=== PATIENT | male | born 1955 | race Hispanic/Latino ===

== ENCOUNTER 2018-03-31 08:40 | Day surgery (SDC) | payer BC ==
--- OUTSIDE RECORDS SUMMARY | 2018-03-31 08:43 | XMS REPORT | Clinical Summary ---
:1955 Author Organization [facility] Address [address] [place] [address] Phone Care Team Providers Name Role Phone Unavailable Primary Care Provider Unavailable Allergies No Known Allergies Current Medications Prescription Sig. Disp. Refills Start Date End Date Status heparin infusion Inject 150-3,500 100 mL 0 12/11/2016 Active 25,000 units in Units/hr intravenously dextrose 5% (D5W) 250 continuous. mL (100 units/mL) meropenem (MERREM) Inject 1 g 0 12/11/2016 Active MBP 1 gm in 100 mL NS intravenously every 8 (eight) hours. micafungin (MYCAMINE) Inject 100 mg 0 12/11/2016 Active MBP 100 mg in 100 mL intravenously daily. NS Active Problems Problem Noted Date Acute renal failure, unspecified acute renal failure type (HCC) 11/30/2016 Acute renal failure (ARF) ([facility]) 11/28/2016 Abscess of abdominal cavity ([facility]) 11/28/2016 Acute pulmonary insufficiency 11/13/2016 Intra-abdominal infection 11/13/2016 Severe sepsis ([facility]) 11/12/2016 Hyperglycemia 11/10/2016 Thrombocytopenia ([facility]) 11/10/2016 Sepsis ([facility]) 11/10/2016 GI bleed 11/07/2016 Septic shock ([facility]) 11/07/2016 Multiple organ failure with liver failure ([facility]) 11/07/2016 Diverticulitis 11/07/2016 Acute kidney injury ([facility]) 11/07/2016 Acute liver failure 11/07/2016 Metabolic acidosis with respiratory alkalosis 11/07/2016 Acute respiratory failure (HCC) 11/07/2016 Hyperbilirubinemia 11/07/2016 Lactic acid acidosis 11/07/2016 Immunizations Name Dates Previously Given Next Due Influenza Three-TIV PF 5+ YR 11/30/2016 Pneumococcal Polysaccharide (Pneumovax) 11/30/2016 Family History Medical History Relation Name Comments Diabetes Mother Relation Name Status Comments Mother Social History Tobacco Use Types Packs/Day Years Used Date Never Smoker Tobacco Cessation: Counseling Given: No Sex Assigned at Date Recorded Not on file Last Filed Vital Signs Not on file Plan of Treatment Health Maintenance Due Date Last Done Comments INFLUENZA VACCINE 07/05/2018 11/30/2016 Results Not on fileafter 03/30/2017
--- OUTSIDE RECORDS SUMMARY | 2018-03-31 08:43 | XMS REPORT | Clinical Summary ---
:1955 Author Organization [facility] Address [address] [id number] Care Team Providers Name Role Phone Danny Duong MD Primary Care Provider Allergies No Known Allergies Current Medications Prescription Sig. Disp. Refills Start Date End Date Status warfarin (COUMADIN) 2 MG Take 2 mg by mouth Active tablet daily. traMADol (ULTRAM) 50 mg Take 50 mg by mouth Active tablet every 6 (six) hours as needed for moderate pain. Active Problems Not on file Family History Medical History Relation Name Comments Diabetes Mother Hypertension Mother Relation Name Status Comments Father Alive Mother Social History Tobacco Use Types Packs/Day Years Used Date Never Smoker Sex Assigned at Date Recorded Not on file Last Filed Vital Signs Not on file Plan of Treatment Health Maintenance Due Date Last Done Comments COLON CANCER SCREENING 2005 SHINGRIX VACCINE (#1) 2005 ZOSTER VACCINE 2015 INFLUENZA VACCINE 05/05/2018 Results Not on fileafter 03/30/2017
--- OUTSIDE RECORDS SUMMARY | 2018-03-31 08:46 | XMS REPORT ---
:1955 Author Organization [facility] Address [address] [place] [address] [address] [place] [address] Care Team Providers Name Role Phone JENNIFER ALLEN Unavailable Unavailable BECCA RDZ Unavailable Unavailable Problems This patient has no known problems. Allergies, Adverse Reactions, Alerts This patient has no known allergies or adverse reactions. Medications This patient has no known medications. Results Test Description Test Time Test Comments Text Results Atomic Results Result Comments POCT-GLUCOSE METER 2016-12-11 21:17:00 Test Item Value Reference Range Comments POC-GLUCOSE METER (BEAKER) (test 126 mg/dL 70-110 TESTED AT [facility] [address] [facility] mwny=8940) [facility] [address] CLOSTRIDIUM DIFFICILE TOXIN [id number] 15:46:00 Test Item Value Reference Range Comments CLOSTRIDIUM DIFFICILE TOXIN, PCR (BEAKER) (test Not Detected Not Detected twse=6498) This qualitative real-time polymerase chain reaction assay detects the tcdB gene , encoded on the C.difficile pathogenicity locus (PaLoc). The product of tcdB, toxin B, is a cytotoxin essential for causing C.difficile-associated disease ( CDAD) and is found in virtually all toxigenic C.difficile.This assay is performed for patients suspected of having either community-acquired or nosocomial CDAD. Accordingly, only symptomatic patients should be tested and formed stools will be rejected unless ileus is present (i.e., specified when ordering). Patients may be colonized with toxigenic C.difficile strains not causing active disease; therefore, clinical correlation is needed when deciding how to manage patients with a positive test result.The assay has not been validated as a test of cure as amplifiable nucleic acid may persist after effective treatment; therefore, follow-up testing of a positive result is not recommended.[id number] 07:31:00 Test Item Value Reference Range Comments PARTIAL THROMBOPLASTIN TIME (BEAKER) (test 99.8 seconds 22.5-36.0 mimd=890) BASIC METABOLIC [id number] 01:39:00 Test Item Value Reference Range Comments SODIUM (BEAKER) (test 133 meq/L 136-145 ocgc=170) POTASSIUM (BEAKER) (test 4.0 meq/L 3.5-5.1 yfaa=379) CHLORIDE (BEAKER) (test 103 meq/L 98-107 hgdi=126) CO2 (BEAKER) (test 23 meq/L 22-29 bljb=456) BLOOD UREA NITROGEN 8 mg/dL 7-21 (BEAKER) (test mipi=899) CREATININE (BEAKER) (test 0.72 mg/dL 0.57-1.25 otby=860) GLUCOSE RANDOM (BEAKER) 108 mg/dL 70-105 (test ixxt=099) CALCIUM (BEAKER) (test 8.4 mg/dL 8.4-10.2 voka=776) EGFR (BEAKER) (test mL/min/1.73 sq m INSUFFICIENT CLINICAL DATA rvyx=7268) TO CALCULATE ESTIMATED GFR. Specimen slightly [id number] 01:36:00 Test Item Value Reference Range Comments PHOSPHORUS (BEAKER) (test tvhh=963) 2.3 mg/dL 2.3-4.7 [id number] 01:36:00 Test Item Value Reference Range Comments MAGNESIUM (BEAKER) (test pqaj=474) 2.0 mg/dL 1.6-2.6 HEPATIC FUNCTION [id number] 01:36:00 Test Item Value Reference Range Comments TOTAL PROTEIN (BEAKER) (test gmjk=241) 6.7 gm/dL 6.0-8.3 ALBUMIN (BEAKER) (test jbex=4846) 2.3 g/dL 3.5-5.0 BILIRUBIN TOTAL (BEAKER) (test gykg=382) 2.4 mg/dL 0.2-1.2 BILIRUBIN DIRECT (BEAKER) (test tsdv=116) 1.8 mg/dL 0.1-0.5 ALKALINE PHOSPHATASE (BEAKER) (test sciq=213) 260 U/L 40-150 AST (SGOT) (BEAKER) (test sqqt=162) 54 U/L 5-34 ALT (SGPT) (BEAKER) (test lpmc=390) 39 U/L 6-55 Specimen slightly [id number] 01:27:00 Test Item Value Reference Range Comments PARTIAL THROMBOPLASTIN TIME (BEAKER) (test 33.1 seconds 22.5-36.0 bvib=321) PROTHROMBIN [id number] 01:26:00 Test Item Value Reference Range Comments PROTIME (BEAKER) (test xaqs=277) 14.0 seconds 11.7-14.7 INR (BEAKER) (test pcyd=867) 1.1 <=5.9 RECOMMENDED COUMADIN/WARFARIN INR THERAPY RANGESSTANDARD DOSE: 2.0 - 3.0 Includes: PROPHYLAXIS forvenous thrombosis, systemic embolization; TREATMENT for venous thrombosis and/or pulmonary embolus.HIGH RISK: Target INR is 2.5-3.5 for patients with mechanical heart valves.CBC W/PLT COUNT & AUTO [id number] 01:18:00 Test Item Value Reference Range Comments WHITE BLOOD CELL COUNT (BEAKER) (test hoim=331) 6.9 K/ L 4.0-10.0 RED BLOOD CELL COUNT (BEAKER) (test nrgj=526) 2.40 M/ L 4.20-5.80 HEMOGLOBIN (BEAKER) (test nrmk=742) 7.8 GM/DL 13.0-16.8 HEMATOCRIT (BEAKER) (test rhya=722) 22.1 % 40.0-50.0 MEAN CORPUSCULAR VOLUME (BEAKER) (test wmil=269) 92.1 fL 82.0-98.0 MEAN CORPUSCULAR HEMOGLOBIN (BEAKER) (test 32.3 pg 27.0-33.0 ozqg=835) MEAN CORPUSCULAR HEMOGLOBIN CONC (BEAKER) (test 35.1 GM/DL 32.0-36.0 avrk=672) RED CELL DISTRIBUTION WIDTH (BEAKER) (test 18.4 % 10.3-14.2 axog=285) PLATELET COUNT (BEAKER) (test tgev=226) 375 K/CU MM 150-430 MEAN PLATELET VOLUME (BEAKER) (test ppfi=795) 6.7 fL 6.5-10.5 NUCLEATED RED BLOOD CELLS (BEAKER) (test 0 /100 WBC 0-0 rnfk=825) NEUTROPHILS RELATIVE PERCENT (BEAKER) (test 69 % xmbr=317) LYMPHOCYTES RELATIVE PERCENT (BEAKER) (test 19 % mqmw=079) MONOCYTES RELATIVE PERCENT (BEAKER) (test 9 % qfre=042) EOSINOPHILS RELATIVE PERCENT (BEAKER) (test 3 % ncjl=147) BASOPHILS RELATIVE PERCENT (BEAKER) (test 1 % gdgf=516) NEUTROPHILS ABSOLUTE COUNT (BEAKER) (test 4.71 K/ L 1.80-8.00 wrja=672) LYMPHOCYTES ABSOLUTE COUNT (BEAKER) (test 1.28 K/ L 1.48-4.50 oeqd=132) MONOCYTES ABSOLUTE COUNT (BEAKER) (test 0.58 K/ L 0.00-1.30 kxjb=280) EOSINOPHILS ABSOLUTE COUNT (BEAKER) (test 0.19 K/ L 0.00-0.50 idvh=776) BASOPHILS ABSOLUTE COUNT (BEAKER) (test 0.08 K/ L 0.00-0.20 sqst=163) [id number] 23:09:00 Test Item Value Reference Range Comments PARTIAL THROMBOPLASTIN TIME (BEAKER) (test 117.8 seconds 22.5-36.0 gcai=054) POCT-GLUCOSE [id number] 22:34:00 Test Item Value Reference Range Comments POC-GLUCOSE METER (BEAKER) 113 mg/dL 70-110 TESTED AT [address] (test ahhc=1780) [place] [address] POCT-GLUCOSE [id number] 16:10:00 Test Item Value Reference Range Comments POC-GLUCOSE METER (BEAKER) 109 mg/dL 70-110 TESTED AT [address] (test pady=7485) [place] [address] GAMMA GLUTAMYL TRANSFERASE (GGT)2016-12-10 15:48:00 Test Item Value Reference Range Comments GAMMA GLUTAMYL TRANSFERASE (BEAKER) (test akbs=923) 57 U/L 9-64 Specimen slightly [id number] 15:43:00 Test Item Value Reference Range Comments PARTIAL THROMBOPLASTIN TIME (BEAKER) (test 57.1 seconds 22.5-36.0 uyqa=110) POCT-GLUCOSE [id number] 11:20:00 Test Item Value Reference Range Comments POC-GLUCOSE METER (BEAKER) 129 mg/dL 70-110 TESTED AT [address] (test zjwq=7547) [place] [id number] BASIC METABOLIC [id number] 08:58:00 Test Item Value Reference Range Comments SODIUM (BEAKER) (test 131 meq/L 136-145 xoyc=838) POTASSIUM (BEAKER) (test 4.1 meq/L 3.5-5.1 ziyw=453) CHLORIDE (BEAKER) (test 102 meq/L 98-107 mrxx=789) CO2 (BEAKER) (test 22 meq/L 22-29 admx=736) BLOOD UREA NITROGEN 7 mg/dL 7-21 (BEAKER) (test rscg=134) CREATININE (BEAKER) (test 0.70 mg/dL 0.57-1.25 pvdz=838) GLUCOSE RANDOM (BEAKER) 102 mg/dL 70-105 (test kwav=296) CALCIUM (BEAKER) (test 8.4 mg/dL 8.4-10.2 rbmv=503) EGFR (BEAKER) (test mL/min/1.73 sq m INSUFFICIENT CLINICAL DATA vuzi=5050) TO CALCULATE ESTIMATED GFR. Specimen slightly [id number] 08:52:00 Test Item Value Reference Range Comments MAGNESIUM (BEAKER) (test wjjq=220) 1.4 mg/dL 1.6-2.6 HEPATIC FUNCTION [id number] 08:52:00 Test Item Value Reference Range Comments TOTAL PROTEIN (BEAKER) (test eqti=249) 6.9 gm/dL 6.0-8.3 ALBUMIN (BEAKER) (test csae=0795) 2.4 g/dL 3.5-5.0 BILIRUBIN TOTAL (BEAKER) (test ilbf=117) 2.8 mg/dL 0.2-1.2 BILIRUBIN DIRECT (BEAKER) (test kzas=214) 1.9 mg/dL 0.1-0.5 ALKALINE PHOSPHATASE (BEAKER) (test jexu=353) 257 U/L 40-150 AST (SGOT) (BEAKER) (test wlpx=549) 49 U/L 5-34 ALT (SGPT) (BEAKER) (test jgcc=536) 42 U/L 6-55 Specimen slightly [id number] 08:51:00 Test Item Value Reference Range Comments PHOSPHORUS (BEAKER) (test ypyp=475) 2.2 mg/dL 2.3-4.7 CBC W/PLT COUNT & AUTO [id number] 08:44:00 Test Item Value Reference Range Comments WHITE BLOOD CELL COUNT (BEAKER) (test jexs=671) 9.0 K/ L 4.0-10.0 RED BLOOD CELL COUNT (BEAKER) (test etuo=927) 2.59 M/ L 4.20-5.80 HEMOGLOBIN (BEAKER) (test uqao=115) 8.2 GM/DL 13.0-16.8 HEMATOCRIT (BEAKER) (test stoh=877) 24.3 % 40.0-50.0 MEAN CORPUSCULAR VOLUME (BEAKER) (test lpxr=600) 94.1 fL 82.0-98.0 MEAN CORPUSCULAR HEMOGLOBIN (BEAKER) (test 31.8 pg 27.0-33.0 awlo=150) MEAN CORPUSCULAR HEMOGLOBIN CONC (BEAKER) (test 33.8 GM/DL 32.0-36.0 ight=041) RED CELL DISTRIBUTION WIDTH (BEAKER) (test 17.7 % 10.3-14.2 pejq=184) PLATELET COUNT (BEAKER) (test qnvk=172) 372 K/CU MM 150-430 MEAN PLATELET VOLUME (BEAKER) (test bkdg=680) 7.2 fL 6.5-10.5 NUCLEATED RED BLOOD CELLS (BEAKER) (test 0 /100 WBC 0-0 kucz=981) NEUTROPHILS RELATIVE PERCENT (BEAKER) (test 75 % szxm=254) LYMPHOCYTES RELATIVE PERCENT (BEAKER) (test 15 % kvkz=407) MONOCYTES RELATIVE PERCENT (BEAKER) (test 7 % qusg=936) EOSINOPHILS RELATIVE PERCENT (BEAKER) (test 2 % docx=368) BASOPHILS RELATIVE PERCENT (BEAKER) (test 1 % pequ=261) NEUTROPHILS ABSOLUTE COUNT (BEAKER) (test 6.78 K/ L 1.80-8.00 toht=807) LYMPHOCYTES ABSOLUTE COUNT (BEAKER) (test 1.31 K/ L 1.48-4.50 gmyl=659) MONOCYTES ABSOLUTE COUNT (BEAKER) (test 0.64 K/ L 0.00-1.30 gfsh=553) EOSINOPHILS ABSOLUTE COUNT (BEAKER) (test 0.15 K/ L 0.00-0.50 ifvi=007) BASOPHILS ABSOLUTE COUNT (BEAKER) (test 0.10 K/ L 0.00-0.20 alec=111) (MANUAL DIFFERENTIAL)2016-12-10 08:44:00 Test Item Value Reference Range Comments TOTAL COUNTED (BEAKER) (test awff=8799) [id number] 08:20:00 Test Item Value Reference Range Comments PARTIAL THROMBOPLASTIN TIME (BEAKER) (test 68.6 seconds 22.5-36.0 toxo=410) Prior to initiating heparinPROTHROMBIN TIME/[id number] 08:18:00 Test Item Value Reference Range Comments PROTIME (BEAKER) (test slqt=230) 14.8 seconds 11.7-14.7 INR (BEAKER) (test ktlz=525) 1.2 <=5.9 RECOMMENDED COUMADIN/WARFARIN INR THERAPY RANGESSTANDARD DOSE: 2.0 - 3.0 Includes: PROPHYLAXIS forvenous thrombosis, systemic embolization; TREATMENT for venous thrombosis and/or pulmonary embolus.HIGH RISK: Target INR is 2.5-3.5 for patients with mechanical heart valves.Prior to initiating heparinPOCT- GLUCOSE [id number] 07:57:00 Test Item Value Reference Range Comments POC-GLUCOSE METER (BEAKER) 110 mg/dL 70-110 TESTED AT [address] (test wjzt=3476) [place] [address] [id number] 01:00:00 Test Item Value Reference Range Comments PARTIAL THROMBOPLASTIN TIME (BEAKER) (test 80.3 seconds 22.5-36.0 nbbv=578) POCT-GLUCOSE [id number] 20:59:00 Test Item Value Reference Range Comments POC-GLUCOSE METER (BEAKER) 122 mg/dL 70-110 TESTED AT [address] (test rtpn=5765) [place] [address] [id number] 17:42:00 Test Item Value Reference Range Comments PARTIAL THROMBOPLASTIN TIME (BEAKER) (test 47.8 seconds 22.5-36.0 cszo=290) POCT-GLUCOSE [id number] 16:03:00 Test Item Value Reference Range Comments POC-GLUCOSE METER (BEAKER) 118 mg/dL 70-110 TESTED AT [address] (test awsa=3154) [place] [id number] POCT-GLUCOSE [id number] 13:06:00 Test Item Value Reference Range Comments POC-GLUCOSE METER (BEAKER) 164 mg/dL 70-110 TESTED AT [facility] [address] [facility] (test qovo=5071) [facility] [address] POCT-GLUCOSE [id number] 11:17:00 Test Item Value Reference Range Comments POC-GLUCOSE METER (BEAKER) 188 mg/dL 70-110 TESTED AT [place] [id number] [facility] (test vgdq=4032) [facility] [address] POCT-GLUCOSE [id number] 07:09:00 Test Item Value Reference Range Comments POC-GLUCOSE METER (BEAKER) 118 mg/dL 70-110 TESTED AT [address] (test qnzd=8668) [facility] [address] BASIC METABOLIC [id number] 05:29:00 Test Item Value Reference Range Comments SODIUM (BEAKER) (test 130 meq/L 136-145 sbls=743) POTASSIUM (BEAKER) (test 4.2 meq/L 3.5-5.1 Specimen slightly jmxo=539) hemolyzed CHLORIDE (BEAKER) (test 101 meq/L 98-107 dllq=903) CO2 (BEAKER) (test 20 meq/L 22-29 ctvg=088) BLOOD UREA NITROGEN 7 mg/dL 7-21 (BEAKER) (test brmc=190) CREATININE (BEAKER) (test 0.72 mg/dL 0.57-1.25 Specimen slightly dvin=653) hemolyzed GLUCOSE RANDOM (BEAKER) 101 mg/dL 70-105 (test djvs=568) CALCIUM (BEAKER) (test 8.7 mg/dL 8.4-10.2 zygw=403) EGFR (BEAKER) (test mL/min/1.73 sq m INSUFFICIENT CLINICAL DATA ccfr=8490) TO CALCULATE ESTIMATED GFR. Specimen slightly [id number] 05:28:00 Test Item Value Reference Range Comments MAGNESIUM (BEAKER) (test 1.5 mg/dL 1.6-2.6 Specimen slightly hemolyzed ffkq=174) [id number] 05:28:00 Test Item Value Reference Range Comments PHOSPHORUS (BEAKER) (test 2.5 mg/dL 2.3-4.7 Specimen slightly hemolyzed gviy=089) HEPATIC FUNCTION [id number] 05:28:00 Test Item Value Reference Range Comments TOTAL PROTEIN (BEAKER) (test 7.0 gm/dL 6.0-8.3 Specimen slightly hemolyzed pbec=741) ALBUMIN (BEAKER) (test 2.4 g/dL 3.5-5.0 Specimen slightly hemolyzed dqzk=8537) BILIRUBIN TOTAL (BEAKER) (test 3.0 mg/dL 0.2-1.2 Specimen slightly hemolyzed jbzk=651) BILIRUBIN DIRECT (BEAKER) (test 1.9 mg/dL 0.1-0.5 Specimen slightly hemolyzed jpgv=030) ALKALINE PHOSPHATASE (BEAKER) 272 U/L 40-150 (test yyko=509) AST (SGOT) (BEAKER) (test 61 U/L 5-34 Specimen slightly hemolyzed fmzn=666) ALT (SGPT) (BEAKER) (test 54 U/L 6-55 Specimen slightly hemolyzed xpcw=031) Specimen slightly ictericCBC W/PLT COUNT & AUTO [id number] 05:22 :00 Test Item Value Reference Range Comments WHITE BLOOD CELL COUNT (BEAKER) (test pdmv=758) 10.7 K/ L 4.0-10.0 RED BLOOD CELL COUNT (BEAKER) (test gerw=837) 2.71 M/ L 4.20-5.80 HEMOGLOBIN (BEAKER) (test haic=190) 8.6 GM/DL 13.0-16.8 HEMATOCRIT (BEAKER) (test msjd=188) 25.6 % 40.0-50.0 MEAN CORPUSCULAR VOLUME (BEAKER) (test dxgi=456) 94.5 fL 82.0-98.0 MEAN CORPUSCULAR HEMOGLOBIN (BEAKER) (test 31.8 pg 27.0-33.0 cykg=262) MEAN CORPUSCULAR HEMOGLOBIN CONC (BEAKER) (test 33.7 GM/DL 32.0-36.0 nwcw=748) RED CELL DISTRIBUTION WIDTH (BEAKER) (test 18.5 % 10.3-14.2 jjpf=375) PLATELET COUNT (BEAKER) (test wnnp=143) 349 K/CU MM 150-430 MEAN PLATELET VOLUME (BEAKER) (test rvmw=763) 7.4 fL 6.5-10.5 NUCLEATED RED BLOOD CELLS (BEAKER) (test 0 /100 WBC 0-0 sruk=442) NEUTROPHILS RELATIVE PERCENT (BEAKER) (test 81 % lveb=681) LYMPHOCYTES RELATIVE PERCENT (BEAKER) (test 11 % xgjk=281) MONOCYTES RELATIVE PERCENT (BEAKER) (test 5 % nqsh=011) EOSINOPHILS RELATIVE PERCENT (BEAKER) (test 1 % hfbd=782) BASOPHILS RELATIVE PERCENT (BEAKER) (test 1 % ihkc=478) NEUTROPHILS ABSOLUTE COUNT (BEAKER) (test 8.61 K/ L 1.80-8.00 sedr=764) LYMPHOCYTES ABSOLUTE COUNT (BEAKER) (test 1.21 K/ L 1.48-4.50 zqwf=403) MONOCYTES ABSOLUTE COUNT (BEAKER) (test 0.58 K/ L 0.00-1.30 qtsn=225) EOSINOPHILS ABSOLUTE COUNT (BEAKER) (test 0.15 K/ L 0.00-0.50 gwta=427) BASOPHILS ABSOLUTE COUNT (BEAKER) (test 0.10 K/ L 0.00-0.20 plbs=784) 0.00PROTHROMBIN [id number] 05:11:00 Test Item Value Reference Range Comments PROTIME (BEAKER) (test gwnm=786) 14.6 seconds 11.7-14.7 INR (BEAKER) (test bzdw=711) 1.2 <=5.9 RECOMMENDED COUMADIN/WARFARIN INR THERAPY RANGESSTANDARD DOSE: 2.0 - 3.0 Includes: PROPHYLAXIS forvenous thrombosis, systemic embolization; TREATMENT for venous thrombosis and/or pulmonary embolus.HIGH RISK: Target INR is 2.5-3.5 for patients with mechanical heart valves.POCT-GLUCOSE [id number] 21:36:00 Test Item Value Reference Range Comments POC-GLUCOSE METER (BEAKER) 105 mg/dL 70-110 TESTED AT [address] (test soat=7257) [facility] [address] POCT-GLUCOSE [id number] 18:29:00 Test Item Value Reference Range Comments POC-GLUCOSE METER (BEAKER) 116 mg/dL 70-110 TESTED AT [place] [id number] [facility] (test ospj=7721) [facility] [address] POCT-GLUCOSE [id number] 11:58:00 Test Item Value Reference Range Comments POC-GLUCOSE METER (BEAKER) 200 mg/dL 70-110 TESTED AT [facility] [address] [facility] (test ojab=3331) [facility] [address] POCT-GLUCOSE [id number] 07:28:00 Test Item Value Reference Range Comments POC-GLUCOSE METER (BEAKER) 116 mg/dL 70-110 TESTED AT [place] [id number] [facility] (test pvpz=9760) [facility] [address] CBC W/PLT COUNT & AUTO [id number] 06:28:00 Test Item Value Reference Range Comments WHITE BLOOD CELL COUNT (BEAKER) (test yezh=901) 9.5 K/ L 4.0-10.0 RED BLOOD CELL COUNT (BEAKER) (test zfkp=948) 2.63 M/ L 4.20-5.80 HEMOGLOBIN (BEAKER) (test kgoq=513) 8.3 GM/DL 13.0-16.8 HEMATOCRIT (BEAKER) (test dgzw=692) 24.9 % 40.0-50.0 MEAN CORPUSCULAR VOLUME (BEAKER) (test lqmt=887) 94.6 fL 82.0-98.0 MEAN CORPUSCULAR HEMOGLOBIN (BEAKER) (test 31.6 pg 27.0-33.0 ocqm=041) MEAN CORPUSCULAR HEMOGLOBIN CONC (BEAKER) (test 33.4 GM/DL 32.0-36.0 gmck=820) RED CELL DISTRIBUTION WIDTH (BEAKER) (test 18.6 % 10.3-14.2 njdd=885) PLATELET COUNT (BEAKER) (test jtbf=698) 266 K/CU MM 150-430 MEAN PLATELET VOLUME (BEAKER) (test nqmc=129) 7.6 fL 6.5-10.5 NUCLEATED RED BLOOD CELLS (BEAKER) (test 0 /100 WBC 0-0 llmu=373) NEUTROPHILS RELATIVE PERCENT (BEAKER) (test 82 % gurv=465) LYMPHOCYTES RELATIVE PERCENT (BEAKER) (test 10 % tcoy=175) MONOCYTES RELATIVE PERCENT (BEAKER) (test 5 % vcbc=032) EOSINOPHILS RELATIVE PERCENT (BEAKER) (test 2 % rrbj=056) BASOPHILS RELATIVE PERCENT (BEAKER) (test 1 % rrhz=453) NEUTROPHILS ABSOLUTE COUNT (BEAKER) (test 7.75 K/ L 1.80-8.00 stiz=676) LYMPHOCYTES ABSOLUTE COUNT (BEAKER) (test 0.98 K/ L 1.48-4.50 rlnw=329) MONOCYTES ABSOLUTE COUNT (BEAKER) (test 0.50 K/ L 0.00-1.30 towd=859) EOSINOPHILS ABSOLUTE COUNT (BEAKER) (test 0.16 K/ L 0.00-0.50 zlth=858) BASOPHILS ABSOLUTE COUNT (BEAKER) (test 0.06 K/ L 0.00-0.20 oomk=776) 0.00BASIC METABOLIC [id number] 06:09:00 Test Item Value Reference Range Comments SODIUM (BEAKER) (test 131 meq/L 136-145 heei=049) POTASSIUM (BEAKER) (test 4.4 meq/L 3.5-5.1 Specimen slightly knok=815) hemolyzed CHLORIDE (BEAKER) (test 102 meq/L 98-107 vmxw=580) CO2 (BEAKER) (test 22 meq/L 22-29 jmks=910) BLOOD UREA NITROGEN 5 mg/dL 7-21 (BEAKER) (test hcju=114) CREATININE (BEAKER) (test 0.62 mg/dL 0.57-1.25 Specimen slightly tvhe=517) hemolyzed GLUCOSE RANDOM (BEAKER) 95 mg/dL 70-105 (test hukb=984) CALCIUM (BEAKER) (test 8.5 mg/dL 8.4-10.2 wwdr=005) EGFR (BEAKER) (test mL/min/1.73 sq m INSUFFICIENT CLINICAL DATA mlfg=3873) TO CALCULATE ESTIMATED GFR. Specimen slightly [id number] 06:02:00 Test Item Value Reference Range Comments MAGNESIUM (BEAKER) (test 1.1 mg/dL 1.6-2.6 Specimen slightly hemolyzed zjkf=115) [id number] 06:02:00 Test Item Value Reference Range Comments PHOSPHORUS (BEAKER) (test 2.3 mg/dL 2.3-4.7 Specimen slightly hemolyzed wnmm=016) HEPATIC FUNCTION [id number] 06:02:00 Test Item Value Reference Range Comments TOTAL PROTEIN (BEAKER) (test 6.5 gm/dL 6.0-8.3 Specimen slightly hemolyzed htao=772) ALBUMIN (BEAKER) (test 2.2 g/dL 3.5-5.0 Specimen slightly hemolyzed mmrm=9815) BILIRUBIN TOTAL (BEAKER) (test 3.2 mg/dL 0.2-1.2 Specimen slightly hemolyzed vdqv=860) BILIRUBIN DIRECT (BEAKER) (test 1.9 mg/dL 0.1-0.5 Specimen slightly hemolyzed vyyd=522) ALKALINE PHOSPHATASE (BEAKER) 252 U/L 40-150 (test tbrp=678) AST (SGOT) (BEAKER) (test 64 U/L 5-34 Specimen slightly hemolyzed vnvn=349) ALT (SGPT) (BEAKER) (test 57 U/L 6-55 Specimen slightly hemolyzed mrst=143) Specimen slightly ictericPROTHROMBIN TIME/[id number] 05:30:00 Test Item Value Reference Range Comments PROTIME (BEAKER) (test iwdq=372) 14.7 seconds 11.7-14.7 INR (BEAKER) (test rsvg=388) 1.2 <=5.9 RECOMMENDED COUMADIN/WARFARIN INR THERAPY RANGESSTANDARD DOSE: 2.0 - 3.0 Includes: PROPHYLAXIS forvenous thrombosis, systemic embolization; TREATMENT for venous thrombosis and/or pulmonary embolus.HIGH RISK: Target INR is 2.5-3.5 for patients with mechanical heart valves.POCT-GLUCOSE [id number] 20:46:00 Test Item Value Reference Range Comments POC-GLUCOSE METER (BEAKER) 122 mg/dL 70-110 TESTED AT [address] (test ouex=6733) [place] [address] POCT-GLUCOSE [id number] 18:04:00 Test Item Value Reference Range Comments POC-GLUCOSE METER (BEAKER) 85 mg/dL 70-110 TESTED AT [address] (test knvj=1920) [place] [address] POCT-GLUCOSE [id number] 12:30:00 Test Item Value Reference Range Comments POC-GLUCOSE METER (BEAKER) 96 mg/dL 70-110 TESTED AT [address] (test etrx=5701) [place] [address] CBC W/PLT COUNT & AUTO [id number] 07:33:00 Test Item Value Reference Range Comments WHITE BLOOD CELL COUNT (BEAKER) (test elux=392) 11.4 K/ L 4.0-10.0 RED BLOOD CELL COUNT (BEAKER) (test outl=098) 2.77 M/ L 4.20-5.80 HEMOGLOBIN (BEAKER) (test dgck=023) 8.8 GM/DL 13.0-16.8 HEMATOCRIT (BEAKER) (test xnav=830) 25.6 % 40.0-50.0 MEAN CORPUSCULAR VOLUME (BEAKER) (test ncfl=186) 92.3 fL 82.0-98.0 MEAN CORPUSCULAR HEMOGLOBIN (BEAKER) (test 31.6 pg 27.0-33.0 ruxe=696) MEAN CORPUSCULAR HEMOGLOBIN CONC (BEAKER) (test 34.2 GM/DL 32.0-36.0 aoah=491) RED CELL DISTRIBUTION WIDTH (BEAKER) (test 18.8 % 10.3-14.2 wvuw=190) PLATELET COUNT (BEAKER) (test rgza=147) 203 K/CU MM 150-430 MEAN PLATELET VOLUME (BEAKER) (test ukys=583) 7.5 fL 6.5-10.5 NUCLEATED RED BLOOD CELLS (BEAKER) (test 0 /100 WBC 0-0 pjex=020) NEUTROPHILS RELATIVE PERCENT (BEAKER) (test 84 % rgxa=306) LYMPHOCYTES RELATIVE PERCENT (BEAKER) (test 10 % mtau=616) MONOCYTES RELATIVE PERCENT (BEAKER) (test 4 % jfuy=598) EOSINOPHILS RELATIVE PERCENT (BEAKER) (test 2 % gbxh=855) BASOPHILS RELATIVE PERCENT (BEAKER) (test 0 % nvkf=135) NEUTROPHILS ABSOLUTE COUNT (BEAKER) (test 9.55 K/ L 1.80-8.00 kpqa=296) LYMPHOCYTES ABSOLUTE COUNT (BEAKER) (test 1.10 K/ L 1.48-4.50 nocc=928) MONOCYTES ABSOLUTE COUNT (BEAKER) (test 0.50 K/ L 0.00-1.30 xlxa=216) EOSINOPHILS ABSOLUTE COUNT (BEAKER) (test 0.20 K/ L 0.00-0.50 ixei=351) BASOPHILS ABSOLUTE COUNT (BEAKER) (test 0.00 K/ L 0.00-0.20 oikh=352) 0.00BASIC METABOLIC [id number] 07:28:00 Test Item Value Reference Range Comments SODIUM (BEAKER) (test 131 meq/L 136-145 czvx=578) POTASSIUM (BEAKER) (test 4.0 meq/L 3.5-5.1 ixva=090) CHLORIDE (BEAKER) (test 103 meq/L 98-107 udte=719) CO2 (BEAKER) (test 21 meq/L 22-29 mxht=509) BLOOD UREA NITROGEN 5 mg/dL 7-21 (BEAKER) (test wowd=323) CREATININE (BEAKER) (test 0.65 mg/dL 0.57-1.25 vcbe=132) GLUCOSE RANDOM (BEAKER) 100 mg/dL 70-105 (test ddlq=981) CALCIUM (BEAKER) (test 8.4 mg/dL 8.4-10.2 hhfs=053) EGFR (BEAKER) (test mL/min/1.73 sq m INSUFFICIENT CLINICAL DATA vzwk=3850) TO CALCULATE ESTIMATED GFR. Specimen slightly [id number] 07:26:00 Test Item Value Reference Range Comments PHOSPHORUS (BEAKER) (test mutd=801) 2.3 mg/dL 2.3-4.7 [id number] 07:26:00 Test Item Value Reference Range Comments MAGNESIUM (BEAKER) (test heuf=535) 1.1 mg/dL 1.6-2.6 HEPATIC FUNCTION [id number] 07:26:00 Test Item Value Reference Range Comments TOTAL PROTEIN (BEAKER) (test pnes=877) 6.6 gm/dL 6.0-8.3 ALBUMIN (BEAKER) (test uotk=0045) 2.2 g/dL 3.5-5.0 BILIRUBIN TOTAL (BEAKER) (test zkth=675) 3.7 mg/dL 0.2-1.2 BILIRUBIN DIRECT (BEAKER) (test cpne=875) 2.5 mg/dL 0.1-0.5 ALKALINE PHOSPHATASE (BEAKER) (test wndm=677) 264 U/L 40-150 AST (SGOT) (BEAKER) (test bqto=551) 48 U/L 5-34 ALT (SGPT) (BEAKER) (test yuow=277) 65 U/L 6-55 Specimen slightly ictericPROTHROMBIN [id number] 07:00:00 Test Item Value Reference Range Comments PROTIME (BEAKER) (test mrhw=664) 15.5 seconds 11.7-14.7 INR (BEAKER) (test inru=929) 1.2 <=5.9 RECOMMENDED COUMADIN/WARFARIN INR THERAPY RANGESSTANDARD DOSE: 2.0 - 3.0 Includes: PROPHYLAXIS forvenous thrombosis, systemic embolization; TREATMENT for venous thrombosis and/or pulmonary embolus.HIGH RISK: Target INR is 2.5-3.5 for patients with mechanical heart valves.POCT-GLUCOSE [id number] 06:49:00 Test Item Value Reference Range Comments POC-GLUCOSE METER (BEAKER) 107 mg/dL 70-110 TESTED AT [address] (test tqjf=9184) [place] [address] BODY FLUID CULTURE + GRAM [id number] 00:54:00 Test Item Value Reference Range Comments CULTURE (BEAKER) (test ftah=3103) No growth GRAM STAIN RESULT (BEAKER) (test <1+ WBCs ylqv=7201) GRAM STAIN RESULT (BEAKER) (test No organisms seen egyj=11220) POCT-GLUCOSE [id number] 22:24:00 Test Item Value Reference Range Comments POC-GLUCOSE METER (BEAKER) 82 mg/dL 70-110 TESTED AT [address] (test cwdq=7277) [place] [address] POCT-GLUCOSE [id number] 18:05:00 Test Item Value Reference Range Comments POC-GLUCOSE METER (BEAKER) 256 mg/dL 70-110 TESTED AT [address] (test hwxo=3158) [place] [address] POCT-GLUCOSE [id number] 11:11:00 Test Item Value Reference Range Comments POC-GLUCOSE METER (BEAKER) 106 mg/dL 70-110 TESTED AT [address] (test noto=3964) [place] [address] POCT-GLUCOSE [id number] 08:12:00 Test Item Value Reference Range Comments POC-GLUCOSE METER (BEAKER) 108 mg/dL 70-110 TESTED AT [address] (test dlaj=8822) [place] [address] CBC W/PLT COUNT & AUTO [id number] 06:49:00 Test Item Value Reference Range Comments WHITE BLOOD CELL COUNT (BEAKER) (test vetq=595) 12.6 K/ L 4.0-10.0 RED BLOOD CELL COUNT (BEAKER) (test stpn=742) 2.57 M/ L 4.20-5.80 HEMOGLOBIN (BEAKER) (test zuxa=616) 8.4 GM/DL 13.0-16.8 HEMATOCRIT (BEAKER) (test jpco=762) 24.3 % 40.0-50.0 MEAN CORPUSCULAR VOLUME (BEAKER) (test xvjs=315) 94.5 fL 82.0-98.0 MEAN CORPUSCULAR HEMOGLOBIN (BEAKER) (test 32.5 pg 27.0-33.0 xxjy=535) MEAN CORPUSCULAR HEMOGLOBIN CONC (BEAKER) (test 34.4 GM/DL 32.0-36.0 svtg=397) RED CELL DISTRIBUTION WIDTH (BEAKER) (test 19.5 % 10.3-14.2 pudx=990) PLATELET COUNT (BEAKER) (test htnd=319) 205 K/CU MM 150-430 MEAN PLATELET VOLUME (BEAKER) (test ayuu=230) 8.9 fL 6.5-10.5 NUCLEATED RED BLOOD CELLS (BEAKER) (test 0 /100 WBC 0-0 txuf=016) NEUTROPHILS RELATIVE PERCENT (BEAKER) (test 85 % sfkq=109) LYMPHOCYTES RELATIVE PERCENT (BEAKER) (test 9 % szby=886) MONOCYTES RELATIVE PERCENT (BEAKER) (test 4 % icib=807) EOSINOPHILS RELATIVE PERCENT (BEAKER) (test 1 % reti=468) BASOPHILS RELATIVE PERCENT (BEAKER) (test 1 % aljx=041) NEUTROPHILS ABSOLUTE COUNT (BEAKER) (test 10.60 K/ L 1.80-8.00 iyew=771) LYMPHOCYTES ABSOLUTE COUNT (BEAKER) (test 1.16 K/ L 1.48-4.50 jjfr=453) MONOCYTES ABSOLUTE COUNT (BEAKER) (test 0.52 K/ L 0.00-1.30 gajp=697) EOSINOPHILS ABSOLUTE COUNT (BEAKER) (test 0.17 K/ L 0.00-0.50 jafs=642) BASOPHILS ABSOLUTE COUNT (BEAKER) (test 0.08 K/ L 0.00-0.20 plvw=581) [id number] 06:36:00 Test Item Value Reference Range Comments MAGNESIUM (BEAKER) (test 2.0 mg/dL 1.6-2.6 Specimen moderately hemolyzed hkml=767) [id number] 06:36:00 Test Item Value Reference Range Comments PHOSPHORUS (BEAKER) (test 2.6 mg/dL 2.3-4.7 Specimen moderately hemolyzed xrqa=376) HEPATIC FUNCTION [id number] 06:36:00 Test Item Value Reference Range Comments TOTAL PROTEIN (BEAKER) (test 6.4 gm/dL 6.0-8.3 Specimen moderately hemolyzed zdnf=854) ALBUMIN (BEAKER) (test 2.1 g/dL 3.5-5.0 Specimen moderately hemolyzed nlyf=9679) BILIRUBIN TOTAL (BEAKER) (test 3.5 mg/dL 0.2-1.2 Specimen moderately hemolyzed oqdj=660) BILIRUBIN DIRECT (BEAKER) 1.7 mg/dL 0.1-0.5 Specimen moderately hemolyzed (test otem=066) ALKALINE PHOSPHATASE (BEAKER) 281 U/L 40-150 (test kafz=156) AST (SGOT) (BEAKER) (test 70 U/L 5-34 Specimen moderately hemolyzed hjas=096) ALT (SGPT) (BEAKER) (test 84 U/L 6-55 Specimen moderately zuyi=538) hemolyzed Specimen slightly ictericBASIC METABOLIC [id number] 06:36:00 Test Item Value Reference Range Comments SODIUM (BEAKER) (test 133 meq/L 136-145 bkyw=774) POTASSIUM (BEAKER) (test 4.1 meq/L 3.5-5.1 Specimen moderately yceq=716) hemolyzed CHLORIDE (BEAKER) (test 103 meq/L 98-107 kdrv=222) CO2 (BEAKER) (test 22 meq/L 22-29 kwpg=030) BLOOD UREA NITROGEN 6 mg/dL 7-21 (BEAKER) (test hhja=487) CREATININE (BEAKER) (test 0.68 mg/dL 0.57-1.25 Specimen moderately ilto=425) hemolyzed GLUCOSE RANDOM (BEAKER) 96 mg/dL 70-105 (test mfjv=875) CALCIUM (BEAKER) (test 8.0 mg/dL 8.4-10.2 dzjj=070) EGFR (BEAKER) (test mL/min/1.73 sq m INSUFFICIENT CLINICAL DATA mcaa=0789) TO CALCULATE ESTIMATED GFR. Specimen slightly ictericPROTHROMBIN [id number] 05:53:00 Test Item Value Reference Range Comments PROTIME (BEAKER) (test vxzg=503) 14.8 seconds 11.7-14.7 INR (BEAKER) (test gawq=922) 1.2 <=5.9 RECOMMENDED COUMADIN/WARFARIN INR THERAPY RANGESSTANDARD DOSE: 2.0 - 3.0 Includes: PROPHYLAXIS forvenous thrombosis, systemic embolization; TREATMENT for venous thrombosis and/or pulmonary embolus.HIGH RISK: Target INR is 2.5-3.5 for patients with mechanical heart valves.POCT-GLUCOSE [id number] 21:06:00 Test Item Value Reference Range Comments POC-GLUCOSE METER (BEAKER) 128 mg/dL 70-110 TESTED AT [address] (test whio=0716) [place] [address] POCT-GLUCOSE [id number] 17:16:00 Test Item Value Reference Range Comments POC-GLUCOSE METER (BEAKER) 129 mg/dL 70-110 TESTED AT [address] (test plgl=9257) [place] [id number] POCT-GLUCOSE [id number] 11:30:00 Test Item Value Reference Range Comments POC-GLUCOSE METER (BEAKER) 172 mg/dL 70-110 TESTED AT [address] (test lkgk=5082) [place] [id number] CBC W/PLT COUNT & AUTO [id number] 09:55:00 Test Item Value Reference Range Comments WHITE BLOOD CELL COUNT (BEAKER) (test tklh=770) 11.7 K/ L 4.0-10.0 RED BLOOD CELL COUNT (BEAKER) (test qpak=710) 2.62 M/ L 4.20-5.80 HEMOGLOBIN (BEAKER) (test vzem=035) 8.2 GM/DL 13.0-16.8 HEMATOCRIT (BEAKER) (test ospc=645) 24.0 % 40.0-50.0 MEAN CORPUSCULAR VOLUME (BEAKER) (test hadm=760) 91.6 fL 82.0-98.0 MEAN CORPUSCULAR HEMOGLOBIN (BEAKER) (test 31.3 pg 27.0-33.0 bvuq=644) MEAN CORPUSCULAR HEMOGLOBIN CONC (BEAKER) (test 34.2 GM/DL 32.0-36.0 rptt=458) RED CELL DISTRIBUTION WIDTH (BEAKER) (test 19.7 % 10.3-14.2 tpna=858) PLATELET COUNT (BEAKER) (test oksw=160) 177 K/CU MM 150-430 MEAN PLATELET VOLUME (BEAKER) (test irfw=264) 8.1 fL 6.5-10.5 NUCLEATED RED BLOOD CELLS (BEAKER) (test 0 /100 WBC 0-0 xhuh=021) NEUTROPHILS RELATIVE PERCENT (BEAKER) (test 82 % nzua=883) LYMPHOCYTES RELATIVE PERCENT (BEAKER) (test 10 % bsun=432) MONOCYTES RELATIVE PERCENT (BEAKER) (test 5 % qyqr=669) EOSINOPHILS RELATIVE PERCENT (BEAKER) (test 2 % tgew=251) BASOPHILS RELATIVE PERCENT (BEAKER) (test 1 % rpky=173) NEUTROPHILS ABSOLUTE COUNT (BEAKER) (test 9.60 K/ L 1.80-8.00 kevo=216) LYMPHOCYTES ABSOLUTE COUNT (BEAKER) (test 1.22 K/ L 1.48-4.50 izan=034) MONOCYTES ABSOLUTE COUNT (BEAKER) (test 0.60 K/ L 0.00-1.30 fdaj=004) EOSINOPHILS ABSOLUTE COUNT (BEAKER) (test 0.26 K/ L 0.00-0.50 ebfp=056) BASOPHILS ABSOLUTE COUNT (BEAKER) (test 0.06 K/ L 0.00-0.20 whiv=817) 0.000.770.000.000.000.00(MANUAL DIFFERENTIAL)2016-12-05 09:55:00 Test Item Value Reference Range Comments TOTAL COUNTED (BEAKER) (test gyjf=4159) WBC MORPHOLOGY (BEAKER) (test afsm=437) Normal PLT MORPHOLOGY (BEAKER) (test sici=469) Normal RBC MORPHOLOGY (BEAKER) (test axcx=094) Normal POCT-GLUCOSE [id number] 08:49:00 Test Item Value Reference Range Comments POC-GLUCOSE METER (BEAKER) 101 mg/dL 70-110 TESTED AT [facility] [address] [facility] (test hbfu=7097) [facility] [address] BASIC METABOLIC [id number] 06:12:00 Test Item Value Reference Range Comments SODIUM (BEAKER) (test 135 meq/L 136-145 xghb=229) POTASSIUM (BEAKER) (test 3.2 meq/L 3.5-5.1 qocu=586) CHLORIDE (BEAKER) (test 103 meq/L 98-107 ppur=277) CO2 (BEAKER) (test 25 meq/L 22-29 jnnt=922) BLOOD UREA NITROGEN 8 mg/dL 7-21 (BEAKER) (test nwuz=016) CREATININE (BEAKER) (test 0.67 mg/dL 0.57-1.25 zruq=236) GLUCOSE RANDOM (BEAKER) 96 mg/dL 70-105 (test jsqc=612) CALCIUM (BEAKER) (test 7.6 mg/dL 8.4-10.2 wgns=901) EGFR (BEAKER) (test mL/min/1.73 sq m INSUFFICIENT CLINICAL DATA nqur=2229) TO CALCULATE ESTIMATED GFR. Specimen slightly [id number] 06:11:00 Test Item Value Reference Range Comments PHOSPHORUS (BEAKER) (test wnzq=099) 2.7 mg/dL 2.3-4.7 [id number] 06:11:00 Test Item Value Reference Range Comments MAGNESIUM (BEAKER) (test nqob=508) 1.4 mg/dL 1.6-2.6 HEPATIC FUNCTION [id number] 06:11:00 Test Item Value Reference Range Comments TOTAL PROTEIN (BEAKER) (test xslm=866) 5.7 gm/dL 6.0-8.3 ALBUMIN (BEAKER) (test ezuk=9104) 2.0 g/dL 3.5-5.0 BILIRUBIN TOTAL (BEAKER) (test cssv=324) 4.0 mg/dL 0.2-1.2 BILIRUBIN DIRECT (BEAKER) (test thzk=340) 2.7 mg/dL 0.1-0.5 ALKALINE PHOSPHATASE (BEAKER) (test yyyc=118) 293 U/L 40-150 AST (SGOT) (BEAKER) (test sbbi=316) 52 U/L 5-34 ALT (SGPT) (BEAKER) (test vysg=841) 93 U/L 6-55 Specimen slightly [id number] 05:57:00 Test Item Value Reference Range Comments PARTIAL THROMBOPLASTIN TIME (BEAKER) (test 31.8 seconds 22.5-36.0 qwjk=741) PROTHROMBIN [id number] 05:56:00 Test Item Value Reference Range Comments PROTIME (BEAKER) (test vsrq=791) 14.5 seconds 11.7-14.7 INR (BEAKER) (test nggq=510) 1.1 <=5.9 RECOMMENDED COUMADIN/WARFARIN INR THERAPY RANGESSTANDARD DOSE: 2.0 - 3.0 Includes: PROPHYLAXIS forvenous thrombosis, systemic embolization; TREATMENT for venous thrombosis and/or pulmonary embolus.HIGH RISK: Target INR is 2.5-3.5 for patients with mechanical heart valves.POCT-GLUCOSE [id number] 21:13:00 Test Item Value Reference Range Comments POC-GLUCOSE METER (BEAKER) 119 mg/dL 70-110 TESTED AT [address] (test pgba=8902) [place] [address] [id number] 18:45:00 Test Item Value Reference Range Comments PARTIAL THROMBOPLASTIN TIME (BEAKER) (test 33.4 seconds 22.5-36.0 usgv=604) Prior to initiating heparinPOCT-GLUCOSE [id number] 18:02:00 Test Item Value Reference Range Comments POC-GLUCOSE METER (BEAKER) 162 mg/dL 70-110 TESTED AT [address] (test qcfl=2790) [place] [address] HERPES VIRUS ANTIBODY, [id number] 17:40:00 Test Item Value Reference Range Comments HERPES VIRUS IGM (BEAKER) Negative HSV IgM TYPE 1=NEGATIVEHSV IgM (test ynfw=7570) TYPE 2=NEGATIVESEE ATTACHMENT POCT-GLUCOSE [id number] 11:31:00 Test Item Value Reference Range Comments POC-GLUCOSE METER (BEAKER) 174 mg/dL 70-110 TESTED AT [address] (test dqxk=8264) [place] [address] CBC W/PLT COUNT & AUTO [id number] 10:01:00 Test Item Value Reference Range Comments WHITE BLOOD CELL COUNT (BEAKER) (test jlnd=184) 12.3 K/ L 4.0-10.0 RED BLOOD CELL COUNT (BEAKER) (test xmec=564) 3.09 M/ L 4.20-5.80 HEMOGLOBIN (BEAKER) (test gfhy=659) 9.6 GM/DL 13.0-16.8 HEMATOCRIT (BEAKER) (test nkgt=404) 28.6 % 40.0-50.0 MEAN CORPUSCULAR VOLUME (BEAKER) (test jpal=152) 92.6 fL 82.0-98.0 MEAN CORPUSCULAR HEMOGLOBIN (BEAKER) (test 31.0 pg 27.0-33.0 owws=062) MEAN CORPUSCULAR HEMOGLOBIN CONC (BEAKER) (test 33.5 GM/DL 32.0-36.0 ydaa=438) RED CELL DISTRIBUTION WIDTH (BEAKER) (test 19.9 % 10.3-14.2 juzt=897) PLATELET COUNT (BEAKER) (test xxlh=119) 163 K/CU MM 150-430 MEAN PLATELET VOLUME (BEAKER) (test pmnu=149) 8.1 fL 6.5-10.5 NUCLEATED RED BLOOD CELLS (BEAKER) (test 0 /100 WBC 0-0 hleo=823) NEUTROPHILS RELATIVE PERCENT (BEAKER) (test 86 % gplj=477) LYMPHOCYTES RELATIVE PERCENT (BEAKER) (test 10 % vdda=620) MONOCYTES RELATIVE PERCENT (BEAKER) (test 3 % stym=364) EOSINOPHILS RELATIVE PERCENT (BEAKER) (test 1 % otts=539) BASOPHILS RELATIVE PERCENT (BEAKER) (test 0 % vlqv=729) NEUTROPHILS ABSOLUTE COUNT (BEAKER) (test 10.60 K/ L 1.80-8.00 gfbr=587) LYMPHOCYTES ABSOLUTE COUNT (BEAKER) (test 1.23 K/ L 1.48-4.50 kuyy=020) MONOCYTES ABSOLUTE COUNT (BEAKER) (test 0.32 K/ L 0.00-1.30 irpd=604) EOSINOPHILS ABSOLUTE COUNT (BEAKER) (test 0.17 K/ L 0.00-0.50 nfzb=106) BASOPHILS ABSOLUTE COUNT (BEAKER) (test 0.06 K/ L 0.00-0.20 zqcj=480) 0.000.520.590.000.810.000.000.000.00(MANUAL DIFFERENTIAL)2016-12-04 10:01:00 Test Item Value Reference Range Comments TOTAL COUNTED (BEAKER) (test tixg=5513) WBC MORPHOLOGY (BEAKER) (test txhk=365) Normal PLT MORPHOLOGY (BEAKER) (test xomh=495) Normal RBC MORPHOLOGY (BEAKER) (test zrct=575) Normal POCT-GLUCOSE [id number] 07:47:00 Test Item Value Reference Range Comments POC-GLUCOSE METER (BEAKER) 112 mg/dL 70-110 TESTED AT [facility] [address] [facility] (test mcen=7008) [facility] [address] BASIC METABOLIC [id number] 05:07:00 Test Item Value Reference Range Comments SODIUM (BEAKER) (test 135 meq/L 136-145 sqst=889) POTASSIUM (BEAKER) (test 4.4 meq/L 3.5-5.1 sohu=737) CHLORIDE (BEAKER) (test 102 meq/L 98-107 mjms=535) CO2 (BEAKER) (test 25 meq/L 22-29 lcvm=657) BLOOD UREA NITROGEN 10 mg/dL 7-21 (BEAKER) (test qvxu=836) CREATININE (BEAKER) (test 0.69 mg/dL 0.57-1.25 hflc=186) GLUCOSE RANDOM (BEAKER) 103 mg/dL 70-105 (test tutb=367) CALCIUM (BEAKER) (test 8.3 mg/dL 8.4-10.2 xshd=659) EGFR (BEAKER) (test mL/min/1.73 sq m INSUFFICIENT CLINICAL DATA efae=4404) TO CALCULATE ESTIMATED GFR. Specimen slightly [id number] 05:04:00 Test Item Value Reference Range Comments PHOSPHORUS (BEAKER) (test vtdj=107) 2.8 mg/dL 2.3-4.7 [id number] 05:04:00 Test Item Value Reference Range Comments MAGNESIUM (BEAKER) (test hcsq=736) 1.5 mg/dL 1.6-2.6 HEPATIC FUNCTION [id number] 05:04:00 Test Item Value Reference Range Comments TOTAL PROTEIN (BEAKER) (test xcca=632) 6.3 gm/dL 6.0-8.3 ALBUMIN (BEAKER) (test fzqk=9805) 2.3 g/dL 3.5-5.0 BILIRUBIN TOTAL (BEAKER) (test rfmi=714) 4.8 mg/dL 0.2-1.2 BILIRUBIN DIRECT (BEAKER) (test ubfy=752) 3.3 mg/dL 0.1-0.5 ALKALINE PHOSPHATASE (BEAKER) (test xfwn=132) 388 U/L 40-150 AST (SGOT) (BEAKER) (test suhn=072) 64 U/L 5-34 ALT (SGPT) (BEAKER) (test pmdk=376) 147 U/L 6-55 Specimen slightly ictericPROTHROMBIN [id number] 04:50:00 Test Item Value Reference Range Comments PROTIME (BEAKER) (test ervr=508) 14.4 seconds 11.7-14.7 INR (BEAKER) (test elhh=122) 1.1 <=5.9 RECOMMENDED COUMADIN/WARFARIN INR THERAPY RANGESSTANDARD DOSE: 2.0 - 3.0 Includes: PROPHYLAXIS forvenous thrombosis, systemic embolization; TREATMENT for venous thrombosis and/or pulmonary embolus.HIGH RISK: Target INR is 2.5-3.5 for patients with mechanical heart valves.BLOOD [id number] 23:00:00 Test Item Value Reference Range Comments CULTURE (BEAKER) (test zskz=0839) No growth in 5 days BLOOD [id number] 23:00:00 Test Item Value Reference Range Comments CULTURE (BEAKER) (test belb=4731) No growth in 5 days POCT-GLUCOSE [id number] 21:40:00 Test Item Value Reference Range Comments POC-GLUCOSE METER (BEAKER) 124 mg/dL 70-110 TESTED AT [address] (test tjfx=1198) [place] [address] POCT-GLUCOSE [id number] 17:32:00 Test Item Value Reference Range Comments POC-GLUCOSE METER (BEAKER) 116 mg/dL 70-110 TESTED AT [address] (test nfxs=3725) [place] [id number] POCT-GLUCOSE [id number] 11:47:00 Test Item Value Reference Range Comments POC-GLUCOSE METER (BEAKER) 183 mg/dL 70-110 TESTED AT [address] (test idoy=5073) [place] [id number] POCT-GLUCOSE [id number] 07:31:00 Test Item Value Reference Range Comments POC-GLUCOSE METER (BEAKER) 119 mg/dL 70-110 TESTED AT [address] (test kyen=9921) [place] [id number] CBC W/PLT COUNT & AUTO [id number] 04:31:00 Test Item Value Reference Range Comments WHITE BLOOD CELL COUNT (BEAKER) (test jdob=554) 14.5 K/ L 4.0-10.0 RED BLOOD CELL COUNT (BEAKER) (test vkzb=322) 2.91 M/ L 4.20-5.80 HEMOGLOBIN (BEAKER) (test qsot=463) 8.7 GM/DL 13.0-16.8 HEMATOCRIT (BEAKER) (test hscj=114) 26.9 % 40.0-50.0 MEAN CORPUSCULAR VOLUME (BEAKER) (test pgka=959) 92.3 fL 82.0-98.0 MEAN CORPUSCULAR HEMOGLOBIN (BEAKER) (test 29.9 pg 27.0-33.0 rzru=340) MEAN CORPUSCULAR HEMOGLOBIN CONC (BEAKER) (test 32.4 GM/DL 32.0-36.0 sclz=894) RED CELL DISTRIBUTION WIDTH (BEAKER) (test 19.0 % 10.3-14.2 zxgp=930) PLATELET COUNT (BEAKER) (test wbls=347) 130 K/CU MM 150-430 MEAN PLATELET VOLUME (BEAKER) (test cszl=666) 8.6 fL 6.5-10.5 NUCLEATED RED BLOOD CELLS (BEAKER) (test 0 /100 WBC 0-0 znaq=521) NEUTROPHILS RELATIVE PERCENT (BEAKER) (test 85 % umsl=166) LYMPHOCYTES RELATIVE PERCENT (BEAKER) (test 9 % gfgv=730) MONOCYTES RELATIVE PERCENT (BEAKER) (test 4 % smwm=721) EOSINOPHILS RELATIVE PERCENT (BEAKER) (test 2 % gxmc=327) BASOPHILS RELATIVE PERCENT (BEAKER) (test 1 % eiaf=865) NEUTROPHILS ABSOLUTE COUNT (BEAKER) (test 12.30 K/ L 1.80-8.00 uysi=590) LYMPHOCYTES ABSOLUTE COUNT (BEAKER) (test 1.33 K/ L 1.48-4.50 weea=907) MONOCYTES ABSOLUTE COUNT (BEAKER) (test 0.51 K/ L 0.00-1.30 glsu=394) EOSINOPHILS ABSOLUTE COUNT (BEAKER) (test 0.27 K/ L 0.00-0.50 vyvn=536) BASOPHILS ABSOLUTE COUNT (BEAKER) (test 0.09 K/ L 0.00-0.20 zwnm=430) 0.000.590.730.000.880.000.000.000.00BASIC METABOLIC [id number] 04:28:00 Test Item Value Reference Range Comments SODIUM (BEAKER) (test 135 meq/L 136-145 cuif=082) POTASSIUM (BEAKER) (test 3.1 meq/L 3.5-5.1 hjxl=347) CHLORIDE (BEAKER) (test 102 meq/L 98-107 deji=896) CO2 (BEAKER) (test 25 meq/L 22-29 iicz=975) BLOOD UREA NITROGEN 11 mg/dL 7-21 (BEAKER) (test wdju=391) CREATININE (BEAKER) (test 0.68 mg/dL 0.57-1.25 bdge=919) GLUCOSE RANDOM (BEAKER) 114 mg/dL 70-105 (test hgns=340) CALCIUM (BEAKER) (test 7.7 mg/dL 8.4-10.2 qoqp=928) EGFR (BEAKER) (test mL/min/1.73 sq m INSUFFICIENT CLINICAL DATA kzns=3310) TO CALCULATE ESTIMATED GFR. Specimen moderately [id number] 04:27:00 Test Item Value Reference Range Comments PHOSPHORUS (BEAKER) (test bwmb=313) 2.9 mg/dL 2.3-4.7 [id number] 04:27:00 Test Item Value Reference Range Comments MAGNESIUM (BEAKER) (test qtxi=811) 1.2 mg/dL 1.6-2.6 HEPATIC FUNCTION [id number] 04:27:00 Test Item Value Reference Range Comments TOTAL PROTEIN (BEAKER) (test rxge=878) 5.3 gm/dL 6.0-8.3 ALBUMIN (BEAKER) (test yqss=9202) 2.1 g/dL 3.5-5.0 BILIRUBIN TOTAL (BEAKER) (test qwrt=948) 5.1 mg/dL 0.2-1.2 BILIRUBIN DIRECT (BEAKER) (test jgze=907) 3.6 mg/dL 0.1-0.5 ALKALINE PHOSPHATASE (BEAKER) (test qmex=960) 357 U/L 40-150 AST (SGOT) (BEAKER) (test lhyj=875) 71 U/L 5-34 ALT (SGPT) (BEAKER) (test sjfa=967) 182 U/L 6-55 Specimen moderately ictericPROTHROMBIN [id number] 04:25:00 Test Item Value Reference Range Comments PROTIME (BEAKER) (test csdp=880) 15.4 seconds 11.7-14.7 INR (BEAKER) (test stks=200) 1.2 <=5.9 RECOMMENDED COUMADIN/WARFARIN INR THERAPY RANGESSTANDARD DOSE: 2.0 - 3.0 Includes: PROPHYLAXIS forvenous thrombosis, systemic embolization; TREATMENT for venous thrombosis and/or pulmonary embolus.HIGH RISK: Target INR is 2.5-3.5 for patients with mechanical heart valves.POCT-GLUCOSE [id number] 21:25:00 Test Item Value Reference Range Comments POC-GLUCOSE METER (BEAKER) 120 mg/dL 70-110 TESTED AT [address] (test njnx=4843) [place] [address] POCT-GLUCOSE [id number] 17:41:00 Test Item Value Reference Range Comments POC-GLUCOSE METER (BEAKER) 99 mg/dL 70-110 TESTED AT [address] (test vfjb=7326) [place] [id number] POCT-GLUCOSE [id number] 11:57:00 Test Item Value Reference Range Comments POC-GLUCOSE METER (BEAKER) 186 mg/dL 70-110 TESTED AT [address] (test pngh=6375) [place] [id number] CBC W/PLT COUNT & AUTO [id number] 10:46:00 Test Item Value Reference Range Comments WHITE BLOOD CELL COUNT (BEAKER) (test rjjt=234) 17.4 K/ L 4.0-10.0 RED BLOOD CELL COUNT (BEAKER) (test pfpb=469) 2.98 M/ L 4.20-5.80 HEMOGLOBIN (BEAKER) (test hrte=517) 9.0 GM/DL 13.0-16.8 HEMATOCRIT (BEAKER) (test nrgy=911) 27.5 % 40.0-50.0 MEAN CORPUSCULAR VOLUME (BEAKER) (test qmmq=994) 92.3 fL 82.0-98.0 MEAN CORPUSCULAR HEMOGLOBIN (BEAKER) (test 30.3 pg 27.0-33.0 rnfu=227) MEAN CORPUSCULAR HEMOGLOBIN CONC (BEAKER) (test 32.8 GM/DL 32.0-36.0 jmub=686) RED CELL DISTRIBUTION WIDTH (BEAKER) (test 19.2 % 10.3-14.2 qwgu=559) PLATELET COUNT (BEAKER) (test rixm=709) 123 K/CU MM 150-430 MEAN PLATELET VOLUME (BEAKER) (test uain=026) 9.2 fL 6.5-10.5 NUCLEATED RED BLOOD CELLS (BEAKER) (test 0 /100 WBC 0-0 itdz=272) NEUTROPHILS RELATIVE PERCENT (BEAKER) (test 87 % qxbf=183) LYMPHOCYTES RELATIVE PERCENT (BEAKER) (test 7 % qhno=684) MONOCYTES RELATIVE PERCENT (BEAKER) (test 4 % ytjx=554) EOSINOPHILS RELATIVE PERCENT (BEAKER) (test 2 % nxfx=518) BASOPHILS RELATIVE PERCENT (BEAKER) (test 0 % lypr=340) NEUTROPHILS ABSOLUTE COUNT (BEAKER) (test 15.10 K/ L 1.80-8.00 cbux=596) LYMPHOCYTES ABSOLUTE COUNT (BEAKER) (test 1.22 K/ L 1.48-4.50 tofy=635) MONOCYTES ABSOLUTE COUNT (BEAKER) (test 0.67 K/ L 0.00-1.30 qwpx=429) EOSINOPHILS ABSOLUTE COUNT (BEAKER) (test 0.28 K/ L 0.00-0.50 xrtb=585) BASOPHILS ABSOLUTE COUNT (BEAKER) (test 0.06 K/ L 0.00-0.20 giss=874) 0.000.680.000.000.900.000.000.000.00(MANUAL DIFFERENTIAL)2016-12-02 10:46:00 Test Item Value Reference Range Comments TOTAL COUNTED (BEAKER) (test wqom=6613) POCT-GLUCOSE [id number] 07:35:00 Test Item Value Reference Range Comments POC-GLUCOSE METER (BEAKER) 121 mg/dL 70-110 TESTED AT [facility] [address] [facility] (test pbcb=8689) [facility] [address] BASIC METABOLIC [id number] 06:26:00 Test Item Value Reference Range Comments SODIUM (BEAKER) (test 134 meq/L 136-145 lhxa=217) POTASSIUM (BEAKER) (test 3.3 meq/L 3.5-5.1 ggxe=491) CHLORIDE (BEAKER) (test 104 meq/L 98-107 jhaz=086) CO2 (BEAKER) (test 23 meq/L 22-29 woaq=847) BLOOD UREA NITROGEN 15 mg/dL 7-21 (BEAKER) (test ybmq=347) CREATININE (BEAKER) (test 0.75 mg/dL 0.57-1.25 imfp=015) GLUCOSE RANDOM (BEAKER) 119 mg/dL 70-105 (test ropz=886) CALCIUM (BEAKER) (test 7.7 mg/dL 8.4-10.2 dblq=656) EGFR (BEAKER) (test mL/min/1.73 sq m INSUFFICIENT CLINICAL DATA mrtt=4766) TO CALCULATE ESTIMATED GFR. Specimen moderately [id number] 06:24:00 Test Item Value Reference Range Comments PHOSPHORUS (BEAKER) (test rrup=298) 2.8 mg/dL 2.3-4.7 [id number] 06:24:00 Test Item Value Reference Range Comments MAGNESIUM (BEAKER) (test qowq=445) 1.3 mg/dL 1.6-2.6 HEPATIC FUNCTION [id number] 06:24:00 Test Item Value Reference Range Comments TOTAL PROTEIN (BEAKER) (test qcio=120) 5.1 gm/dL 6.0-8.3 ALBUMIN (BEAKER) (test morw=8041) 2.0 g/dL 3.5-5.0 BILIRUBIN TOTAL (BEAKER) (test hhnr=847) 5.6 mg/dL 0.2-1.2 BILIRUBIN DIRECT (BEAKER) (test naoo=921) 4.2 mg/dL 0.1-0.5 ALKALINE PHOSPHATASE (BEAKER) (test iqcy=952) 334 U/L 40-150 AST (SGOT) (BEAKER) (test myur=677) 102 U/L 5-34 ALT (SGPT) (BEAKER) (test yzdt=810) 261 U/L 6-55 Specimen moderately ictericPROTHROMBIN [id number] 06:11:00 Test Item Value Reference Range Comments PROTIME (BEAKER) (test cfvb=845) 16.4 seconds 11.7-14.7 INR (BEAKER) (test yxbz=538) 1.3 <=5.9 RECOMMENDED COUMADIN/WARFARIN INR THERAPY RANGESSTANDARD DOSE: 2.0 - 3.0 Includes: PROPHYLAXIS forvenous thrombosis, systemic embolization; TREATMENT for venous thrombosis and/or pulmonary embolus.HIGH RISK: Target INR is 2.5-3.5 for patients with mechanical heart valves.POCT-GLUCOSE [id number] 21:43:00 Test Item Value Reference Range Comments POC-GLUCOSE METER (BEAKER) 118 mg/dL 70-110 TESTED AT [address] (test tqia=4681) [place] [address] POCT-GLUCOSE [id number] 18:18:00 Test Item Value Reference Range Comments POC-GLUCOSE METER (BEAKER) 154 mg/dL 70-110 TESTED AT [address] (test kchp=3080) [place] [address] POCT-GLUCOSE [id number] 11:55:00 Test Item Value Reference Range Comments POC-GLUCOSE METER (BEAKER) 109 mg/dL 70-110 TESTED AT [address] (test jomf=2063) [place] [address] CLOSTRIDIUM DIFFICILE TOXIN [id number] 11:17:00 Test Item Value Reference Range Comments CLOSTRIDIUM DIFFICILE TOXIN, PCR (LieferheldAKER) (test Not Detected Not Detected zmbr=6258) This qualitative real-time polymerase chain reaction assay detects the tcdB gene , encoded on the C.difficile pathogenicity locus (PaLoc). The product of tcdB, toxin B, is a cytotoxin essential for causing C.difficile-associated disease ( CDAD) and is found in virtually all toxigenic C.difficile.This assay is performed for patients suspected of having either community-acquired or nosocomial CDAD. Accordingly, only symptomatic patients should be tested and formed stools will be rejected unless ileus is present (i.e., specified when ordering). Patients may be colonized with toxigenic C.difficile strains not causing active disease; therefore, clinical correlation is needed when deciding how to manage patients with a positive test result.The assay has not been validated as a test of cure as amplifiable nucleic acid may persist after effective treatment; therefore, follow-up testing of a positive result is not recommended.CBC W/PLT COUNT & AUTO [id number] 11:15:00 Test Item Value Reference Range Comments WHITE BLOOD CELL COUNT (BEAKER) (test mrcq=992) 17.2 K/ L 4.0-10.0 RED BLOOD CELL COUNT (BEAKER) (test ittq=755) 2.70 M/ L 4.20-5.80 HEMOGLOBIN (BEAKER) (test ltaq=427) 8.3 GM/DL 13.0-16.8 HEMATOCRIT (BEAKER) (test rhiq=384) 24.5 % 40.0-50.0 MEAN CORPUSCULAR VOLUME (BEAKER) (test hqmz=448) 90.7 fL 82.0-98.0 MEAN CORPUSCULAR HEMOGLOBIN (BEAKER) (test 30.7 pg 27.0-33.0 fkaz=328) MEAN CORPUSCULAR HEMOGLOBIN CONC (BEAKER) (test 33.9 GM/DL 32.0-36.0 hvxx=340) RED CELL DISTRIBUTION WIDTH (BEAKER) (test 19.3 % 10.3-14.2 fkxs=880) PLATELET COUNT (BEAKER) (test czxz=508) 137 K/CU MM 150-430 MEAN PLATELET VOLUME (BEAKER) (test cejn=271) 8.7 fL 6.5-10.5 NUCLEATED RED BLOOD CELLS (BEAKER) (test 0 /100 WBC 0-0 wnbl=160) NEUTROPHILS RELATIVE PERCENT (BEAKER) (test 90 % bizc=730) LYMPHOCYTES RELATIVE PERCENT (BEAKER) (test 6 % lmmb=428) MONOCYTES RELATIVE PERCENT (BEAKER) (test 2 % hbsi=228) EOSINOPHILS RELATIVE PERCENT (BEAKER) (test 1 % ayze=347) BASOPHILS RELATIVE PERCENT (BEAKER) (test 0 % ybdq=643) NEUTROPHILS ABSOLUTE COUNT (BEAKER) (test 15.60 K/ L 1.80-8.00 msvs=157) LYMPHOCYTES ABSOLUTE COUNT (BEAKER) (test 0.96 K/ L 1.48-4.50 ofww=250) MONOCYTES ABSOLUTE COUNT (BEAKER) (test 0.43 K/ L 0.00-1.30 nywv=165) EOSINOPHILS ABSOLUTE COUNT (BEAKER) (test 0.24 K/ L 0.00-0.50 iazh=523) BASOPHILS ABSOLUTE COUNT (BEAKER) (test 0.06 K/ L 0.00-0.20 vmsj=295) 0.000.730.000.000.900.000.000.000.00(MANUAL DIFFERENTIAL)2016-12-01 11:15:00 Test Item Value Reference Range Comments TOTAL COUNTED (BEAKER) (test njve=0426) WBC MORPHOLOGY (BEAKER) (test shal=896) Normal PLT MORPHOLOGY (BEAKER) (test mlby=096) Normal ANISOCYTOSIS (BEAKER) (test azoa=375) 1+ few BASIC METABOLIC [id number] 06:36:00 Test Item Value Reference Range Comments SODIUM (BEAKER) (test 135 meq/L 136-145 dwyi=239) POTASSIUM (BEAKER) (test 3.5 meq/L 3.5-5.1 nrmt=041) CHLORIDE (BEAKER) (test 107 meq/L 98-107 jcgn=612) CO2 (BEAKER) (test 20 meq/L 22-29 lvzb=834) BLOOD UREA NITROGEN 23 mg/dL 7-21 (BEAKER) (test bpnw=276) CREATININE (BEAKER) (test 0.82 mg/dL 0.57-1.25 ngwp=389) GLUCOSE RANDOM (BEAKER) 108 mg/dL 70-105 (test kcey=422) CALCIUM (BEAKER) (test 7.9 mg/dL 8.4-10.2 wlcj=132) EGFR (BEAKER) (test mL/min/1.73 sq m INSUFFICIENT CLINICAL DATA abml=0339) TO CALCULATE ESTIMATED GFR. Specimen moderately [id number] 06:32:00 Test Item Value Reference Range Comments PHOSPHORUS (BEAKER) (test mwua=967) 2.8 mg/dL 2.3-4.7 [id number] 06:32:00 Test Item Value Reference Range Comments MAGNESIUM (BEAKER) (test jxwv=617) 1.4 mg/dL 1.6-2.6 HEPATIC FUNCTION [id number] 06:32:00 Test Item Value Reference Range Comments TOTAL PROTEIN (BEAKER) (test jqin=794) 5.1 gm/dL 6.0-8.3 ALBUMIN (BEAKER) (test fsad=9847) 2.0 g/dL 3.5-5.0 BILIRUBIN TOTAL (BEAKER) (test cjel=346) 5.8 mg/dL 0.2-1.2 BILIRUBIN DIRECT (BEAKER) (test avio=594) 4.3 mg/dL 0.1-0.5 ALKALINE PHOSPHATASE (BEAKER) (test fdhm=050) 266 U/L 40-150 AST (SGOT) (BEAKER) (test xdxs=858) 284 U/L 5-34 ALT (SGPT) (BEAKER) (test zazj=510) 433 U/L 6-55 Specimen moderately ictericPROTHROMBIN [id number] 06:18:00 Test Item Value Reference Range Comments PROTIME (BEAKER) (test aisl=942) 15.7 seconds 11.7-14.7 INR (BEAKER) (test cgav=031) 1.3 <=5.9 RECOMMENDED COUMADIN/WARFARIN INR THERAPY RANGESSTANDARD DOSE: 2.0 - 3.0 Includes: PROPHYLAXIS forvenous thrombosis, systemic embolization; TREATMENT for venous thrombosis and/or pulmonary embolus.HIGH RISK: Target INR is 2.5-3.5 for patients with mechanical heart valves.POCT-GLUCOSE [id number] 06:12:00 Test Item Value Reference Range Comments POC-GLUCOSE METER (BEAKER) 112 mg/dL 70-110 TESTED AT [address] (test ldsi=6396) [place] [address] POCT-GLUCOSE [id number] 23:29:00 Test Item Value Reference Range Comments POC-GLUCOSE METER (BEAKER) 109 mg/dL 70-110 TESTED AT [address] (test thot=0661) [place] [address] POCT-GLUCOSE [id number] 18:53:00 Test Item Value Reference Range Comments POC-GLUCOSE METER (BEAKER) 137 mg/dL 70-110 TESTED AT [address] (test gtnk=7041) [place] [address] URINE [id number] 12:59:00 Test Item Value Reference Range Comments CULTURE (BEAKER) (test btmb=8177) No growth POCT-GLUCOSE [id number] 12:16:00 Test Item Value Reference Range Comments POC-GLUCOSE METER (BEAKER) 143 mg/dL 70-110 TESTED AT [address] (test hfpq=9605) [place] [address] [id number] 11:08:00 Test Item Value Reference Range Comments POTASSIUM (BEAKER) (test adri=650) 3.3 meq/L 3.5-5.1 CBC W/PLT COUNT & AUTO [id number] 08:20:00 Test Item Value Reference Range Comments WHITE BLOOD CELL COUNT (BEAKER) (test vbmv=696) 23.8 K/ L 4.0-10.0 RED BLOOD CELL COUNT (BEAKER) (test cgjc=453) 2.42 M/ L 4.20-5.80 HEMOGLOBIN (BEAKER) (test yzlw=191) 7.6 GM/DL 13.0-16.8 HEMATOCRIT (BEAKER) (test gomd=101) 22.0 % 40.0-50.0 MEAN CORPUSCULAR VOLUME (BEAKER) (test ujdk=468) 90.8 fL 82.0-98.0 MEAN CORPUSCULAR HEMOGLOBIN (BEAKER) (test 31.3 pg 27.0-33.0 tgnf=023) MEAN CORPUSCULAR HEMOGLOBIN CONC (BEAKER) (test 34.5 GM/DL 32.0-36.0 kusy=729) RED CELL DISTRIBUTION WIDTH (BEAKER) (test 19.4 % 10.3-14.2 nbml=900) PLATELET COUNT (BEAKER) (test lxht=068) 146 K/CU MM 150-430 MEAN PLATELET VOLUME (BEAKER) (test tucc=066) 8.6 fL 6.5-10.5 NUCLEATED RED BLOOD CELLS (BEAKER) (test 0 /100 WBC 0-0 kjxm=678) 0.000.890.000.000.900.000.000.000.00(MANUAL DIFFERENTIAL)2016-11-30 08:20:00 Test Item Value Reference Range Comments NEUTROPHILS - REL (DIFF) (BEAKER) (test 73 % ysai=5824) MONOCYTES - REL (DIFF) (BEAKER) (test iwuz=2045) 2 % EOSINOPHILS - REL (DIFF) (BEAKER) (test 1 % mkfb=2741) BANDS - REL (DIFF) (BEAKER) (test dezy=0183) 24 % 0-10 NEUTROPHILS - ABS (DIFF) (BEAKER) (test 17.37 K/ L 1.80-8.00 sdhm=3780) MONOCYTES - ABS (DIFF) (BEAKER) (test msqm=8432) 0.48 K/ L 0.00-1.30 EOSINOPHILS - ABS (DIFF) (BEAKER) (test 0.24 K/ L 0.00-0.50 blok=2517) BANDS-ABS (DIFF) (BEAKER) (test zxnt=0554) 5.7 K/ L 0.0-0.8 TOTAL COUNTED (BEAKER) (test ocyg=2713) 100 BANDS + SEGMENTED NEUTROPHILS (BEAKER) (test 23.09 uwpn=7804) WBC MORPHOLOGY (BEAKER) (test tkbk=883) Normal PLT MORPHOLOGY (BEAKER) (test bxhw=453) Normal ANISOCYTOSIS (BEAKER) (test kpjs=006) 1+ few OVALOCYTES (BEAKER) (test sqvr=048) 1+ few POCT-GLUCOSE [id number] 06:26:00 Test Item Value Reference Range Comments POC-GLUCOSE METER (BEAKER) 108 mg/dL 70-110 TESTED AT [facility] [address] [facility] (test iqis=4249) [facility] [address] BASIC METABOLIC [id number] 04:54:00 Test Item Value Reference Range Comments SODIUM (BEAKER) (test 138 meq/L 136-145 ufkw=389) POTASSIUM (BEAKER) (test 2.9 meq/L 3.5-5.1 iibp=829) CHLORIDE (BEAKER) (test 109 meq/L 98-107 hcux=702) CO2 (BEAKER) (test 19 meq/L 22-29 zbtj=688) BLOOD UREA NITROGEN 35 mg/dL 7-21 (BEAKER) (test trby=645) CREATININE (BEAKER) (test 1.40 mg/dL 0.57-1.25 uenn=130) GLUCOSE RANDOM (BEAKER) 104 mg/dL 70-105 (test hjzy=876) CALCIUM (BEAKER) (test 7.9 mg/dL 8.4-10.2 kklf=534) EGFR (BEAKER) (test mL/min/1.73 sq m INSUFFICIENT CLINICAL DATA xpev=0484) TO CALCULATE ESTIMATED GFR. Specimen moderately [id number] 04:52:00 Test Item Value Reference Range Comments PHOSPHORUS (BEAKER) (test zpuh=399) 4.0 mg/dL 2.3-4.7 [id number] 04:52:00 Test Item Value Reference Range Comments MAGNESIUM (BEAKER) (test hkkb=431) 1.9 mg/dL 1.6-2.6 HEPATIC FUNCTION [id number] 04:52:00 Test Item Value Reference Range Comments TOTAL PROTEIN (BEAKER) (test sulk=268) 5.1 gm/dL 6.0-8.3 ALBUMIN (BEAKER) (test mkap=7030) 2.2 g/dL 3.5-5.0 BILIRUBIN TOTAL (BEAKER) (test nfms=821) 5.6 mg/dL 0.2-1.2 BILIRUBIN DIRECT (BEAKER) (test htwr=327) 4.4 mg/dL 0.1-0.5 ALKALINE PHOSPHATASE (BEAKER) (test rubz=749) 218 U/L 40-150 AST (SGOT) (BEAKER) (test dqqy=484) 1321 U/L 5-34 ALT (SGPT) (BEAKER) (test hrmy=411) 787 U/L 6-55 Specimen moderately ictericPROTHROMBIN [id number] 04:29:00 Test Item Value Reference Range Comments PROTIME (BEAKER) (test hkza=765) 17.0 seconds 11.7-14.7 INR (BEAKER) (test gtta=468) 1.4 <=5.9 RECOMMENDED COUMADIN/WARFARIN INR THERAPY RANGESSTANDARD DOSE: 2.0 - 3.0 Includes: PROPHYLAXIS forvenous thrombosis, systemic embolization; TREATMENT for venous thrombosis and/or pulmonary embolus.HIGH RISK: Target INR is 2.5-3.5 for patients with mechanical heart valves.POCT-GLUCOSE [id number] 00:15:00 Test Item Value Reference Range Comments POC-GLUCOSE METER (BEAKER) 118 mg/dL 70-110 TESTED AT [address] (test zsub=2483) [place] [address] POCT-GLUCOSE [id number] 17:15:00 Test Item Value Reference Range Comments POC-GLUCOSE METER (BEAKER) 117 mg/dL 70-110 TESTED AT [address] (test fhfl=9983) [place] [address] POCT-GLUCOSE [id number] 11:22:00 Test Item Value Reference Range Comments POC-GLUCOSE METER (BEAKER) 83 mg/dL 70-110 TESTED AT [address] (test vtjm=0426) [place] [address] LACTIC ACID, ARTERIAL, WHOLE [id number] 09:58:00 Test Item Value Reference Range Comments LACTATE BLOOD ARTERIAL (2) (BEAKER) (test 3.1 mmol/L 0.5-2.2 npmq=0370) Effective 02/06/2016: Units/Reference Range ChangeNew: 0.5-2.2 mmol/L Previous: 5 -20 mg/dLSpecimen moderately ictericBLOOD GAS, [id number] 09:33:00 Test Item Value Reference Range Comments PH ARTERIAL (BEAKER) (test hmrr=446) 7.44 7.35-7.45 PCO2 ARTERIAL (BEAKER) (test hbbs=513) 27 mmHg 35-45 PO2 ARTERIAL (BEAKER) (test tpxk=960) 116 mmHg 80-90 O2 SATURATION ARTERIAL (BEAKER) (test taco=373) 98.5 % 96.0-97.0 HCO3 ARTERIAL (BEAKER) (test arte=453) 18 mmol/L 21-29 BASE EXCESS ARTERIAL (BEAKER) (test ctbu=803) -5.9 mmol/L -2.0-3.0 PATIENT TEMPERATURE (BEAKER) (test dqro=0038) 36.5 C FIO2 (BEAKER) (test xsxe=4135) 21.0 % CBC W/PLT COUNT & AUTO [id number] 08:54:00 Test Item Value Reference Range Comments WHITE BLOOD CELL COUNT (BEAKER) (test dcch=431) 41.4 K/ L 4.0-10.0 RED BLOOD CELL COUNT (BEAKER) (test pich=196) 2.43 M/ L 4.20-5.80 HEMOGLOBIN (BEAKER) (test rncl=303) 7.5 GM/DL 13.0-16.8 HEMATOCRIT (BEAKER) (test fpix=799) 22.3 % 40.0-50.0 MEAN CORPUSCULAR VOLUME (BEAKER) (test xkvr=002) 91.7 fL 82.0-98.0 MEAN CORPUSCULAR HEMOGLOBIN (BEAKER) (test 30.9 pg 27.0-33.0 vthb=231) MEAN CORPUSCULAR HEMOGLOBIN CONC (BEAKER) (test 33.7 GM/DL 32.0-36.0 dzmw=792) RED CELL DISTRIBUTION WIDTH (BEAKER) (test 19.4 % 10.3-14.2 vdui=357) PLATELET COUNT (BEAKER) (test hcxn=023) 146 K/CU MM 150-430 MEAN PLATELET VOLUME (BEAKER) (test vtrf=701) 8.0 fL 6.5-10.5 NUCLEATED RED BLOOD CELLS (BEAKER) (test 0 /100 WBC 0-0 zajd=962) NEUTROPHILS RELATIVE PERCENT (BEAKER) (test 95 % rdco=856) LYMPHOCYTES RELATIVE PERCENT (BEAKER) (test 2 % ledq=751) MONOCYTES RELATIVE PERCENT (BEAKER) (test 3 % gwvw=629) EOSINOPHILS RELATIVE PERCENT (BEAKER) (test 0 % xhbg=546) BASOPHILS RELATIVE PERCENT (BEAKER) (test 0 % ymyn=106) NEUTROPHILS ABSOLUTE COUNT (BEAKER) (test 39.20 K/ L 1.80-8.00 owcm=405) LYMPHOCYTES ABSOLUTE COUNT (BEAKER) (test 0.93 K/ L 1.48-4.50 yzlp=624) MONOCYTES ABSOLUTE COUNT (BEAKER) (test 1.11 K/ L 0.00-1.30 apbb=344) EOSINOPHILS ABSOLUTE COUNT (BEAKER) (test 0.06 K/ L 0.00-0.50 benl=951) BASOPHILS ABSOLUTE COUNT (BEAKER) (test 0.07 K/ L 0.00-0.20 qmdz=385) 0.000.900.000.000.900.000.000.000.00(MANUAL DIFFERENTIAL)2016-11-29 08:54:00 Test Item Value Reference Range Comments NEUTROPHILS - REL (DIFF) (BEAKER) (test 45 % pvum=5537) MONOCYTES - REL (DIFF) (BEAKER) (test wdxj=0234) 1 % METAMYELOCYTES-REL (DIFF) (BEAKER) (test 1 % 0-0 lvjq=162) BANDS - REL (DIFF) (BEAKER) (test pduk=7337) 53 % 0-10 NEUTROPHILS - ABS (DIFF) (BEAKER) (test 18.63 K/ L 1.80-8.00 argc=1100) MONOCYTES - ABS (DIFF) (BEAKER) (test iuya=6805) 0.41 K/ L 0.00-1.30 METAMYELOCTYES - ABS (DIFF) (BEAKER) (test 0.41 K/ L 0.00-0.00 icvb=649) BANDS-ABS (DIFF) (BEAKER) (test nhol=1705) 21.9 K/ L 0.0-0.8 TOTAL COUNTED (BEAKER) (test zrmz=2862) 100 BANDS + SEGMENTED NEUTROPHILS (BEAKER) (test 40.57 xkpp=0283) WBC MORPHOLOGY (BEAKER) (test rpga=911) Normal PLT MORPHOLOGY (BEAKER) (test hizu=378) Normal SCHISTOCYTES (BEAKER) (test rgyc=891) 1+ few ACANTHOCYTES (BEAKER) (test illm=131) 1+ few ANISOCYTOSIS (BEAKER) (test ipbd=127) 2+ moderate SHEREE CELLS (BEAKER) (test qqqo=108) 1+ few HYPOCHROMIA (BEAKER) (test memn=463) 2+ moderate MACROCYTES (BEAKER) (test qxxb=704) 2+ moderate MICROCYTES (BEAKER) (test fnyy=385) 1+ few OVALOCYTES (BEAKER) (test ktdw=713) 1+ few POIKILOCYTES (BEAKER) (test hyqk=971) 1+ few BASIC METABOLIC [id number] 03:04:00 Test Item Value Reference Range Comments SODIUM (BEAKER) (test 137 meq/L 136-145 xwuq=541) POTASSIUM (BEAKER) (test 4.2 meq/L 3.5-5.1 eeep=802) CHLORIDE (BEAKER) (test 108 meq/L 98-107 nkwn=643) CO2 (BEAKER) (test 14 meq/L 22-29 afmc=450) BLOOD UREA NITROGEN 29 mg/dL 7-21 (BEAKER) (test bkyx=570) CREATININE (BEAKER) (test 1.86 mg/dL 0.57-1.25 uhig=827) GLUCOSE RANDOM (BEAKER) 72 mg/dL 70-105 (test btyy=491) CALCIUM (BEAKER) (test 8.0 mg/dL 8.4-10.2 peku=258) EGFR (BEAKER) (test mL/min/1.73 sq m INSUFFICIENT CLINICAL DATA citi=2811) TO CALCULATE ESTIMATED GFR. Specimen moderately [id number] 02:59:00 Test Item Value Reference Range Comments PHOSPHORUS (BEAKER) (test itzt=097) 6.2 mg/dL 2.3-4.7 [id number] 02:59:00 Test Item Value Reference Range Comments MAGNESIUM (BEAKER) (test nlno=160) 2.1 mg/dL 1.6-2.6 HEPATIC FUNCTION [id number] 02:59:00 Test Item Value Reference Range Comments TOTAL PROTEIN (BEAKER) (test lwbr=693) 5.4 gm/dL 6.0-8.3 ALBUMIN (BEAKER) (test twhj=7490) 2.5 g/dL 3.5-5.0 BILIRUBIN TOTAL (BEAKER) (test gsgz=614) 6.3 mg/dL 0.2-1.2 BILIRUBIN DIRECT (BEAKER) (test jdhm=262) 4.8 mg/dL 0.1-0.5 ALKALINE PHOSPHATASE (BEAKER) (test ajgy=572) 201 U/L 40-150 AST (SGOT) (BEAKER) (test iovu=246) 2259 U/L 5-34 ALT (SGPT) (BEAKER) (test wxrj=723) 702 U/L 6-55 Specimen moderately ictericPROTHROMBIN [id number] 02:48:00 Test Item Value Reference Range Comments PROTIME (BEAKER) (test ekhf=014) 19.4 seconds 11.7-14.7 INR (BEAKER) (test gpmv=905) 1.6 <=5.9 RECOMMENDED COUMADIN/WARFARIN INR THERAPY RANGESSTANDARD DOSE: 2.0 - 3.0 Includes: PROPHYLAXIS forvenous thrombosis, systemic embolization; TREATMENT for venous thrombosis and/or pulmonary embolus.HIGH RISK: Target INR is 2.5-3.5 for patients with mechanical heart valves.CBC W/PLT COUNT & AUTO [id number] 19:00:00 Test Item Value Reference Range Comments WHITE BLOOD CELL COUNT (BEAKER) (test mlmh=975) 38.5 K/ L 4.0-10.0 RED BLOOD CELL COUNT (BEAKER) (test gxwy=196) 2.54 M/ L 4.20-5.80 HEMOGLOBIN (BEAKER) (test lpai=105) 7.8 GM/DL 13.0-16.8 HEMATOCRIT (BEAKER) (test vnnj=638) 23.7 % 40.0-50.0 MEAN CORPUSCULAR VOLUME (BEAKER) (test jtcv=190) 93.2 fL 82.0-98.0 MEAN CORPUSCULAR HEMOGLOBIN (BEAKER) (test 30.6 pg 27.0-33.0 hwfx=306) MEAN CORPUSCULAR HEMOGLOBIN CONC (BEAKER) (test 32.9 GM/DL 32.0-36.0 dxuf=221) RED CELL DISTRIBUTION WIDTH (BEAKER) (test 19.3 % 10.3-14.2 kwly=695) PLATELET COUNT (BEAKER) (test mgfm=262) 146 K/CU MM 150-430 MEAN PLATELET VOLUME (BEAKER) (test jiwk=013) 8.3 fL 6.5-10.5 NUCLEATED RED BLOOD CELLS (BEAKER) (test 0 /100 WBC 0-0 cgsi=941) (MANUAL DIFFERENTIAL)2016-11-28 19:00:00 Test Item Value Reference Range Comments NEUTROPHILS - REL (DIFF) (BEAKER) (test 59 % gokg=3483) LYMPHOCYTES - REL (DIFF) (BEAKER) (test 1 % iosf=4815) MONOCYTES - REL (DIFF) (BEAKER) (test cbwo=6302) 1 % EOSINOPHILS - REL (DIFF) (BEAKER) (test 1 % pzwp=2208) METAMYELOCYTES-REL (DIFF) (BEAKER) (test 2 % 0-0 mxcm=547) PROMYELOCYTES-REL (DIFF) (BEAKER) (test dgcl=108) 1 % 0-0 BANDS - REL (DIFF) (BEAKER) (test yrjw=4462) 35 % 0-10 NEUTROPHILS - ABS (DIFF) (BEAKER) (test 22.72 K/ L 1.80-8.00 stui=6309) LYMPHOCYTES - ABS (DIFF) (BEAKER) (test 0.39 K/ L 1.48-4.50 kmmw=3822) MONOCYTES - ABS (DIFF) (BEAKER) (test atzd=7755) 0.39 K/ L 0.00-1.30 EOSINOPHILS - ABS (DIFF) (BEAKER) (test 0.39 K/ L 0.00-0.50 hgcx=5139) METAMYELOCTYES - ABS (DIFF) (BEAKER) (test 0.77 K/ L 0.00-0.00 qdmb=671) PROMYELOCYTES - ABS (DIFF) (BEAKER) (test 0.39 K/ L 0.00-0.00 wnac=673) BANDS-ABS (DIFF) (BEAKER) (test kxkf=3350) 13.5 K/ L 0.0-0.8 TOTAL COUNTED (BEAKER) (test azhr=6489) 100 BANDS + SEGMENTED NEUTROPHILS (BEAKER) (test 36.19 xxfp=4911) WBC MORPHOLOGY (BEAKER) (test pjzu=905) Normal PLT MORPHOLOGY (BEAKER) (test acdb=996) Normal SPHEROCYTES (BEAKER) (test cpbg=279) 1+ few URINALYSIS W/ [id number] 15:31:00 Test Item Value Reference Range Comments COLOR (BEAKER) (test emep=381) Dark Yellow CLARITY (BEAKER) (test vrab=958) Hazy SPECIFIC GRAVITY UA (BEAKER) (test zawu=758) 1.007 1.001-1.035 PH UA (BEAKER) (test znpv=223) 5.5 5.0-8.0 PROTEIN UA (BEAKER) (test dfrg=451) 50 mg/dL Negative GLUCOSE UA (BEAKER) (test ucep=257) Negative Negative KETONES UA (BEAKER) (test gbxw=458) Negative Negative BILIRUBIN UA (BEAKER) (test adpn=713) Positive Negative BLOOD UA (BEAKER) (test xoxq=596) Small Negative NITRITE UA (BEAKER) (test ziba=089) Negative Negative LEUKOCYTE ESTERASE UA (BEAKER) (test dmqg=459) Negative Negative UROBILINOGEN UA (BEAKER) (test hfme=824) 2.0 mg/dL 0.2-1.0 RBC UA (BEAKER) (test gxue=674) 3 /HPF WBC UA (BEAKER) (test yrru=374) 6 /HPF BACTERIA (BEAKER) (test razg=981) Occasional SOURCE(BEAKER) (test htqn=1868) Urine, Lott [id number] 13:35:00 Test Item Value Reference Range Comments PHOSPHORUS (BEAKER) (test deev=998) 3.4 mg/dL 2.3-4.7 [id number] 13:35:00 Test Item Value Reference Range Comments MAGNESIUM (BEAKER) (test ugzy=796) 1.1 mg/dL 1.6-2.6 HEPATIC FUNCTION [id number] 13:35:00 Test Item Value Reference Range Comments TOTAL PROTEIN (BEAKER) (test dksh=275) 4.9 gm/dL 6.0-8.3 ALBUMIN (BEAKER) (test ekcl=7929) 2.0 g/dL 3.5-5.0 BILIRUBIN TOTAL (BEAKER) (test deyj=129) 4.8 mg/dL 0.2-1.2 BILIRUBIN DIRECT (BEAKER) (test opae=721) 3.7 mg/dL 0.1-0.5 ALKALINE PHOSPHATASE (BEAKER) (test bsze=564) 200 U/L 40-150 AST (SGOT) (BEAKER) (test suaj=528) 336 U/L 5-34 ALT (SGPT) (BEAKER) (test dfjv=497) 133 U/L 6-55 Specimen slightly ictericCBC W/PLT COUNT & AUTO [id number] 13:32 :00 Test Item Value Reference Range Comments WHITE BLOOD CELL COUNT (BEAKER) (test svno=628) 21.6 K/ L 4.0-10.0 RED BLOOD CELL COUNT (BEAKER) (test tare=262) 2.21 M/ L 4.20-5.80 HEMOGLOBIN (BEAKER) (test lqbg=804) 6.9 GM/DL 13.0-16.8 HEMATOCRIT (BEAKER) (test jgno=096) 20.3 % 40.0-50.0 MEAN CORPUSCULAR VOLUME (BEAKER) (test wmqr=171) 91.8 fL 82.0-98.0 MEAN CORPUSCULAR HEMOGLOBIN (BEAKER) (test 31.2 pg 27.0-33.0 urmy=920) MEAN CORPUSCULAR HEMOGLOBIN CONC (BEAKER) (test 33.9 GM/DL 32.0-36.0 dwgh=863) RED CELL DISTRIBUTION WIDTH (BEAKER) (test 20.2 % 10.3-14.2 tdlf=560) PLATELET COUNT (BEAKER) (test wwhq=531) 123 K/CU MM 150-430 MEAN PLATELET VOLUME (BEAKER) (test ycnv=491) 7.6 fL 6.5-10.5 NUCLEATED RED BLOOD CELLS (BEAKER) (test 0 /100 WBC 0-0 bxsy=876) 0.000.900.000.000.900.000.000.000.00(MANUAL DIFFERENTIAL)2016-11-28 13:32:00 Test Item Value Reference Range Comments NEUTROPHILS - REL (DIFF) (BEAKER) (test xmul=3024) 41 % LYMPHOCYTES - REL (DIFF) (BEAKER) (test brro=5165) 2 % MONOCYTES - REL (DIFF) (BEAKER) (test vfub=8323) 2 % BANDS - REL (DIFF) (BEAKER) (test wiat=8097) 55 % 0-10 NEUTROPHILS - ABS (DIFF) (BEAKER) (test dmbq=4204) 8.86 K/ L 1.80-8.00 LYMPHOCYTES - ABS (DIFF) (BEAKER) (test gawq=9925) 0.43 K/ L 1.48-4.50 MONOCYTES - ABS (DIFF) (BEAKER) (test ulbh=5889) 0.43 K/ L 0.00-1.30 BANDS-ABS (DIFF) (BEAKER) (test oszh=7724) 11.9 K/ L 0.0-0.8 TOTAL COUNTED (BEAKER) (test rcuo=2790) 100 BANDS + SEGMENTED NEUTROPHILS (BEAKER) (test 20.74 dwzq=5949) PLT MORPHOLOGY (BEAKER) (test vbqg=265) Normal RBC MORPHOLOGY (BEAKER) (test tgeo=596) Normal VACUOLATED NEUTROPHILS (BEAKER) (test bmga=764) Present LACTIC ACID, VENOUS, WHOLE [id number] 13:22:00 Test Item Value Reference Range Comments LACTATE BLOOD VENOUS (2) (BEAKER) (test 11.5 mmol/L 0.5-2.2 pbiy=2325) Effective 02/06/2016: Units/Reference Range ChangeNew: 0.5-2.2 mmol/L Previous: 5 -20 mg/dLSpecimen slightly ictericCOMPREHENSIVE METABOLIC [id number] 13:15: 00 Test Item Value Reference Range Comments TOTAL PROTEIN (BEAKER) 4.8 gm/dL 6.0-8.3 (test hmpw=391) ALBUMIN (BEAKER) (test 1.9 g/dL 3.5-5.0 atfi=1169) ALKALINE PHOSPHATASE 198 U/L 40-150 (BEAKER) (test bmwj=815) BILIRUBIN TOTAL (BEAKER) 4.7 mg/dL 0.2-1.2 (test twam=043) SODIUM (BEAKER) (test 137 meq/L 136-145 nwio=440) POTASSIUM (BEAKER) (test 3.8 meq/L 3.5-5.1 nwpd=510) CHLORIDE (BEAKER) (test 109 meq/L 98-107 hkfk=132) CO2 (BEAKER) (test 9 meq/L 22-29 gteg=159) BLOOD UREA NITROGEN 24 mg/dL 7-21 (BEAKER) (test onrj=333) CREATININE (BEAKER) (test 1.72 mg/dL 0.57-1.25 aexy=963) GLUCOSE RANDOM (BEAKER) 75 mg/dL 70-105 (test fxcc=850) CALCIUM (BEAKER) (test 7.5 mg/dL 8.4-10.2 hyzh=741) AST (SGOT) (BEAKER) (test 288 U/L 5-34 vwvd=332) ALT (SGPT) (BEAKER) (test 113 U/L 6-55 zbem=162) EGFR (BEAKER) (test mL/min/1.73 sq m INSUFFICIENT CLINICAL DATA qldu=4510) TO CALCULATE ESTIMATED GFR. Specimen slightly ictericBLOOD GAS, [id number] 13:12:00 Test Item Value Reference Range Comments PH ARTERIAL (BEAKER) (test essb=753) 7.40 7.35-7.45 PCO2 ARTERIAL (BEAKER) (test xmvi=570) 17 mmHg 35-45 PO2 ARTERIAL (BEAKER) (test dnnl=220) 214 mmHg 80-90 O2 SATURATION ARTERIAL (BEAKER) (test exwd=957) 99.5 % 96.0-97.0 HCO3 ARTERIAL (BEAKER) (test vkmb=611) 10 mmol/L 21-29 BASE EXCESS ARTERIAL (BEAKER) (test mxzx=911) -12.9 mmol/L -2.0-3.0 PATIENT TEMPERATURE (BEAKER) (test cdov=5043) 37.0 C FIO2 (BEAKER) (test xtwb=3156) 21.0 % [id number] 13:00:00 Test Item Value Reference Range Comments PARTIAL THROMBOPLASTIN TIME (BEAKER) (test 46.2 seconds 22.5-36.0 tnfh=022) PROTHROMBIN [id number] 12:58:00 Test Item Value Reference Range Comments PROTIME (BEAKER) (test txtz=707) 19.3 seconds 11.7-14.7 INR (BEAKER) (test qsxa=458) 1.6 <=5.9 RECOMMENDED COUMADIN/WARFARIN INR THERAPY RANGESSTANDARD DOSE: 2.0 - 3.0 Includes: PROPHYLAXIS forvenous thrombosis, systemic embolization; TREATMENT for venous thrombosis and/or pulmonary embolus.HIGH RISK: Target INR is 2.5-3.5 for patients with mechanical heart valves.BLOOD [id number] 11:00:00 Test Item Value Reference Range Comments CULTURE (BEAKER) (test ycuk=9802) No growth in 5 days BLOOD [id number] 11:00:00 Test Item Value Reference Range Comments CULTURE (BEAKER) (test satp=7797) No growth in 5 days POCT-GLUCOSE [id number] 07:43:00 Test Item Value Reference Range Comments POC-GLUCOSE METER (BEAKER) 111 mg/dL 70-110 TESTED AT [address] (test itnb=8371) [facility] [address] CBC W/PLT COUNT & AUTO [id number] 05:48:00 Test Item Value Reference Range Comments WHITE BLOOD CELL COUNT (BEAKER) (test tltx=709) 11.8 K/ L 4.0-10.0 RED BLOOD CELL COUNT (BEAKER) (test brxb=342) 2.37 M/ L 4.20-5.80 HEMOGLOBIN (BEAKER) (test rqdi=477) 7.4 GM/DL 13.0-16.8 HEMATOCRIT (BEAKER) (test oixh=095) 21.4 % 40.0-50.0 MEAN CORPUSCULAR VOLUME (BEAKER) (test zapt=051) 90.1 fL 82.0-98.0 MEAN CORPUSCULAR HEMOGLOBIN (BEAKER) (test 31.0 pg 27.0-33.0 fokw=900) MEAN CORPUSCULAR HEMOGLOBIN CONC (BEAKER) (test 34.4 GM/DL 32.0-36.0 wmlb=382) RED CELL DISTRIBUTION WIDTH (BEAKER) (test 20.6 % 10.3-14.2 kzfq=155) PLATELET COUNT (BEAKER) (test fihp=696) 373 K/CU MM 150-430 MEAN PLATELET VOLUME (BEAKER) (test gpeh=496) 7.5 fL 6.5-10.5 NUCLEATED RED BLOOD CELLS (BEAKER) (test 0 /100 WBC 0-0 hblx=004) NEUTROPHILS RELATIVE PERCENT (BEAKER) (test 81 % wliz=524) LYMPHOCYTES RELATIVE PERCENT (BEAKER) (test 10 % opgh=398) MONOCYTES RELATIVE PERCENT (BEAKER) (test 6 % miev=658) EOSINOPHILS RELATIVE PERCENT (BEAKER) (test 3 % cani=017) BASOPHILS RELATIVE PERCENT (BEAKER) (test 1 % zigz=841) NEUTROPHILS ABSOLUTE COUNT (BEAKER) (test 9.50 K/ L 1.80-8.00 vujt=340) LYMPHOCYTES ABSOLUTE COUNT (BEAKER) (test 1.14 K/ L 1.48-4.50 mfob=607) MONOCYTES ABSOLUTE COUNT (BEAKER) (test 0.75 K/ L 0.00-1.30 vifo=356) EOSINOPHILS ABSOLUTE COUNT (BEAKER) (test 0.34 K/ L 0.00-0.50 cqka=347) BASOPHILS ABSOLUTE COUNT (BEAKER) (test 0.07 K/ L 0.00-0.20 vocv=698) 0.00CALCIUM, [id number] 05:43:00 Test Item Value Reference Range Comments CALCIUM IONIZED (BEAKER) (test gkqo=521) 1.03 mmol/L 1.12-1.27 PH, BLOOD (BEAKER) (test xsle=4062) 7.50 BASIC METABOLIC [id number] 05:38:00 Test Item Value Reference Range Comments SODIUM (BEAKER) (test 135 meq/L 136-145 icav=099) POTASSIUM (BEAKER) (test 3.7 meq/L 3.5-5.1 jcnh=936) CHLORIDE (BEAKER) (test 106 meq/L 98-107 larz=587) CO2 (BEAKER) (test 20 meq/L 22-29 vivv=041) BLOOD UREA NITROGEN 20 mg/dL 7-21 (BEAKER) (test qyhe=734) CREATININE (BEAKER) (test 1.11 mg/dL 0.57-1.25 wuso=968) GLUCOSE RANDOM (BEAKER) 115 mg/dL 70-105 (test eaon=857) CALCIUM (BEAKER) (test 7.9 mg/dL 8.4-10.2 sqzr=468) EGFR (BEAKER) (test mL/min/1.73 sq m INSUFFICIENT CLINICAL DATA fepd=6991) TO CALCULATE ESTIMATED GFR. Specimen moderately [id number] 05:35:00 Test Item Value Reference Range Comments PHOSPHORUS (BEAKER) (test lozq=393) 3.2 mg/dL 2.3-4.7 [id number] 05:35:00 Test Item Value Reference Range Comments MAGNESIUM (BEAKER) (test lbdi=559) 1.6 mg/dL 1.6-2.6 HEPATIC FUNCTION [id number] 05:35:00 Test Item Value Reference Range Comments TOTAL PROTEIN (BEAKER) (test cnpi=531) 5.7 gm/dL 6.0-8.3 ALBUMIN (BEAKER) (test kpuv=0699) 2.3 g/dL 3.5-5.0 BILIRUBIN TOTAL (BEAKER) (test zgra=192) 4.5 mg/dL 0.2-1.2 BILIRUBIN DIRECT (BEAKER) (test cjfg=321) 3.4 mg/dL 0.1-0.5 ALKALINE PHOSPHATASE (BEAKER) (test yzrt=144) 201 U/L 40-150 AST (SGOT) (BEAKER) (test ttcd=597) 78 U/L 5-34 ALT (SGPT) (BEAKER) (test chfr=065) 54 U/L 6-55 Specimen moderately ictericPT/[id number] 05:30:00 Test Item Value Reference Range Comments PROTIME (BEAKER) (test ajmn=417) 14.4 seconds 11.7-14.7 INR (BEAKER) (test igkd=231) 1.1 <=5.9 PARTIAL THROMBOPLASTIN TIME (BEAKER) (test 32.7 seconds 22.5-36.0 kjdg=870) RECOMMENDED COUMADIN/WARFARIN INR THERAPY RANGESSTANDARD DOSE: 2.0 - 3.0 Includes: PROPHYLAXIS forvenous thrombosis, systemic embolization; TREATMENT for venous thrombosis and/or pulmonary embolus.HIGH RISK: Target INR is 2.5-3.5 for patients with mechanical heart valves.POCT-GLUCOSE [id number] 21:55:00 Test Item Value Reference Range Comments POC-GLUCOSE METER (BEAKER) 149 mg/dL 70-110 TESTED AT [address] (test icst=5897) [facility] [address] POCT-GLUCOSE [id number] 16:53:00 Test Item Value Reference Range Comments POC-GLUCOSE METER (BEAKER) 188 mg/dL 70-110 TESTED AT [address] (test hxsb=5491) [place] [id number] POCT-GLUCOSE [id number] 13:03:00 Test Item Value Reference Range Comments POC-GLUCOSE METER (BEAKER) 288 mg/dL 70-110 TESTED AT [address] (test ltxu=9268) [place] [id number] CBC W/PLT COUNT & AUTO [id number] 12:17:00 Test Item Value Reference Range Comments WHITE BLOOD CELL COUNT (BEAKER) (test qpzv=130) 11.2 K/ L 4.0-10.0 RED BLOOD CELL COUNT (BEAKER) (test kpes=597) 2.38 M/ L 4.20-5.80 HEMOGLOBIN (BEAKER) (test lptm=187) 7.6 GM/DL 13.0-16.8 HEMATOCRIT (BEAKER) (test ekwg=390) 21.9 % 40.0-50.0 MEAN CORPUSCULAR VOLUME (BEAKER) (test qzay=357) 91.8 fL 82.0-98.0 MEAN CORPUSCULAR HEMOGLOBIN (BEAKER) (test 31.8 pg 27.0-33.0 qqum=668) MEAN CORPUSCULAR HEMOGLOBIN CONC (BEAKER) (test 34.7 GM/DL 32.0-36.0 djis=144) RED CELL DISTRIBUTION WIDTH (BEAKER) (test 20.2 % 10.3-14.2 hyxv=545) PLATELET COUNT (BEAKER) (test rnig=249) 443 K/CU MM 150-430 MEAN PLATELET VOLUME (BEAKER) (test ukrz=540) 8.0 fL 6.5-10.5 NUCLEATED RED BLOOD CELLS (BEAKER) (test 0 /100 WBC 0-0 fmgp=910) NEUTROPHILS RELATIVE PERCENT (BEAKER) (test 82 % ofta=049) LYMPHOCYTES RELATIVE PERCENT (BEAKER) (test 10 % bnbc=546) MONOCYTES RELATIVE PERCENT (BEAKER) (test 5 % moki=321) EOSINOPHILS RELATIVE PERCENT (BEAKER) (test 3 % qkzm=395) BASOPHILS RELATIVE PERCENT (BEAKER) (test 1 % hibr=018) NEUTROPHILS ABSOLUTE COUNT (BEAKER) (test 9.17 K/ L 1.80-8.00 ohkx=444) LYMPHOCYTES ABSOLUTE COUNT (BEAKER) (test 1.09 K/ L 1.48-4.50 vlmv=085) MONOCYTES ABSOLUTE COUNT (BEAKER) (test 0.52 K/ L 0.00-1.30 kcux=894) EOSINOPHILS ABSOLUTE COUNT (BEAKER) (test 0.35 K/ L 0.00-0.50 diqc=280) BASOPHILS ABSOLUTE COUNT (BEAKER) (test 0.07 K/ L 0.00-0.20 svjj=996) 0.000.810.000.000.000.00(MANUAL DIFFERENTIAL)2016-11-24 12:17:00 Test Item Value Reference Range Comments TOTAL COUNTED (BEAKER) (test jffg=3090) WBC MORPHOLOGY (BEAKER) (test dbgc=454) Normal PLT MORPHOLOGY (BEAKER) (test qrdn=534) Normal RBC MORPHOLOGY (BEAKER) (test vcuu=689) Normal TOXIC GRANULATION (BEAKER) (test cljb=526) Slight POCT-GLUCOSE [id number] 08:40:00 Test Item Value Reference Range Comments POC-GLUCOSE METER (BEAKER) 176 mg/dL 70-110 TESTED AT [address] (test nxqr=9401) [facility] [address] RETICULOCYTE [id number] 07:00:00 Test Item Value Reference Range Comments RETICULOCYTE COUNT PCT (BEAKER) (test ltpt=812) 5.1 % 0.4-2.9 [id number] 06:39:00 Test Item Value Reference Range Comments FERRITIN (BEAKER) (test cbvt=700) 258 ng/mL 5-275 Effective 08/22/2014: Reference Range ChangeNew: Male 5-275 Previous: Male 22-322 Female 5-275 Female 10-291IRON, TIBC, % SAT. ( WITHOUT FERRITIN)2016-11-24 06:18:00 Test Item Value Reference Range Comments IRON (BEAKER) (test swne=987) 64 ug/dL 40-160 TOTAL IRON BINDING CAPACITY (BEAKER) (test 198 ug/dL 250-450 grlu=964) IRON % SATURATION (2) (BEAKER) (test rrym=7220) 32 % 20-55 BASIC METABOLIC [id number] 06:11:00 Test Item Value Reference Range Comments SODIUM (BEAKER) (test 137 meq/L 136-145 vvrr=465) POTASSIUM (BEAKER) (test 3.8 meq/L 3.5-5.1 oior=140) CHLORIDE (BEAKER) (test 107 meq/L 98-107 dmnb=202) CO2 (BEAKER) (test 23 meq/L 22-29 kvgy=748) BLOOD UREA NITROGEN 25 mg/dL 7-21 (BEAKER) (test mchr=251) CREATININE (BEAKER) (test 1.09 mg/dL 0.57-1.25 rxzv=255) GLUCOSE RANDOM (BEAKER) 102 mg/dL 70-105 (test ylcz=904) CALCIUM (BEAKER) (test 8.2 mg/dL 8.4-10.2 nsce=929) EGFR (BEAKER) (test mL/min/1.73 sq m INSUFFICIENT CLINICAL DATA wqmt=4625) TO CALCULATE ESTIMATED GFR. Specimen slightly [id number] 06:02:00 Test Item Value Reference Range Comments PHOSPHORUS (BEAKER) (test hees=995) 3.4 mg/dL 2.3-4.7 [id number] 06:02:00 Test Item Value Reference Range Comments MAGNESIUM (BEAKER) (test vtwq=963) 1.5 mg/dL 1.6-2.6 HEPATIC FUNCTION [id number] 06:02:00 Test Item Value Reference Range Comments TOTAL PROTEIN (BEAKER) (test ohea=545) 5.6 gm/dL 6.0-8.3 ALBUMIN (BEAKER) (test swqq=0140) 2.3 g/dL 3.5-5.0 BILIRUBIN TOTAL (BEAKER) (test tukk=314) 5.0 mg/dL 0.2-1.2 BILIRUBIN DIRECT (BEAKER) (test ijii=831) 3.7 mg/dL 0.1-0.5 ALKALINE PHOSPHATASE (BEAKER) (test jrvl=685) 184 U/L 40-150 AST (SGOT) (BEAKER) (test brez=655) 89 U/L 5-34 ALT (SGPT) (BEAKER) (test vypw=806) 52 U/L 6-55 Specimen slightly ictericPT/[id number] 05:51:00 Test Item Value Reference Range Comments PROTIME (BEAKER) (test dfcf=865) 14.2 seconds 11.7-14.7 INR (BEAKER) (test aenc=162) 1.1 <=5.9 PARTIAL THROMBOPLASTIN TIME (BEAKER) (test 33.4 seconds 22.5-36.0 invl=574) RECOMMENDED COUMADIN/WARFARIN INR THERAPY RANGESSTANDARD DOSE: 2.0 - 3.0 Includes: PROPHYLAXIS forvenous thrombosis, systemic embolization; TREATMENT for venous thrombosis and/or pulmonary embolus.HIGH RISK: Target INR is 2.5-3.5 for patients with mechanical heart valves.CALCIUM, [id number] 05:45:00 Test Item Value Reference Range Comments CALCIUM IONIZED (BEAKER) (test ibhp=299) 1.09 mmol/L 1.12-1.27 PH, BLOOD (BEAKER) (test ndfj=5055) 7.45 BASIC METABOLIC [id number] 00:45:00 Test Item Value Reference Range Comments SODIUM (BEAKER) (test 132 meq/L 136-145 jein=493) POTASSIUM (BEAKER) (test 4.3 meq/L 3.5-5.1 Specimen moderately dkmc=777) hemolyzed CHLORIDE (BEAKER) (test 105 meq/L 98-107 ahfk=837) CO2 (BEAKER) (test 19 meq/L 22-29 wetd=642) BLOOD UREA NITROGEN 26 mg/dL 7-21 (BEAKER) (test nrgv=092) CREATININE (BEAKER) (test 1.10 mg/dL 0.57-1.25 Specimen moderately byzh=686) hemolyzed GLUCOSE RANDOM (BEAKER) 96 mg/dL 70-105 (test qrfl=070) CALCIUM (BEAKER) (test 7.9 mg/dL 8.4-10.2 jmke=751) EGFR (BEAKER) (test mL/min/1.73 sq m INSUFFICIENT CLINICAL DATA rdsd=4777) TO CALCULATE ESTIMATED GFR. Specimen slightly ictericPOCT-GLUCOSE [id number] 20:43:00 Test Item Value Reference Range Comments POC-GLUCOSE METER (BEAKER) 151 mg/dL 70-110 TESTED AT [facility] [address] [place] [address] (test fcvl=8332) [place] [id number] POCT-GLUCOSE [id number] 17:10:00 Test Item Value Reference Range Comments POC-GLUCOSE METER (BEAKER) 123 mg/dL 70-110 TESTED AT [address] (test rzpp=9832) [facility] [address] BASIC METABOLIC [id number] 12:10:00 Test Item Value Reference Range Comments SODIUM (BEAKER) (test 134 meq/L 136-145 ovcz=902) POTASSIUM (BEAKER) (test 3.3 meq/L 3.5-5.1 qttd=011) CHLORIDE (BEAKER) (test 105 meq/L 98-107 ntxm=600) CO2 (BEAKER) (test 20 meq/L 22-29 fuyo=663) BLOOD UREA NITROGEN 32 mg/dL 7-21 (BEAKER) (test okqq=570) CREATININE (BEAKER) (test 1.32 mg/dL 0.57-1.25 oopj=388) GLUCOSE RANDOM (BEAKER) 149 mg/dL 70-105 (test ovck=065) CALCIUM (BEAKER) (test 8.0 mg/dL 8.4-10.2 hmpw=009) EGFR (BEAKER) (test mL/min/1.73 sq m INSUFFICIENT CLINICAL DATA qzhj=7225) TO CALCULATE ESTIMATED GFR. Specimen moderately ictericPOCT-GLUCOSE [id number] 12:07:00 Test Item Value Reference Range Comments POC-GLUCOSE METER (BEAKER) 182 mg/dL 70-110 TESTED AT [address] (test savn=5165) [place] [id number] PROTHROMBIN [id number] 11:39:00 Test Item Value Reference Range Comments PROTIME (BEAKER) (test ybfu=905) 14.1 seconds 11.7-14.7 INR (BEAKER) (test uaac=895) 1.1 <=5.9 RECOMMENDED COUMADIN/WARFARIN INR THERAPY RANGESSTANDARD DOSE: 2.0 - 3.0 Includes: PROPHYLAXIS forvenous thrombosis, systemic embolization; TREATMENT for venous thrombosis and/or pulmonary embolus.HIGH RISK: Target INR is 2.5-3.5 for patients with mechanical heart valves.POCT-GLUCOSE [id number] 07:45:00 Test Item Value Reference Range Comments POC-GLUCOSE METER (BEAKER) 110 mg/dL 70-110 TESTED AT [place] [address] [address] (test beok=9145) [place] [address] CBC W/PLT COUNT & AUTO [id number] 07:08:00 Test Item Value Reference Range Comments WHITE BLOOD CELL COUNT (BEAKER) (test uclr=831) 12.9 K/ L 4.0-10.0 RED BLOOD CELL COUNT (BEAKER) (test llcm=892) 2.39 M/ L 4.20-5.80 HEMOGLOBIN (BEAKER) (test msen=216) 7.6 GM/DL 13.0-16.8 HEMATOCRIT (BEAKER) (test mjus=380) 21.4 % 40.0-50.0 MEAN CORPUSCULAR VOLUME (BEAKER) (test zxle=057) 89.6 fL 82.0-98.0 MEAN CORPUSCULAR HEMOGLOBIN (BEAKER) (test 31.7 pg 27.0-33.0 fqeb=341) MEAN CORPUSCULAR HEMOGLOBIN CONC (BEAKER) (test 35.4 GM/DL 32.0-36.0 nzbx=824) RED CELL DISTRIBUTION WIDTH (BEAKER) (test 21.3 % 10.3-14.2 ivhv=735) PLATELET COUNT (BEAKER) (test jxlv=292) 428 K/CU MM 150-430 MEAN PLATELET VOLUME (BEAKER) (test pwmm=426) 7.9 fL 6.5-10.5 NUCLEATED RED BLOOD CELLS (BEAKER) (test 0 /100 WBC 0-0 kxrq=972) NEUTROPHILS RELATIVE PERCENT (BEAKER) (test 82 % mydq=947) LYMPHOCYTES RELATIVE PERCENT (BEAKER) (test 9 % pmwz=747) MONOCYTES RELATIVE PERCENT (BEAKER) (test 5 % pxmj=303) EOSINOPHILS RELATIVE PERCENT (BEAKER) (test 3 % wfdq=386) BASOPHILS RELATIVE PERCENT (BEAKER) (test 1 % tbuj=206) NEUTROPHILS ABSOLUTE COUNT (BEAKER) (test 10.50 K/ L 1.80-8.00 yntn=462) LYMPHOCYTES ABSOLUTE COUNT (BEAKER) (test 1.19 K/ L 1.48-4.50 rkha=535) MONOCYTES ABSOLUTE COUNT (BEAKER) (test 0.66 K/ L 0.00-1.30 mzdg=092) EOSINOPHILS ABSOLUTE COUNT (BEAKER) (test 0.38 K/ L 0.00-0.50 smvr=935) BASOPHILS ABSOLUTE COUNT (BEAKER) (test 0.12 K/ L 0.00-0.20 clkr=474) 0.00BASIC METABOLIC [id number] 06:34:00 Test Item Value Reference Range Comments SODIUM (BEAKER) (test 134 meq/L 136-145 lrtu=846) POTASSIUM (BEAKER) (test 3.3 meq/L 3.5-5.1 fsfh=072) CHLORIDE (BEAKER) (test 105 meq/L 98-107 nufa=204) CO2 (BEAKER) (test 19 meq/L 22-29 ebwm=993) BLOOD UREA NITROGEN 35 mg/dL 7-21 (BEAKER) (test umfs=244) CREATININE (BEAKER) (test 1.38 mg/dL 0.57-1.25 egcc=029) GLUCOSE RANDOM (BEAKER) 112 mg/dL 70-105 (test qwsg=126) CALCIUM (BEAKER) (test 7.9 mg/dL 8.4-10.2 vlwd=757) EGFR (BEAKER) (test mL/min/1.73 sq m INSUFFICIENT CLINICAL DATA yozp=9815) TO CALCULATE ESTIMATED GFR. Specimen moderately [id number] 06:27:00 Test Item Value Reference Range Comments PHOSPHORUS (BEAKER) (test lmzk=723) 3.7 mg/dL 2.3-4.7 [id number] 06:27:00 Test Item Value Reference Range Comments MAGNESIUM (BEAKER) (test gjxv=674) 1.6 mg/dL 1.6-2.6 HEPATIC FUNCTION [id number] 06:27:00 Test Item Value Reference Range Comments TOTAL PROTEIN (BEAKER) (test tmiy=686) 5.4 gm/dL 6.0-8.3 ALBUMIN (BEAKER) (test svmz=4911) 2.2 g/dL 3.5-5.0 BILIRUBIN TOTAL (BEAKER) (test ulbl=416) 5.4 mg/dL 0.2-1.2 BILIRUBIN DIRECT (BEAKER) (test kuxk=051) 4.2 mg/dL 0.1-0.5 ALKALINE PHOSPHATASE (BEAKER) (test zioy=808) 172 U/L 40-150 AST (SGOT) (BEAKER) (test emqo=503) 76 U/L 5-34 ALT (SGPT) (BEAKER) (test jftr=749) 47 U/L 6-55 Specimen moderately ictericBASIC METABOLIC [id number] 06:23:00 Test Item Value Reference Range Comments SODIUM (BEAKER) (test 135 meq/L 136-145 bgzw=488) POTASSIUM (BEAKER) (test 3.2 meq/L 3.5-5.1 jgys=688) CHLORIDE (BEAKER) (test 105 meq/L 98-107 niao=254) CO2 (BEAKER) (test 19 meq/L 22-29 csml=485) BLOOD UREA NITROGEN 35 mg/dL 7-21 (BEAKER) (test fwni=169) CREATININE (BEAKER) (test 1.38 mg/dL 0.57-1.25 xrtf=951) GLUCOSE RANDOM (BEAKER) 110 mg/dL 70-105 (test mavm=667) CALCIUM (BEAKER) (test 8.0 mg/dL 8.4-10.2 bscc=371) EGFR (BEAKER) (test mL/min/1.73 sq m INSUFFICIENT CLINICAL DATA xryg=6289) TO CALCULATE ESTIMATED GFR. Specimen moderately ictericCALCIUM, [id number] 05:52:00 Test Item Value Reference Range Comments CALCIUM IONIZED (BEAKER) (test irpu=065) 1.04 mmol/L 1.12-1.27 PH, BLOOD (BEAKER) (test whin=3556) 7.50 POCT-GLUCOSE [id number] 21:30:00 Test Item Value Reference Range Comments POC-GLUCOSE METER (BEAKER) 133 mg/dL 70-110 TESTED AT [address] (test xygr=3934) [place] [id number] POCT-GLUCOSE [id number] 17:21:00 Test Item Value Reference Range Comments POC-GLUCOSE METER (BEAKER) 117 mg/dL 70-110 TESTED AT [address] (test vnet=8312) [place] [id number] BASIC METABOLIC [id number] 16:21:00 Test Item Value Reference Range Comments SODIUM (BEAKER) (test 133 meq/L 136-145 kxaj=299) POTASSIUM (BEAKER) (test 3.2 meq/L 3.5-5.1 bkvs=825) CHLORIDE (BEAKER) (test 102 meq/L 98-107 szfd=475) CO2 (BEAKER) (test 20 meq/L 22-29 fesm=999) BLOOD UREA NITROGEN 40 mg/dL 7-21 (BEAKER) (test wcny=247) CREATININE (BEAKER) (test 1.82 mg/dL 0.57-1.25 mbsa=351) GLUCOSE RANDOM (BEAKER) 129 mg/dL 70-105 (test wwbz=012) CALCIUM (BEAKER) (test 7.8 mg/dL 8.4-10.2 djuw=454) EGFR (BEAKER) (test mL/min/1.73 sq m INSUFFICIENT CLINICAL DATA kedd=6589) TO CALCULATE ESTIMATED GFR. Specimen moderately ictericCBC W/PLT COUNT & AUTO [id number] 15: 58:00 Test Item Value Reference Range Comments WHITE BLOOD CELL COUNT (BEAKER) (test wcnj=635) 14.2 K/ L 4.0-10.0 RED BLOOD CELL COUNT (BEAKER) (test tohu=473) 2.41 M/ L 4.20-5.80 HEMOGLOBIN (BEAKER) (test tjrq=152) 7.5 GM/DL 13.0-16.8 HEMATOCRIT (BEAKER) (test lvdc=683) 21.8 % 40.0-50.0 MEAN CORPUSCULAR VOLUME (BEAKER) (test ogku=684) 90.5 fL 82.0-98.0 MEAN CORPUSCULAR HEMOGLOBIN (BEAKER) (test 31.0 pg 27.0-33.0 yuhu=919) MEAN CORPUSCULAR HEMOGLOBIN CONC (BEAKER) (test 34.3 GM/DL 32.0-36.0 vtal=838) RED CELL DISTRIBUTION WIDTH (BEAKER) (test 21.4 % 10.3-14.2 plye=514) PLATELET COUNT (BEAKER) (test uuhm=531) 424 K/CU MM 150-430 MEAN PLATELET VOLUME (BEAKER) (test ykwt=539) 7.2 fL 6.5-10.5 NUCLEATED RED BLOOD CELLS (BEAKER) (test 0 /100 WBC 0-0 uxuy=495) NEUTROPHILS RELATIVE PERCENT (BEAKER) (test 86 % prso=360) LYMPHOCYTES RELATIVE PERCENT (BEAKER) (test 7 % jjjk=476) MONOCYTES RELATIVE PERCENT (BEAKER) (test 4 % rbch=468) EOSINOPHILS RELATIVE PERCENT (BEAKER) (test 3 % kica=366) BASOPHILS RELATIVE PERCENT (BEAKER) (test 0 % cdqe=395) NEUTROPHILS ABSOLUTE COUNT (BEAKER) (test 12.20 K/ L 1.80-8.00 byvy=427) LYMPHOCYTES ABSOLUTE COUNT (BEAKER) (test 0.96 K/ L 1.48-4.50 dgqj=104) MONOCYTES ABSOLUTE COUNT (BEAKER) (test 0.60 K/ L 0.00-1.30 hmdt=472) EOSINOPHILS ABSOLUTE COUNT (BEAKER) (test 0.35 K/ L 0.00-0.50 indf=219) BASOPHILS ABSOLUTE COUNT (BEAKER) (test 0.04 K/ L 0.00-0.20 mfbc=750) 0.00CBC W/PLT COUNT & AUTO [id number] 14:42:00 Test Item Value Reference Range Comments WHITE BLOOD CELL COUNT (BEAKER) (test oydg=387) 17.8 K/ L 4.0-10.0 RED BLOOD CELL COUNT (BEAKER) (test vorn=354) 2.32 M/ L 4.20-5.80 HEMOGLOBIN (BEAKER) (test jqoy=574) 7.2 GM/DL 13.0-16.8 HEMATOCRIT (BEAKER) (test wsih=266) 20.8 % 40.0-50.0 MEAN CORPUSCULAR VOLUME (BEAKER) (test zbij=009) 89.7 fL 82.0-98.0 MEAN CORPUSCULAR HEMOGLOBIN (BEAKER) (test 31.2 pg 27.0-33.0 sdgr=809) MEAN CORPUSCULAR HEMOGLOBIN CONC (BEAKER) (test 34.8 GM/DL 32.0-36.0 hobt=197) RED CELL DISTRIBUTION WIDTH (BEAKER) (test 21.4 % 10.3-14.2 nbtr=858) PLATELET COUNT (BEAKER) (test tlda=970) 442 K/CU MM 150-430 MEAN PLATELET VOLUME (BEAKER) (test oozb=431) 7.7 fL 6.5-10.5 NUCLEATED RED BLOOD CELLS (BEAKER) (test 0 /100 WBC 0-0 qfuc=905) NEUTROPHILS RELATIVE PERCENT (BEAKER) (test 90 % zuxg=093) LYMPHOCYTES RELATIVE PERCENT (BEAKER) (test 4 % kvcb=828) MONOCYTES RELATIVE PERCENT (BEAKER) (test 3 % lvym=533) EOSINOPHILS RELATIVE PERCENT (BEAKER) (test 2 % cbsd=452) BASOPHILS RELATIVE PERCENT (BEAKER) (test 1 % isiq=939) NEUTROPHILS ABSOLUTE COUNT (BEAKER) (test 16.10 K/ L 1.80-8.00 mxgg=764) LYMPHOCYTES ABSOLUTE COUNT (BEAKER) (test 0.75 K/ L 1.48-4.50 nndg=013) MONOCYTES ABSOLUTE COUNT (BEAKER) (test 0.57 K/ L 0.00-1.30 xmjd=896) EOSINOPHILS ABSOLUTE COUNT (BEAKER) (test 0.32 K/ L 0.00-0.50 qhym=262) BASOPHILS ABSOLUTE COUNT (BEAKER) (test 0.10 K/ L 0.00-0.20 acvr=886) 0.000.530.000.000.000.000.000.000.00(MANUAL DIFFERENTIAL)2016-11-22 14:42:00 Test Item Value Reference Range Comments TOTAL COUNTED (BEAKER) (test shir=5166) WBC MORPHOLOGY (BEAKER) (test vyyu=274) Normal PLT MORPHOLOGY (BEAKER) (test szmc=479) Normal RBC MORPHOLOGY (BEAKER) (test wrzy=810) Normal URINE [id number] 13:50:00 Test Item Value Reference Range Comments CULTURE (BEAKER) (test ugkf=0334) No growth POCT-GLUCOSE [id number] 11:38:00 Test Item Value Reference Range Comments POC-GLUCOSE METER (BEAKER) 144 mg/dL 70-110 TESTED AT [address] (test tlgl=6990) [place] [id number] POCT-GLUCOSE [id number] 07:39:00 Test Item Value Reference Range Comments POC-GLUCOSE METER (BEAKER) 127 mg/dL 70-110 TESTED AT [address] (test itoo=2644) [place] [id number] BASIC METABOLIC [id number] 05:51:00 Test Item Value Reference Range Comments SODIUM (BEAKER) (test 132 meq/L 136-145 lzoz=143) POTASSIUM (BEAKER) (test 3.5 meq/L 3.5-5.1 inkx=055) CHLORIDE (BEAKER) (test 103 meq/L 98-107 qzoj=642) CO2 (BEAKER) (test 18 meq/L 22-29 djdb=086) BLOOD UREA NITROGEN 47 mg/dL 7-21 (BEAKER) (test judn=477) CREATININE (BEAKER) (test 1.82 mg/dL 0.57-1.25 xsyc=200) GLUCOSE RANDOM (BEAKER) 116 mg/dL 70-105 (test wcim=547) CALCIUM (BEAKER) (test 7.8 mg/dL 8.4-10.2 suss=910) EGFR (BEAKER) (test mL/min/1.73 sq m INSUFFICIENT CLINICAL DATA vsob=6675) TO CALCULATE ESTIMATED GFR. Specimen moderately [id number] 05:46:00 Test Item Value Reference Range Comments PHOSPHORUS (BEAKER) (test vdxr=808) 4.2 mg/dL 2.3-4.7 [id number] 05:46:00 Test Item Value Reference Range Comments MAGNESIUM (BEAKER) (test bmvz=400) 2.1 mg/dL 1.6-2.6 HEPATIC FUNCTION [id number] 05:46:00 Test Item Value Reference Range Comments TOTAL PROTEIN (BEAKER) (test xwgx=343) 5.2 gm/dL 6.0-8.3 ALBUMIN (BEAKER) (test mmyd=9769) 2.1 g/dL 3.5-5.0 BILIRUBIN TOTAL (BEAKER) (test jcsi=054) 6.3 mg/dL 0.2-1.2 BILIRUBIN DIRECT (BEAKER) (test losa=084) 5.0 mg/dL 0.1-0.5 ALKALINE PHOSPHATASE (BEAKER) (test vbqm=622) 165 U/L 40-150 AST (SGOT) (BEAKER) (test riiv=646) 84 U/L 5-34 ALT (SGPT) (BEAKER) (test ejxf=343) 44 U/L 6-55 Specimen moderately ictericCALCIUM, [id number] 05:37:00 Test Item Value Reference Range Comments CALCIUM IONIZED (BEAKER) (test hley=402) 1.02 mmol/L 1.12-1.27 PH, BLOOD (BEAKER) (test bfsc=8991) 7.52 BASIC METABOLIC [id number] 21:34:00 Test Item Value Reference Range Comments SODIUM (BEAKER) (test 131 meq/L 136-145 dtrx=228) POTASSIUM (BEAKER) (test 3.4 meq/L 3.5-5.1 zoll=665) CHLORIDE (BEAKER) (test 101 meq/L 98-107 jnjf=193) CO2 (BEAKER) (test 19 meq/L 22-29 bcdr=340) BLOOD UREA NITROGEN 51 mg/dL 7-21 (BEAKER) (test akic=033) CREATININE (BEAKER) (test 1.98 mg/dL 0.57-1.25 hfds=123) GLUCOSE RANDOM (BEAKER) 123 mg/dL 70-105 (test wtjg=538) CALCIUM (BEAKER) (test 7.8 mg/dL 8.4-10.2 iros=974) EGFR (BEAKER) (test mL/min/1.73 sq m INSUFFICIENT CLINICAL DATA tgqx=0542) TO CALCULATE ESTIMATED GFR. Specimen moderately ictericPOCT-GLUCOSE [id number] 17:50:00 Test Item Value Reference Range Comments POC-GLUCOSE METER (BEAKER) 165 mg/dL 70-110 TESTED AT [address] (test uljg=1788) [place] [id number] POCT-GLUCOSE [id number] 12:07:00 Test Item Value Reference Range Comments POC-GLUCOSE METER (BEAKER) 134 mg/dL 70-110 TESTED AT [address] (test iivr=8205) [place] [id number] POCT-GLUCOSE [id number] 12:07:00 Test Item Value Reference Range Comments POC-GLUCOSE METER (BEAKER) 128 mg/dL 70-110 TESTED AT [address] (test kodj=1669) [place] [id number] POCT-GLUCOSE [id number] 07:47:00 Test Item Value Reference Range Comments POC-GLUCOSE METER (BEAKER) 120 mg/dL 70-110 TESTED AT [address] (test hvxz=4948) [place] [id number] URINALYSIS W/ [id number] 02:39:00 Test Item Value Reference Range Comments COLOR (BEAKER) (test xbae=918) Dark Yellow CLARITY (BEAKER) (test vdyc=012) Clear SPECIFIC GRAVITY UA (BEAKER) (test mtre=241) 1.007 1.001-1.035 PH UA (BEAKER) (test itfg=761) 6.0 5.0-8.0 PROTEIN UA (BEAKER) (test pzji=332) 200 mg/dL Negative GLUCOSE UA (BEAKER) (test mcpw=118) Negative Negative KETONES UA (BEAKER) (test txel=902) Negative Negative BILIRUBIN UA (BEAKER) (test afni=504) Positive Negative BLOOD UA (BEAKER) (test zsqw=114) Moderate Negative NITRITE UA (BEAKER) (test iqew=482) Negative Negative LEUKOCYTE ESTERASE UA (BEAKER) (test wclw=435) Negative Negative UROBILINOGEN UA (BEAKER) (test nuvy=273) 0.2 mg/dL 0.2-1.0 RBC UA (BEAKER) (test gszh=378) 53 /HPF WBC UA (BEAKER) (test gwbz=115) 10 /HPF MUCUS (BEAKER) (test hywg=8328) Rare SQUAMOUS EPITHELIAL (BEAKER) (test khhm=815) < /HPF AMORPHOUS CRYSTALS (BEAKER) (test bqry=2557) Rare SOURCE(BEAKER) (test xumj=3553) Urine, Voided BASIC METABOLIC [id number] 02:28:00 Test Item Value Reference Range Comments SODIUM (BEAKER) (test 135 meq/L 136-145 zbqj=477) POTASSIUM (BEAKER) (test 3.4 meq/L 3.5-5.1 qixu=347) CHLORIDE (BEAKER) (test 103 meq/L 98-107 kiak=543) CO2 (BEAKER) (test 20 meq/L 22-29 fgln=979) BLOOD UREA NITROGEN 57 mg/dL 7-21 (BEAKER) (test xwmc=847) CREATININE (BEAKER) (test 2.08 mg/dL 0.57-1.25 tlhg=393) GLUCOSE RANDOM (BEAKER) 111 mg/dL 70-105 (test pwxs=255) CALCIUM (BEAKER) (test 8.4 mg/dL 8.4-10.2 dkfl=062) EGFR (BEAKER) (test mL/min/1.73 sq m INSUFFICIENT CLINICAL DATA spen=9037) TO CALCULATE ESTIMATED GFR. Specimen moderately ictericCBC W/PLT COUNT & AUTO [id number] 02: 01:00 Test Item Value Reference Range Comments WHITE BLOOD CELL COUNT (BEAKER) (test ipsl=069) 18.2 K/ L 4.0-10.0 RED BLOOD CELL COUNT (BEAKER) (test jkls=104) 3.07 M/ L 4.20-5.80 HEMOGLOBIN (BEAKER) (test pijb=244) 9.6 GM/DL 13.0-16.8 HEMATOCRIT (BEAKER) (test bkut=659) 27.5 % 40.0-50.0 MEAN CORPUSCULAR VOLUME (BEAKER) (test ujec=784) 89.4 fL 82.0-98.0 MEAN CORPUSCULAR HEMOGLOBIN (BEAKER) (test 31.3 pg 27.0-33.0 mqwk=231) MEAN CORPUSCULAR HEMOGLOBIN CONC (BEAKER) (test 34.9 GM/DL 32.0-36.0 pimy=659) RED CELL DISTRIBUTION WIDTH (BEAKER) (test 20.2 % 10.3-14.2 pvqa=097) PLATELET COUNT (BEAKER) (test gtfw=933) 639 K/CU MM 150-430 MEAN PLATELET VOLUME (BEAKER) (test jopb=518) 7.3 fL 6.5-10.5 NUCLEATED RED BLOOD CELLS (BEAKER) (test 0 /100 WBC 0-0 pnbo=418) NEUTROPHILS RELATIVE PERCENT (BEAKER) (test 94 % plbw=216) LYMPHOCYTES RELATIVE PERCENT (BEAKER) (test 4 % noww=249) MONOCYTES RELATIVE PERCENT (BEAKER) (test 1 % pkfv=139) EOSINOPHILS RELATIVE PERCENT (BEAKER) (test 1 % diyy=687) BASOPHILS RELATIVE PERCENT (BEAKER) (test 0 % wufs=218) NEUTROPHILS ABSOLUTE COUNT (BEAKER) (test 17.20 K/ L 1.80-8.00 umqj=851) LYMPHOCYTES ABSOLUTE COUNT (BEAKER) (test 0.62 K/ L 1.48-4.50 aelp=703) MONOCYTES ABSOLUTE COUNT (BEAKER) (test 0.12 K/ L 0.00-1.30 mgdq=748) EOSINOPHILS ABSOLUTE COUNT (BEAKER) (test 0.23 K/ L 0.00-0.50 azjp=730) BASOPHILS ABSOLUTE COUNT (BEAKER) (test 0.05 K/ L 0.00-0.20 ovrv=363) [id number] [id number] -02-17 01:57:00 Test Item Value Reference Range Comments PHOSPHORUS (BEAKER) (test lewu=764) 4.2 mg/dL 2.3-4.7 [id number] 01:57:00 Test Item Value Reference Range Comments MAGNESIUM (BEAKER) (test wmqu=924) 1.5 mg/dL 1.6-2.6 HEPATIC FUNCTION [id number] 01:57:00 Test Item Value Reference Range Comments TOTAL PROTEIN (BEAKER) (test blnk=040) 6.2 gm/dL 6.0-8.3 ALBUMIN (BEAKER) (test zxhb=5197) 2.7 g/dL 3.5-5.0 BILIRUBIN TOTAL (BEAKER) (test pflz=743) 8.2 mg/dL 0.2-1.2 BILIRUBIN DIRECT (BEAKER) (test layf=171) 6.2 mg/dL 0.1-0.5 ALKALINE PHOSPHATASE (BEAKER) (test mfzw=563) 218 U/L 40-150 AST (SGOT) (BEAKER) (test wmcg=034) 97 U/L 5-34 ALT (SGPT) (BEAKER) (test mvmu=616) 47 U/L 6-55 Specimen moderately ictericCALCIUM, [id number] 01:43:00 Test Item Value Reference Range Comments CALCIUM IONIZED (BEAKER) (test yeek=345) 1.01 mmol/L 1.12-1.27 PH, BLOOD (BEAKER) (test xsih=5775) 7.43 POCT-GLUCOSE [id number] 21:25:00 Test Item Value Reference Range Comments POC-GLUCOSE METER (BEAKER) 123 mg/dL 70-110 TESTED AT [address] (test xplj=1318) [facility] [address] POCT-GLUCOSE [id number] 17:00:00 Test Item Value Reference Range Comments POC-GLUCOSE METER (BEAKER) 139 mg/dL 70-110 TESTED AT [address] (test ceby=3157) [facility] [address] ANTI-NUCLEAR ANTIBODY (WILLY)2016-11-20 14:38:00 Test Item Value Reference Range Comments ANTI-NUCLEAR ANTIBODY (WILLY) (BEAKER) (test Negative Negative ixso=204) POCT-GLUCOSE [id number] 12:57:00 Test Item Value Reference Range Comments POC-GLUCOSE METER (BEAKER) 104 mg/dL 70-110 TESTED AT [address] (test zvmk=4522) [facility] [address] POCT-GLUCOSE [id number] 07:57:00 Test Item Value Reference Range Comments POC-GLUCOSE METER (BEAKER) 116 mg/dL 70-110 TESTED AT [address] (test ybwr=6665) [facility] [address] CBC W/PLT COUNT & AUTO [id number] 07:17:00 Test Item Value Reference Range Comments WHITE BLOOD CELL COUNT (BEAKER) (test kqej=600) 16.5 K/ L 4.0-10.0 RED BLOOD CELL COUNT (BEAKER) (test dbvx=365) 2.56 M/ L 4.20-5.80 HEMOGLOBIN (BEAKER) (test lrrd=026) 8.0 GM/DL 13.0-16.8 HEMATOCRIT (BEAKER) (test kfex=373) 22.4 % 40.0-50.0 MEAN CORPUSCULAR VOLUME (BEAKER) (test hcvs=415) 87.3 fL 82.0-98.0 MEAN CORPUSCULAR HEMOGLOBIN (BEAKER) (test 31.2 pg 27.0-33.0 mkbj=997) MEAN CORPUSCULAR HEMOGLOBIN CONC (BEAKER) (test 35.7 GM/DL 32.0-36.0 vzdb=286) RED CELL DISTRIBUTION WIDTH (BEAKER) (test 15.6 % 10.3-14.2 wdju=464) PLATELET COUNT (BEAKER) (test kkkp=634) 588 K/CU MM 150-430 MEAN PLATELET VOLUME (BEAKER) (test xtif=067) 7.9 fL 6.5-10.5 NUCLEATED RED BLOOD CELLS (BEAKER) (test 0 /100 WBC 0-0 bzdp=730) NEUTROPHILS RELATIVE PERCENT (BEAKER) (test 85 % ttsg=008) LYMPHOCYTES RELATIVE PERCENT (BEAKER) (test 7 % yyao=331) MONOCYTES RELATIVE PERCENT (BEAKER) (test 5 % zxfm=157) EOSINOPHILS RELATIVE PERCENT (BEAKER) (test 2 % spql=396) BASOPHILS RELATIVE PERCENT (BEAKER) (test 0 % wrhn=927) NEUTROPHILS ABSOLUTE COUNT (BEAKER) (test 14.10 K/ L 1.80-8.00 zvgh=195) LYMPHOCYTES ABSOLUTE COUNT (BEAKER) (test 1.20 K/ L 1.48-4.50 kuup=784) MONOCYTES ABSOLUTE COUNT (BEAKER) (test 0.80 K/ L 0.00-1.30 cyhq=503) EOSINOPHILS ABSOLUTE COUNT (BEAKER) (test 0.35 K/ L 0.00-0.50 dwcl=073) BASOPHILS ABSOLUTE COUNT (BEAKER) (test 0.06 K/ L 0.00-0.20 lijk=635) 0.00BASIC METABOLIC [id number] 05:57:00 Test Item Value Reference Range Comments SODIUM (BEAKER) (test 136 meq/L 136-145 kagv=961) POTASSIUM (BEAKER) (test 3.5 meq/L 3.5-5.1 ggnh=002) CHLORIDE (BEAKER) (test 105 meq/L 98-107 agjm=744) CO2 (BEAKER) (test 22 meq/L 22-29 vdkf=057) BLOOD UREA NITROGEN 71 mg/dL 7-21 (BEAKER) (test itsn=035) CREATININE (BEAKER) (test 2.53 mg/dL 0.57-1.25 wzrf=616) GLUCOSE RANDOM (BEAKER) 115 mg/dL 70-105 (test iaye=615) CALCIUM (BEAKER) (test 8.0 mg/dL 8.4-10.2 jkbc=867) EGFR (BEAKER) (test mL/min/1.73 sq m INSUFFICIENT CLINICAL DATA kncd=0789) TO CALCULATE ESTIMATED GFR. Specimen moderately [id number] 05:56:00 Test Item Value Reference Range Comments PHOSPHORUS (BEAKER) (test dfhe=755) 4.8 mg/dL 2.3-4.7 [id number] 05:56:00 Test Item Value Reference Range Comments MAGNESIUM (BEAKER) (test cfjo=178) 1.7 mg/dL 1.6-2.6 HEPATIC FUNCTION [id number] 05:56:00 Test Item Value Reference Range Comments TOTAL PROTEIN (BEAKER) (test lniy=246) 5.4 gm/dL 6.0-8.3 ALBUMIN (BEAKER) (test rrvx=0288) 2.3 g/dL 3.5-5.0 BILIRUBIN TOTAL (BEAKER) (test fvsw=293) 6.7 mg/dL 0.2-1.2 BILIRUBIN DIRECT (BEAKER) (test jlvn=962) 5.3 mg/dL 0.1-0.5 ALKALINE PHOSPHATASE (BEAKER) (test iuwg=027) 176 U/L 40-150 AST (SGOT) (BEAKER) (test qfkm=454) 65 U/L 5-34 ALT (SGPT) (BEAKER) (test ahti=510) 35 U/L 6-55 Specimen moderately ictericCALCIUM, [id number] 05:48:00 Test Item Value Reference Range Comments CALCIUM IONIZED (BEAKER) (test cvie=693) 1.08 mmol/L 1.12-1.27 PH, BLOOD (BEAKER) (test abzw=1745) 7.41 POCT-GLUCOSE [id number] 21:49:00 Test Item Value Reference Range Comments POC-GLUCOSE METER (BEAKER) 107 mg/dL 70-110 TESTED AT [address] (test wopt=3254) [facility] [address] POCT-GLUCOSE [id number] 17:44:00 Test Item Value Reference Range Comments POC-GLUCOSE METER (BEAKER) 156 mg/dL 70-110 TESTED AT [address] (test xflo=4509) [facility] [address] CBC W/PLT COUNT & AUTO [id number] 14:35:00 Test Item Value Reference Range Comments WHITE BLOOD CELL COUNT (BEAKER) (test ulsa=749) 18.1 K/ L 4.0-10.0 RED BLOOD CELL COUNT (BEAKER) (test nzjr=517) 2.87 M/ L 4.20-5.80 HEMOGLOBIN (BEAKER) (test nqfb=120) 8.5 GM/DL 13.0-16.8 HEMATOCRIT (BEAKER) (test hlrc=239) 25.1 % 40.0-50.0 MEAN CORPUSCULAR VOLUME (BEAKER) (test xgjh=144) 87.4 fL 82.0-98.0 MEAN CORPUSCULAR HEMOGLOBIN (BEAKER) (test 29.6 pg 27.0-33.0 uutx=909) MEAN CORPUSCULAR HEMOGLOBIN CONC (BEAKER) (test 33.8 GM/DL 32.0-36.0 vvgb=594) RED CELL DISTRIBUTION WIDTH (BEAKER) (test 15.5 % 10.3-14.2 yiui=148) PLATELET COUNT (BEAKER) (test akzw=634) 590 K/CU MM 150-430 MEAN PLATELET VOLUME (BEAKER) (test fofe=062) 7.9 fL 6.5-10.5 NUCLEATED RED BLOOD CELLS (BEAKER) (test 0 /100 WBC 0-0 iolu=584) NEUTROPHILS RELATIVE PERCENT (BEAKER) (test 87 % zszt=879) LYMPHOCYTES RELATIVE PERCENT (BEAKER) (test 6 % qfcc=970) MONOCYTES RELATIVE PERCENT (BEAKER) (test 5 % tilq=987) EOSINOPHILS RELATIVE PERCENT (BEAKER) (test 2 % qndf=690) BASOPHILS RELATIVE PERCENT (BEAKER) (test 0 % rydm=560) NEUTROPHILS ABSOLUTE COUNT (BEAKER) (test 15.80 K/ L 1.80-8.00 cnxp=844) LYMPHOCYTES ABSOLUTE COUNT (BEAKER) (test 1.15 K/ L 1.48-4.50 vmhd=096) MONOCYTES ABSOLUTE COUNT (BEAKER) (test 0.81 K/ L 0.00-1.30 cpng=172) EOSINOPHILS ABSOLUTE COUNT (BEAKER) (test 0.28 K/ L 0.00-0.50 hzrk=215) BASOPHILS ABSOLUTE COUNT (BEAKER) (test 0.04 K/ L 0.00-0.20 jjph=132) 0.000.530.000.000.000.000.000.000.00(MANUAL DIFFERENTIAL)2016-11-19 14:35:00 Test Item Value Reference Range Comments TOTAL COUNTED (BEAKER) (test ugvs=9497) WBC MORPHOLOGY (BEAKER) (test dboq=589) Normal PLT MORPHOLOGY (BEAKER) (test uide=662) Normal RBC MORPHOLOGY (BEAKER) (test dgcl=210) Normal BASIC METABOLIC [id number] 12:44:00 Test Item Value Reference Range Comments SODIUM (BEAKER) (test 137 meq/L 136-145 mvlb=449) POTASSIUM (BEAKER) (test 3.5 meq/L 3.5-5.1 aowd=517) CHLORIDE (BEAKER) (test 105 meq/L 98-107 asnh=826) CO2 (BEAKER) (test 21 meq/L 22-29 qafk=539) BLOOD UREA NITROGEN 79 mg/dL 7-21 (BEAKER) (test cobu=420) CREATININE (BEAKER) (test 3.02 mg/dL 0.57-1.25 vcoc=766) GLUCOSE RANDOM (BEAKER) 167 mg/dL 70-105 (test fahw=672) CALCIUM (BEAKER) (test 8.0 mg/dL 8.4-10.2 qrql=886) EGFR (BEAKER) (test mL/min/1.73 sq m INSUFFICIENT CLINICAL DATA lblj=3708) TO CALCULATE ESTIMATED GFR. Specimen moderately ictericCALCIUM, [id number] 12:25:00 Test Item Value Reference Range Comments CALCIUM IONIZED (BEAKER) (test fazt=602) 1.06 mmol/L 1.12-1.27 PH, BLOOD (BEAKER) (test abek=2666) 7.39 HEPATITIS A ANTIBODY, [id number] 09:08:00 Test Item Value Reference Range Comments HEPATITIS A IGG ANTIBODY (BEAKER) (test ylpv=5792) Reactive Nonreactive POCT-GLUCOSE [id number] 08:30:00 Test Item Value Reference Range Comments POC-GLUCOSE METER (BEAKER) 117 mg/dL 70-110 TESTED AT [address] (test whbq=0398) [facility] [address] HEPATITIS B SURFACE [id number] 08:28:00 Test Item Value Reference Range Comments HEPATITIS B SURFACE ANTIBODY (BEAKER) (test < mIU/mL <8.0 xshz=990) HEPATITIS B CORE ANTIBODY, [id number] 08:22:00 Test Item Value Reference Range Comments HEPATITIS B CORE TOTAL ANTIBODY (BEAKER) (test Nonreactive Nonreactive bdsx=542) BASIC METABOLIC [id number] 08:13:00 Test Item Value Reference Range Comments SODIUM (BEAKER) (test 138 meq/L 136-145 mqzw=806) POTASSIUM (BEAKER) (test 3.6 meq/L 3.5-5.1 hnnd=048) CHLORIDE (BEAKER) (test 106 meq/L 98-107 ixwo=304) CO2 (BEAKER) (test 20 meq/L 22-29 ogrm=497) BLOOD UREA NITROGEN 83 mg/dL 7-21 (BEAKER) (test hplq=873) CREATININE (BEAKER) (test 3.19 mg/dL 0.57-1.25 rrbg=090) GLUCOSE RANDOM (BEAKER) 111 mg/dL 70-105 (test ifyy=714) CALCIUM (BEAKER) (test 8.0 mg/dL 8.4-10.2 pxdn=504) EGFR (BEAKER) (test mL/min/1.73 sq m INSUFFICIENT CLINICAL DATA yjpn=7133) TO CALCULATE ESTIMATED GFR. Specimen moderately ictericBASIC METABOLIC [id number] 08:13:00 Test Item Value Reference Range Comments SODIUM (BEAKER) (test 138 meq/L 136-145 zkhe=737) POTASSIUM (BEAKER) (test 3.7 meq/L 3.5-5.1 otgx=310) CHLORIDE (BEAKER) (test 106 meq/L 98-107 onmn=857) CO2 (BEAKER) (test 20 meq/L 22-29 ywph=823) BLOOD UREA NITROGEN 83 mg/dL 7-21 (BEAKER) (test cszi=954) CREATININE (BEAKER) (test 3.18 mg/dL 0.57-1.25 aune=051) GLUCOSE RANDOM (BEAKER) 110 mg/dL 70-105 (test kyut=937) CALCIUM (BEAKER) (test 8.1 mg/dL 8.4-10.2 abgm=214) EGFR (BEAKER) (test mL/min/1.73 sq m INSUFFICIENT CLINICAL DATA yefd=1782) TO CALCULATE ESTIMATED GFR. Specimen moderately [id number] 08:08:00 Test Item Value Reference Range Comments PHOSPHORUS (BEAKER) (test osib=909) 5.3 mg/dL 2.3-4.7 [id number] 08:08:00 Test Item Value Reference Range Comments MAGNESIUM (BEAKER) (test rfzr=713) 1.9 mg/dL 1.6-2.6 HEPATIC FUNCTION [id number] 08:05:00 Test Item Value Reference Range Comments TOTAL PROTEIN (BEAKER) (test anpa=924) 5.3 gm/dL 6.0-8.3 ALBUMIN (BEAKER) (test owdm=7905) 2.4 g/dL 3.5-5.0 BILIRUBIN TOTAL (BEAKER) (test lrfi=017) 7.3 mg/dL 0.2-1.2 BILIRUBIN DIRECT (BEAKER) (test spld=597) 5.8 mg/dL 0.1-0.5 ALKALINE PHOSPHATASE (BEAKER) (test mvkk=703) 178 U/L 40-150 AST (SGOT) (BEAKER) (test kyud=400) 60 U/L 5-34 ALT (SGPT) (BEAKER) (test ahdu=368) 30 U/L 6-55 Specimen moderately ictericCALCIUM, [id number] 07:33:00 Test Item Value Reference Range Comments CALCIUM IONIZED (BEAKER) (test esic=418) 1.04 mmol/L 1.12-1.27 PH, BLOOD (BEAKER) (test tivu=2945) 7.42 POCT-GLUCOSE [id number] 02:15:00 Test Item Value Reference Range Comments POC-GLUCOSE METER (BEAKER) 103 mg/dL 70-110 TESTED AT [address] (test ysnp=3196) [facility] [address] BASIC METABOLIC [id number] 00:43:00 Test Item Value Reference Range Comments SODIUM (BEAKER) (test 137 meq/L 136-145 krts=724) POTASSIUM (BEAKER) (test 3.4 meq/L 3.5-5.1 gaco=271) CHLORIDE (BEAKER) (test 104 meq/L 98-107 nusf=742) CO2 (BEAKER) (test 20 meq/L 22-29 plie=030) BLOOD UREA NITROGEN 82 mg/dL 7-21 (BEAKER) (test xffd=251) CREATININE (BEAKER) (test 3.45 mg/dL 0.57-1.25 hwno=879) GLUCOSE RANDOM (BEAKER) 104 mg/dL 70-105 (test cicg=367) CALCIUM (BEAKER) (test 7.9 mg/dL 8.4-10.2 viwn=648) EGFR (BEAKER) (test mL/min/1.73 sq m INSUFFICIENT CLINICAL DATA xyee=9540) TO CALCULATE ESTIMATED GFR. Specimen moderately ictericCALCIUM, [id number] 00:34:00 Test Item Value Reference Range Comments CALCIUM IONIZED (BEAKER) (test zxdt=373) 0.99 mmol/L 1.12-1.27 PH, BLOOD (BEAKER) (test thjy=7295) 7.45 POCT-GLUCOSE [id number] 17:32:00 Test Item Value Reference Range Comments POC-GLUCOSE METER (BEAKER) 185 mg/dL 70-110 TESTED AT [facility] [address] [facility] (test tugi=6659) [facility] [address]
[2018-03-31] MEDS ORDERED: Ringers Lactate 1,000 ML IV ONE (08:56)
[2018-03-31] MEDS ORDERED: LIDOCAINE 1% MPF 2 ML AMPULE ONE (10:29)
[2018-03-31] MEDS ORDERED: PROPOFOL 200 MG/20 ML VIAL IV ONE ×2 (10:29)
[2018-03-31] MEDS ORDERED: TISSEEL VH 2 MG KIT TOP SCH (10:30)
--- NOTE | 2018-03-31 11:25 | ENDO RPT ---
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 ESTIMATED BLOOD LOSS: None CONSENT: The patient understands the risks and benefits of the procedure and understands that these risks include, but are not limited to: sedation, allergic reaction, infection, perforation and/or bleeding. Alternative means of evaluation and treatment include, among others: physical exam, x-rays, and/or surgical intervention. The patient elects to proceed with this endoscopic procedure. DESCRIPTION OF PROCEDURE: During intra-op preparation period all mechanical medical equipment was checked for proper function. Hand hygiene and appropriate measures for infection prevention was taken. Procedure, possible complications, alternatives including, but not limited to possibility of bleeding, perforation, tear, infection, sepsis, need for surgery, need for blood transfusion, were explained to the patient. After the risks, benefits and alternatives of the procedure were thoroughly explained, Informed consent was verified, confirmed and timeout was successfully executed by the treatment team. The patient was placed in the left lateral position. A digital rectal exam was performed and revealed no abnormalities of the rectum. After appropriate level of anesthesia, the scope was passed. The [id number] ([id number]) and [id number] ([id number]) endoscope was introduced through the anus and advanced to the rectum. The quality of the prep was fair. The instrument was then slowly withdrawn as the colon was fully examined. Scope withdrawal time was 2 minutes. 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 The stenosis was significant and the pediatric scope could not easily be passed through, but a guidewire could be passed quite easily, the lumen beyond the stricuture was visualized easily. The tissue at the anatamosis was friable. Retroflexion was not performed. The scope was then completely withdrawn from the patient and the procedure terminated. ADVERSE EVENTS: There were no complications. 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
[2018-03-31 11:52] VITALS: BP 129/71; TEMP 96.6; O2SAT 99
== END 2018-03-31 12:40 | disposition home or self-care (01) ==
LOC: ENDO 08:40
PROVIDERS: ATTEND Surgery
PROC: 0DJD8ZZ Inspection of Lower Intestinal Tract, Via Natural or Artificial Opening Endoscopic (ICD-10-PCS; principal; 2018-03-31 10:30)
DX: K63.2 Fistula of intestine (principal); K91.89 Other postprocedural complications and disorders of digestive system; K74.60 Unspecified cirrhosis of liver; I83.90 Asymptomatic varicose veins of unspecified lower extremity
CPT/HCPCS: 88305; 88312; J2001

== ENCOUNTER 2018-04-13 15:41 | Emergency (ER) | payer BC ==
--- OUTSIDE RECORDS SUMMARY | 2018-04-13 16:06 | XMS REPORT | Clinical Summary ---
:1955 Author Organization [facility] Address [address] [place] [address] Phone Care Team Providers Name Role Phone [...] type (HCC) 11/30/2016 Acute renal failure (ARF) ([facility]) 11/28/2016 Abscess of abdominal cavity ([facility]) 11/28/2016 Acute pulmonary insufficiency 11/13/2016 Intra-abdominal infection 11/13/2016 Severe sepsis ([facility]) 11/12/2016 Hyperglycemia 11/10/2016 Thrombocytopenia ([facility]) 11/10/2016 Sepsis ([facility]) 11/10/2016 GI bleed 11/07/2016 Septic shock ([facility]) 11/07/2016 Multiple organ failure with liver failure ([facility]) 11/07/2016 Diverticulitis 11/07/2016 Acute kidney injury ([facility]) 11/07/2016 Acute liver failure 11/07/2016 Metabolic acidosis [...] VACCINE 07/05/2018 11/30/2016 Results Not on fileafter 04/12/2017
--- OUTSIDE RECORDS SUMMARY | 2018-04-13 16:06 | XMS REPORT | Clinical Summary ---
:1955 Author Organization [facility] Address [address] [place] [address] Care Team Providers Name Role Phone Gavino Thomas MD Primary Care Provider Allergies No Known Allergies Current Medications Prescription Sig. Disp. Refills Start Date End Date Status warfarin (COUMADIN) 2 MG Take 2 mg by mouth Active tablet daily. traMADol (ULTRAM) 50 mg Take 50 mg by mouth Active tablet every 6 (six) hours as needed for moderate pain. propranolol (INDERAL) 20 DAILY 08/14/2017 Active MG tablet pantoprazole (PROTONIX) Take 40 mg by mouth. 01/02/2017 Active 40 MG EC tablet Active Problems Problem Noted Date Diverticulitis of large intestine with perforation and abscess without 2017 bleeding Encounters Date Type Specialty Care Team Description 04/13/2018 Telephone Gastroenterology Traci Barnett MA 04/12/2018 Hospital Encounter GastroenterGavino Cohen DiverticJose M MD large intestine with perforation, unspecified bleeding status 04/12/2018 Anesthesia Event Gastroenterology Deirdre Hodges 04/12/2018 Procedure Pass Gastroenterology 04/12/2018 Surgery Gastroenterology Gavino Thomas COLONOSCOPY W/ COLONIC MD Maria Del Rosario STENT 04/08/2018 Office Visit Gastroenterology Gavino Thomas Diverticulitis rao Mix MD large intestine with perforation and abscess without bleeding (Primary Dx) after 04/12/2017 Family History Medical History Relation Name Comments Diabetes Mother Hypertension Mother Relation Name Status Comments Father Alive Mother Social History Tobacco Use Types Packs/Day Years Used Date Never Smoker Smokeless Tobacco: Never Used Sex Assigned at Date Recorded Not on file Last Filed Vital Signs Vital Sign Reading Time Taken Blood Pressure 119/64 04/12/2018 1:35 PM CDT Pulse 59 04/12/2018 1:35 PM CDT Temperature 36.4 C (97.5 F) 04/12/2018 1:17 PM CDT Respiratory Rate 18 04/12/2018 1:35 PM CDT Oxygen Saturation 98% 04/12/2018 1:35 PM CDT Inhaled Oxygen Concentration - - Weight 92.5 kg (204 lb) 04/08/2018 11:07 AM CDT Height 170.2 cm (5' 7") 04/08/2018 11:07 AM CDT Body Mass Index 31.95 04/08/2018 11:07 AM CDT Plan of Treatment Health Maintenance Due Date Last Done Comments COLON CANCER SCREENING 2005 SHINGRIX VACCINE (#1) 2005 ZOSTER VACCINE 2015 INFLUENZA VACCINE 05/05/2018 Implants Implanted Type Area Avionics Safety Inspector Device Expiration Model / Identifier Date Serial / Lot Stent Espgl Wallflex 10cm 23mm Flcvrd - [id number] Surgical N/A: N/A [employer] ENDOSCOPY 07/16/2019 [id number] / Implanted: 04/12/2018 (Quantity not on file) Stents / [id number] Procedures Procedure Name Priority Date/Time Associated Diagnosis Comments COLONOSCOPY 04/12/2018 12:00 PM CDT Diverticulitis of large intestine with perforation, unspecified bleeding status after 04/12/2017 Results Not on fileafter 04/12/2017 Insurance Payer Benefit Plan / Group Subscriber ID Type Phone Address BCBS BCBS CHOICE PPO/F[employer]ER[employer] EMPL PPO xxxxxxxxxxxx PPO Home: Enedina BURT [phone] [place] [phone]
--- OUTSIDE RECORDS SUMMARY | 2018-04-13 16:09 | XMS REPORT ---
:1955 Author Organization [facility] Address [address] [place] [address] [address] [place] [address] Care Team Providers Name Role Phone JENNIFER [...] (BEAKER) (test 126 mg/dL 70-110 TESTED AT [facility] [address] [facility] upvr=3521) [facility] [address] CLOSTRIDIUM DIFFICILE TOXIN [id number] 15:46:00 Test Item Value Reference Range Comments CLOSTRIDIUM DIFFICILE TOXIN, PCR (BEAKER) (test Not Detected Not Detected mzkb=2712) This qualitative real-time polymerase chain reaction assay [...] testing of a positive result is not recommended.[id number] 07:31:00 Test Item Value Reference Range Comments PARTIAL THROMBOPLASTIN TIME (BEAKER) (test 99.8 seconds 22.5-36.0 nduk=667) BASIC METABOLIC [id number] 01:39:00 Test Item Value Reference Range Comments SODIUM (BEAKER) (test 133 meq/L 136-145 dwsq=260) POTASSIUM (BEAKER) (test 4.0 meq/L 3.5-5.1 qcok=891) CHLORIDE (BEAKER) (test 103 meq/L 98-107 uwzy=316) CO2 (BEAKER) (test 23 meq/L 22-29 fgfq=213) BLOOD UREA NITROGEN 8 mg/dL 7-21 (BEAKER) (test ylol=885) CREATININE (BEAKER) (test 0.72 mg/dL 0.57-1.25 gbif=328) GLUCOSE RANDOM (BEAKER) 108 mg/dL 70-105 (test voys=108) CALCIUM (BEAKER) (test 8.4 mg/dL 8.4-10.2 tfsv=526) EGFR (BEAKER) (test mL/min/1.73 sq m INSUFFICIENT CLINICAL DATA mzyl=5589) TO CALCULATE ESTIMATED GFR. Specimen slightly [id number] 01:36:00 Test Item Value Reference Range Comments PHOSPHORUS (BEAKER) (test ulbc=057) 2.3 mg/dL 2.3-4.7 [id number] 01:36:00 Test Item Value Reference Range Comments MAGNESIUM (BEAKER) (test ztbt=255) 2.0 mg/dL 1.6-2.6 HEPATIC FUNCTION [id number] 01:36:00 Test Item Value Reference Range Comments TOTAL PROTEIN (BEAKER) (test tzpt=788) 6.7 gm/dL 6.0-8.3 ALBUMIN (BEAKER) (test torn=4543) 2.3 g/dL 3.5-5.0 BILIRUBIN TOTAL (BEAKER) (test czzy=895) 2.4 mg/dL 0.2-1.2 BILIRUBIN DIRECT (BEAKER) (test cwtq=640) 1.8 mg/dL 0.1-0.5 ALKALINE PHOSPHATASE (BEAKER) (test ysxr=471) 260 U/L 40-150 AST (SGOT) (BEAKER) (test gqng=128) 54 U/L 5-34 ALT (SGPT) (BEAKER) (test inql=606) 39 U/L 6-55 Specimen slightly [id number] 01:27:00 Test Item Value Reference Range Comments PARTIAL THROMBOPLASTIN TIME (BEAKER) (test 33.1 seconds 22.5-36.0 pzia=666) PROTHROMBIN [id number] 01:26:00 Test Item Value Reference Range Comments PROTIME (BEAKER) (test vrgx=922) 14.0 seconds 11.7-14.7 INR (BEAKER) (test jtjj=343) 1.1 <=5.9 RECOMMENDED COUMADIN/WARFARIN INR THERAPY RANGESSTANDARD DOSE: 2.0 - 3.0 Includes: PROPHYLAXIS forvenous thrombosis, systemic embolization; TREATMENT for venous thrombosis and/or pulmonary embolus.HIGH RISK: Target INR is 2.5-3.5 for patients with mechanical heart valves.CBC W/PLT COUNT & AUTO [id number] 01:18:00 Test Item Value Reference Range Comments WHITE BLOOD CELL COUNT (BEAKER) (test fayv=171) 6.9 K/ L 4.0-10.0 RED BLOOD CELL COUNT (BEAKER) (test pspj=511) 2.40 M/ L 4.20-5.80 HEMOGLOBIN (BEAKER) (test pzvt=365) 7.8 GM/DL 13.0-16.8 HEMATOCRIT (BEAKER) (test kfsj=492) 22.1 % 40.0-50.0 MEAN CORPUSCULAR VOLUME (BEAKER) (test elun=523) 92.1 fL 82.0-98.0 MEAN CORPUSCULAR HEMOGLOBIN (BEAKER) (test 32.3 pg 27.0-33.0 pypk=522) MEAN CORPUSCULAR HEMOGLOBIN CONC (BEAKER) (test 35.1 GM/DL 32.0-36.0 rsaf=966) RED CELL DISTRIBUTION WIDTH (BEAKER) (test 18.4 % 10.3-14.2 slui=455) PLATELET COUNT (BEAKER) (test uofc=079) 375 K/CU MM 150-430 MEAN PLATELET VOLUME (BEAKER) (test tdgd=820) 6.7 fL 6.5-10.5 NUCLEATED RED BLOOD CELLS (BEAKER) (test 0 /100 WBC 0-0 zqkd=844) NEUTROPHILS RELATIVE PERCENT (BEAKER) (test 69 % btcd=907) LYMPHOCYTES RELATIVE PERCENT (BEAKER) (test 19 % kxqf=351) MONOCYTES RELATIVE PERCENT (BEAKER) (test 9 % tkyz=931) EOSINOPHILS RELATIVE PERCENT (BEAKER) (test 3 % vqqs=538) BASOPHILS RELATIVE PERCENT (BEAKER) (test 1 % gxhj=909) NEUTROPHILS ABSOLUTE COUNT (BEAKER) (test 4.71 K/ L 1.80-8.00 ohwa=909) LYMPHOCYTES ABSOLUTE COUNT (BEAKER) (test 1.28 K/ L 1.48-4.50 rfgt=215) MONOCYTES ABSOLUTE COUNT (BEAKER) (test 0.58 K/ L 0.00-1.30 aiiu=121) EOSINOPHILS ABSOLUTE COUNT (BEAKER) (test 0.19 K/ L 0.00-0.50 niix=080) BASOPHILS ABSOLUTE COUNT (BEAKER) (test 0.08 K/ L 0.00-0.20 aodk=261) [id number] 23:09:00 Test Item Value Reference Range Comments PARTIAL THROMBOPLASTIN TIME (BEAKER) (test 117.8 seconds 22.5-36.0 nipy=397) POCT-GLUCOSE [id number] 22:34:00 Test Item Value Reference Range Comments POC-GLUCOSE METER (BEAKER) 113 mg/dL 70-110 TESTED AT [address] (test anch=5739) [place] [address] POCT-GLUCOSE [id number] 16:10:00 Test Item Value Reference Range Comments POC-GLUCOSE METER (BEAKER) 109 mg/dL 70-110 TESTED AT [address] (test zbha=2856) [place] [address] GAMMA GLUTAMYL TRANSFERASE (GGT)2016-12-10 15:48:00 Test Item Value Reference Range Comments GAMMA GLUTAMYL TRANSFERASE (BEAKER) (test lgnz=404) 57 U/L 9-64 Specimen slightly [id number] 15:43:00 Test Item Value Reference Range Comments PARTIAL THROMBOPLASTIN TIME (BEAKER) (test 57.1 seconds 22.5-36.0 qfdr=462) POCT-GLUCOSE [id number] 11:20:00 Test Item Value Reference Range Comments POC-GLUCOSE METER (BEAKER) 129 mg/dL 70-110 TESTED AT [address] (test pfsz=2942) [place] [id number] BASIC METABOLIC [id number] 08:58:00 Test Item Value Reference Range Comments SODIUM (BEAKER) (test 131 meq/L 136-145 npza=714) POTASSIUM (BEAKER) (test 4.1 meq/L 3.5-5.1 kkjz=079) CHLORIDE (BEAKER) (test 102 meq/L 98-107 xysb=048) CO2 (BEAKER) (test 22 meq/L 22-29 vous=735) BLOOD UREA NITROGEN 7 mg/dL 7-21 (BEAKER) (test fwve=196) CREATININE (BEAKER) (test 0.70 mg/dL 0.57-1.25 nttg=625) GLUCOSE RANDOM (BEAKER) 102 mg/dL 70-105 (test lrda=099) CALCIUM (BEAKER) (test 8.4 mg/dL 8.4-10.2 sgtm=719) EGFR (BEAKER) (test mL/min/1.73 sq m INSUFFICIENT CLINICAL DATA aafv=0480) TO CALCULATE ESTIMATED GFR. Specimen slightly [id number] 08:52:00 Test Item Value Reference Range Comments MAGNESIUM (BEAKER) (test zipc=551) 1.4 mg/dL 1.6-2.6 HEPATIC FUNCTION [id number] 08:52:00 Test Item Value Reference Range Comments TOTAL PROTEIN (BEAKER) (test gczy=219) 6.9 gm/dL 6.0-8.3 ALBUMIN (BEAKER) (test zzxs=7145) 2.4 g/dL 3.5-5.0 BILIRUBIN TOTAL (BEAKER) (test gpvi=711) 2.8 mg/dL 0.2-1.2 BILIRUBIN DIRECT (BEAKER) (test ncyb=722) 1.9 mg/dL 0.1-0.5 ALKALINE PHOSPHATASE (BEAKER) (test tbzn=199) 257 U/L 40-150 AST (SGOT) (BEAKER) (test awsn=094) 49 U/L 5-34 ALT (SGPT) (BEAKER) (test ktaa=406) 42 U/L 6-55 Specimen slightly [id number] 08:51:00 Test Item Value Reference Range Comments PHOSPHORUS (BEAKER) (test zbzr=341) 2.2 mg/dL 2.3-4.7 CBC W/PLT COUNT & AUTO [id number] 08:44:00 Test Item Value Reference Range Comments WHITE BLOOD CELL COUNT (BEAKER) (test mtzi=746) 9.0 K/ L 4.0-10.0 RED BLOOD CELL COUNT (BEAKER) (test vggi=326) 2.59 M/ L 4.20-5.80 HEMOGLOBIN (BEAKER) (test tngp=273) 8.2 GM/DL 13.0-16.8 HEMATOCRIT (BEAKER) (test stos=346) 24.3 % 40.0-50.0 MEAN CORPUSCULAR VOLUME (BEAKER) (test uyeb=595) 94.1 fL 82.0-98.0 MEAN CORPUSCULAR HEMOGLOBIN (BEAKER) (test 31.8 pg 27.0-33.0 oyhx=606) MEAN CORPUSCULAR HEMOGLOBIN CONC (BEAKER) (test 33.8 GM/DL 32.0-36.0 clbe=802) RED CELL DISTRIBUTION WIDTH (BEAKER) (test 17.7 % 10.3-14.2 mmem=690) PLATELET COUNT (BEAKER) (test xtne=514) 372 K/CU MM 150-430 MEAN PLATELET VOLUME (BEAKER) (test oevx=798) 7.2 fL 6.5-10.5 NUCLEATED RED BLOOD CELLS (BEAKER) (test 0 /100 WBC 0-0 fanv=719) NEUTROPHILS RELATIVE PERCENT (BEAKER) (test 75 % gbjo=387) LYMPHOCYTES RELATIVE PERCENT (BEAKER) (test 15 % iefd=384) MONOCYTES RELATIVE PERCENT (BEAKER) (test 7 % ghra=888) EOSINOPHILS RELATIVE PERCENT (BEAKER) (test 2 % xfto=784) BASOPHILS RELATIVE PERCENT (BEAKER) (test 1 % eytp=921) NEUTROPHILS ABSOLUTE COUNT (BEAKER) (test 6.78 K/ L 1.80-8.00 gpvp=109) LYMPHOCYTES ABSOLUTE COUNT (BEAKER) (test 1.31 K/ L 1.48-4.50 xjtc=301) MONOCYTES ABSOLUTE COUNT (BEAKER) (test 0.64 K/ L 0.00-1.30 oxmr=874) EOSINOPHILS ABSOLUTE COUNT (BEAKER) (test 0.15 K/ L 0.00-0.50 pwjy=111) BASOPHILS ABSOLUTE COUNT (BEAKER) (test 0.10 K/ L 0.00-0.20 boqc=153) (MANUAL DIFFERENTIAL)2016-12-10 08:44:00 Test Item Value Reference Range Comments TOTAL COUNTED (BEAKER) (test xycd=5934) [id number] 08:20:00 Test Item Value Reference Range Comments PARTIAL THROMBOPLASTIN TIME (BEAKER) (test 68.6 seconds 22.5-36.0 rjba=791) Prior to initiating heparinPROTHROMBIN TIME/[id number] 08:18:00 Test Item Value Reference Range Comments PROTIME (BEAKER) (test ydsp=405) 14.8 seconds 11.7-14.7 INR (BEAKER) (test giku=239) 1.2 <=5.9 RECOMMENDED COUMADIN/WARFARIN INR THERAPY RANGESSTANDARD DOSE: 2.0 - 3.0 Includes: PROPHYLAXIS forvenous thrombosis, systemic embolization; TREATMENT for venous thrombosis and/or pulmonary embolus.HIGH RISK: Target INR is 2.5-3.5 for patients with mechanical heart valves.Prior to initiating heparinPOCT- GLUCOSE [id number] 07:57:00 Test Item Value Reference Range Comments POC-GLUCOSE METER (BEAKER) 110 mg/dL 70-110 TESTED AT [address] (test tzsq=2027) [place] [address] [id number] 01:00:00 Test Item Value Reference Range Comments PARTIAL THROMBOPLASTIN TIME (BEAKER) (test 80.3 seconds 22.5-36.0 dfwl=034) POCT-GLUCOSE [id number] 20:59:00 Test Item Value Reference Range Comments POC-GLUCOSE METER (BEAKER) 122 mg/dL 70-110 TESTED AT [address] (test tmyw=2685) [place] [address] [id number] 17:42:00 Test Item Value Reference Range Comments PARTIAL THROMBOPLASTIN TIME (BEAKER) (test 47.8 seconds 22.5-36.0 jffg=428) POCT-GLUCOSE [id number] 16:03:00 Test Item Value Reference Range Comments POC-GLUCOSE METER (BEAKER) 118 mg/dL 70-110 TESTED AT [address] (test kxpc=5687) [place] [id number] POCT-GLUCOSE [id number] 13:06:00 Test Item Value Reference Range Comments POC-GLUCOSE METER (BEAKER) 164 mg/dL 70-110 TESTED AT [facility] [address] [facility] (test kmpl=9660) [facility] [address] POCT-GLUCOSE [id number] 11:17:00 Test Item Value Reference Range Comments POC-GLUCOSE METER (BEAKER) 188 mg/dL 70-110 TESTED AT [place] [id number] [facility] (test uttg=0314) [facility] [address] POCT-GLUCOSE [id number] 07:09:00 Test Item Value Reference Range Comments POC-GLUCOSE METER (BEAKER) 118 mg/dL 70-110 TESTED AT [address] (test hgdw=8919) [facility] [address] BASIC METABOLIC [id number] 05:29:00 Test Item Value Reference Range Comments SODIUM (BEAKER) (test 130 meq/L 136-145 ktti=593) POTASSIUM (BEAKER) (test 4.2 meq/L 3.5-5.1 Specimen slightly dnxe=529) hemolyzed CHLORIDE (BEAKER) (test 101 meq/L 98-107 krbi=727) CO2 (BEAKER) (test 20 meq/L 22-29 pyqc=263) BLOOD UREA NITROGEN 7 mg/dL 7-21 (BEAKER) (test avfl=717) CREATININE (BEAKER) (test 0.72 mg/dL 0.57-1.25 Specimen slightly spdj=785) hemolyzed GLUCOSE RANDOM (BEAKER) 101 mg/dL 70-105 (test ixtz=043) CALCIUM (BEAKER) (test 8.7 mg/dL 8.4-10.2 pdkg=561) EGFR (BEAKER) (test mL/min/1.73 sq m INSUFFICIENT CLINICAL DATA npng=7600) TO CALCULATE ESTIMATED GFR. Specimen slightly [id number] 05:28:00 Test Item Value Reference Range Comments MAGNESIUM (BEAKER) (test 1.5 mg/dL 1.6-2.6 Specimen slightly hemolyzed kxsf=366) [id number] 05:28:00 Test Item Value Reference Range Comments PHOSPHORUS (BEAKER) (test 2.5 mg/dL 2.3-4.7 Specimen slightly hemolyzed pbtn=811) HEPATIC FUNCTION [id number] 05:28:00 Test Item Value Reference Range Comments TOTAL PROTEIN (BEAKER) (test 7.0 gm/dL 6.0-8.3 Specimen slightly hemolyzed hkbv=078) ALBUMIN (BEAKER) (test 2.4 g/dL 3.5-5.0 Specimen slightly hemolyzed dzks=0567) BILIRUBIN TOTAL (BEAKER) (test 3.0 mg/dL 0.2-1.2 Specimen slightly hemolyzed orcd=207) BILIRUBIN DIRECT (BEAKER) (test 1.9 mg/dL 0.1-0.5 Specimen slightly hemolyzed iugc=910) ALKALINE PHOSPHATASE (BEAKER) 272 U/L 40-150 (test dnoh=490) AST (SGOT) (BEAKER) (test 61 U/L 5-34 Specimen slightly hemolyzed quga=371) ALT (SGPT) (BEAKER) (test 54 U/L 6-55 Specimen slightly hemolyzed dugb=191) Specimen slightly ictericCBC W/PLT COUNT & AUTO [id number] 05:22 :00 Test Item Value Reference Range Comments WHITE BLOOD CELL COUNT (BEAKER) (test cqzy=581) 10.7 K/ L 4.0-10.0 RED BLOOD CELL COUNT (BEAKER) (test xkao=861) 2.71 M/ L 4.20-5.80 HEMOGLOBIN (BEAKER) (test vvjm=039) 8.6 GM/DL 13.0-16.8 HEMATOCRIT (BEAKER) (test jmou=907) 25.6 % 40.0-50.0 MEAN CORPUSCULAR VOLUME (BEAKER) (test nfdr=329) 94.5 fL 82.0-98.0 MEAN CORPUSCULAR HEMOGLOBIN (BEAKER) (test 31.8 pg 27.0-33.0 qffa=067) MEAN CORPUSCULAR HEMOGLOBIN CONC (BEAKER) (test 33.7 GM/DL 32.0-36.0 yfkg=393) RED CELL DISTRIBUTION WIDTH (BEAKER) (test 18.5 % 10.3-14.2 cult=160) PLATELET COUNT (BEAKER) (test elii=262) 349 K/CU MM 150-430 MEAN PLATELET VOLUME (BEAKER) (test rsyg=132) 7.4 fL 6.5-10.5 NUCLEATED RED BLOOD CELLS (BEAKER) (test 0 /100 WBC 0-0 iepy=614) NEUTROPHILS RELATIVE PERCENT (BEAKER) (test 81 % xzbw=744) LYMPHOCYTES RELATIVE PERCENT (BEAKER) (test 11 % kahz=743) MONOCYTES RELATIVE PERCENT (BEAKER) (test 5 % kmpg=634) EOSINOPHILS RELATIVE PERCENT (BEAKER) (test 1 % grmi=153) BASOPHILS RELATIVE PERCENT (BEAKER) (test 1 % lmig=332) NEUTROPHILS ABSOLUTE COUNT (BEAKER) (test 8.61 K/ L 1.80-8.00 wywc=244) LYMPHOCYTES ABSOLUTE COUNT (BEAKER) (test 1.21 K/ L 1.48-4.50 dcej=139) MONOCYTES ABSOLUTE COUNT (BEAKER) (test 0.58 K/ L 0.00-1.30 zqdu=447) EOSINOPHILS ABSOLUTE COUNT (BEAKER) (test 0.15 K/ L 0.00-0.50 qovj=123) BASOPHILS ABSOLUTE COUNT (BEAKER) (test 0.10 K/ L 0.00-0.20 sojm=353) 0.00PROTHROMBIN [id number] 05:11:00 Test Item Value Reference Range Comments PROTIME (BEAKER) (test sqnk=897) 14.6 seconds 11.7-14.7 INR (BEAKER) (test vwjk=599) 1.2 <=5.9 RECOMMENDED COUMADIN/WARFARIN INR THERAPY RANGESSTANDARD DOSE: 2.0 - 3.0 Includes: PROPHYLAXIS forvenous thrombosis, systemic embolization; TREATMENT for venous thrombosis and/or pulmonary embolus.HIGH RISK: Target INR is 2.5-3.5 for patients with mechanical heart valves.POCT-GLUCOSE [id number] 21:36:00 Test Item Value Reference Range Comments POC-GLUCOSE METER (BEAKER) 105 mg/dL 70-110 TESTED AT [address] (test hqcs=0618) [facility] [address] POCT-GLUCOSE [id number] 18:29:00 Test Item Value Reference Range Comments POC-GLUCOSE METER (BEAKER) 116 mg/dL 70-110 TESTED AT [place] [id number] [facility] (test xlrl=9757) [facility] [address] POCT-GLUCOSE [id number] 11:58:00 Test Item Value Reference Range Comments POC-GLUCOSE METER (BEAKER) 200 mg/dL 70-110 TESTED AT [facility] [address] [facility] (test hsnp=6450) [facility] [address] POCT-GLUCOSE [id number] 07:28:00 Test Item Value Reference Range Comments POC-GLUCOSE METER (BEAKER) 116 mg/dL 70-110 TESTED AT [place] [id number] [facility] (test ozne=2223) [facility] [address] CBC W/PLT COUNT & AUTO [id number] 06:28:00 Test Item Value Reference Range Comments WHITE BLOOD CELL COUNT (BEAKER) (test esgj=094) 9.5 K/ L 4.0-10.0 RED BLOOD CELL COUNT (BEAKER) (test btpo=013) 2.63 M/ L 4.20-5.80 HEMOGLOBIN (BEAKER) (test psqr=732) 8.3 GM/DL 13.0-16.8 HEMATOCRIT (BEAKER) (test qzfq=038) 24.9 % 40.0-50.0 MEAN CORPUSCULAR VOLUME (BEAKER) (test xigf=399) 94.6 fL 82.0-98.0 MEAN CORPUSCULAR HEMOGLOBIN (BEAKER) (test 31.6 pg 27.0-33.0 abwd=897) MEAN CORPUSCULAR HEMOGLOBIN CONC (BEAKER) (test 33.4 GM/DL 32.0-36.0 ddiu=260) RED CELL DISTRIBUTION WIDTH (BEAKER) (test 18.6 % 10.3-14.2 rwnl=570) PLATELET COUNT (BEAKER) (test waey=360) 266 K/CU MM 150-430 MEAN PLATELET VOLUME (BEAKER) (test bfyh=268) 7.6 fL 6.5-10.5 NUCLEATED RED BLOOD CELLS (BEAKER) (test 0 /100 WBC 0-0 gmdq=501) NEUTROPHILS RELATIVE PERCENT (BEAKER) (test 82 % rmif=749) LYMPHOCYTES RELATIVE PERCENT (BEAKER) (test 10 % wkrc=247) MONOCYTES RELATIVE PERCENT (BEAKER) (test 5 % fdci=431) EOSINOPHILS RELATIVE PERCENT (BEAKER) (test 2 % piwg=048) BASOPHILS RELATIVE PERCENT (BEAKER) (test 1 % jlna=767) NEUTROPHILS ABSOLUTE COUNT (BEAKER) (test 7.75 K/ L 1.80-8.00 zrhp=949) LYMPHOCYTES ABSOLUTE COUNT (BEAKER) (test 0.98 K/ L 1.48-4.50 dlvh=196) MONOCYTES ABSOLUTE COUNT (BEAKER) (test 0.50 K/ L 0.00-1.30 jbgt=970) EOSINOPHILS ABSOLUTE COUNT (BEAKER) (test 0.16 K/ L 0.00-0.50 ueeq=925) BASOPHILS ABSOLUTE COUNT (BEAKER) (test 0.06 K/ L 0.00-0.20 kajg=588) 0.00BASIC METABOLIC [id number] 06:09:00 Test Item Value Reference Range Comments SODIUM (BEAKER) (test 131 meq/L 136-145 rcfw=783) POTASSIUM (BEAKER) (test 4.4 meq/L 3.5-5.1 Specimen slightly yknb=383) hemolyzed CHLORIDE (BEAKER) (test 102 meq/L 98-107 qcqa=102) CO2 (BEAKER) (test 22 meq/L 22-29 tjql=880) BLOOD UREA NITROGEN 5 mg/dL 7-21 (BEAKER) (test peuf=612) CREATININE (BEAKER) (test 0.62 mg/dL 0.57-1.25 Specimen slightly mxlj=952) hemolyzed GLUCOSE RANDOM (BEAKER) 95 mg/dL 70-105 (test qiif=730) CALCIUM (BEAKER) (test 8.5 mg/dL 8.4-10.2 zqqz=688) EGFR (BEAKER) (test mL/min/1.73 sq m INSUFFICIENT CLINICAL DATA kvzv=0416) TO CALCULATE ESTIMATED GFR. Specimen slightly [id number] 06:02:00 Test Item Value Reference Range Comments MAGNESIUM (BEAKER) (test 1.1 mg/dL 1.6-2.6 Specimen slightly hemolyzed daui=057) [id number] 06:02:00 Test Item Value Reference Range Comments PHOSPHORUS (BEAKER) (test 2.3 mg/dL 2.3-4.7 Specimen slightly hemolyzed kouc=890) HEPATIC FUNCTION [id number] 06:02:00 Test Item Value Reference Range Comments TOTAL PROTEIN (BEAKER) (test 6.5 gm/dL 6.0-8.3 Specimen slightly hemolyzed wewj=399) ALBUMIN (BEAKER) (test 2.2 g/dL 3.5-5.0 Specimen slightly hemolyzed njhi=8030) BILIRUBIN TOTAL (BEAKER) (test 3.2 mg/dL 0.2-1.2 Specimen slightly hemolyzed dkqj=579) BILIRUBIN DIRECT (BEAKER) (test 1.9 mg/dL 0.1-0.5 Specimen slightly hemolyzed ebcn=341) ALKALINE PHOSPHATASE (BEAKER) 252 U/L 40-150 (test zpfm=626) AST (SGOT) (BEAKER) (test 64 U/L 5-34 Specimen slightly hemolyzed cdxv=248) ALT (SGPT) (BEAKER) (test 57 U/L 6-55 Specimen slightly hemolyzed jmfa=902) Specimen slightly ictericPROTHROMBIN TIME/[id number] 05:30:00 Test Item Value Reference Range Comments PROTIME (BEAKER) (test ejal=068) 14.7 seconds 11.7-14.7 INR (BEAKER) (test pfnc=433) 1.2 <=5.9 RECOMMENDED COUMADIN/WARFARIN INR THERAPY RANGESSTANDARD DOSE: 2.0 - 3.0 Includes: PROPHYLAXIS forvenous thrombosis, systemic embolization; TREATMENT for venous thrombosis and/or pulmonary embolus.HIGH RISK: Target INR is 2.5-3.5 for patients with mechanical heart valves.POCT-GLUCOSE [id number] 20:46:00 Test Item Value Reference Range Comments POC-GLUCOSE METER (BEAKER) 122 mg/dL 70-110 TESTED AT [address] (test qbxd=4005) [place] [address] POCT-GLUCOSE [id number] 18:04:00 Test Item Value Reference Range Comments POC-GLUCOSE METER (BEAKER) 85 mg/dL 70-110 TESTED AT [address] (test wklx=6400) [place] [address] POCT-GLUCOSE [id number] 12:30:00 Test Item Value Reference Range Comments POC-GLUCOSE METER (BEAKER) 96 mg/dL 70-110 TESTED AT [address] (test tlbs=4630) [place] [address] CBC W/PLT COUNT & AUTO [id number] 07:33:00 Test Item Value Reference Range Comments WHITE BLOOD CELL COUNT (BEAKER) (test mero=544) 11.4 K/ L 4.0-10.0 RED BLOOD CELL COUNT (BEAKER) (test cflp=201) 2.77 M/ L 4.20-5.80 HEMOGLOBIN (BEAKER) (test ubot=120) 8.8 GM/DL 13.0-16.8 HEMATOCRIT (BEAKER) (test qwlz=038) 25.6 % 40.0-50.0 MEAN CORPUSCULAR VOLUME (BEAKER) (test yftk=782) 92.3 fL 82.0-98.0 MEAN CORPUSCULAR HEMOGLOBIN (BEAKER) (test 31.6 pg 27.0-33.0 cabp=683) MEAN CORPUSCULAR HEMOGLOBIN CONC (BEAKER) (test 34.2 GM/DL 32.0-36.0 jlqn=816) RED CELL DISTRIBUTION WIDTH (BEAKER) (test 18.8 % 10.3-14.2 isfd=906) PLATELET COUNT (BEAKER) (test rwwy=253) 203 K/CU MM 150-430 MEAN PLATELET VOLUME (BEAKER) (test ofwt=738) 7.5 fL 6.5-10.5 NUCLEATED RED BLOOD CELLS (BEAKER) (test 0 /100 WBC 0-0 finx=653) NEUTROPHILS RELATIVE PERCENT (BEAKER) (test 84 % wima=810) LYMPHOCYTES RELATIVE PERCENT (BEAKER) (test 10 % qfqt=416) MONOCYTES RELATIVE PERCENT (BEAKER) (test 4 % qhse=348) EOSINOPHILS RELATIVE PERCENT (BEAKER) (test 2 % qtib=922) BASOPHILS RELATIVE PERCENT (BEAKER) (test 0 % zmnk=737) NEUTROPHILS ABSOLUTE COUNT (BEAKER) (test 9.55 K/ L 1.80-8.00 frah=222) LYMPHOCYTES ABSOLUTE COUNT (BEAKER) (test 1.10 K/ L 1.48-4.50 amfr=183) MONOCYTES ABSOLUTE COUNT (BEAKER) (test 0.50 K/ L 0.00-1.30 xsxd=291) EOSINOPHILS ABSOLUTE COUNT (BEAKER) (test 0.20 K/ L 0.00-0.50 auct=628) BASOPHILS ABSOLUTE COUNT (BEAKER) (test 0.00 K/ L 0.00-0.20 kpfo=944) 0.00BASIC METABOLIC [id number] 07:28:00 Test Item Value Reference Range Comments SODIUM (BEAKER) (test 131 meq/L 136-145 nuor=034) POTASSIUM (BEAKER) (test 4.0 meq/L 3.5-5.1 veiz=944) CHLORIDE (BEAKER) (test 103 meq/L 98-107 cggg=823) CO2 (BEAKER) (test 21 meq/L 22-29 witv=031) BLOOD UREA NITROGEN 5 mg/dL 7-21 (BEAKER) (test cmnx=042) CREATININE (BEAKER) (test 0.65 mg/dL 0.57-1.25 gpcx=419) GLUCOSE RANDOM (BEAKER) 100 mg/dL 70-105 (test ejab=525) CALCIUM (BEAKER) (test 8.4 mg/dL 8.4-10.2 nuku=654) EGFR (BEAKER) (test mL/min/1.73 sq m INSUFFICIENT CLINICAL DATA wlip=3218) TO CALCULATE ESTIMATED GFR. Specimen slightly [id number] 07:26:00 Test Item Value Reference Range Comments PHOSPHORUS (BEAKER) (test llzp=187) 2.3 mg/dL 2.3-4.7 [id number] 07:26:00 Test Item Value Reference Range Comments MAGNESIUM (BEAKER) (test ecen=618) 1.1 mg/dL 1.6-2.6 HEPATIC FUNCTION [id number] 07:26:00 Test Item Value Reference Range Comments TOTAL PROTEIN (BEAKER) (test lwgf=583) 6.6 gm/dL 6.0-8.3 ALBUMIN (BEAKER) (test ssrc=2474) 2.2 g/dL 3.5-5.0 BILIRUBIN TOTAL (BEAKER) (test muhl=821) 3.7 mg/dL 0.2-1.2 BILIRUBIN DIRECT (BEAKER) (test zgap=036) 2.5 mg/dL 0.1-0.5 ALKALINE PHOSPHATASE (BEAKER) (test syxi=007) 264 U/L 40-150 AST (SGOT) (BEAKER) (test xabq=848) 48 U/L 5-34 ALT (SGPT) (BEAKER) (test mxox=570) 65 U/L 6-55 Specimen slightly ictericPROTHROMBIN [id number] 07:00:00 Test Item Value Reference Range Comments PROTIME (BEAKER) (test lqpq=365) 15.5 seconds 11.7-14.7 INR (BEAKER) (test ziod=502) 1.2 <=5.9 RECOMMENDED COUMADIN/WARFARIN INR THERAPY RANGESSTANDARD DOSE: 2.0 - 3.0 Includes: PROPHYLAXIS forvenous thrombosis, systemic embolization; TREATMENT for venous thrombosis and/or pulmonary embolus.HIGH RISK: Target INR is 2.5-3.5 for patients with mechanical heart valves.POCT-GLUCOSE [id number] 06:49:00 Test Item Value Reference Range Comments POC-GLUCOSE METER (BEAKER) 107 mg/dL 70-110 TESTED AT [address] (test ampu=5442) [place] [address] BODY FLUID CULTURE + GRAM [id number] 00:54:00 Test Item Value Reference Range Comments CULTURE (BEAKER) (test bnxn=8591) No growth GRAM STAIN RESULT (BEAKER) (test <1+ WBCs rrls=1564) GRAM STAIN RESULT (BEAKER) (test No organisms seen anza=45863) POCT-GLUCOSE [id number] 22:24:00 Test Item Value Reference Range Comments POC-GLUCOSE METER (BEAKER) 82 mg/dL 70-110 TESTED AT [address] (test zlew=4602) [place] [address] POCT-GLUCOSE [id number] 18:05:00 Test Item Value Reference Range Comments POC-GLUCOSE METER (BEAKER) 256 mg/dL 70-110 TESTED AT [address] (test qmzi=7551) [place] [address] POCT-GLUCOSE [id number] 11:11:00 Test Item Value Reference Range Comments POC-GLUCOSE METER (BEAKER) 106 mg/dL 70-110 TESTED AT [address] (test buzs=9444) [place] [address] POCT-GLUCOSE [id number] 08:12:00 Test Item Value Reference Range Comments POC-GLUCOSE METER (BEAKER) 108 mg/dL 70-110 TESTED AT [address] (test ozhn=9354) [place] [address] CBC W/PLT COUNT & AUTO [id number] 06:49:00 Test Item Value Reference Range Comments WHITE BLOOD CELL COUNT (BEAKER) (test nqfd=445) 12.6 K/ L 4.0-10.0 RED BLOOD CELL COUNT (BEAKER) (test mwky=400) 2.57 M/ L 4.20-5.80 HEMOGLOBIN (BEAKER) (test axkk=108) 8.4 GM/DL 13.0-16.8 HEMATOCRIT (BEAKER) (test ozvi=444) 24.3 % 40.0-50.0 MEAN CORPUSCULAR VOLUME (BEAKER) (test vpsv=461) 94.5 fL 82.0-98.0 MEAN CORPUSCULAR HEMOGLOBIN (BEAKER) (test 32.5 pg 27.0-33.0 ydum=091) MEAN CORPUSCULAR HEMOGLOBIN CONC (BEAKER) (test 34.4 GM/DL 32.0-36.0 aclt=569) RED CELL DISTRIBUTION WIDTH (BEAKER) (test 19.5 % 10.3-14.2 iuyu=762) PLATELET COUNT (BEAKER) (test snnj=116) 205 K/CU MM 150-430 MEAN PLATELET VOLUME (BEAKER) (test usnd=989) 8.9 fL 6.5-10.5 NUCLEATED RED BLOOD CELLS (BEAKER) (test 0 /100 WBC 0-0 puyi=053) NEUTROPHILS RELATIVE PERCENT (BEAKER) (test 85 % vrvq=520) LYMPHOCYTES RELATIVE PERCENT (BEAKER) (test 9 % ziig=376) MONOCYTES RELATIVE PERCENT (BEAKER) (test 4 % wyex=704) EOSINOPHILS RELATIVE PERCENT (BEAKER) (test 1 % locl=148) BASOPHILS RELATIVE PERCENT (BEAKER) (test 1 % gmqu=299) NEUTROPHILS ABSOLUTE COUNT (BEAKER) (test 10.60 K/ L 1.80-8.00 zqgu=435) LYMPHOCYTES ABSOLUTE COUNT (BEAKER) (test 1.16 K/ L 1.48-4.50 brkz=265) MONOCYTES ABSOLUTE COUNT (BEAKER) (test 0.52 K/ L 0.00-1.30 iqvb=643) EOSINOPHILS ABSOLUTE COUNT (BEAKER) (test 0.17 K/ L 0.00-0.50 jgzp=274) BASOPHILS ABSOLUTE COUNT (BEAKER) (test 0.08 K/ L 0.00-0.20 dgrn=105) [id number] 06:36:00 Test Item Value Reference Range Comments MAGNESIUM (BEAKER) (test 2.0 mg/dL 1.6-2.6 Specimen moderately hemolyzed ogsi=549) [id number] 06:36:00 Test Item Value Reference Range Comments PHOSPHORUS (BEAKER) (test 2.6 mg/dL 2.3-4.7 Specimen moderately hemolyzed btjy=558) HEPATIC FUNCTION [id number] 06:36:00 Test Item Value Reference Range Comments TOTAL PROTEIN (BEAKER) (test 6.4 gm/dL 6.0-8.3 Specimen moderately hemolyzed ngbq=645) ALBUMIN (BEAKER) (test 2.1 g/dL 3.5-5.0 Specimen moderately hemolyzed zvyf=0743) BILIRUBIN TOTAL (BEAKER) (test 3.5 mg/dL 0.2-1.2 Specimen moderately hemolyzed qjkx=759) BILIRUBIN DIRECT (BEAKER) 1.7 mg/dL 0.1-0.5 Specimen moderately hemolyzed (test rizq=258) ALKALINE PHOSPHATASE (BEAKER) 281 U/L 40-150 (test plwg=456) AST (SGOT) (BEAKER) (test 70 U/L 5-34 Specimen moderately hemolyzed diwl=037) ALT (SGPT) (BEAKER) (test 84 U/L 6-55 Specimen moderately ysps=130) hemolyzed Specimen slightly ictericBASIC METABOLIC [id number] 06:36:00 Test Item Value Reference Range Comments SODIUM (BEAKER) (test 133 meq/L 136-145 gtfv=461) POTASSIUM (BEAKER) (test 4.1 meq/L 3.5-5.1 Specimen moderately ucfg=458) hemolyzed CHLORIDE (BEAKER) (test 103 meq/L 98-107 fcpz=121) CO2 (BEAKER) (test 22 meq/L 22-29 xkjx=745) BLOOD UREA NITROGEN 6 mg/dL 7-21 (BEAKER) (test jevn=472) CREATININE (BEAKER) (test 0.68 mg/dL 0.57-1.25 Specimen moderately eiyq=250) hemolyzed GLUCOSE RANDOM (BEAKER) 96 mg/dL 70-105 (test svju=088) CALCIUM (BEAKER) (test 8.0 mg/dL 8.4-10.2 lopu=917) EGFR (BEAKER) (test mL/min/1.73 sq m INSUFFICIENT CLINICAL DATA bmft=0085) TO CALCULATE ESTIMATED GFR. Specimen slightly ictericPROTHROMBIN [id number] 05:53:00 Test Item Value Reference Range Comments PROTIME (BEAKER) (test ygba=249) 14.8 seconds 11.7-14.7 INR (BEAKER) (test wlrp=608) 1.2 <=5.9 RECOMMENDED COUMADIN/WARFARIN INR THERAPY RANGESSTANDARD DOSE: 2.0 - 3.0 Includes: PROPHYLAXIS forvenous thrombosis, systemic embolization; TREATMENT for venous thrombosis and/or pulmonary embolus.HIGH RISK: Target INR is 2.5-3.5 for patients with mechanical heart valves.POCT-GLUCOSE [id number] 21:06:00 Test Item Value Reference Range Comments POC-GLUCOSE METER (BEAKER) 128 mg/dL 70-110 TESTED AT [address] (test sose=6611) [place] [address] POCT-GLUCOSE [id number] 17:16:00 Test Item Value Reference Range Comments POC-GLUCOSE METER (BEAKER) 129 mg/dL 70-110 TESTED AT [address] (test dwlg=3386) [place] [id number] POCT-GLUCOSE [id number] 11:30:00 Test Item Value Reference Range Comments POC-GLUCOSE METER (BEAKER) 172 mg/dL 70-110 TESTED AT [address] (test hqbt=0154) [place] [id number] CBC W/PLT COUNT & AUTO [id number] 09:55:00 Test Item Value Reference Range Comments WHITE BLOOD CELL COUNT (BEAKER) (test ssca=011) 11.7 K/ L 4.0-10.0 RED BLOOD CELL COUNT (BEAKER) (test dgou=699) 2.62 M/ L 4.20-5.80 HEMOGLOBIN (BEAKER) (test ltwf=504) 8.2 GM/DL 13.0-16.8 HEMATOCRIT (BEAKER) (test mwke=100) 24.0 % 40.0-50.0 MEAN CORPUSCULAR VOLUME (BEAKER) (test ewby=191) 91.6 fL 82.0-98.0 MEAN CORPUSCULAR HEMOGLOBIN (BEAKER) (test 31.3 pg 27.0-33.0 exid=531) MEAN CORPUSCULAR HEMOGLOBIN CONC (BEAKER) (test 34.2 GM/DL 32.0-36.0 ynqu=967) RED CELL DISTRIBUTION WIDTH (BEAKER) (test 19.7 % 10.3-14.2 klpd=811) PLATELET COUNT (BEAKER) (test suyr=629) 177 K/CU MM 150-430 MEAN PLATELET VOLUME (BEAKER) (test hpyh=819) 8.1 fL 6.5-10.5 NUCLEATED RED BLOOD CELLS (BEAKER) (test 0 /100 WBC 0-0 njos=138) NEUTROPHILS RELATIVE PERCENT (BEAKER) (test 82 % mukl=423) LYMPHOCYTES RELATIVE PERCENT (BEAKER) (test 10 % cuqc=115) MONOCYTES RELATIVE PERCENT (BEAKER) (test 5 % mqub=756) EOSINOPHILS RELATIVE PERCENT (BEAKER) (test 2 % xhmt=328) BASOPHILS RELATIVE PERCENT (BEAKER) (test 1 % enor=303) NEUTROPHILS ABSOLUTE COUNT (BEAKER) (test 9.60 K/ L 1.80-8.00 eqxe=094) LYMPHOCYTES ABSOLUTE COUNT (BEAKER) (test 1.22 K/ L 1.48-4.50 blch=364) MONOCYTES ABSOLUTE COUNT (BEAKER) (test 0.60 K/ L 0.00-1.30 tbeu=745) EOSINOPHILS ABSOLUTE COUNT (BEAKER) (test 0.26 K/ L 0.00-0.50 ugaj=638) BASOPHILS ABSOLUTE COUNT (BEAKER) (test 0.06 K/ L 0.00-0.20 gvcx=126) 0.000.770.000.000.000.00(MANUAL DIFFERENTIAL)2016-12-05 09:55:00 Test Item Value Reference Range Comments TOTAL COUNTED (BEAKER) (test zkhy=8687) WBC MORPHOLOGY (BEAKER) (test vvwk=245) Normal PLT MORPHOLOGY (BEAKER) (test rgya=998) Normal RBC MORPHOLOGY (BEAKER) (test xxis=793) Normal POCT-GLUCOSE [id number] 08:49:00 Test Item Value Reference Range Comments POC-GLUCOSE METER (BEAKER) 101 mg/dL 70-110 TESTED AT [facility] [address] [facility] (test vykr=3273) [facility] [address] BASIC METABOLIC [id number] 06:12:00 Test Item Value Reference Range Comments SODIUM (BEAKER) (test 135 meq/L 136-145 dafc=341) POTASSIUM (BEAKER) (test 3.2 meq/L 3.5-5.1 ekdi=582) CHLORIDE (BEAKER) (test 103 meq/L 98-107 bdgz=856) CO2 (BEAKER) (test 25 meq/L 22-29 tzpa=162) BLOOD UREA NITROGEN 8 mg/dL 7-21 (BEAKER) (test axtu=186) CREATININE (BEAKER) (test 0.67 mg/dL 0.57-1.25 rqwv=496) GLUCOSE RANDOM (BEAKER) 96 mg/dL 70-105 (test ljou=365) CALCIUM (BEAKER) (test 7.6 mg/dL 8.4-10.2 uemf=950) EGFR (BEAKER) (test mL/min/1.73 sq m INSUFFICIENT CLINICAL DATA xldw=5929) TO CALCULATE ESTIMATED GFR. Specimen slightly [id number] 06:11:00 Test Item Value Reference Range Comments PHOSPHORUS (BEAKER) (test xgnz=624) 2.7 mg/dL 2.3-4.7 [id number] 06:11:00 Test Item Value Reference Range Comments MAGNESIUM (BEAKER) (test rclg=859) 1.4 mg/dL 1.6-2.6 HEPATIC FUNCTION [id number] 06:11:00 Test Item Value Reference Range Comments TOTAL PROTEIN (BEAKER) (test zuxe=525) 5.7 gm/dL 6.0-8.3 ALBUMIN (BEAKER) (test zcnu=4785) 2.0 g/dL 3.5-5.0 BILIRUBIN TOTAL (BEAKER) (test wdan=481) 4.0 mg/dL 0.2-1.2 BILIRUBIN DIRECT (BEAKER) (test qipu=457) 2.7 mg/dL 0.1-0.5 ALKALINE PHOSPHATASE (BEAKER) (test mtmx=352) 293 U/L 40-150 AST (SGOT) (BEAKER) (test vbgw=831) 52 U/L 5-34 ALT (SGPT) (BEAKER) (test ewfv=603) 93 U/L 6-55 Specimen slightly [id number] 05:57:00 Test Item Value Reference Range Comments PARTIAL THROMBOPLASTIN TIME (BEAKER) (test 31.8 seconds 22.5-36.0 sttl=778) PROTHROMBIN [id number] 05:56:00 Test Item Value Reference Range Comments PROTIME (BEAKER) (test dqgc=594) 14.5 seconds 11.7-14.7 INR (BEAKER) (test rkpr=606) 1.1 <=5.9 RECOMMENDED COUMADIN/WARFARIN INR THERAPY RANGESSTANDARD DOSE: 2.0 - 3.0 Includes: PROPHYLAXIS forvenous thrombosis, systemic embolization; TREATMENT for venous thrombosis and/or pulmonary embolus.HIGH RISK: Target INR is 2.5-3.5 for patients with mechanical heart valves.POCT-GLUCOSE [id number] 21:13:00 Test Item Value Reference Range Comments POC-GLUCOSE METER (BEAKER) 119 mg/dL 70-110 TESTED AT [address] (test rdbz=6232) [place] [address] [id number] 18:45:00 Test Item Value Reference Range Comments PARTIAL THROMBOPLASTIN TIME (BEAKER) (test 33.4 seconds 22.5-36.0 hcub=614) Prior to initiating heparinPOCT-GLUCOSE [id number] 18:02:00 Test Item Value Reference Range Comments POC-GLUCOSE METER (BEAKER) 162 mg/dL 70-110 TESTED AT [address] (test culz=2673) [place] [address] HERPES VIRUS ANTIBODY, [id number] 17:40:00 Test Item Value Reference Range Comments HERPES VIRUS IGM (BEAKER) Negative HSV IgM TYPE 1=NEGATIVEHSV IgM (test lqfd=7194) TYPE 2=NEGATIVESEE ATTACHMENT POCT-GLUCOSE [id number] 11:31:00 Test Item Value Reference Range Comments POC-GLUCOSE METER (BEAKER) 174 mg/dL 70-110 TESTED AT [address] (test xknp=4029) [place] [address] CBC W/PLT COUNT & AUTO [id number] 10:01:00 Test Item Value Reference Range Comments WHITE BLOOD CELL COUNT (BEAKER) (test jkpi=311) 12.3 K/ L 4.0-10.0 RED BLOOD CELL COUNT (BEAKER) (test wyos=474) 3.09 M/ L 4.20-5.80 HEMOGLOBIN (BEAKER) (test pinz=524) 9.6 GM/DL 13.0-16.8 HEMATOCRIT (BEAKER) (test qswy=358) 28.6 % 40.0-50.0 MEAN CORPUSCULAR VOLUME (BEAKER) (test heca=960) 92.6 fL 82.0-98.0 MEAN CORPUSCULAR HEMOGLOBIN (BEAKER) (test 31.0 pg 27.0-33.0 pocx=299) MEAN CORPUSCULAR HEMOGLOBIN CONC (BEAKER) (test 33.5 GM/DL 32.0-36.0 ujmz=939) RED CELL DISTRIBUTION WIDTH (BEAKER) (test 19.9 % 10.3-14.2 rimw=325) PLATELET COUNT (BEAKER) (test druj=528) 163 K/CU MM 150-430 MEAN PLATELET VOLUME (BEAKER) (test nbnn=197) 8.1 fL 6.5-10.5 NUCLEATED RED BLOOD CELLS (BEAKER) (test 0 /100 WBC 0-0 gtme=366) NEUTROPHILS RELATIVE PERCENT (BEAKER) (test 86 % isoo=569) LYMPHOCYTES RELATIVE PERCENT (BEAKER) (test 10 % kukv=368) MONOCYTES RELATIVE PERCENT (BEAKER) (test 3 % ovcy=703) EOSINOPHILS RELATIVE PERCENT (BEAKER) (test 1 % xtuj=333) BASOPHILS RELATIVE PERCENT (BEAKER) (test 0 % nrnu=391) NEUTROPHILS ABSOLUTE COUNT (BEAKER) (test 10.60 K/ L 1.80-8.00 yxen=491) LYMPHOCYTES ABSOLUTE COUNT (BEAKER) (test 1.23 K/ L 1.48-4.50 muij=941) MONOCYTES ABSOLUTE COUNT (BEAKER) (test 0.32 K/ L 0.00-1.30 ivnk=574) EOSINOPHILS ABSOLUTE COUNT (BEAKER) (test 0.17 K/ L 0.00-0.50 ipbg=988) BASOPHILS ABSOLUTE COUNT (BEAKER) (test 0.06 K/ L 0.00-0.20 okrc=824) 0.000.520.590.000.810.000.000.000.00(MANUAL DIFFERENTIAL)2016-12-04 10:01:00 Test Item Value Reference Range Comments TOTAL COUNTED (BEAKER) (test pzip=6087) WBC MORPHOLOGY (BEAKER) (test evup=739) Normal PLT MORPHOLOGY (BEAKER) (test wjjd=439) Normal RBC MORPHOLOGY (BEAKER) (test tisy=025) Normal POCT-GLUCOSE [id number] 07:47:00 Test Item Value Reference Range Comments POC-GLUCOSE METER (BEAKER) 112 mg/dL 70-110 TESTED AT [facility] [address] [facility] (test iozu=0144) [facility] [address] BASIC METABOLIC [id number] 05:07:00 Test Item Value Reference Range Comments SODIUM (BEAKER) (test 135 meq/L 136-145 xazg=105) POTASSIUM (BEAKER) (test 4.4 meq/L 3.5-5.1 jqiv=748) CHLORIDE (BEAKER) (test 102 meq/L 98-107 yqae=060) CO2 (BEAKER) (test 25 meq/L 22-29 njrp=673) BLOOD UREA NITROGEN 10 mg/dL 7-21 (BEAKER) (test aqfl=172) CREATININE (BEAKER) (test 0.69 mg/dL 0.57-1.25 lqwb=546) GLUCOSE RANDOM (BEAKER) 103 mg/dL 70-105 (test lfyx=005) CALCIUM (BEAKER) (test 8.3 mg/dL 8.4-10.2 bsyq=891) EGFR (BEAKER) (test mL/min/1.73 sq m INSUFFICIENT CLINICAL DATA nizr=8414) TO CALCULATE ESTIMATED GFR. Specimen slightly [id number] 05:04:00 Test Item Value Reference Range Comments PHOSPHORUS (BEAKER) (test ycal=095) 2.8 mg/dL 2.3-4.7 [id number] 05:04:00 Test Item Value Reference Range Comments MAGNESIUM (BEAKER) (test fesl=607) 1.5 mg/dL 1.6-2.6 HEPATIC FUNCTION [id number] 05:04:00 Test Item Value Reference Range Comments TOTAL PROTEIN (BEAKER) (test pcmd=486) 6.3 gm/dL 6.0-8.3 ALBUMIN (BEAKER) (test vlia=7838) 2.3 g/dL 3.5-5.0 BILIRUBIN TOTAL (BEAKER) (test owac=581) 4.8 mg/dL 0.2-1.2 BILIRUBIN DIRECT (BEAKER) (test whkc=801) 3.3 mg/dL 0.1-0.5 ALKALINE PHOSPHATASE (BEAKER) (test zdrp=104) 388 U/L 40-150 AST (SGOT) (BEAKER) (test ogap=692) 64 U/L 5-34 ALT (SGPT) (BEAKER) (test kibu=352) 147 U/L 6-55 Specimen slightly ictericPROTHROMBIN [id number] 04:50:00 Test Item Value Reference Range Comments PROTIME (BEAKER) (test eqzg=520) 14.4 seconds 11.7-14.7 INR (BEAKER) (test rvho=524) 1.1 <=5.9 RECOMMENDED COUMADIN/WARFARIN INR THERAPY RANGESSTANDARD DOSE: 2.0 - 3.0 Includes: PROPHYLAXIS forvenous thrombosis, systemic embolization; TREATMENT for venous thrombosis and/or pulmonary embolus.HIGH RISK: Target INR is 2.5-3.5 for patients with mechanical heart valves.BLOOD [id number] 23:00:00 Test Item Value Reference Range Comments CULTURE (BEAKER) (test csds=0183) No growth in 5 days BLOOD [id number] 23:00:00 Test Item Value Reference Range Comments CULTURE (BEAKER) (test gjmh=1264) No growth in 5 days POCT-GLUCOSE [id number] 21:40:00 Test Item Value Reference Range Comments POC-GLUCOSE METER (BEAKER) 124 mg/dL 70-110 TESTED AT [address] (test vwqd=4373) [place] [address] POCT-GLUCOSE [id number] 17:32:00 Test Item Value Reference Range Comments POC-GLUCOSE METER (BEAKER) 116 mg/dL 70-110 TESTED AT [address] (test ztka=6336) [place] [id number] POCT-GLUCOSE [id number] 11:47:00 Test Item Value Reference Range Comments POC-GLUCOSE METER (BEAKER) 183 mg/dL 70-110 TESTED AT [address] (test hhai=5645) [place] [id number] POCT-GLUCOSE [id number] 07:31:00 Test Item Value Reference Range Comments POC-GLUCOSE METER (BEAKER) 119 mg/dL 70-110 TESTED AT [address] (test kvss=2250) [place] [id number] CBC W/PLT COUNT & AUTO [id number] 04:31:00 Test Item Value Reference Range Comments WHITE BLOOD CELL COUNT (BEAKER) (test jbrs=164) 14.5 K/ L 4.0-10.0 RED BLOOD CELL COUNT (BEAKER) (test uldq=212) 2.91 M/ L 4.20-5.80 HEMOGLOBIN (BEAKER) (test unzs=311) 8.7 GM/DL 13.0-16.8 HEMATOCRIT (BEAKER) (test dbaa=961) 26.9 % 40.0-50.0 MEAN CORPUSCULAR VOLUME (BEAKER) (test oasf=095) 92.3 fL 82.0-98.0 MEAN CORPUSCULAR HEMOGLOBIN (BEAKER) (test 29.9 pg 27.0-33.0 vmhj=551) MEAN CORPUSCULAR HEMOGLOBIN CONC (BEAKER) (test 32.4 GM/DL 32.0-36.0 lnpt=759) RED CELL DISTRIBUTION WIDTH (BEAKER) (test 19.0 % 10.3-14.2 xdtw=647) PLATELET COUNT (BEAKER) (test foih=743) 130 K/CU MM 150-430 MEAN PLATELET VOLUME (BEAKER) (test mbur=592) 8.6 fL 6.5-10.5 NUCLEATED RED BLOOD CELLS (BEAKER) (test 0 /100 WBC 0-0 zmnc=561) NEUTROPHILS RELATIVE PERCENT (BEAKER) (test 85 % vfoj=383) LYMPHOCYTES RELATIVE PERCENT (BEAKER) (test 9 % auqj=362) MONOCYTES RELATIVE PERCENT (BEAKER) (test 4 % otrd=121) EOSINOPHILS RELATIVE PERCENT (BEAKER) (test 2 % anzq=469) BASOPHILS RELATIVE PERCENT (BEAKER) (test 1 % ibmj=508) NEUTROPHILS ABSOLUTE COUNT (BEAKER) (test 12.30 K/ L 1.80-8.00 qfxx=831) LYMPHOCYTES ABSOLUTE COUNT (BEAKER) (test 1.33 K/ L 1.48-4.50 knbg=188) MONOCYTES ABSOLUTE COUNT (BEAKER) (test 0.51 K/ L 0.00-1.30 jowi=268) EOSINOPHILS ABSOLUTE COUNT (BEAKER) (test 0.27 K/ L 0.00-0.50 veoc=268) BASOPHILS ABSOLUTE COUNT (BEAKER) (test 0.09 K/ L 0.00-0.20 oamz=245) 0.000.590.730.000.880.000.000.000.00BASIC METABOLIC [id number] 04:28:00 Test Item Value Reference Range Comments SODIUM (BEAKER) (test 135 meq/L 136-145 vlau=366) POTASSIUM (BEAKER) (test 3.1 meq/L 3.5-5.1 txpa=917) CHLORIDE (BEAKER) (test 102 meq/L 98-107 iukl=825) CO2 (BEAKER) (test 25 meq/L 22-29 jeca=342) BLOOD UREA NITROGEN 11 mg/dL 7-21 (BEAKER) (test zfxn=988) CREATININE (BEAKER) (test 0.68 mg/dL 0.57-1.25 fzup=350) GLUCOSE RANDOM (BEAKER) 114 mg/dL 70-105 (test kqni=551) CALCIUM (BEAKER) (test 7.7 mg/dL 8.4-10.2 votr=175) EGFR (BEAKER) (test mL/min/1.73 sq m INSUFFICIENT CLINICAL DATA mcsr=3606) TO CALCULATE ESTIMATED GFR. Specimen moderately [id number] 04:27:00 Test Item Value Reference Range Comments PHOSPHORUS (BEAKER) (test itfs=942) 2.9 mg/dL 2.3-4.7 [id number] 04:27:00 Test Item Value Reference Range Comments MAGNESIUM (BEAKER) (test uurm=646) 1.2 mg/dL 1.6-2.6 HEPATIC FUNCTION [id number] 04:27:00 Test Item Value Reference Range Comments TOTAL PROTEIN (BEAKER) (test mxah=240) 5.3 gm/dL 6.0-8.3 ALBUMIN (BEAKER) (test ewjp=7294) 2.1 g/dL 3.5-5.0 BILIRUBIN TOTAL (BEAKER) (test nmvi=038) 5.1 mg/dL 0.2-1.2 BILIRUBIN DIRECT (BEAKER) (test onsc=523) 3.6 mg/dL 0.1-0.5 ALKALINE PHOSPHATASE (BEAKER) (test yyiw=611) 357 U/L 40-150 AST (SGOT) (BEAKER) (test vvue=191) 71 U/L 5-34 ALT (SGPT) (BEAKER) (test ylqv=115) 182 U/L 6-55 Specimen moderately ictericPROTHROMBIN [id number] 04:25:00 Test Item Value Reference Range Comments PROTIME (BEAKER) (test vbft=183) 15.4 seconds 11.7-14.7 INR (BEAKER) (test kkra=155) 1.2 <=5.9 RECOMMENDED COUMADIN/WARFARIN INR THERAPY RANGESSTANDARD DOSE: 2.0 - 3.0 Includes: PROPHYLAXIS forvenous thrombosis, systemic embolization; TREATMENT for venous thrombosis and/or pulmonary embolus.HIGH RISK: Target INR is 2.5-3.5 for patients with mechanical heart valves.POCT-GLUCOSE [id number] 21:25:00 Test Item Value Reference Range Comments POC-GLUCOSE METER (BEAKER) 120 mg/dL 70-110 TESTED AT [address] (test tkqh=4139) [place] [address] POCT-GLUCOSE [id number] 17:41:00 Test Item Value Reference Range Comments POC-GLUCOSE METER (BEAKER) 99 mg/dL 70-110 TESTED AT [address] (test oner=6417) [place] [id number] POCT-GLUCOSE [id number] 11:57:00 Test Item Value Reference Range Comments POC-GLUCOSE METER (BEAKER) 186 mg/dL 70-110 TESTED AT [address] (test knqu=9970) [place] [id number] CBC W/PLT COUNT & AUTO [id number] 10:46:00 Test Item Value Reference Range Comments WHITE BLOOD CELL COUNT (BEAKER) (test eyrr=565) 17.4 K/ L 4.0-10.0 RED BLOOD CELL COUNT (BEAKER) (test dmyi=634) 2.98 M/ L 4.20-5.80 HEMOGLOBIN (BEAKER) (test jrvt=458) 9.0 GM/DL 13.0-16.8 HEMATOCRIT (BEAKER) (test apmo=307) 27.5 % 40.0-50.0 MEAN CORPUSCULAR VOLUME (BEAKER) (test cusx=969) 92.3 fL 82.0-98.0 MEAN CORPUSCULAR HEMOGLOBIN (BEAKER) (test 30.3 pg 27.0-33.0 ifem=248) MEAN CORPUSCULAR HEMOGLOBIN CONC (BEAKER) (test 32.8 GM/DL 32.0-36.0 fcoc=484) RED CELL DISTRIBUTION WIDTH (BEAKER) (test 19.2 % 10.3-14.2 jcnl=479) PLATELET COUNT (BEAKER) (test iavq=656) 123 K/CU MM 150-430 MEAN PLATELET VOLUME (BEAKER) (test hptw=960) 9.2 fL 6.5-10.5 NUCLEATED RED BLOOD CELLS (BEAKER) (test 0 /100 WBC 0-0 wemj=470) NEUTROPHILS RELATIVE PERCENT (BEAKER) (test 87 % snfz=952) LYMPHOCYTES RELATIVE PERCENT (BEAKER) (test 7 % ztsj=917) MONOCYTES RELATIVE PERCENT (BEAKER) (test 4 % fpbx=150) EOSINOPHILS RELATIVE PERCENT (BEAKER) (test 2 % hyqp=583) BASOPHILS RELATIVE PERCENT (BEAKER) (test 0 % yuzf=384) NEUTROPHILS ABSOLUTE COUNT (BEAKER) (test 15.10 K/ L 1.80-8.00 quyf=611) LYMPHOCYTES ABSOLUTE COUNT (BEAKER) (test 1.22 K/ L 1.48-4.50 jwcj=368) MONOCYTES ABSOLUTE COUNT (BEAKER) (test 0.67 K/ L 0.00-1.30 sedd=890) EOSINOPHILS ABSOLUTE COUNT (BEAKER) (test 0.28 K/ L 0.00-0.50 bvpy=926) BASOPHILS ABSOLUTE COUNT (BEAKER) (test 0.06 K/ L 0.00-0.20 zpkz=079) 0.000.680.000.000.900.000.000.000.00(MANUAL DIFFERENTIAL)2016-12-02 10:46:00 Test Item Value Reference Range Comments TOTAL COUNTED (BEAKER) (test gdiw=0915) POCT-GLUCOSE [id number] 07:35:00 Test Item Value Reference Range Comments POC-GLUCOSE METER (BEAKER) 121 mg/dL 70-110 TESTED AT [facility] [address] [facility] (test flhg=5303) [facility] [address] BASIC METABOLIC [id number] 06:26:00 Test Item Value Reference Range Comments SODIUM (BEAKER) (test 134 meq/L 136-145 wgxo=729) POTASSIUM (BEAKER) (test 3.3 meq/L 3.5-5.1 suzy=674) CHLORIDE (BEAKER) (test 104 meq/L 98-107 blwq=155) CO2 (BEAKER) (test 23 meq/L 22-29 wwyu=655) BLOOD UREA NITROGEN 15 mg/dL 7-21 (BEAKER) (test iqma=829) CREATININE (BEAKER) (test 0.75 mg/dL 0.57-1.25 ezqe=684) GLUCOSE RANDOM (BEAKER) 119 mg/dL 70-105 (test ahek=669) CALCIUM (BEAKER) (test 7.7 mg/dL 8.4-10.2 egop=962) EGFR (BEAKER) (test mL/min/1.73 sq m INSUFFICIENT CLINICAL DATA cnyo=3612) TO CALCULATE ESTIMATED GFR. Specimen moderately [id number] 06:24:00 Test Item Value Reference Range Comments PHOSPHORUS (BEAKER) (test ftba=645) 2.8 mg/dL 2.3-4.7 [id number] 06:24:00 Test Item Value Reference Range Comments MAGNESIUM (BEAKER) (test fhuh=251) 1.3 mg/dL 1.6-2.6 HEPATIC FUNCTION [id number] 06:24:00 Test Item Value Reference Range Comments TOTAL PROTEIN (BEAKER) (test vsxc=091) 5.1 gm/dL 6.0-8.3 ALBUMIN (BEAKER) (test sify=2038) 2.0 g/dL 3.5-5.0 BILIRUBIN TOTAL (BEAKER) (test rczl=781) 5.6 mg/dL 0.2-1.2 BILIRUBIN DIRECT (BEAKER) (test cjss=986) 4.2 mg/dL 0.1-0.5 ALKALINE PHOSPHATASE (BEAKER) (test vohz=282) 334 U/L 40-150 AST (SGOT) (BEAKER) (test rnmy=825) 102 U/L 5-34 ALT (SGPT) (BEAKER) (test bwih=821) 261 U/L 6-55 Specimen moderately ictericPROTHROMBIN [id number] 06:11:00 Test Item Value Reference Range Comments PROTIME (BEAKER) (test sdoj=829) 16.4 seconds 11.7-14.7 INR (BEAKER) (test vhtl=743) 1.3 <=5.9 RECOMMENDED COUMADIN/WARFARIN INR THERAPY RANGESSTANDARD DOSE: 2.0 - 3.0 Includes: PROPHYLAXIS forvenous thrombosis, systemic embolization; TREATMENT for venous thrombosis and/or pulmonary embolus.HIGH RISK: Target INR is 2.5-3.5 for patients with mechanical heart valves.POCT-GLUCOSE [id number] 21:43:00 Test Item Value Reference Range Comments POC-GLUCOSE METER (BEAKER) 118 mg/dL 70-110 TESTED AT [address] (test bmkd=7245) [place] [address] POCT-GLUCOSE [id number] 18:18:00 Test Item Value Reference Range Comments POC-GLUCOSE METER (BEAKER) 154 mg/dL 70-110 TESTED AT [address] (test ruex=2775) [place] [address] POCT-GLUCOSE [id number] 11:55:00 Test Item Value Reference Range Comments POC-GLUCOSE METER (BEAKER) 109 mg/dL 70-110 TESTED AT [address] (test cyds=0085) [place] [address] CLOSTRIDIUM DIFFICILE TOXIN [id number] 11:17:00 Test Item Value Reference Range Comments CLOSTRIDIUM DIFFICILE TOXIN, PCR (Keen ImpressionsAKER) (test Not Detected Not Detected jhog=0277) This qualitative real-time polymerase chain reaction assay [...] is not recommended.CBC W/PLT COUNT & AUTO [id number] 11:15:00 Test Item Value Reference Range Comments WHITE BLOOD CELL COUNT (BEAKER) (test ndcd=088) 17.2 K/ L 4.0-10.0 RED BLOOD CELL COUNT (BEAKER) (test zijr=484) 2.70 M/ L 4.20-5.80 HEMOGLOBIN (BEAKER) (test ceta=140) 8.3 GM/DL 13.0-16.8 HEMATOCRIT (BEAKER) (test tvyo=204) 24.5 % 40.0-50.0 MEAN CORPUSCULAR VOLUME (BEAKER) (test qhul=097) 90.7 fL 82.0-98.0 MEAN CORPUSCULAR HEMOGLOBIN (BEAKER) (test 30.7 pg 27.0-33.0 khzf=415) MEAN CORPUSCULAR HEMOGLOBIN CONC (BEAKER) (test 33.9 GM/DL 32.0-36.0 oidx=512) RED CELL DISTRIBUTION WIDTH (BEAKER) (test 19.3 % 10.3-14.2 jqat=536) PLATELET COUNT (BEAKER) (test muxf=034) 137 K/CU MM 150-430 MEAN PLATELET VOLUME (BEAKER) (test nlwa=993) 8.7 fL 6.5-10.5 NUCLEATED RED BLOOD CELLS (BEAKER) (test 0 /100 WBC 0-0 mpog=479) NEUTROPHILS RELATIVE PERCENT (BEAKER) (test 90 % lfub=669) LYMPHOCYTES RELATIVE PERCENT (BEAKER) (test 6 % ajor=514) MONOCYTES RELATIVE PERCENT (BEAKER) (test 2 % lgbf=170) EOSINOPHILS RELATIVE PERCENT (BEAKER) (test 1 % dlhz=905) BASOPHILS RELATIVE PERCENT (BEAKER) (test 0 % mnoz=726) NEUTROPHILS ABSOLUTE COUNT (BEAKER) (test 15.60 K/ L 1.80-8.00 lwer=438) LYMPHOCYTES ABSOLUTE COUNT (BEAKER) (test 0.96 K/ L 1.48-4.50 fjpt=407) MONOCYTES ABSOLUTE COUNT (BEAKER) (test 0.43 K/ L 0.00-1.30 wtjr=619) EOSINOPHILS ABSOLUTE COUNT (BEAKER) (test 0.24 K/ L 0.00-0.50 rvvb=533) BASOPHILS ABSOLUTE COUNT (BEAKER) (test 0.06 K/ L 0.00-0.20 gwtg=434) 0.000.730.000.000.900.000.000.000.00(MANUAL DIFFERENTIAL)2016-12-01 11:15:00 Test Item Value Reference Range Comments TOTAL COUNTED (BEAKER) (test toeq=2875) WBC MORPHOLOGY (BEAKER) (test ksle=373) Normal PLT MORPHOLOGY (BEAKER) (test iftr=724) Normal ANISOCYTOSIS (BEAKER) (test fics=209) 1+ few BASIC METABOLIC [id number] 06:36:00 Test Item Value Reference Range Comments SODIUM (BEAKER) (test 135 meq/L 136-145 rgqa=040) POTASSIUM (BEAKER) (test 3.5 meq/L 3.5-5.1 gokk=385) CHLORIDE (BEAKER) (test 107 meq/L 98-107 hhkk=288) CO2 (BEAKER) (test 20 meq/L 22-29 wycp=954) BLOOD UREA NITROGEN 23 mg/dL 7-21 (BEAKER) (test rsnv=979) CREATININE (BEAKER) (test 0.82 mg/dL 0.57-1.25 pnhk=740) GLUCOSE RANDOM (BEAKER) 108 mg/dL 70-105 (test jmir=074) CALCIUM (BEAKER) (test 7.9 mg/dL 8.4-10.2 ajtj=167) EGFR (BEAKER) (test mL/min/1.73 sq m INSUFFICIENT CLINICAL DATA fbxb=5135) TO CALCULATE ESTIMATED GFR. Specimen moderately [id number] 06:32:00 Test Item Value Reference Range Comments PHOSPHORUS (BEAKER) (test snre=065) 2.8 mg/dL 2.3-4.7 [id number] 06:32:00 Test Item Value Reference Range Comments MAGNESIUM (BEAKER) (test utpx=272) 1.4 mg/dL 1.6-2.6 HEPATIC FUNCTION [id number] 06:32:00 Test Item Value Reference Range Comments TOTAL PROTEIN (BEAKER) (test bbcv=281) 5.1 gm/dL 6.0-8.3 ALBUMIN (BEAKER) (test hruz=2857) 2.0 g/dL 3.5-5.0 BILIRUBIN TOTAL (BEAKER) (test kfly=036) 5.8 mg/dL 0.2-1.2 BILIRUBIN DIRECT (BEAKER) (test wvky=179) 4.3 mg/dL 0.1-0.5 ALKALINE PHOSPHATASE (BEAKER) (test kltr=083) 266 U/L 40-150 AST (SGOT) (BEAKER) (test pfbs=565) 284 U/L 5-34 ALT (SGPT) (BEAKER) (test zjit=996) 433 U/L 6-55 Specimen moderately ictericPROTHROMBIN [id number] 06:18:00 Test Item Value Reference Range Comments PROTIME (BEAKER) (test vtxw=202) 15.7 seconds 11.7-14.7 INR (BEAKER) (test ufvu=306) 1.3 <=5.9 RECOMMENDED COUMADIN/WARFARIN INR THERAPY RANGESSTANDARD DOSE: 2.0 - 3.0 Includes: PROPHYLAXIS forvenous thrombosis, systemic embolization; TREATMENT for venous thrombosis and/or pulmonary embolus.HIGH RISK: Target INR is 2.5-3.5 for patients with mechanical heart valves.POCT-GLUCOSE [id number] 06:12:00 Test Item Value Reference Range Comments POC-GLUCOSE METER (BEAKER) 112 mg/dL 70-110 TESTED AT [address] (test dzlw=9293) [place] [address] POCT-GLUCOSE [id number] 23:29:00 Test Item Value Reference Range Comments POC-GLUCOSE METER (BEAKER) 109 mg/dL 70-110 TESTED AT [address] (test lcvv=5123) [place] [address] POCT-GLUCOSE [id number] 18:53:00 Test Item Value Reference Range Comments POC-GLUCOSE METER (BEAKER) 137 mg/dL 70-110 TESTED AT [address] (test vxxh=1538) [place] [address] URINE [id number] 12:59:00 Test Item Value Reference Range Comments CULTURE (BEAKER) (test zeow=9333) No growth POCT-GLUCOSE [id number] 12:16:00 Test Item Value Reference Range Comments POC-GLUCOSE METER (BEAKER) 143 mg/dL 70-110 TESTED AT [address] (test rpxx=0657) [place] [address] [id number] 11:08:00 Test Item Value Reference Range Comments POTASSIUM (BEAKER) (test rnuc=854) 3.3 meq/L 3.5-5.1 CBC W/PLT COUNT & AUTO [id number] 08:20:00 Test Item Value Reference Range Comments WHITE BLOOD CELL COUNT (BEAKER) (test cdri=974) 23.8 K/ L 4.0-10.0 RED BLOOD CELL COUNT (BEAKER) (test kmal=979) 2.42 M/ L 4.20-5.80 HEMOGLOBIN (BEAKER) (test jrhm=518) 7.6 GM/DL 13.0-16.8 HEMATOCRIT (BEAKER) (test ukpu=290) 22.0 % 40.0-50.0 MEAN CORPUSCULAR VOLUME (BEAKER) (test pkmu=509) 90.8 fL 82.0-98.0 MEAN CORPUSCULAR HEMOGLOBIN (BEAKER) (test 31.3 pg 27.0-33.0 ofct=540) MEAN CORPUSCULAR HEMOGLOBIN CONC (BEAKER) (test 34.5 GM/DL 32.0-36.0 fyeb=518) RED CELL DISTRIBUTION WIDTH (BEAKER) (test 19.4 % 10.3-14.2 rofn=686) PLATELET COUNT (BEAKER) (test sjdj=622) 146 K/CU MM 150-430 MEAN PLATELET VOLUME (BEAKER) (test umky=436) 8.6 fL 6.5-10.5 NUCLEATED RED BLOOD CELLS (BEAKER) (test 0 /100 WBC 0-0 qlbl=367) 0.000.890.000.000.900.000.000.000.00(MANUAL DIFFERENTIAL)2016-11-30 08:20:00 Test Item Value Reference Range Comments NEUTROPHILS - REL (DIFF) (BEAKER) (test 73 % uokg=6331) MONOCYTES - REL (DIFF) (BEAKER) (test wbbm=4080) 2 % EOSINOPHILS - REL (DIFF) (BEAKER) (test 1 % dvwt=8459) BANDS - REL (DIFF) (BEAKER) (test rant=8592) 24 % 0-10 NEUTROPHILS - ABS (DIFF) (BEAKER) (test 17.37 K/ L 1.80-8.00 qgjr=4475) MONOCYTES - ABS (DIFF) (BEAKER) (test gizk=8134) 0.48 K/ L 0.00-1.30 EOSINOPHILS - ABS (DIFF) (BEAKER) (test 0.24 K/ L 0.00-0.50 dxhd=9807) BANDS-ABS (DIFF) (BEAKER) (test oyuz=2772) 5.7 K/ L 0.0-0.8 TOTAL COUNTED (BEAKER) (test ncno=8762) 100 BANDS + SEGMENTED NEUTROPHILS (BEAKER) (test 23.09 ojgj=2522) WBC MORPHOLOGY (BEAKER) (test exag=028) Normal PLT MORPHOLOGY (BEAKER) (test mzvn=860) Normal ANISOCYTOSIS (BEAKER) (test kfma=574) 1+ few OVALOCYTES (BEAKER) (test gwzr=896) 1+ few POCT-GLUCOSE [id number] 06:26:00 Test Item Value Reference Range Comments POC-GLUCOSE METER (BEAKER) 108 mg/dL 70-110 TESTED AT [facility] [address] [facility] (test vulv=6755) [facility] [address] BASIC METABOLIC [id number] 04:54:00 Test Item Value Reference Range Comments SODIUM (BEAKER) (test 138 meq/L 136-145 dwor=938) POTASSIUM (BEAKER) (test 2.9 meq/L 3.5-5.1 gksq=489) CHLORIDE (BEAKER) (test 109 meq/L 98-107 sxcd=292) CO2 (BEAKER) (test 19 meq/L 22-29 femw=351) BLOOD UREA NITROGEN 35 mg/dL 7-21 (BEAKER) (test scph=976) CREATININE (BEAKER) (test 1.40 mg/dL 0.57-1.25 bqgf=901) GLUCOSE RANDOM (BEAKER) 104 mg/dL 70-105 (test qdhp=491) CALCIUM (BEAKER) (test 7.9 mg/dL 8.4-10.2 dtaa=140) EGFR (BEAKER) (test mL/min/1.73 sq m INSUFFICIENT CLINICAL DATA wqos=7897) TO CALCULATE ESTIMATED GFR. Specimen moderately [id number] 04:52:00 Test Item Value Reference Range Comments PHOSPHORUS (BEAKER) (test svbf=462) 4.0 mg/dL 2.3-4.7 [id number] 04:52:00 Test Item Value Reference Range Comments MAGNESIUM (BEAKER) (test mqdk=819) 1.9 mg/dL 1.6-2.6 HEPATIC FUNCTION [id number] 04:52:00 Test Item Value Reference Range Comments TOTAL PROTEIN (BEAKER) (test ufyh=273) 5.1 gm/dL 6.0-8.3 ALBUMIN (BEAKER) (test yxcl=3500) 2.2 g/dL 3.5-5.0 BILIRUBIN TOTAL (BEAKER) (test cvrs=334) 5.6 mg/dL 0.2-1.2 BILIRUBIN DIRECT (BEAKER) (test dxat=291) 4.4 mg/dL 0.1-0.5 ALKALINE PHOSPHATASE (BEAKER) (test naqz=109) 218 U/L 40-150 AST (SGOT) (BEAKER) (test banb=545) 1321 U/L 5-34 ALT (SGPT) (BEAKER) (test gxnd=027) 787 U/L 6-55 Specimen moderately ictericPROTHROMBIN [id number] 04:29:00 Test Item Value Reference Range Comments PROTIME (BEAKER) (test nxkv=691) 17.0 seconds 11.7-14.7 INR (BEAKER) (test deig=699) 1.4 <=5.9 RECOMMENDED COUMADIN/WARFARIN INR THERAPY RANGESSTANDARD DOSE: 2.0 - 3.0 Includes: PROPHYLAXIS forvenous thrombosis, systemic embolization; TREATMENT for venous thrombosis and/or pulmonary embolus.HIGH RISK: Target INR is 2.5-3.5 for patients with mechanical heart valves.POCT-GLUCOSE [id number] 00:15:00 Test Item Value Reference Range Comments POC-GLUCOSE METER (BEAKER) 118 mg/dL 70-110 TESTED AT [address] (test tqfm=0286) [place] [address] POCT-GLUCOSE [id number] 17:15:00 Test Item Value Reference Range Comments POC-GLUCOSE METER (BEAKER) 117 mg/dL 70-110 TESTED AT [address] (test znoo=1552) [place] [address] POCT-GLUCOSE [id number] 11:22:00 Test Item Value Reference Range Comments POC-GLUCOSE METER (BEAKER) 83 mg/dL 70-110 TESTED AT [address] (test qmuv=9554) [place] [address] LACTIC ACID, ARTERIAL, WHOLE [id number] 09:58:00 Test Item Value Reference Range Comments LACTATE BLOOD ARTERIAL (2) (BEAKER) (test 3.1 mmol/L 0.5-2.2 irkr=2608) Effective 02/06/2016: Units/Reference Range ChangeNew: 0.5-2.2 mmol/L Previous: 5 -20 mg/dLSpecimen moderately ictericBLOOD GAS, [id number] 09:33:00 Test Item Value Reference Range Comments PH ARTERIAL (BEAKER) (test tcnx=569) 7.44 7.35-7.45 PCO2 ARTERIAL (BEAKER) (test vcpw=814) 27 mmHg 35-45 PO2 ARTERIAL (BEAKER) (test kkpr=262) 116 mmHg 80-90 O2 SATURATION ARTERIAL (BEAKER) (test ubuu=491) 98.5 % 96.0-97.0 HCO3 ARTERIAL (BEAKER) (test iakn=359) 18 mmol/L 21-29 BASE EXCESS ARTERIAL (BEAKER) (test blhu=947) -5.9 mmol/L -2.0-3.0 PATIENT TEMPERATURE (BEAKER) (test wgom=4605) 36.5 C FIO2 (BEAKER) (test coxk=4036) 21.0 % CBC W/PLT COUNT & AUTO [id number] 08:54:00 Test Item Value Reference Range Comments WHITE BLOOD CELL COUNT (BEAKER) (test mdts=183) 41.4 K/ L 4.0-10.0 RED BLOOD CELL COUNT (BEAKER) (test nims=695) 2.43 M/ L 4.20-5.80 HEMOGLOBIN (BEAKER) (test bvfz=074) 7.5 GM/DL 13.0-16.8 HEMATOCRIT (BEAKER) (test moec=769) 22.3 % 40.0-50.0 MEAN CORPUSCULAR VOLUME (BEAKER) (test rsjr=685) 91.7 fL 82.0-98.0 MEAN CORPUSCULAR HEMOGLOBIN (BEAKER) (test 30.9 pg 27.0-33.0 qpgh=361) MEAN CORPUSCULAR HEMOGLOBIN CONC (BEAKER) (test 33.7 GM/DL 32.0-36.0 fkcc=549) RED CELL DISTRIBUTION WIDTH (BEAKER) (test 19.4 % 10.3-14.2 sape=707) PLATELET COUNT (BEAKER) (test sszg=765) 146 K/CU MM 150-430 MEAN PLATELET VOLUME (BEAKER) (test fcrx=961) 8.0 fL 6.5-10.5 NUCLEATED RED BLOOD CELLS (BEAKER) (test 0 /100 WBC 0-0 wjyh=207) NEUTROPHILS RELATIVE PERCENT (BEAKER) (test 95 % bivr=903) LYMPHOCYTES RELATIVE PERCENT (BEAKER) (test 2 % dmyp=156) MONOCYTES RELATIVE PERCENT (BEAKER) (test 3 % udnt=967) EOSINOPHILS RELATIVE PERCENT (BEAKER) (test 0 % rfod=557) BASOPHILS RELATIVE PERCENT (BEAKER) (test 0 % lpnx=942) NEUTROPHILS ABSOLUTE COUNT (BEAKER) (test 39.20 K/ L 1.80-8.00 lqag=670) LYMPHOCYTES ABSOLUTE COUNT (BEAKER) (test 0.93 K/ L 1.48-4.50 tgsa=636) MONOCYTES ABSOLUTE COUNT (BEAKER) (test 1.11 K/ L 0.00-1.30 edvl=009) EOSINOPHILS ABSOLUTE COUNT (BEAKER) (test 0.06 K/ L 0.00-0.50 furm=541) BASOPHILS ABSOLUTE COUNT (BEAKER) (test 0.07 K/ L 0.00-0.20 wywp=268) 0.000.900.000.000.900.000.000.000.00(MANUAL DIFFERENTIAL)2016-11-29 08:54:00 Test Item Value Reference Range Comments NEUTROPHILS - REL (DIFF) (BEAKER) (test 45 % ywqu=3352) MONOCYTES - REL (DIFF) (BEAKER) (test safv=2489) 1 % METAMYELOCYTES-REL (DIFF) (BEAKER) (test 1 % 0-0 djfm=534) BANDS - REL (DIFF) (BEAKER) (test jgbx=3912) 53 % 0-10 NEUTROPHILS - ABS (DIFF) (BEAKER) (test 18.63 K/ L 1.80-8.00 qxwl=4588) MONOCYTES - ABS (DIFF) (BEAKER) (test ocsp=5325) 0.41 K/ L 0.00-1.30 METAMYELOCTYES - ABS (DIFF) (BEAKER) (test 0.41 K/ L 0.00-0.00 gyef=343) BANDS-ABS (DIFF) (BEAKER) (test xmrb=4253) 21.9 K/ L 0.0-0.8 TOTAL COUNTED (BEAKER) (test dnsz=1102) 100 BANDS + SEGMENTED NEUTROPHILS (BEAKER) (test 40.57 dspl=0414) WBC MORPHOLOGY (BEAKER) (test klwe=615) Normal PLT MORPHOLOGY (BEAKER) (test pksx=876) Normal SCHISTOCYTES (BEAKER) (test xalj=053) 1+ few ACANTHOCYTES (BEAKER) (test bodq=755) 1+ few ANISOCYTOSIS (BEAKER) (test vkma=160) 2+ moderate SHEREE CELLS (BEAKER) (test gxlm=436) 1+ few HYPOCHROMIA (BEAKER) (test aaiq=292) 2+ moderate MACROCYTES (BEAKER) (test thqq=743) 2+ moderate MICROCYTES (BEAKER) (test yeuu=750) 1+ few OVALOCYTES (BEAKER) (test ojad=995) 1+ few POIKILOCYTES (BEAKER) (test gtgu=217) 1+ few BASIC METABOLIC [id number] 03:04:00 Test Item Value Reference Range Comments SODIUM (BEAKER) (test 137 meq/L 136-145 pjdr=598) POTASSIUM (BEAKER) (test 4.2 meq/L 3.5-5.1 siry=623) CHLORIDE (BEAKER) (test 108 meq/L 98-107 afzd=645) CO2 (BEAKER) (test 14 meq/L 22-29 dcbo=713) BLOOD UREA NITROGEN 29 mg/dL 7-21 (BEAKER) (test bkgz=382) CREATININE (BEAKER) (test 1.86 mg/dL 0.57-1.25 aozm=954) GLUCOSE RANDOM (BEAKER) 72 mg/dL 70-105 (test gwbg=175) CALCIUM (BEAKER) (test 8.0 mg/dL 8.4-10.2 abfo=853) EGFR (BEAKER) (test mL/min/1.73 sq m INSUFFICIENT CLINICAL DATA skli=2640) TO CALCULATE ESTIMATED GFR. Specimen moderately [id number] 02:59:00 Test Item Value Reference Range Comments PHOSPHORUS (BEAKER) (test fnyj=206) 6.2 mg/dL 2.3-4.7 [id number] 02:59:00 Test Item Value Reference Range Comments MAGNESIUM (BEAKER) (test slgq=246) 2.1 mg/dL 1.6-2.6 HEPATIC FUNCTION [id number] 02:59:00 Test Item Value Reference Range Comments TOTAL PROTEIN (BEAKER) (test gqgl=081) 5.4 gm/dL 6.0-8.3 ALBUMIN (BEAKER) (test jmiu=0488) 2.5 g/dL 3.5-5.0 BILIRUBIN TOTAL (BEAKER) (test qgas=123) 6.3 mg/dL 0.2-1.2 BILIRUBIN DIRECT (BEAKER) (test osrx=558) 4.8 mg/dL 0.1-0.5 ALKALINE PHOSPHATASE (BEAKER) (test hgkw=813) 201 U/L 40-150 AST (SGOT) (BEAKER) (test uhhl=601) 2259 U/L 5-34 ALT (SGPT) (BEAKER) (test yetx=384) 702 U/L 6-55 Specimen moderately ictericPROTHROMBIN [id number] 02:48:00 Test Item Value Reference Range Comments PROTIME (BEAKER) (test iypr=755) 19.4 seconds 11.7-14.7 INR (BEAKER) (test jfix=722) 1.6 <=5.9 RECOMMENDED COUMADIN/WARFARIN INR THERAPY RANGESSTANDARD DOSE: 2.0 - 3.0 Includes: PROPHYLAXIS forvenous thrombosis, systemic embolization; TREATMENT for venous thrombosis and/or pulmonary embolus.HIGH RISK: Target INR is 2.5-3.5 for patients with mechanical heart valves.CBC W/PLT COUNT & AUTO [id number] 19:00:00 Test Item Value Reference Range Comments WHITE BLOOD CELL COUNT (BEAKER) (test vetq=068) 38.5 K/ L 4.0-10.0 RED BLOOD CELL COUNT (BEAKER) (test zsms=522) 2.54 M/ L 4.20-5.80 HEMOGLOBIN (BEAKER) (test wzrw=255) 7.8 GM/DL 13.0-16.8 HEMATOCRIT (BEAKER) (test zrnj=008) 23.7 % 40.0-50.0 MEAN CORPUSCULAR VOLUME (BEAKER) (test numi=912) 93.2 fL 82.0-98.0 MEAN CORPUSCULAR HEMOGLOBIN (BEAKER) (test 30.6 pg 27.0-33.0 kyel=498) MEAN CORPUSCULAR HEMOGLOBIN CONC (BEAKER) (test 32.9 GM/DL 32.0-36.0 wmkb=226) RED CELL DISTRIBUTION WIDTH (BEAKER) (test 19.3 % 10.3-14.2 ndbm=493) PLATELET COUNT (BEAKER) (test ezya=278) 146 K/CU MM 150-430 MEAN PLATELET VOLUME (BEAKER) (test neqe=730) 8.3 fL 6.5-10.5 NUCLEATED RED BLOOD CELLS (BEAKER) (test 0 /100 WBC 0-0 zqoy=860) (MANUAL DIFFERENTIAL)2016-11-28 19:00:00 Test Item Value Reference Range Comments NEUTROPHILS - REL (DIFF) (BEAKER) (test 59 % prah=3218) LYMPHOCYTES - REL (DIFF) (BEAKER) (test 1 % xlob=3810) MONOCYTES - REL (DIFF) (BEAKER) (test axfh=4529) 1 % EOSINOPHILS - REL (DIFF) (BEAKER) (test 1 % zffa=6977) METAMYELOCYTES-REL (DIFF) (BEAKER) (test 2 % 0-0 lycf=292) PROMYELOCYTES-REL (DIFF) (BEAKER) (test pzog=799) 1 % 0-0 BANDS - REL (DIFF) (BEAKER) (test yizs=2756) 35 % 0-10 NEUTROPHILS - ABS (DIFF) (BEAKER) (test 22.72 K/ L 1.80-8.00 owkd=8622) LYMPHOCYTES - ABS (DIFF) (BEAKER) (test 0.39 K/ L 1.48-4.50 dnql=6322) MONOCYTES - ABS (DIFF) (BEAKER) (test bsnc=0981) 0.39 K/ L 0.00-1.30 EOSINOPHILS - ABS (DIFF) (BEAKER) (test 0.39 K/ L 0.00-0.50 valp=3277) METAMYELOCTYES - ABS (DIFF) (BEAKER) (test 0.77 K/ L 0.00-0.00 jozk=311) PROMYELOCYTES - ABS (DIFF) (BEAKER) (test 0.39 K/ L 0.00-0.00 jovh=813) BANDS-ABS (DIFF) (BEAKER) (test gooj=8695) 13.5 K/ L 0.0-0.8 TOTAL COUNTED (BEAKER) (test djnb=4581) 100 BANDS + SEGMENTED NEUTROPHILS (BEAKER) (test 36.19 dlqd=8039) WBC MORPHOLOGY (BEAKER) (test amvq=086) Normal PLT MORPHOLOGY (BEAKER) (test szlp=046) Normal SPHEROCYTES (BEAKER) (test omrk=423) 1+ few URINALYSIS W/ [id number] 15:31:00 Test Item Value Reference Range Comments COLOR (BEAKER) (test yujf=378) Dark Yellow CLARITY (BEAKER) (test rvyr=186) Hazy SPECIFIC GRAVITY UA (BEAKER) (test bkva=573) 1.007 1.001-1.035 PH UA (BEAKER) (test xhnn=751) 5.5 5.0-8.0 PROTEIN UA (BEAKER) (test ybzv=646) 50 mg/dL Negative GLUCOSE UA (BEAKER) (test qken=726) Negative Negative KETONES UA (BEAKER) (test arlm=691) Negative Negative BILIRUBIN UA (BEAKER) (test jfrm=596) Positive Negative BLOOD UA (BEAKER) (test yukj=385) Small Negative NITRITE UA (BEAKER) (test mcvz=724) Negative Negative LEUKOCYTE ESTERASE UA (BEAKER) (test pwmz=115) Negative Negative UROBILINOGEN UA (BEAKER) (test paeq=984) 2.0 mg/dL 0.2-1.0 RBC UA (BEAKER) (test lfqc=954) 3 /HPF WBC UA (BEAKER) (test fyam=552) 6 /HPF BACTERIA (BEAKER) (test tkpt=696) Occasional SOURCE(BEAKER) (test yxnv=9426) Urine, [place]ott [id number] 13:35:00 Test Item Value Reference Range Comments PHOSPHORUS (BEAKER) (test xtgu=752) 3.4 mg/dL 2.3-4.7 [id number] 13:35:00 Test Item Value Reference Range Comments MAGNESIUM (BEAKER) (test aqeg=355) 1.1 mg/dL 1.6-2.6 HEPATIC FUNCTION [id number] 13:35:00 Test Item Value Reference Range Comments TOTAL PROTEIN (BEAKER) (test yvim=249) 4.9 gm/dL 6.0-8.3 ALBUMIN (BEAKER) (test astl=0541) 2.0 g/dL 3.5-5.0 BILIRUBIN TOTAL (BEAKER) (test fyjs=308) 4.8 mg/dL 0.2-1.2 BILIRUBIN DIRECT (BEAKER) (test uhuz=802) 3.7 mg/dL 0.1-0.5 ALKALINE PHOSPHATASE (BEAKER) (test pail=369) 200 U/L 40-150 AST (SGOT) (BEAKER) (test wyku=509) 336 U/L 5-34 ALT (SGPT) (BEAKER) (test ygiw=859) 133 U/L 6-55 Specimen slightly ictericCBC W/PLT COUNT & AUTO [id number] 13:32 :00 Test Item Value Reference Range Comments WHITE BLOOD CELL COUNT (BEAKER) (test vtnd=155) 21.6 K/ L 4.0-10.0 RED BLOOD CELL COUNT (BEAKER) (test oruc=165) 2.21 M/ L 4.20-5.80 HEMOGLOBIN (BEAKER) (test qtzp=627) 6.9 GM/DL 13.0-16.8 HEMATOCRIT (BEAKER) (test lwko=555) 20.3 % 40.0-50.0 MEAN CORPUSCULAR VOLUME (BEAKER) (test fnbm=525) 91.8 fL 82.0-98.0 MEAN CORPUSCULAR HEMOGLOBIN (BEAKER) (test 31.2 pg 27.0-33.0 atax=406) MEAN CORPUSCULAR HEMOGLOBIN CONC (BEAKER) (test 33.9 GM/DL 32.0-36.0 pljx=407) RED CELL DISTRIBUTION WIDTH (BEAKER) (test 20.2 % 10.3-14.2 opsw=523) PLATELET COUNT (BEAKER) (test aegx=656) 123 K/CU MM 150-430 MEAN PLATELET VOLUME (BEAKER) (test hopj=108) 7.6 fL 6.5-10.5 NUCLEATED RED BLOOD CELLS (BEAKER) (test 0 /100 WBC 0-0 lqlc=025) 0.000.900.000.000.900.000.000.000.00(MANUAL DIFFERENTIAL)2016-11-28 13:32:00 Test Item Value Reference Range Comments NEUTROPHILS - REL (DIFF) (BEAKER) (test lyuj=7651) 41 % LYMPHOCYTES - REL (DIFF) (BEAKER) (test fsuv=0734) 2 % MONOCYTES - REL (DIFF) (BEAKER) (test reol=4588) 2 % BANDS - REL (DIFF) (BEAKER) (test ayep=2166) 55 % 0-10 NEUTROPHILS - ABS (DIFF) (BEAKER) (test baio=0945) 8.86 K/ L 1.80-8.00 LYMPHOCYTES - ABS (DIFF) (BEAKER) (test rjnv=9364) 0.43 K/ L 1.48-4.50 MONOCYTES - ABS (DIFF) (BEAKER) (test moeh=5483) 0.43 K/ L 0.00-1.30 BANDS-ABS (DIFF) (BEAKER) (test maht=3044) 11.9 K/ L 0.0-0.8 TOTAL COUNTED (BEAKER) (test udpx=8927) 100 BANDS + SEGMENTED NEUTROPHILS (BEAKER) (test 20.74 dfko=2453) PLT MORPHOLOGY (BEAKER) (test sflp=801) Normal RBC MORPHOLOGY (BEAKER) (test qlbz=988) Normal VACUOLATED NEUTROPHILS (BEAKER) (test nbmm=161) Present LACTIC ACID, VENOUS, WHOLE [id number] 13:22:00 Test Item Value Reference Range Comments LACTATE BLOOD VENOUS (2) (BEAKER) (test 11.5 mmol/L 0.5-2.2 hzzz=1717) Effective 02/06/2016: Units/Reference Range ChangeNew: 0.5-2.2 mmol/L Previous: 5 -20 mg/dLSpecimen slightly ictericCOMPREHENSIVE METABOLIC [id number] 13:15: 00 Test Item Value Reference Range Comments TOTAL PROTEIN (BEAKER) 4.8 gm/dL 6.0-8.3 (test xfyh=289) ALBUMIN (BEAKER) (test 1.9 g/dL 3.5-5.0 pcix=3484) ALKALINE PHOSPHATASE 198 U/L 40-150 (BEAKER) (test dggq=401) BILIRUBIN TOTAL (BEAKER) 4.7 mg/dL 0.2-1.2 (test qcgs=567) SODIUM (BEAKER) (test 137 meq/L 136-145 tkda=733) POTASSIUM (BEAKER) (test 3.8 meq/L 3.5-5.1 ajuy=152) CHLORIDE (BEAKER) (test 109 meq/L 98-107 vcfn=593) CO2 (BEAKER) (test 9 meq/L 22-29 gopl=500) BLOOD UREA NITROGEN 24 mg/dL 7-21 (BEAKER) (test vorc=200) CREATININE (BEAKER) (test 1.72 mg/dL 0.57-1.25 rqjz=067) GLUCOSE RANDOM (BEAKER) 75 mg/dL 70-105 (test wtcf=116) CALCIUM (BEAKER) (test 7.5 mg/dL 8.4-10.2 bhal=690) AST (SGOT) (BEAKER) (test 288 U/L 5-34 ynyg=628) ALT (SGPT) (BEAKER) (test 113 U/L 6-55 clop=207) EGFR (BEAKER) (test mL/min/1.73 sq m INSUFFICIENT CLINICAL DATA ytzj=5204) TO CALCULATE ESTIMATED GFR. Specimen slightly ictericBLOOD GAS, [id number] 13:12:00 Test Item Value Reference Range Comments PH ARTERIAL (BEAKER) (test xbqj=235) 7.40 7.35-7.45 PCO2 ARTERIAL (BEAKER) (test dbfp=735) 17 mmHg 35-45 PO2 ARTERIAL (BEAKER) (test jrbp=712) 214 mmHg 80-90 O2 SATURATION ARTERIAL (BEAKER) (test gxay=841) 99.5 % 96.0-97.0 HCO3 ARTERIAL (BEAKER) (test omno=523) 10 mmol/L 21-29 BASE EXCESS ARTERIAL (BEAKER) (test jwur=185) -12.9 mmol/L -2.0-3.0 PATIENT TEMPERATURE (BEAKER) (test jtne=2531) 37.0 C FIO2 (BEAKER) (test wvka=6296) 21.0 % [id number] 13:00:00 Test Item Value Reference Range Comments PARTIAL THROMBOPLASTIN TIME (BEAKER) (test 46.2 seconds 22.5-36.0 yima=860) PROTHROMBIN TIME/[id number] 12:58:00 Test Item Value Reference Range Comments PROTIME (BEAKER) (test etqq=712) 19.3 seconds 11.7-14.7 INR (BEAKER) (test adsa=069) 1.6 <=5.9 RECOMMENDED COUMADIN/WARFARIN INR THERAPY RANGESSTANDARD DOSE: 2.0 - 3.0 Includes: PROPHYLAXIS forvenous thrombosis, systemic embolization; TREATMENT for venous thrombosis and/or pulmonary embolus.HIGH RISK: Target INR is 2.5-3.5 for patients with mechanical heart valves.BLOOD [id number] 11:00:00 Test Item Value Reference Range Comments CULTURE (BEAKER) (test tgtl=5386) No growth in 5 days BLOOD [id number] 11:00:00 Test Item Value Reference Range Comments CULTURE (BEAKER) (test cuim=0208) No growth in 5 days POCT-GLUCOSE [id number] 07:43:00 Test Item Value Reference Range Comments POC-GLUCOSE METER (BEAKER) 111 mg/dL 70-110 TESTED AT [address] (test idct=[id number]) [facility] [id number] CBC W/PLT COUNT & AUTO [id number] 05:48:00 Test Item Value Reference Range Comments WHITE BLOOD CELL COUNT (BEAKER) (test gned=550) 11.8 K/ L 4.0-10.0 RED BLOOD CELL COUNT (BEAKER) (test gqsa=245) 2.37 M/ L 4.20-5.80 HEMOGLOBIN (BEAKER) (test dgdz=012) 7.4 GM/DL 13.0-16.8 HEMATOCRIT (BEAKER) (test nwsv=745) 21.4 % 40.0-50.0 MEAN CORPUSCULAR VOLUME (BEAKER) (test jopa=005) 90.1 fL 82.0-98.0 MEAN CORPUSCULAR HEMOGLOBIN (BEAKER) (test 31.0 pg 27.0-33.0 hhpt=408) MEAN CORPUSCULAR HEMOGLOBIN CONC (BEAKER) (test 34.4 GM/DL 32.0-36.0 dlpg=921) RED CELL DISTRIBUTION WIDTH (BEAKER) (test 20.6 % 10.3-14.2 psnp=749) PLATELET COUNT (BEAKER) (test pncc=152) 373 K/CU MM 150-430 MEAN PLATELET VOLUME (BEAKER) (test fcug=841) 7.5 fL 6.5-10.5 NUCLEATED RED BLOOD CELLS (BEAKER) (test 0 /100 WBC 0-0 ehdw=375) NEUTROPHILS RELATIVE PERCENT (BEAKER) (test 81 % qhqf=645) LYMPHOCYTES RELATIVE PERCENT (BEAKER) (test 10 % nrjr=462) MONOCYTES RELATIVE PERCENT (BEAKER) (test 6 % wybj=114) EOSINOPHILS RELATIVE PERCENT (BEAKER) (test 3 % fxxp=560) BASOPHILS RELATIVE PERCENT (BEAKER) (test 1 % sawf=223) NEUTROPHILS ABSOLUTE COUNT (BEAKER) (test 9.50 K/ L 1.80-8.00 ppkc=184) LYMPHOCYTES ABSOLUTE COUNT (BEAKER) (test 1.14 K/ L 1.48-4.50 ukmu=415) MONOCYTES ABSOLUTE COUNT (BEAKER) (test 0.75 K/ L 0.00-1.30 vlkz=853) EOSINOPHILS ABSOLUTE COUNT (BEAKER) (test 0.34 K/ L 0.00-0.50 vgyp=016) BASOPHILS ABSOLUTE COUNT (BEAKER) (test 0.07 K/ L 0.00-0.20 andl=003) 0.00CALCIUM, [id number] 05:43:00 Test Item Value Reference Range Comments CALCIUM IONIZED (BEAKER) (test ybpo=018) 1.03 mmol/L 1.12-1.27 PH, BLOOD (BEAKER) (test evyo=2021) 7.50 BASIC METABOLIC [id number] 05:38:00 Test Item Value Reference Range Comments SODIUM (BEAKER) (test 135 meq/L 136-145 ywgb=288) POTASSIUM (BEAKER) (test 3.7 meq/L 3.5-5.1 egil=073) CHLORIDE (BEAKER) (test 106 meq/L 98-107 homr=913) CO2 (BEAKER) (test 20 meq/L 22-29 plzj=242) BLOOD UREA NITROGEN 20 mg/dL 7-21 (BEAKER) (test gcqu=417) CREATININE (BEAKER) (test 1.11 mg/dL 0.57-1.25 ylpo=678) GLUCOSE RANDOM (BEAKER) 115 mg/dL 70-105 (test spnl=112) CALCIUM (BEAKER) (test 7.9 mg/dL 8.4-10.2 grgk=267) EGFR (BEAKER) (test mL/min/1.73 sq m INSUFFICIENT CLINICAL DATA hfcf=2663) TO CALCULATE ESTIMATED GFR. Specimen moderately [id number] 05:35:00 Test Item Value Reference Range Comments PHOSPHORUS (BEAKER) (test wfev=885) 3.2 mg/dL 2.3-4.7 [id number] 05:35:00 Test Item Value Reference Range Comments MAGNESIUM (BEAKER) (test absy=241) 1.6 mg/dL 1.6-2.6 HEPATIC FUNCTION [id number] 05:35:00 Test Item Value Reference Range Comments TOTAL PROTEIN (BEAKER) (test nppt=523) 5.7 gm/dL 6.0-8.3 ALBUMIN (BEAKER) (test pxbx=3933) 2.3 g/dL 3.5-5.0 BILIRUBIN TOTAL (BEAKER) (test sfpz=187) 4.5 mg/dL 0.2-1.2 BILIRUBIN DIRECT (BEAKER) (test gmfc=883) 3.4 mg/dL 0.1-0.5 ALKALINE PHOSPHATASE (BEAKER) (test oils=344) 201 U/L 40-150 AST (SGOT) (BEAKER) (test fads=252) 78 U/L 5-34 ALT (SGPT) (BEAKER) (test sxqm=886) 54 U/L 6-55 Specimen moderately ictericPT/[id number] 05:30:00 Test Item Value Reference Range Comments PROTIME (BEAKER) (test wami=919) 14.4 seconds 11.7-14.7 INR (BEAKER) (test xkcj=808) 1.1 <=5.9 PARTIAL THROMBOPLASTIN TIME (BEAKER) (test 32.7 seconds 22.5-36.0 iutj=061) RECOMMENDED COUMADIN/WARFARIN INR THERAPY RANGESSTANDARD DOSE: 2.0 - 3.0 Includes: PROPHYLAXIS forvenous thrombosis, systemic embolization; TREATMENT for venous thrombosis and/or pulmonary embolus.HIGH RISK: Target INR is 2.5-3.5 for patients with mechanical heart valves.POCT-GLUCOSE [id number] 21:55:00 Test Item Value Reference Range Comments POC-GLUCOSE METER (BEAKER) 149 mg/dL 70-110 TESTED AT [address] (test hyzx=7844) [facility] [id number] POCT-GLUCOSE [id number] 16:53:00 Test Item Value Reference Range Comments POC-GLUCOSE METER (BEAKER) 188 mg/dL 70-110 TESTED AT [address] (test uruv=0396) [place] [id number] POCT-GLUCOSE [id number] 13:03:00 Test Item Value Reference Range Comments POC-GLUCOSE METER (BEAKER) 288 mg/dL 70-110 TESTED AT [address] (test ozuu=2767) [place] [id number] CBC W/PLT COUNT & AUTO [id number] 12:17:00 Test Item Value Reference Range Comments WHITE BLOOD CELL COUNT (BEAKER) (test cniq=681) 11.2 K/ L 4.0-10.0 RED BLOOD CELL COUNT (BEAKER) (test hxzh=049) 2.38 M/ L 4.20-5.80 HEMOGLOBIN (BEAKER) (test mlit=217) 7.6 GM/DL 13.0-16.8 HEMATOCRIT (BEAKER) (test qpfu=241) 21.9 % 40.0-50.0 MEAN CORPUSCULAR VOLUME (BEAKER) (test spjf=537) 91.8 fL 82.0-98.0 MEAN CORPUSCULAR HEMOGLOBIN (BEAKER) (test 31.8 pg 27.0-33.0 noqi=878) MEAN CORPUSCULAR HEMOGLOBIN CONC (BEAKER) (test 34.7 GM/DL 32.0-36.0 xxbi=784) RED CELL DISTRIBUTION WIDTH (BEAKER) (test 20.2 % 10.3-14.2 otcd=899) PLATELET COUNT (BEAKER) (test wlou=975) 443 K/CU MM 150-430 MEAN PLATELET VOLUME (BEAKER) (test mynv=063) 8.0 fL 6.5-10.5 NUCLEATED RED BLOOD CELLS (BEAKER) (test 0 /100 WBC 0-0 vmoz=004) NEUTROPHILS RELATIVE PERCENT (BEAKER) (test 82 % aacu=197) LYMPHOCYTES RELATIVE PERCENT (BEAKER) (test 10 % yxqy=222) MONOCYTES RELATIVE PERCENT (BEAKER) (test 5 % vprx=667) EOSINOPHILS RELATIVE PERCENT (BEAKER) (test 3 % vvyp=866) BASOPHILS RELATIVE PERCENT (BEAKER) (test 1 % wqyg=481) NEUTROPHILS ABSOLUTE COUNT (BEAKER) (test 9.17 K/ L 1.80-8.00 shrc=577) LYMPHOCYTES ABSOLUTE COUNT (BEAKER) (test 1.09 K/ L 1.48-4.50 wpsu=068) MONOCYTES ABSOLUTE COUNT (BEAKER) (test 0.52 K/ L 0.00-1.30 unza=332) EOSINOPHILS ABSOLUTE COUNT (BEAKER) (test 0.35 K/ L 0.00-0.50 fnps=936) BASOPHILS ABSOLUTE COUNT (BEAKER) (test 0.07 K/ L 0.00-0.20 thge=980) 0.000.810.000.000.000.00(MANUAL DIFFERENTIAL)2016-11-24 12:17:00 Test Item Value Reference Range Comments TOTAL COUNTED (BEAKER) (test iari=4978) WBC MORPHOLOGY (BEAKER) (test btiu=602) Normal PLT MORPHOLOGY (BEAKER) (test gahm=256) Normal RBC MORPHOLOGY (BEAKER) (test edud=712) Normal TOXIC GRANULATION (BEAKER) (test ycms=087) Slight POCT-GLUCOSE [id number] 08:40:00 Test Item Value Reference Range Comments POC-GLUCOSE METER (BEAKER) 176 mg/dL 70-110 TESTED AT [address] (test upyq=1783) [facility] [address] RETICULOCYTE [id number] 07:00:00 Test Item Value Reference Range Comments RETICULOCYTE COUNT PCT (BEAKER) (test jbzf=798) 5.1 % 0.4-2.9 [id number] 06:39:00 Test Item Value Reference Range Comments FERRITIN (BEAKER) (test qcos=416) 258 ng/mL 5-275 Effective 08/22/2014: Reference Range ChangeNew: Male 5-275 Previous: Male 22-322 Female 5-275 Female 10-291IRON, TIBC, % SAT. ( WITHOUT FERRITIN)2016-11-24 06:18:00 Test Item Value Reference Range Comments IRON (BEAKER) (test zxik=325) 64 ug/dL 40-160 TOTAL IRON BINDING CAPACITY (BEAKER) (test 198 ug/dL 250-450 zfpo=476) IRON % SATURATION (2) (BEAKER) (test durk=5164) 32 % 20-55 BASIC METABOLIC [id number] 06:11:00 Test Item Value Reference Range Comments SODIUM (BEAKER) (test 137 meq/L 136-145 vhzp=358) POTASSIUM (BEAKER) (test 3.8 meq/L 3.5-5.1 xibk=907) CHLORIDE (BEAKER) (test 107 meq/L 98-107 taej=384) CO2 (BEAKER) (test 23 meq/L 22-29 dxzv=431) BLOOD UREA NITROGEN 25 mg/dL 7-21 (BEAKER) (test ienp=788) CREATININE (BEAKER) (test 1.09 mg/dL 0.57-1.25 oyxk=155) GLUCOSE RANDOM (BEAKER) 102 mg/dL 70-105 (test uvrs=480) CALCIUM (BEAKER) (test 8.2 mg/dL 8.4-10.2 jzon=789) EGFR (BEAKER) (test mL/min/1.73 sq m INSUFFICIENT CLINICAL DATA yjzt=2351) TO CALCULATE ESTIMATED GFR. Specimen slightly [id number] 06:02:00 Test Item Value Reference Range Comments PHOSPHORUS (BEAKER) (test rkhk=807) 3.4 mg/dL 2.3-4.7 [id number] 06:02:00 Test Item Value Reference Range Comments MAGNESIUM (BEAKER) (test idfw=098) 1.5 mg/dL 1.6-2.6 HEPATIC FUNCTION [id number] 06:02:00 Test Item Value Reference Range Comments TOTAL PROTEIN (BEAKER) (test yctm=469) 5.6 gm/dL 6.0-8.3 ALBUMIN (BEAKER) (test mdlo=4382) 2.3 g/dL 3.5-5.0 BILIRUBIN TOTAL (BEAKER) (test owud=701) 5.0 mg/dL 0.2-1.2 BILIRUBIN DIRECT (BEAKER) (test daup=371) 3.7 mg/dL 0.1-0.5 ALKALINE PHOSPHATASE (BEAKER) (test cmiw=753) 184 U/L 40-150 AST (SGOT) (BEAKER) (test hahq=853) 89 U/L 5-34 ALT (SGPT) (BEAKER) (test ydwv=032) 52 U/L 6-55 Specimen slightly ictericPT/[id number] 05:51:00 Test Item Value Reference Range Comments PROTIME (BEAKER) (test onyx=345) 14.2 seconds 11.7-14.7 INR (BEAKER) (test vdpm=406) 1.1 <=5.9 PARTIAL THROMBOPLASTIN TIME (BEAKER) (test 33.4 seconds 22.5-36.0 dksk=607) RECOMMENDED COUMADIN/WARFARIN INR THERAPY RANGESSTANDARD DOSE: 2.0 - 3.0 Includes: PROPHYLAXIS forvenous thrombosis, systemic embolization; TREATMENT for venous thrombosis and/or pulmonary embolus.HIGH RISK: Target INR is 2.5-3.5 for patients with mechanical heart valves.CALCIUM, [id number] 05:45:00 Test Item Value Reference Range Comments CALCIUM IONIZED (BEAKER) (test htyt=947) 1.09 mmol/L 1.12-1.27 PH, BLOOD (BEAKER) (test cgqx=1525) 7.45 BASIC METABOLIC [id number] 00:45:00 Test Item Value Reference Range Comments SODIUM (BEAKER) (test 132 meq/L 136-145 gkqh=770) POTASSIUM (BEAKER) (test 4.3 meq/L 3.5-5.1 Specimen moderately qkli=278) hemolyzed CHLORIDE (BEAKER) (test 105 meq/L 98-107 khjm=105) CO2 (BEAKER) (test 19 meq/L 22-29 ctdc=320) BLOOD UREA NITROGEN 26 mg/dL 7-21 (BEAKER) (test djuf=444) CREATININE (BEAKER) (test 1.10 mg/dL 0.57-1.25 Specimen moderately ktkn=623) hemolyzed GLUCOSE RANDOM (BEAKER) 96 mg/dL 70-105 (test xlow=962) CALCIUM (BEAKER) (test 7.9 mg/dL 8.4-10.2 remz=277) EGFR (BEAKER) (test mL/min/1.73 sq m INSUFFICIENT CLINICAL DATA rint=8600) TO CALCULATE ESTIMATED GFR. Specimen slightly ictericPOCT-GLUCOSE [id number] 20:43:00 Test Item Value Reference Range Comments POC-GLUCOSE METER (BEAKER) 151 mg/dL 70-110 TESTED AT [facility] [address] [place] [address] (test oyyn=4594) [place] [id number] POCT-GLUCOSE [id number] 17:10:00 Test Item Value Reference Range Comments POC-GLUCOSE METER (BEAKER) 123 mg/dL 70-110 TESTED AT [address] (test yoek=3334) [facility] [address] BASIC METABOLIC [id number] 12:10:00 Test Item Value Reference Range Comments SODIUM (BEAKER) (test 134 meq/L 136-145 uamt=391) POTASSIUM (BEAKER) (test 3.3 meq/L 3.5-5.1 wtcu=954) CHLORIDE (BEAKER) (test 105 meq/L 98-107 gpsk=611) CO2 (BEAKER) (test 20 meq/L 22-29 enjm=771) BLOOD UREA NITROGEN 32 mg/dL 7-21 (BEAKER) (test sogh=793) CREATININE (BEAKER) (test 1.32 mg/dL 0.57-1.25 nezc=571) GLUCOSE RANDOM (BEAKER) 149 mg/dL 70-105 (test lnhw=364) CALCIUM (BEAKER) (test 8.0 mg/dL 8.4-10.2 dgze=975) EGFR (BEAKER) (test mL/min/1.73 sq m INSUFFICIENT CLINICAL DATA oxmd=2340) TO CALCULATE ESTIMATED GFR. Specimen moderately ictericPOCT-GLUCOSE [id number] 12:07:00 Test Item Value Reference Range Comments POC-GLUCOSE METER (BEAKER) 182 mg/dL 70-110 TESTED AT [address] (test zxmg=1680) [place] [id number] PROTHROMBIN [id number] 11:39:00 Test Item Value Reference Range Comments PROTIME (BEAKER) (test nifa=924) 14.1 seconds 11.7-14.7 INR (BEAKER) (test xrev=997) 1.1 <=5.9 RECOMMENDED COUMADIN/WARFARIN INR THERAPY RANGESSTANDARD DOSE: 2.0 - 3.0 Includes: PROPHYLAXIS forvenous thrombosis, systemic embolization; TREATMENT for venous thrombosis and/or pulmonary embolus.HIGH RISK: Target INR is 2.5-3.5 for patients with mechanical heart valves.POCT-GLUCOSE [id number] 07:45:00 Test Item Value Reference Range Comments POC-GLUCOSE METER (BEAKER) 110 mg/dL 70-110 TESTED AT [place] [address] [address] (test lcwz=6445) [place] [address] CBC W/PLT COUNT & AUTO [id number] 07:08:00 Test Item Value Reference Range Comments WHITE BLOOD CELL COUNT (BEAKER) (test jgio=928) 12.9 K/ L 4.0-10.0 RED BLOOD CELL COUNT (BEAKER) (test jpxd=771) 2.39 M/ L 4.20-5.80 HEMOGLOBIN (BEAKER) (test yudb=951) 7.6 GM/DL 13.0-16.8 HEMATOCRIT (BEAKER) (test xhny=299) 21.4 % 40.0-50.0 MEAN CORPUSCULAR VOLUME (BEAKER) (test mxew=562) 89.6 fL 82.0-98.0 MEAN CORPUSCULAR HEMOGLOBIN (BEAKER) (test 31.7 pg 27.0-33.0 cfst=485) MEAN CORPUSCULAR HEMOGLOBIN CONC (BEAKER) (test 35.4 GM/DL 32.0-36.0 duvf=303) RED CELL DISTRIBUTION WIDTH (BEAKER) (test 21.3 % 10.3-14.2 dfgr=205) PLATELET COUNT (BEAKER) (test abny=525) 428 K/CU MM 150-430 MEAN PLATELET VOLUME (BEAKER) (test jsek=555) 7.9 fL 6.5-10.5 NUCLEATED RED BLOOD CELLS (BEAKER) (test 0 /100 WBC 0-0 umxr=384) NEUTROPHILS RELATIVE PERCENT (BEAKER) (test 82 % ehlu=387) LYMPHOCYTES RELATIVE PERCENT (BEAKER) (test 9 % vbzk=960) MONOCYTES RELATIVE PERCENT (BEAKER) (test 5 % npte=147) EOSINOPHILS RELATIVE PERCENT (BEAKER) (test 3 % nbkp=743) BASOPHILS RELATIVE PERCENT (BEAKER) (test 1 % oxtx=407) NEUTROPHILS ABSOLUTE COUNT (BEAKER) (test 10.50 K/ L 1.80-8.00 tfdl=976) LYMPHOCYTES ABSOLUTE COUNT (BEAKER) (test 1.19 K/ L 1.48-4.50 yblr=686) MONOCYTES ABSOLUTE COUNT (BEAKER) (test 0.66 K/ L 0.00-1.30 mfdx=701) EOSINOPHILS ABSOLUTE COUNT (BEAKER) (test 0.38 K/ L 0.00-0.50 cnyy=931) BASOPHILS ABSOLUTE COUNT (BEAKER) (test 0.12 K/ L 0.00-0.20 cydo=074) 0.00BASIC METABOLIC [id number] 06:34:00 Test Item Value Reference Range Comments SODIUM (BEAKER) (test 134 meq/L 136-145 ebtj=051) POTASSIUM (BEAKER) (test 3.3 meq/L 3.5-5.1 nxud=777) CHLORIDE (BEAKER) (test 105 meq/L 98-107 engs=280) CO2 (BEAKER) (test 19 meq/L 22-29 izbj=353) BLOOD UREA NITROGEN 35 mg/dL 7-21 (BEAKER) (test fvfg=427) CREATININE (BEAKER) (test 1.38 mg/dL 0.57-1.25 ztzd=151) GLUCOSE RANDOM (BEAKER) 112 mg/dL 70-105 (test pmxl=863) CALCIUM (BEAKER) (test 7.9 mg/dL 8.4-10.2 jvew=618) EGFR (BEAKER) (test mL/min/1.73 sq m INSUFFICIENT CLINICAL DATA dznv=6476) TO CALCULATE ESTIMATED GFR. Specimen moderately [id number] 06:27:00 Test Item Value Reference Range Comments PHOSPHORUS (BEAKER) (test gyaf=184) 3.7 mg/dL 2.3-4.7 [id number] 06:27:00 Test Item Value Reference Range Comments MAGNESIUM (BEAKER) (test fvaf=065) 1.6 mg/dL 1.6-2.6 HEPATIC FUNCTION [id number] 06:27:00 Test Item Value Reference Range Comments TOTAL PROTEIN (BEAKER) (test yqrf=988) 5.4 gm/dL 6.0-8.3 ALBUMIN (BEAKER) (test ocoo=8768) 2.2 g/dL 3.5-5.0 BILIRUBIN TOTAL (BEAKER) (test iwdt=631) 5.4 mg/dL 0.2-1.2 BILIRUBIN DIRECT (BEAKER) (test qkxq=248) 4.2 mg/dL 0.1-0.5 ALKALINE PHOSPHATASE (BEAKER) (test zjnb=503) 172 U/L 40-150 AST (SGOT) (BEAKER) (test ryvw=879) 76 U/L 5-34 ALT (SGPT) (BEAKER) (test thvq=612) 47 U/L 6-55 Specimen moderately ictericBASIC METABOLIC [id number] 06:23:00 Test Item Value Reference Range Comments SODIUM (BEAKER) (test 135 meq/L 136-145 pufb=281) POTASSIUM (BEAKER) (test 3.2 meq/L 3.5-5.1 emzt=062) CHLORIDE (BEAKER) (test 105 meq/L 98-107 fykq=731) CO2 (BEAKER) (test 19 meq/L 22-29 bznl=192) BLOOD UREA NITROGEN 35 mg/dL 7-21 (BEAKER) (test etam=349) CREATININE (BEAKER) (test 1.38 mg/dL 0.57-1.25 vmuw=956) GLUCOSE RANDOM (BEAKER) 110 mg/dL 70-105 (test pdrf=184) CALCIUM (BEAKER) (test 8.0 mg/dL 8.4-10.2 fvpb=814) EGFR (BEAKER) (test mL/min/1.73 sq m INSUFFICIENT CLINICAL DATA rado=8822) TO CALCULATE ESTIMATED GFR. Specimen moderately ictericCALCIUM, [id number] 05:52:00 Test Item Value Reference Range Comments CALCIUM IONIZED (BEAKER) (test ytqa=351) 1.04 mmol/L 1.12-1.27 PH, BLOOD (BEAKER) (test pzxp=0930) 7.50 POCT-GLUCOSE [id number] 21:30:00 Test Item Value Reference Range Comments POC-GLUCOSE METER (BEAKER) 133 mg/dL 70-110 TESTED AT [address] (test jsph=2927) [place] [id number] POCT-GLUCOSE [id number] 17:21:00 Test Item Value Reference Range Comments POC-GLUCOSE METER (BEAKER) 117 mg/dL 70-110 TESTED AT [address] (test vrqv=4217) [place] [id number] BASIC METABOLIC [id number] 16:21:00 Test Item Value Reference Range Comments SODIUM (BEAKER) (test 133 meq/L 136-145 qsun=228) POTASSIUM (BEAKER) (test 3.2 meq/L 3.5-5.1 ufcu=532) CHLORIDE (BEAKER) (test 102 meq/L 98-107 ntbx=871) CO2 (BEAKER) (test 20 meq/L 22-29 mxra=996) BLOOD UREA NITROGEN 40 mg/dL 7-21 (BEAKER) (test bmtm=547) CREATININE (BEAKER) (test 1.82 mg/dL 0.57-1.25 rvww=038) GLUCOSE RANDOM (BEAKER) 129 mg/dL 70-105 (test yflh=962) CALCIUM (BEAKER) (test 7.8 mg/dL 8.4-10.2 kduc=716) EGFR (BEAKER) (test mL/min/1.73 sq m INSUFFICIENT CLINICAL DATA gsww=0772) TO CALCULATE ESTIMATED GFR. Specimen moderately ictericCBC W/PLT COUNT & AUTO [id number] 15: 58:00 Test Item Value Reference Range Comments WHITE BLOOD CELL COUNT (BEAKER) (test mlir=991) 14.2 K/ L 4.0-10.0 RED BLOOD CELL COUNT (BEAKER) (test jxpr=694) 2.41 M/ L 4.20-5.80 HEMOGLOBIN (BEAKER) (test hfez=686) 7.5 GM/DL 13.0-16.8 HEMATOCRIT (BEAKER) (test ypeo=065) 21.8 % 40.0-50.0 MEAN CORPUSCULAR VOLUME (BEAKER) (test svgz=996) 90.5 fL 82.0-98.0 MEAN CORPUSCULAR HEMOGLOBIN (BEAKER) (test 31.0 pg 27.0-33.0 emff=939) MEAN CORPUSCULAR HEMOGLOBIN CONC (BEAKER) (test 34.3 GM/DL 32.0-36.0 nwul=918) RED CELL DISTRIBUTION WIDTH (BEAKER) (test 21.4 % 10.3-14.2 zzej=398) PLATELET COUNT (BEAKER) (test txme=454) 424 K/CU MM 150-430 MEAN PLATELET VOLUME (BEAKER) (test shmr=578) 7.2 fL 6.5-10.5 NUCLEATED RED BLOOD CELLS (BEAKER) (test 0 /100 WBC 0-0 sist=125) NEUTROPHILS RELATIVE PERCENT (BEAKER) (test 86 % yxtv=113) LYMPHOCYTES RELATIVE PERCENT (BEAKER) (test 7 % ixrt=768) MONOCYTES RELATIVE PERCENT (BEAKER) (test 4 % yrin=488) EOSINOPHILS RELATIVE PERCENT (BEAKER) (test 3 % kawf=234) BASOPHILS RELATIVE PERCENT (BEAKER) (test 0 % hqlz=425) NEUTROPHILS ABSOLUTE COUNT (BEAKER) (test 12.20 K/ L 1.80-8.00 ugjq=738) LYMPHOCYTES ABSOLUTE COUNT (BEAKER) (test 0.96 K/ L 1.48-4.50 lhjd=054) MONOCYTES ABSOLUTE COUNT (BEAKER) (test 0.60 K/ L 0.00-1.30 spcy=839) EOSINOPHILS ABSOLUTE COUNT (BEAKER) (test 0.35 K/ L 0.00-0.50 jwlz=721) BASOPHILS ABSOLUTE COUNT (BEAKER) (test 0.04 K/ L 0.00-0.20 syzt=217) 0.00CBC W/PLT COUNT & AUTO [id number] 14:42:00 Test Item Value Reference Range Comments WHITE BLOOD CELL COUNT (BEAKER) (test ztzs=892) 17.8 K/ L 4.0-10.0 RED BLOOD CELL COUNT (BEAKER) (test lajv=180) 2.32 M/ L 4.20-5.80 HEMOGLOBIN (BEAKER) (test nbxm=767) 7.2 GM/DL 13.0-16.8 HEMATOCRIT (BEAKER) (test dxnx=253) 20.8 % 40.0-50.0 MEAN CORPUSCULAR VOLUME (BEAKER) (test uudl=823) 89.7 fL 82.0-98.0 MEAN CORPUSCULAR HEMOGLOBIN (BEAKER) (test 31.2 pg 27.0-33.0 bzwc=600) MEAN CORPUSCULAR HEMOGLOBIN CONC (BEAKER) (test 34.8 GM/DL 32.0-36.0 ftal=325) RED CELL DISTRIBUTION WIDTH (BEAKER) (test 21.4 % 10.3-14.2 epfd=237) PLATELET COUNT (BEAKER) (test fucx=986) 442 K/CU MM 150-430 MEAN PLATELET VOLUME (BEAKER) (test abtr=794) 7.7 fL 6.5-10.5 NUCLEATED RED BLOOD CELLS (BEAKER) (test 0 /100 WBC 0-0 wwsr=303) NEUTROPHILS RELATIVE PERCENT (BEAKER) (test 90 % hgyj=593) LYMPHOCYTES RELATIVE PERCENT (BEAKER) (test 4 % jyic=675) MONOCYTES RELATIVE PERCENT (BEAKER) (test 3 % olri=456) EOSINOPHILS RELATIVE PERCENT (BEAKER) (test 2 % ehuo=236) BASOPHILS RELATIVE PERCENT (BEAKER) (test 1 % topi=996) NEUTROPHILS ABSOLUTE COUNT (BEAKER) (test 16.10 K/ L 1.80-8.00 jcnn=355) LYMPHOCYTES ABSOLUTE COUNT (BEAKER) (test 0.75 K/ L 1.48-4.50 cgfw=704) MONOCYTES ABSOLUTE COUNT (BEAKER) (test 0.57 K/ L 0.00-1.30 twdq=246) EOSINOPHILS ABSOLUTE COUNT (BEAKER) (test 0.32 K/ L 0.00-0.50 dklr=508) BASOPHILS ABSOLUTE COUNT (BEAKER) (test 0.10 K/ L 0.00-0.20 wmyy=226) 0.000.530.000.000.000.000.000.000.00(MANUAL DIFFERENTIAL)2016-11-22 14:42:00 Test Item Value Reference Range Comments TOTAL COUNTED (BEAKER) (test neot=5317) WBC MORPHOLOGY (BEAKER) (test gruk=969) Normal PLT MORPHOLOGY (BEAKER) (test syos=214) Normal RBC MORPHOLOGY (BEAKER) (test miny=150) Normal URINE [id number] 13:50:00 Test Item Value Reference Range Comments CULTURE (BEAKER) (test qzgo=6877) No growth POCT-GLUCOSE [id number] 11:38:00 Test Item Value Reference Range Comments POC-GLUCOSE METER (BEAKER) 144 mg/dL 70-110 TESTED AT [address] (test apec=3490) [place] [id number] POCT-GLUCOSE [id number] 07:39:00 Test Item Value Reference Range Comments POC-GLUCOSE METER (BEAKER) 127 mg/dL 70-110 TESTED AT [address] (test ndww=2934) [place] [id number] BASIC METABOLIC [id number] 05:51:00 Test Item Value Reference Range Comments SODIUM (BEAKER) (test 132 meq/L 136-145 oput=228) POTASSIUM (BEAKER) (test 3.5 meq/L 3.5-5.1 tzzi=303) CHLORIDE (BEAKER) (test 103 meq/L 98-107 dmke=377) CO2 (BEAKER) (test 18 meq/L 22-29 trlu=485) BLOOD UREA NITROGEN 47 mg/dL 7-21 (BEAKER) (test ulpd=977) CREATININE (BEAKER) (test 1.82 mg/dL 0.57-1.25 tfma=946) GLUCOSE RANDOM (BEAKER) 116 mg/dL 70-105 (test pcql=741) CALCIUM (BEAKER) (test 7.8 mg/dL 8.4-10.2 wugl=943) EGFR (BEAKER) (test mL/min/1.73 sq m INSUFFICIENT CLINICAL DATA bruz=9160) TO CALCULATE ESTIMATED GFR. Specimen moderately [id number] 05:46:00 Test Item Value Reference Range Comments PHOSPHORUS (BEAKER) (test dgdn=967) 4.2 mg/dL 2.3-4.7 [id number] 05:46:00 Test Item Value Reference Range Comments MAGNESIUM (BEAKER) (test trqd=999) 2.1 mg/dL 1.6-2.6 HEPATIC FUNCTION [id number] 05:46:00 Test Item Value Reference Range Comments TOTAL PROTEIN (BEAKER) (test asol=621) 5.2 gm/dL 6.0-8.3 ALBUMIN (BEAKER) (test kaeg=8804) 2.1 g/dL 3.5-5.0 BILIRUBIN TOTAL (BEAKER) (test cklv=063) 6.3 mg/dL 0.2-1.2 BILIRUBIN DIRECT (BEAKER) (test bwkj=328) 5.0 mg/dL 0.1-0.5 ALKALINE PHOSPHATASE (BEAKER) (test bcau=475) 165 U/L 40-150 AST (SGOT) (BEAKER) (test bwfe=781) 84 U/L 5-34 ALT (SGPT) (BEAKER) (test wbej=664) 44 U/L 6-55 Specimen moderately ictericCALCIUM, [id number] 05:37:00 Test Item Value Reference Range Comments CALCIUM IONIZED (BEAKER) (test kxix=136) 1.02 mmol/L 1.12-1.27 PH, BLOOD (BEAKER) (test qpus=3619) 7.52 BASIC METABOLIC [id number] 21:34:00 Test Item Value Reference Range Comments SODIUM (BEAKER) (test 131 meq/L 136-145 jaka=604) POTASSIUM (BEAKER) (test 3.4 meq/L 3.5-5.1 vzei=114) CHLORIDE (BEAKER) (test 101 meq/L 98-107 mpqt=967) CO2 (BEAKER) (test 19 meq/L 22-29 vfjn=873) BLOOD UREA NITROGEN 51 mg/dL 7-21 (BEAKER) (test jlqo=145) CREATININE (BEAKER) (test 1.98 mg/dL 0.57-1.25 zasi=615) GLUCOSE RANDOM (BEAKER) 123 mg/dL 70-105 (test edkl=402) CALCIUM (BEAKER) (test 7.8 mg/dL 8.4-10.2 wxnm=116) EGFR (BEAKER) (test mL/min/1.73 sq m INSUFFICIENT CLINICAL DATA vvrw=4578) TO CALCULATE ESTIMATED GFR. Specimen moderately ictericPOCT-GLUCOSE [id number] 17:50:00 Test Item Value Reference Range Comments POC-GLUCOSE METER (BEAKER) 165 mg/dL 70-110 TESTED AT [address] (test akvl=1412) [place] [id number] POCT-GLUCOSE [id number] 12:07:00 Test Item Value Reference Range Comments POC-GLUCOSE METER (BEAKER) 134 mg/dL 70-110 TESTED AT [address] (test bmpv=3478) [place] [id number] POCT-GLUCOSE [id number] 12:07:00 Test Item Value Reference Range Comments POC-GLUCOSE METER (BEAKER) 128 mg/dL 70-110 TESTED AT [address] (test guhp=0348) [place] [id number] POCT-GLUCOSE [id number] 07:47:00 Test Item Value Reference Range Comments POC-GLUCOSE METER (BEAKER) 120 mg/dL 70-110 TESTED AT [address] (test vsfw=8252) [place] [id number] URINALYSIS W/ [id number] 02:39:00 Test Item Value Reference Range Comments COLOR (BEAKER) (test hpfk=531) Dark Yellow CLARITY (BEAKER) (test mbmo=540) Clear SPECIFIC GRAVITY UA (BEAKER) (test uscd=812) 1.007 1.001-1.035 PH UA (BEAKER) (test tkca=535) 6.0 5.0-8.0 PROTEIN UA (BEAKER) (test bfvy=606) 200 mg/dL Negative GLUCOSE UA (BEAKER) (test xjpj=390) Negative Negative KETONES UA (BEAKER) (test tgie=444) Negative Negative BILIRUBIN UA (BEAKER) (test kdds=244) Positive Negative BLOOD UA (BEAKER) (test kweu=713) Moderate Negative NITRITE UA (BEAKER) (test sryh=389) Negative Negative LEUKOCYTE ESTERASE UA (BEAKER) (test jvms=411) Negative Negative UROBILINOGEN UA (BEAKER) (test yvsh=098) 0.2 mg/dL 0.2-1.0 RBC UA (BEAKER) (test ejqr=349) 53 /HPF WBC UA (BEAKER) (test rjlh=582) 10 /HPF MUCUS (BEAKER) (test nwgs=1554) Rare SQUAMOUS EPITHELIAL (BEAKER) (test eafm=009) < /HPF AMORPHOUS CRYSTALS (BEAKER) (test klyt=5113) Rare SOURCE(BEAKER) (test znob=6706) Urine, Voided BASIC METABOLIC [id number] 02:28:00 Test Item Value Reference Range Comments SODIUM (BEAKER) (test 135 meq/L 136-145 hwha=740) POTASSIUM (BEAKER) (test 3.4 meq/L 3.5-5.1 iakk=644) CHLORIDE (BEAKER) (test 103 meq/L 98-107 vewb=560) CO2 (BEAKER) (test 20 meq/L 22-29 wvat=092) BLOOD UREA NITROGEN 57 mg/dL 7-21 (BEAKER) (test fhtc=254) CREATININE (BEAKER) (test 2.08 mg/dL 0.57-1.25 idag=578) GLUCOSE RANDOM (BEAKER) 111 mg/dL 70-105 (test lntm=539) CALCIUM (BEAKER) (test 8.4 mg/dL 8.4-10.2 ktvy=625) EGFR (BEAKER) (test mL/min/1.73 sq m INSUFFICIENT CLINICAL DATA kcgg=0295) TO CALCULATE ESTIMATED GFR. Specimen moderately ictericCBC W/PLT COUNT & AUTO [id number] 02: 01:00 Test Item Value Reference Range Comments WHITE BLOOD CELL COUNT (BEAKER) (test nujw=856) 18.2 K/ L 4.0-10.0 RED BLOOD CELL COUNT (BEAKER) (test mlkb=126) 3.07 M/ L 4.20-5.80 HEMOGLOBIN (BEAKER) (test qftf=829) 9.6 GM/DL 13.0-16.8 HEMATOCRIT (BEAKER) (test xfqb=977) 27.5 % 40.0-50.0 MEAN CORPUSCULAR VOLUME (BEAKER) (test jjoi=581) 89.4 fL 82.0-98.0 MEAN CORPUSCULAR HEMOGLOBIN (BEAKER) (test 31.3 pg 27.0-33.0 ztux=407) MEAN CORPUSCULAR HEMOGLOBIN CONC (BEAKER) (test 34.9 GM/DL 32.0-36.0 wpeu=173) RED CELL DISTRIBUTION WIDTH (BEAKER) (test 20.2 % 10.3-14.2 udlt=564) PLATELET COUNT (BEAKER) (test lhvg=965) 639 K/CU MM 150-430 MEAN PLATELET VOLUME (BEAKER) (test smfo=413) 7.3 fL 6.5-10.5 NUCLEATED RED BLOOD CELLS (BEAKER) (test 0 /100 WBC 0-0 mgtq=748) NEUTROPHILS RELATIVE PERCENT (BEAKER) (test 94 % trxz=225) LYMPHOCYTES RELATIVE PERCENT (BEAKER) (test 4 % dgei=749) MONOCYTES RELATIVE PERCENT (BEAKER) (test 1 % gohn=537) EOSINOPHILS RELATIVE PERCENT (BEAKER) (test 1 % ogol=855) BASOPHILS RELATIVE PERCENT (BEAKER) (test 0 % kass=933) NEUTROPHILS ABSOLUTE COUNT (BEAKER) (test 17.20 K/ L 1.80-8.00 yldw=772) LYMPHOCYTES ABSOLUTE COUNT (BEAKER) (test 0.62 K/ L 1.48-4.50 glrd=099) MONOCYTES ABSOLUTE COUNT (BEAKER) (test 0.12 K/ L 0.00-1.30 acaw=562) EOSINOPHILS ABSOLUTE COUNT (BEAKER) (test 0.23 K/ L 0.00-0.50 eiev=425) BASOPHILS ABSOLUTE COUNT (BEAKER) (test 0.05 K/ L 0.00-0.20 jrta=395) 0.000.570.000.000.520.000.000.000.000.000.000.000.000.000.000.000.000.000.00PHOS [id number] 01:57:00 Test Item Value Reference Range Comments PHOSPHORUS (BEAKER) (test fwge=947) 4.2 mg/dL 2.3-4.7 [id number] 01:57:00 Test Item Value Reference Range Comments MAGNESIUM (BEAKER) (test jfxs=196) 1.5 mg/dL 1.6-2.6 HEPATIC FUNCTION [id number] 01:57:00 Test Item Value Reference Range Comments TOTAL PROTEIN (BEAKER) (test fqpk=218) 6.2 gm/dL 6.0-8.3 ALBUMIN (BEAKER) (test rocp=5223) 2.7 g/dL 3.5-5.0 BILIRUBIN TOTAL (BEAKER) (test vaov=866) 8.2 mg/dL 0.2-1.2 BILIRUBIN DIRECT (BEAKER) (test dzsw=209) 6.2 mg/dL 0.1-0.5 ALKALINE PHOSPHATASE (BEAKER) (test kuwb=786) 218 U/L 40-150 AST (SGOT) (BEAKER) (test zhjy=172) 97 U/L 5-34 ALT (SGPT) (BEAKER) (test zvbg=618) 47 U/L 6-55 Specimen moderately ictericCALCIUM, [id number] 01:43:00 Test Item Value Reference Range Comments CALCIUM IONIZED (BEAKER) (test ursp=408) 1.01 mmol/L 1.12-1.27 PH, BLOOD (BEAKER) (test dxbo=5113) 7.43 POCT-GLUCOSE [id number] 21:25:00 Test Item Value Reference Range Comments POC-GLUCOSE METER (BEAKER) 123 mg/dL 70-110 TESTED AT [address] (test opae=8652) [facility] [id number] POCT-GLUCOSE [id number] 17:00:00 Test Item Value Reference Range Comments POC-GLUCOSE METER (BEAKER) 139 mg/dL 70-110 TESTED AT [address] (test vpae=3079) [facility] [id number] ANTI-NUCLEAR ANTIBODY (WILLY)2016-11-20 14:38:00 Test Item Value Reference Range Comments ANTI-NUCLEAR ANTIBODY (WILLY) (BEAKER) (test Negative Negative clqu=666) POCT-GLUCOSE [id number] 12:57:00 Test Item Value Reference Range Comments POC-GLUCOSE METER (BEAKER) 104 mg/dL 70-110 TESTED AT [address] (test ixyy=3165) [facility] [id number] POCT-GLUCOSE [id number] 07:57:00 Test Item Value Reference Range Comments POC-GLUCOSE METER (BEAKER) 116 mg/dL 70-110 TESTED AT [address] (test zsnu=8968) [facility] [id number] CBC W/PLT COUNT & AUTO [id number] 07:17:00 Test Item Value Reference Range Comments WHITE BLOOD CELL COUNT (BEAKER) (test kvbh=504) 16.5 K/ L 4.0-10.0 RED BLOOD CELL COUNT (BEAKER) (test daxw=695) 2.56 M/ L 4.20-5.80 HEMOGLOBIN (BEAKER) (test dbfr=640) 8.0 GM/DL 13.0-16.8 HEMATOCRIT (BEAKER) (test mttw=527) 22.4 % 40.0-50.0 MEAN CORPUSCULAR VOLUME (BEAKER) (test rrys=511) 87.3 fL 82.0-98.0 MEAN CORPUSCULAR HEMOGLOBIN (BEAKER) (test 31.2 pg 27.0-33.0 wbtt=481) MEAN CORPUSCULAR HEMOGLOBIN CONC (BEAKER) (test 35.7 GM/DL 32.0-36.0 zalx=191) RED CELL DISTRIBUTION WIDTH (BEAKER) (test 15.6 % 10.3-14.2 mjie=831) PLATELET COUNT (BEAKER) (test bvyk=831) 588 K/CU MM 150-430 MEAN PLATELET VOLUME (BEAKER) (test iaoj=077) 7.9 fL 6.5-10.5 NUCLEATED RED BLOOD CELLS (BEAKER) (test 0 /100 WBC 0-0 gtmk=176) NEUTROPHILS RELATIVE PERCENT (BEAKER) (test 85 % zfow=219) LYMPHOCYTES RELATIVE PERCENT (BEAKER) (test 7 % nmwy=170) MONOCYTES RELATIVE PERCENT (BEAKER) (test 5 % fqxa=845) EOSINOPHILS RELATIVE PERCENT (BEAKER) (test 2 % urpu=748) BASOPHILS RELATIVE PERCENT (BEAKER) (test 0 % zbqu=096) NEUTROPHILS ABSOLUTE COUNT (BEAKER) (test 14.10 K/ L 1.80-8.00 hutq=254) LYMPHOCYTES ABSOLUTE COUNT (BEAKER) (test 1.20 K/ L 1.48-4.50 qxia=425) MONOCYTES ABSOLUTE COUNT (BEAKER) (test 0.80 K/ L 0.00-1.30 wzki=806) EOSINOPHILS ABSOLUTE COUNT (BEAKER) (test 0.35 K/ L 0.00-0.50 rxcs=424) BASOPHILS ABSOLUTE COUNT (BEAKER) (test 0.06 K/ L 0.00-0.20 bzrv=415) 0.00BASIC METABOLIC [id number] 05:57:00 Test Item Value Reference Range Comments SODIUM (BEAKER) (test 136 meq/L 136-145 dnsq=913) POTASSIUM (BEAKER) (test 3.5 meq/L 3.5-5.1 mlsc=725) CHLORIDE (BEAKER) (test 105 meq/L 98-107 jlzt=472) CO2 (BEAKER) (test 22 meq/L 22-29 xuml=858) BLOOD UREA NITROGEN 71 mg/dL 7-21 (BEAKER) (test mlog=010) CREATININE (BEAKER) (test 2.53 mg/dL 0.57-1.25 xxbd=301) GLUCOSE RANDOM (BEAKER) 115 mg/dL 70-105 (test ejbc=886) CALCIUM (BEAKER) (test 8.0 mg/dL 8.4-10.2 qybh=568) EGFR (BEAKER) (test mL/min/1.73 sq m INSUFFICIENT CLINICAL DATA iime=7235) TO CALCULATE ESTIMATED GFR. Specimen moderately [id number] 05:56:00 Test Item Value Reference Range Comments PHOSPHORUS (BEAKER) (test zogv=085) 4.8 mg/dL 2.3-4.7 [id number] 05:56:00 Test Item Value Reference Range Comments MAGNESIUM (BEAKER) (test fwzw=944) 1.7 mg/dL 1.6-2.6 HEPATIC FUNCTION [id number] 05:56:00 Test Item Value Reference Range Comments TOTAL PROTEIN (BEAKER) (test fdbt=520) 5.4 gm/dL 6.0-8.3 ALBUMIN (BEAKER) (test kvyy=5871) 2.3 g/dL 3.5-5.0 BILIRUBIN TOTAL (BEAKER) (test uohd=963) 6.7 mg/dL 0.2-1.2 BILIRUBIN DIRECT (BEAKER) (test xgnq=384) 5.3 mg/dL 0.1-0.5 ALKALINE PHOSPHATASE (BEAKER) (test njlm=986) 176 U/L 40-150 AST (SGOT) (BEAKER) (test fmdy=332) 65 U/L 5-34 ALT (SGPT) (BEAKER) (test lowe=305) 35 U/L 6-55 Specimen moderately ictericCALCIUM, [id number] 05:48:00 Test Item Value Reference Range Comments CALCIUM IONIZED (BEAKER) (test ulzk=532) 1.08 mmol/L 1.12-1.27 PH, BLOOD (BEAKER) (test qygl=2232) 7.41 POCT-GLUCOSE [id number] 21:49:00 Test Item Value Reference Range Comments POC-GLUCOSE METER (BEAKER) 107 mg/dL 70-110 TESTED AT [address] (test aeow=1425) [facility] [address] POCT-GLUCOSE [id number] 17:44:00 Test Item Value Reference Range Comments POC-GLUCOSE METER (BEAKER) 156 mg/dL 70-110 TESTED AT [address] (test shji=9274) [facility] [address] CBC W/PLT COUNT & AUTO [id number] 14:35:00 Test Item Value Reference Range Comments WHITE BLOOD CELL COUNT (BEAKER) (test ggjb=368) 18.1 K/ L 4.0-10.0 RED BLOOD CELL COUNT (BEAKER) (test hydo=544) 2.87 M/ L 4.20-5.80 HEMOGLOBIN (BEAKER) (test vrud=833) 8.5 GM/DL 13.0-16.8 HEMATOCRIT (BEAKER) (test hesf=583) 25.1 % 40.0-50.0 MEAN CORPUSCULAR VOLUME (BEAKER) (test bttu=278) 87.4 fL 82.0-98.0 MEAN CORPUSCULAR HEMOGLOBIN (BEAKER) (test 29.6 pg 27.0-33.0 zuhj=719) MEAN CORPUSCULAR HEMOGLOBIN CONC (BEAKER) (test 33.8 GM/DL 32.0-36.0 yfuc=813) RED CELL DISTRIBUTION WIDTH (BEAKER) (test 15.5 % 10.3-14.2 mxdy=025) PLATELET COUNT (BEAKER) (test qqzv=478) 590 K/CU MM 150-430 MEAN PLATELET VOLUME (BEAKER) (test aulb=930) 7.9 fL 6.5-10.5 NUCLEATED RED BLOOD CELLS (BEAKER) (test 0 /100 WBC 0-0 scgl=864) NEUTROPHILS RELATIVE PERCENT (BEAKER) (test 87 % ljfb=528) LYMPHOCYTES RELATIVE PERCENT (BEAKER) (test 6 % sqvn=116) MONOCYTES RELATIVE PERCENT (BEAKER) (test 5 % zmlg=088) EOSINOPHILS RELATIVE PERCENT (BEAKER) (test 2 % jmbw=548) BASOPHILS RELATIVE PERCENT (BEAKER) (test 0 % bbic=379) NEUTROPHILS ABSOLUTE COUNT (BEAKER) (test 15.80 K/ L 1.80-8.00 ypuy=378) LYMPHOCYTES ABSOLUTE COUNT (BEAKER) (test 1.15 K/ L 1.48-4.50 iyro=477) MONOCYTES ABSOLUTE COUNT (BEAKER) (test 0.81 K/ L 0.00-1.30 ygns=639) EOSINOPHILS ABSOLUTE COUNT (BEAKER) (test 0.28 K/ L 0.00-0.50 nfnm=953) BASOPHILS ABSOLUTE COUNT (BEAKER) (test 0.04 K/ L 0.00-0.20 hgam=204) 0.000.530.000.000.000.000.000.000.00(MANUAL DIFFERENTIAL)2016-11-19 14:35:00 Test Item Value Reference Range Comments TOTAL COUNTED (BEAKER) (test jhva=9069) WBC MORPHOLOGY (BEAKER) (test yxyn=182) Normal PLT MORPHOLOGY (BEAKER) (test olbu=065) Normal RBC MORPHOLOGY (BEAKER) (test vten=872) Normal BASIC METABOLIC [id number] 12:44:00 Test Item Value Reference Range Comments SODIUM (BEAKER) (test 137 meq/L 136-145 lvos=194) POTASSIUM (BEAKER) (test 3.5 meq/L 3.5-5.1 mxsa=895) CHLORIDE (BEAKER) (test 105 meq/L 98-107 utjr=268) CO2 (BEAKER) (test 21 meq/L 22-29 fucg=606) BLOOD UREA NITROGEN 79 mg/dL 7-21 (BEAKER) (test lihe=120) CREATININE (BEAKER) (test 3.02 mg/dL 0.57-1.25 nycj=396) GLUCOSE RANDOM (BEAKER) 167 mg/dL 70-105 (test quro=611) CALCIUM (BEAKER) (test 8.0 mg/dL 8.4-10.2 hcxj=259) EGFR (BEAKER) (test mL/min/1.73 sq m INSUFFICIENT CLINICAL DATA almk=9780) TO CALCULATE ESTIMATED GFR. Specimen moderately ictericCALCIUM, [id number] 12:25:00 Test Item Value Reference Range Comments CALCIUM IONIZED (BEAKER) (test nccm=551) 1.06 mmol/L 1.12-1.27 PH, BLOOD (BEAKER) (test xtyo=3132) 7.39 HEPATITIS A ANTIBODY, [id number] 09:08:00 Test Item Value Reference Range Comments HEPATITIS A IGG ANTIBODY (BEAKER) (test ihlw=3377) Reactive Nonreactive POCT-GLUCOSE [id number] 08:30:00 Test Item Value Reference Range Comments POC-GLUCOSE METER (BEAKER) 117 mg/dL 70-110 TESTED AT [address] (test tfei=4955) [facility] [address] HEPATITIS B SURFACE [id number] 08:28:00 Test Item Value Reference Range Comments HEPATITIS B SURFACE ANTIBODY (BEAKER) (test < mIU/mL <8.0 kofk=507) HEPATITIS B CORE ANTIBODY, [id number] 08:22:00 Test Item Value Reference Range Comments HEPATITIS B CORE TOTAL ANTIBODY (BEAKER) (test Nonreactive Nonreactive conm=049) BASIC METABOLIC [id number] 08:13:00 Test Item Value Reference Range Comments SODIUM (BEAKER) (test 138 meq/L 136-145 hyzj=135) POTASSIUM (BEAKER) (test 3.6 meq/L 3.5-5.1 bqfw=356) CHLORIDE (BEAKER) (test 106 meq/L 98-107 xkih=606) CO2 (BEAKER) (test 20 meq/L 22-29 jdjm=680) BLOOD UREA NITROGEN 83 mg/dL 7-21 (BEAKER) (test yudi=010) CREATININE (BEAKER) (test 3.19 mg/dL 0.57-1.25 djvt=030) GLUCOSE RANDOM (BEAKER) 111 mg/dL 70-105 (test hnjc=126) CALCIUM (BEAKER) (test 8.0 mg/dL 8.4-10.2 buvm=321) EGFR (BEAKER) (test mL/min/1.73 sq m INSUFFICIENT CLINICAL DATA ptnj=4811) TO CALCULATE ESTIMATED GFR. Specimen moderately ictericBASIC METABOLIC [id number] 08:13:00 Test Item Value Reference Range Comments SODIUM (BEAKER) (test 138 meq/L 136-145 gbaq=104) POTASSIUM (BEAKER) (test 3.7 meq/L 3.5-5.1 zxgu=741) CHLORIDE (BEAKER) (test 106 meq/L 98-107 asfd=528) CO2 (BEAKER) (test 20 meq/L 22-29 hnkw=323) BLOOD UREA NITROGEN 83 mg/dL 7-21 (BEAKER) (test qcqg=197) CREATININE (BEAKER) (test 3.18 mg/dL 0.57-1.25 rxfw=058) GLUCOSE RANDOM (BEAKER) 110 mg/dL 70-105 (test jcsc=833) CALCIUM (BEAKER) (test 8.1 mg/dL 8.4-10.2 imyu=205) EGFR (BEAKER) (test mL/min/1.73 sq m INSUFFICIENT CLINICAL DATA gffh=9385) TO CALCULATE ESTIMATED GFR. Specimen moderately [id number] 08:08:00 Test Item Value Reference Range Comments PHOSPHORUS (BEAKER) (test tfhl=775) 5.3 mg/dL 2.3-4.7 [id number] 08:08:00 Test Item Value Reference Range Comments MAGNESIUM (BEAKER) (test ckmz=400) 1.9 mg/dL 1.6-2.6 HEPATIC FUNCTION [id number] 08:05:00 Test Item Value Reference Range Comments TOTAL PROTEIN (BEAKER) (test zukm=455) 5.3 gm/dL 6.0-8.3 ALBUMIN (BEAKER) (test xduc=7095) 2.4 g/dL 3.5-5.0 BILIRUBIN TOTAL (BEAKER) (test gmrr=926) 7.3 mg/dL 0.2-1.2 BILIRUBIN DIRECT (BEAKER) (test wqrm=270) 5.8 mg/dL 0.1-0.5 ALKALINE PHOSPHATASE (BEAKER) (test anzw=762) 178 U/L 40-150 AST (SGOT) (BEAKER) (test nrwv=334) 60 U/L 5-34 ALT (SGPT) (BEAKER) (test layd=244) 30 U/L 6-55 Specimen moderately ictericCALCIUM, [id number] 07:33:00 Test Item Value Reference Range Comments CALCIUM IONIZED (BEAKER) (test gqkh=512) 1.04 mmol/L 1.12-1.27 PH, BLOOD (BEAKER) (test qfhv=3413) 7.42 POCT-GLUCOSE [id number] 02:15:00 Test Item Value Reference Range Comments POC-GLUCOSE METER (BEAKER) 103 mg/dL 70-110 TESTED AT [address] (test pbqh=2785) [facility] [address] BASIC METABOLIC [id number] 00:43:00 Test Item Value Reference Range Comments SODIUM (BEAKER) (test 137 meq/L 136-145 avfp=882) POTASSIUM (BEAKER) (test 3.4 meq/L 3.5-5.1 zplq=749) CHLORIDE (BEAKER) (test 104 meq/L 98-107 xpnl=966) CO2 (BEAKER) (test 20 meq/L 22-29 kews=824) BLOOD UREA NITROGEN 82 mg/dL 7-21 (BEAKER) (test kywl=358) CREATININE (BEAKER) (test 3.45 mg/dL 0.57-1.25 ygqn=904) GLUCOSE RANDOM (BEAKER) 104 mg/dL 70-105 (test utoq=290) CALCIUM (BEAKER) (test 7.9 mg/dL 8.4-10.2 zgkd=439) EGFR (BEAKER) (test mL/min/1.73 sq m INSUFFICIENT CLINICAL DATA bhhv=8665) TO CALCULATE ESTIMATED GFR. Specimen moderately ictericCALCIUM, [id number] 00:34:00 Test Item Value Reference Range Comments CALCIUM IONIZED (BEAKER) (test wubz=440) 0.99 mmol/L 1.12-1.27 PH, BLOOD (BEAKER) (test zygj=5213) 7.45 POCT-GLUCOSE [id number] 17:32:00 Test Item Value Reference Range Comments POC-GLUCOSE METER (BEAKER) 185 mg/dL 70-110 TESTED AT [facility] [address] [facility] (test gvid=1080) [facility] [address]
--- NOTE | 2018-04-13 17:16 | RAD REPORT ---
EXAM DESCRIPTION: RAD - Abdomen 1 View (KUB) - 04/13/2018 5:11 pm CLINICAL HISTORY: colon stint positioning Pain COMPARISON: Abdomen Pelvis W Contrast dated 08/29/2017 FINDINGS: The bowel gas pattern is non-obstructive. No evidence of free air or pneumatosis. Small ca lcification in the inferior pole left kidney noted. A stent is noted projecting in the inferior pelvis likely within the rectosigmoid colon.
--- NOTE | 2018-04-13 18:05 | ER ---
Nurse's Notes [facility] Name: Jae Faust Age: 63 yrs Sex: Male : 1955 Arrival Date: 04/13/2018 Time: 15:45 Bed 13 Private MD: Danny Duong Diagnosis: Rectal Pain secondary to surgical instrumentation Presentation: 04/13 16:27 Presenting complaint: Patient states: Pain in rectum after "stent" placed yesterday. aj Instructed to come to ER for Xray to check stent placement. Transition of care: patient was not received from another setting of care. Onset of symptoms was April 12, 2018. Risk Assessment: Do you want to hurt yourself or someone else? Patient reports no desire to harm self or others. Initial Sepsis Screen: Does the patient meet any 2 criteria? No. Patient's initial sepsis screen is negative. Does the patient have a suspected source of infection? No. Patient's initial sepsis screen is negative. Care prior to arrival: None. 16:27 Method Of Arrival: Ambulatory 16:27 Acuity: ALFIE 4 aj Triage Assessment: 16:29 General: Appears in no apparent distress. uncomfortable, Behavior is calm, cooperative, aj appropriate for age. Pain: Complains of pain in anus. Neuro: Level of Consciousness is awake, alert, obeys commands, Oriented to person, place, time, situation, Appropriate for age. Respiratory: Airway is patent Respiratory effort is even, unlabored, Respiratory pattern is regular, symmetrical. GI: Reports rectal pain. Derm: Skin is intact, is healthy with good turgor, Skin is pink, warm \\T\\ dry. normal. Historical: - Allergies: 16:29 No Known Allergies; aj - Home Meds: 16:29 pantoprazole 40 mg Oral TbEC 1 tab once daily [Active]; propranolol 10 mg Oral tab 1 aj tab daily [Active]; tramadol 50 mg Oral tab 1 tab daily [Active]; - PMHx: 16:29 Diverticulitis; kidney failure; liver failure; aj - PSHx: 16:29 Colon Resection; aj - Immunization history:: Adult Immunizations up to date. - Social history:: Smoking status: Patient/guardian denies using tobacco. - Ebola Screening: : Patient negative for fever greater than or equal to 101.5 degrees Fahrenheit, and additional compatible Ebola Virus Disease symptoms Patient denies exposure to infectious person Patient denies travel to an Ebola-affected area in the 21 days before illness onset No symptoms or risks identified at this time. Screenin:35 Abuse screen: Denies threats or abuse. Nutritional screening: No deficits noted. rb1 Tuberculosis screening: No symptoms or risk factors identified. Fall Risk None identified. Assessment: 16:35 General: Appears uncomfortable, Behavior is calm, cooperative, Denies fever. Pain: rb1 Complains of pain in anus Pain currently is 8 out of 10 on a pain scale. Neuro: Level of Consciousness is awake, alert, obeys commands, Oriented to person, place, time, situation. Cardiovascular: Capillary refill < 3 seconds is brisk in bilateral fingers. Respiratory: Airway is patent Respiratory effort is even, unlabored, Respiratory pattern is regular, symmetrical. GI: No signs and/or symptoms were reported involving the gastrointestinal system. : Reports burning with urination, since the procedure yesterday. Derm: Skin is pink, warm \\T\\ dry. Musculoskeletal: Range of motion: intact in all extremities. 17:30 Reassessment: Patient appears in no apparent distress at this time. No changes from rb1 previously documented assessment. at bedside. 18:22 Reassessment: Patient appears in no apparent distress at this time. Patient and/or rb1 family updated on plan of care and expected duration. Pain level reassessed. Patient is alert, oriented x 3, equal unlabored respirations, skin warm/dry/pink. Vital Signs: 16:29 BP 119 / 79; Pulse 70; Resp 17; Temp 97.9; Pulse Ox 99% on R/A; Weight 90.72 kg; Height aj 5 ft. 7 in. (170.18 cm); 17:28 BP 117 / 68; Pulse 66; Resp 17; Pulse Ox 99% on R/A; rb1 18:22 BP 120 / 71; Pulse 74; Resp 19; Pulse Ox 100% on R/A; rb1 16:29 Body Mass Index 31.32 (90.72 kg, 170.18 cm) aj ED Course: 15:45 Patient arrived in ED. mr 15:45 Danny Duong MD is Private Physician. mr 16:29 Triage completed. aj 16:29 Arm band placed on left wrist. Patient placed in an exam room. aj 16:35 Patient has correct armband on for positive identification. Bed in low position. Call rb1 light in reach. Side rails up X 1. Pulse ox on. NIBP on. 16:47 Sinai Zapata, HENRI is Primary Nurse. rb1 16:55 Jourdan Navas PA is PHCP. jr8 16:55 Kunal Ventura MD is Attending Physician. jr8 17:05 Patient moved to radiology via wheelchair. jb2 17:07 X-ray completed. Patient tolerated procedure well. Patient moved back from radiology. jb2 17:08 XRAY KUB In Process Unspecified. EDMS 18:39 No provider procedures requiring assistance completed. Patient did not have IV access rb1 during this emergency room visit. Administered Medications: No medications were administered Outcome: 18:05 Discharge ordered by . jr8 18:39 Patient left the ED. rb1 18:39 Discharged to home ambulatory, with family. rb1 18:39 Condition: stable 18:39 Discharge instructions given to patient, Instructed on discharge instructions, follow up and referral plans. medication usage, Demonstrated understanding of instructions, follow-up care, medications, Prescriptions given X 1. Signatures: Dispatcher [employer] EDNC Debora Harden, HENRI RN Keisha Whitlock Fredi Eugene jb2 Jourdan Navas PA PA jr8 Sinai Zapata, HENRI RN rb1 Corrections: (The following items were deleted from the chart) 18:43 18:42 Patient left the ED. rb1 rb1
--- NOTE | 2018-04-13 18:06 | EDPHYS ---
Physician Documentation [facility] Name: Jae Faust Age: 63 yrs Sex: Male : 1955 Arrival Date: 04/13/2018 Time: 15:45 Bed 13 Private MD: Danny Duong ED Physician Kunal Ventura HPI: 04/13 18:00 This 63 yrs old Male presents to ER via Ambulatory with complaints of Stint in jr8 Colon. 18:00 Patient stated that he had stint in colon from stricture at anastomotic site. Stated jr8 that he is having pain and pressure to region. Called his GI specialist and wanted plain film done to insure stint has not migrated . Severity of symptoms: At their worst the symptoms were moderate in the emergency department the symptoms are unchanged. The patient has not experienced similar symptoms in the past. The patient has not recently seen a physician. Historical: - Allergies: 16:29 No Known Allergies; aj - Home Meds: 16:29 pantoprazole 40 mg Oral TbEC 1 tab once daily [Active]; propranolol 10 mg Oral tab 1 aj tab daily [Active]; tramadol 50 mg Oral tab 1 tab daily [Active]; - PMHx: 16:29 Diverticulitis; kidney failure; liver failure; aj - PSHx: 16:29 Colon Resection; aj - Immunization history:: Adult Immunizations up to date. - Social history:: Smoking status: Patient/guardian denies using tobacco. - Ebola Screening: : Patient negative for fever greater than or equal to 101.5 degrees Fahrenheit, and additional compatible Ebola Virus Disease symptoms Patient denies exposure to infectious person Patient denies travel to an Ebola-affected area in the 21 days before illness onset No symptoms or risks identified at this time. ROS: 18:00 Eyes: Negative for injury, pain, redness, and discharge, ENT: Negative for injury, jr8 pain, and discharge, Neck: Negative for injury, pain, and swelling, Cardiovascular: Negative for chest pain, palpitations, and edema, Respiratory: Negative for shortness of breath, cough, wheezing, and pleuritic chest pain, Back: Negative for injury and pain, MS/Extremity: Negative for injury and deformity, Skin: Negative for injury, rash, and discoloration, Neuro: Negative for headache, weakness, numbness, tingling, and seizure. 18:00 Abdomen/GI: Positive for rectal pain, rectal bleeding, Negative for abdominal pain, nausea and vomiting. Exam: 18:00 Eyes: Pupils equal round and reactive to light, extra-ocular motions intact. Lids and jr8 lashes normal. Conjunctiva and sclera are non-icteric and not injected. Cornea within normal limits. Periorbital areas with no swelling, redness, or edema. ENT: Nares patent. No nasal discharge, no septal abnormalities noted. Tympanic membranes are normal and external auditory canals are clear. Oropharynx with no redness, swelling, or masses, exudates, or evidence of obstruction, uvula midline. Mucous membranes moist. Neck: Trachea midline, no thyromegaly or masses palpated, and no cervical lymphadenopathy. Supple, full range of motion without nuchal rigidity, or vertebral point tenderness. No Meningismus. Cardiovascular: Regular rate and rhythm with a normal S1 and S2. No gallops, murmurs, or rubs. Normal PMI, no JVD. No pulse deficits. Respiratory: Lungs have equal breath sounds bilaterally, clear to auscultation and percussion. No rales, rhonchi or wheezes noted. No increased work of breathing, no retractions or nasal flaring. Abdomen/GI: Soft, non-tender, with normal bowel sounds. No distension or tympany. No guarding or rebound. No evidence of tenderness throughout. Back: No spinal tenderness. No costovertebral tenderness. Full range of motion. Skin: Warm, dry with normal turgor. Normal color with no rashes, no lesions, and no evidence of cellulitis. MS/ Extremity: Pulses equal, no cyanosis. Neurovascular intact. Full, normal range of motion. Neuro: Awake and alert, GCS 15, oriented to person, place, time, and situation. Cranial nerves II-XII grossly intact. Motor strength 5/5 in all extremities. Sensory grossly intact. Cerebellar exam normal. Normal gait. Vital Signs: 16:29 BP 119 / 79; Pulse 70; Resp 17; Temp 97.9; Pulse Ox 99% on R/A; Weight 90.72 kg; Height aj 5 ft. 7 in. (170.18 cm); 17:28 BP 117 / 68; Pulse 66; Resp 17; Pulse Ox 99% on R/A; rb1 18:22 BP 120 / 71; Pulse 74; Resp 19; Pulse Ox 100% on R/A; rb1 16:29 Body Mass Index 31.32 (90.72 kg, 170.18 cm) socorro MDM: 16:55 Patient medically screened. jr8 18:00 Data reviewed: vital signs, nurses notes, radiologic studies, plain films, and as a jr8 result, I will discharge patient. Data interpreted: Pulse oximetry: on room air is 99 %. Interpretation: normal. 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 ED course: Consulted case with Dr. Hadley as he is the one who did anastomotic surgery originally and has been discussing case with patients GI specialist. Agrees stint is positioned well. More than likely pain from stretching of luminal cordova from stint. Will put on pain medication and have him follow up. If worse to come back. 04/13 18:14 Order name: Urine Dipstick--Ancillary (enter results); Complete Time: 18:33 eb 04/13 16:56 Order name: MAMADOU SU; Complete Time: 17:18 jr8 04/13 17:09 Order name: Urine Dipstick-Ancillary (obtain specimen); Complete Time: 18:38 rb1 Administered Medications: No medications were administered Disposition: 18:56 Co-signature as Attending Physician, Kunal Ventura MD. rn Disposition: 04/13/18 18:05 Discharged to Home. Impression: Rectal Pain secondary to surgical instrumentation . - Condition is Stable. - Prescriptions for Tylenol- Codeine #3 300-30 mg Oral Tablet - take 2 tablet by ORAL route every 6 hours As needed; 30 tablet. - Medication Reconciliation Form, Thank You Letter, Antibiotic Education, Prescription Opioid Use form. - Follow up: Private Physician; When: 5 - 6 days; Reason: Recheck today's complaints, Continuance of care, Re-evaluation by your physician. - Problem is new. - Symptoms have improved. Signatures: Dispatcher [employer] EDMS Debora Harden RN RN aj Nieto, Roman, MD MD rn Roszak, Josh, PA PA jr8 Sinai Zapata, RN RN rb1 Corrections: (The following items were deleted from the chart) 18:42 18:05 04/13/2018 18:05 Discharged to Home. Impression: Rectal Pain secondary to rb1 surgical instrumentation . Condition is Stable. Forms are Medication Reconciliation Form, Thank You Letter, Antibiotic Education, Prescription Opioid Use. Follow up: Private Physician; When: 5 - 6 days; Reason: Recheck today's complaints, Continuance of care, Re-evaluation by your physician. Problem is new. Symptoms have improved. jr8
[2018-04-13 18:26] LABS: Urine Blood NEGATIVE (NEG); Urine Glucose NEGATIVE (NEG); Urine Protein 4+ (NEG)
[2018-04-13 18:49] VITALS: BP 119/79; TEMP 97.9; O2SAT 99
== END 2018-04-13 18:42 | disposition home or self-care (01) ==
LOC: ER 15:41
DX: K62.89 Other specified diseases of anus and rectum (principal); N19 Unspecified kidney failure; K72.90 Hepatic failure, unspecified without coma
CPT/HCPCS: 74018; 81003; 99283

== ENCOUNTER 2021-01-07 17:45 | Emergency (ER) | payer OTHER, BC ==
--- OUTSIDE RECORDS SUMMARY | 2021-01-07 17:51 | XMS REPORT | Continuity of Care Document ---
:1955 Author Organization [facility] t Address [address] [place] [address] Care Team Providers Name Role Phone Danny Duong MD Primary Care Physician Luisa SIGALA, Jose Antonio Santos Attending Clinician [phone] Amaury Fowler MD Attending Clinician Aditya Spencer Attending Clinician Hermila Murray NP Attending Clinician HERMILA MURRAY Attending Clinician Unavailable Katie Morrow RN Attending Clinician Unavailable Nir SHAW Attending Clinician Unavailable BEHZAD Attending Clinician Unavailable MORGAN Attending Clinician Unavailable AMAURY FOWLER Attending Clinician Unavailable ALLEGRA ALLEN Attending Clinician Unavailable JIA RDZ Attending Clinician Unavailable BEHZAD Admitting Clinician Unavailable ALLEGRA ALLEN Admitting Clinician Unavailable JIA RDZ Admitting Clinician Unavailable Payers Payer Name Policy Type Policy Effective Date Expiration Date Sour ce Number MEDICAREMEDICARE A [id number] 2019 REYNALDO Andi ace Liu [id number] 00:00:00 - Medical [facility] AETNA - MEDICARE MGD [id number] 2019 REYNALDO Cochran CAREAETNA MEDICARE HMO 0 00:00:00 - Medical [facility] Center [id number] [id number] [address] BLUE CROSS/BLUE [id number] [facility] [facility] SHIELDBCBS HMO 0 00:00:00 - Medical BLUE/ESSENTIALSxxxxxxx Wen liang c998 2016-Present5 [id number], [place] [phone]/POS Problems Condition Condition Condition Status Onset Resolution Last Treating Co mments Source Name Details Category Date Date Treatment Clinician Date Other Other Disease Active [facility] cirrhosis cirrhosis - [facility] - of liver of liver 00:00: Medica l 00 [place] Portal Portal Disease Active [facility] hypertensi hypertensi - Ev kes - on on 00:00: Medical 00 [place] Fatty Fatty Disease Active [facility] liver liver 11-30 [facility] - 00:00: Medical 00 [place] Immunity Immunity Disease Active [facility] status status 11-30 [facility] - testing testing 00:00: Medical [place] Portal Portal Disease Active [facility] vein vein 11-30 [facility] - thrombosis thrombosis 00:00: Me dical 00 [place] Diverticul Diverticul Disease Active [facility] itis itis 2 [facility] - 00:00: Medical 00 [place] Allergies, Adverse Reactions, Alerts This patient has no known allergies or adverse reactions. Family History Family Member Diagnosis Comments Start Date Stop Date Source Natural mother Diabetes [facility] Social History Social Habit Start Date Stop Date Quantity Comments Source Sex Assigned At [facility] Smoking Status Start Date Stop Date Source [facility] sm[facility] [place] Medications Ordered Filled Start Stop Current Ordering Indication Dosage Frequency Signature Comments Components Source Medication Medication Date Date Medication? Clinician (SIG) Name Name propranolol Yes 20mg Q.[id number] Take [address] (INDERAL) 1-15 [id number] by mouth 3 [facility] - 20 MG 08:42: 3D (three) Medical tablet 51 times Center daily. pantoprazol Yes [facility] e 1-13 [facility] - (PROTONIX) 00:00: Medical 40 MG 00 Center tablet heparin Yes 150U/h Inject [facility] infusion 12-11 150-3,500 [facility] - 25,000 00:00: Units/hr Medical units in 00 intravenou Cente r dextrose 5% sly (D5W) 250 continuous mL (100 . units/mL) meropenem 2017- Yes 1g Inject [address] (MERREM) 3-09 intravenou [facility] - MBP 1 gm in 00:00: sly every M edical 100 mL NS 00 8 (eight) Cente r hours. micafungin 2016- Yes 100mg Q24H Inject [address] (MYCAMINE) 3-09 mg [facility] - MBP 100 mg 00:00: intravenou M edical in 100 mL 00 sly daily. Cent er NS Immunizations Ordered Immunization Filled Immunization Date Status Commen ts Source Name Name Covid-19 Vaccine Mrna 2021-01-[address] [facility]Pf[facility] (Pfizer/biontech) 00:00:00 [facility] Covid-19 Vaccine Mrna 2020-12-[address] [facility] - (Pf) (Pfizer/biontech) 00:00:00 [facility] Pneumococcal 2016-11-30 Completed [facility] - Polysaccharide 00:00:00 Medical Ce ntsmith (Pneumovax) Influenza Three-TIV PF 2016-11-[address] [facility] - 5+ YR 00:[facility]:00 [facility] Center Vital Signs Vital Name Observation Time Observation Value Comments Source Systolic blood 2020-10-19 08:41:00 127 mm[Hg] [facility] pressure [facility] Diastolic blood 2020-10-19 08:41:00 82 mm[Hg] [facility] S [facility] Heart rate 2020-10-19 08:41:00 59 /min [facility] Body temperature 2020-10-19 08:41:00 36.89 Anisha [facility] Respiratory rate 2020-10-19 08:41:00 18 /min [facility] Body weight 2020-10-19 08:41:00 101.061 kg [facility] BMI 2020-10-19 08:41:00 34.90 kg/m2 [facility] Oxygen saturation in 2020-10-19 08:41:00 95 /min [facility] Arterial blood by Medical Ce nter Pulse oximetry Procedures Procedure Date / Time Performed Performing Clinician [facility] e MR ABDOMEN WITH & 2020-08-24 08:31:00 Farhan Fowler [facility] - WITHOUT IV CONTRAST Medical Cent er US ABDOMINAL WITH 2020-06-08 09:09:00 Moncho Murray [facility] ALPHA FETOPROTEIN (AFP), 2020-06-08 07:24:00 Betsey Sun [facility] TUMOR MARKER [facility] PROTHROMBIN TIME/INR 2020-06-08 07:24:00 Betsey Sun [facility] HEPATIC FUNCTION PANEL 2020-06-08 07:24:00 Betsey Sun. Ricardo [facility] BASIC METABOLIC PANEL 2020-06-08 07:24:00 Betsey Sun [facility] - (7) [facility] CBC W/PLT COUNT & AUTO 2020-06-08 07:24:[address] [facility] DIFFERENTIAL [facility] Plan of Care Planned Activity Planned Date Details Comments Source Future Scheduled 2021-11-30 PNEUMOCOCCAL 65+ [facility]RS [facility] - Test 00:00:00 (1 of 1 - [facility] [id number] PCV13) [code = PNEUMOCOCCAL 65+ YRS (1 of 1 - [id number] PCV13)] Future Scheduled 2021-06-[address] [facility] - Test 00:00:00 (Season Ended) [code = Medic al Center INFLUENZA VACCINE (Season Ended)] Future Scheduled 2020-10-[address] [facility] - Test 00:00:00 (12+) [code = [facility] Center DEPRESSION SCREENING (12+)] Future Scheduled 2020-04-[address] [facility] [facility] - Test 00:00:00 WELLNESS (YEAR 2 or Medical Center FIRST YEAR if no IPPE) [code = MEDICARE ANNUAL WELLNESS (YEAR 2 or FIRST YEAR if no IPPE)] Future Scheduled 2019-11-[address] [facility] - Test 00:00:00 (procedure) [code = [facility] [id number]] Future Scheduled 2005 SHINGLES VACCINES ([address] [facility] - Test 00:00:00 of 2) [code = SHINGLES Medic al Center VACCINES (1 of 2)] Future Scheduled 1974 DTAP/TDAP/TD VACCINES [facility] - Test 00:00:00 (1 - Tdap) [code = Medical C enter DTAP/TDAP/TD VACCINES (1 - Tdap)] Future Scheduled 1973 HEPATITIS C SCREENING [facility] - Test 00:00:00 [code = HEPATITIS C Medical Center SCREENING] Future Scheduled [address] - Test 00:00:00 malignant neoplasm of Medica l Center colon (procedure) [code = 295183280] Encounters Start End Encounter Admission Attending Care Care Encounter Source Date/Time Date/Time Type Type Clinicians Facility Department ID 2019-12-09 2019-12-10 Outpatient LEFAVE, [facility] [id number] [place] 00:00:00 00:00:00 MARLI [address] 2019-11-25 2019-11-25 Outpatient LEFAVE, [facility] [id number] [place] 00:00:00 00:00:00 MARLI [address] 2019-11-11 2019-11-11 Outpatient MORA, [facility] [id number] [place] 00:00:00 00:00:[address] Results Test Test Test Comments Results Result Source Description Time Comments MR, ABDOMEN, 2020-08- DR Izquierdo, WITH 20 please assess 2 new 17:33:00 spots seen on [facility] ultrasound [facility] recentlyCirrhosis, CENTERName: JUICE, please assess 2 new RICHELLE : spots seen on 1955 ultrasound Sex: recentlyUnlisted M Reason for Exam - Click Yes and Enter FI Reason Below->No NAL REPORT MRI of the abdomen dated August 24, 2020 COMPARISON: September 09, 2019 Comment: Multiplanar T1 and T2-weighted images of the abdomen, postcontrast axial and coronal T1-weighted images of the abdomen were obtained. Liver is cirrhotic in appearance with irregular margins. Small focal early enhancing foci are seen in the segment 2 and the segment 7 of the liver without delayed washout thought to represent vascular shunting. No suspicious mass is seen in the liver. Spleen is enlarged measuring 13.27 x 4.1 x 11.9 cm. The splenic vein is small in caliber. The distal superior mesenteric and main portal vein are thrombosed. Multiple collateral veins are noted in the rudolph hepatis consistent with cavernous transformation. Gallbladder is distended. Small gallstone is seen without biliary dilatation. Pancreas and adrenals are unremarkable. Both kidneys are normal in size and functioning. No ascites is seen in the abdomen. The opacified small and large bowel are unremarkable. IMPRESSION:1. Cirrhosis with splenomegaly.2. 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 No suspicious hepatic mass.4. Cholelithiasis without biliary dilatation. Signed: Sterling Dong MDReport Verified Date/Time: 08/24/2020 17:33:49 abdomen 2020-08- Interface, External [facility] with/without IV 20 Ris In - 08/24/2020 [facility] - contrast 17:33:00 5:35 PM CSTFINAL Medical REPORT PATIENT ID: Center [id number] MRI of the abdomen dated August 24, 2020 COMPARISON: September 09, 2019 Comment: Multiplanar T1 and T2-weighted images of the abdomen, postcontrast axial and coronal T1-weighted images of the abdomen were obtained. Liver is cirrhotic in appearance with irregular margins. Small focal early enhancing foci are seen in the segment 2 and the segment 7 of the liver without delayed washout thought to represent vascular shunting. No suspicious mass is seen in the liver. Spleen is enlarged measuring 13.27 x 4.1 x 11.9 cm. The splenic vein is small in caliber. The distal superior mesenteric and main portal vein are thrombosed. Multiple collateral veins are noted in the rudolph hepatis consistent with cavernous transformation. Gallbladder is distended. Small gallstone is seen without biliary dilatation. Pancreas and adrenals are unremarkable. Both kidneys are normal in size and functioning. No ascites is seen in the abdomen. The opacified small and large bowel are unremarkable. IMPRESSION:1. Cirrhosis with splenomegaly.2. 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 No suspicious hepatic mass.4. Cholelithiasis without biliary dilatation. Signed: Sterling Dong MDReport Verified Date/Time: 08/24/2020 17:33:49 U/S, ABDOMINAL, 2020-06- DR Wills April FINAL REPORT PATIENT WITH DOPPLER ason for ID: [id number] 10:19:00 Exam:->cirrhosis - TECHNIQUE: Grayscale chronic portal vein ultrasound of the thrombus- screen for abdomen with color HCC Doppler and spectral Doppler ultrasound of the portal/hepatic vasculature. INDICATION: cirrhosis - chronic portal vein thrombus- screen for HCC. COMPARISON: MRI from 09/09/2019. CT from 11/11/2019. FINDINGS: LIVER: The liver is diffusely increased in echogenicity. Smooth liver contour. Rounded hypoechoic areas measure 2.7 x 1.6 x 2.2 cm at the rudolph hepatis and 2.2 x 1.9 x 1.8 cm adjacent to the gallbladder. These are slightly rounded. HEPATIC VASCULATURE: The hepatic arteries are patent with normal flow velocities, resistive indices, and waveforms. The hepatic veins and confluence are patent. There is chronic occlusion of the main portal vein with cavernous transformation. The intrahepatic portal veins do appear patent. The hepatic arterial resistive indices measure 0.6 with a proper hepatic arterial acceleration time of 0.04 seconds. BILIARY:Gallbladder: Varices in the gallbladder wall. Gallstones layering the gallbladder neck. No gallbladder wall thickening, pericholecystic fluid, or distention. Negative sonographic Reyes sign.Common bile duct measures 0.4 cm, within normal limits. No intrahepatic biliary ductal dilatation. PANCREAS: Incompletely visualized due to overlying bowel gas. SPLEEN: No splenomegaly. The spleen measures 12.2 cm in length. PERITONEUM: No free fluid. KIDNEYS: Normal in size bilaterally. No hydronephrosis. No sonographically evident solid mass lesion. MIDLINE VASCULATURE: The visualized inferior vena cava is patent. The maximum visualized aortic diameter is 2.1 cm. Splenic artery and vein are patent. IMPRESSION: 1.The slightly rounded areas of hyperechogenicity are in areas typical for focal fatty sparing. However, this was not definitely seen on the prior MRI. A MRI of the abdomen with and without intravenous contrast is recommended to exclude a true hepatic mass. 2.Diffuse fatty infiltration of the liver. 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 4.Cholelithiasis without acute cholecystitis. Signed: Cayetano Madera MDReport Verified Date/Time: 06/08/2020 10:19:24 Reading Location: [address] Radiology Reading Room abdominal 2020-06- Interface, External [facility] with doppler 04 Ris In - 06/08/2020 [facility] - 10:19:00 10:21 AM CDTFINAL Medical REPORT PATIENT ID: Center [id number] TECHNIQUE: Grayscale ultrasound of the abdomen with color Doppler and spectral Doppler ultrasound of the portal/hepatic vasculature. INDICATION: cirrhosis - chronic portal vein thrombus- screen for HCC. COMPARISON: MRI from 09/09/2019. CT from 11/11/2019. FINDINGS: LIVER: The liver is diffusely increased in echogenicity. Smooth liver contour. Rounded hypoechoic areas measure 2.7 x 1.6 x 2.2 cm at the rudolph hepatis and 2.2 x 1.9 x 1.8 cm adjacent to the gallbladder. These are slightly rounded. HEPATIC VASCULATURE: The hepatic arteries are patent with normal flow velocities, resistive indices, and waveforms. The hepatic veins and confluence are patent. There is chronic occlusion of the main portal vein with cavernous transformation. The intrahepatic portal veins do appear patent. The hepatic arterial resistive indices measure 0.6 with a proper hepatic arterial acceleration time of 0.04 seconds. BILIARY:Gallbladder: Varices in the gallbladder wall. Gallstones layering the gallbladder neck. No gallbladder wall thickening, pericholecystic fluid, or distention. Negative sonographic Reyes sign.Common bile duct measures 0.4 cm, within normal limits. No intrahepatic biliary ductal dilatation. PANCREAS: Incompletely visualized due to overlying bowel gas. SPLEEN: No splenomegaly. The spleen measures 12.2 cm in length. PERITONEUM: No free fluid. KIDNEYS: Normal in size bilaterally. No hydronephrosis. No sonographically evident solid mass lesion. MIDLINE VASCULATURE: The visualized inferior vena cava is patent. The maximum visualized aortic diameter is 2.1 cm. Splenic artery and vein are patent. IMPRESSION: 1.The slightly rounded areas of hyperechogenicity are in areas typical for focal fatty sparing. However, this was not definitely seen on the prior MRI. A MRI of the abdomen with and without intravenous contrast is recommended to exclude a true hepatic mass. 2.Diffuse fatty infiltration of the liver. 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 4.Cholelithiasis without acute cholecystitis. Signed: Cayetano Madera MDReport Verified Date/Time: 06/08/2020 10:19:24 Reading Location: [address] Radiology Reading Room Alpha fetoprotein (AFP), tumor marker 2020-06-08 08:42:00 Test Item Value Reference Range Interpretation Comme nts Alpha-Fetoprotein (test code = 1834-1) 2.8 ng/mL <10.0 MAYRA (test code = MAYRA) Tobacco Drying Machine Operator ID - PIAYA L Lab Interpretation (test code = 69060-2) [facility] TUMOR [id number] 08:42:00 Test Item Value Reference Range Interpretation Comments ALPHA-FETOPROTEIN (BEAKER) (test 2.8 ng/mL <10.0 code = 1094) Tobacco Drying Machine Operator ID - PIAYA LBasic Metabolic [id number] 08:28:00 Test Item Value Reference Range Interpretation Comments Sodium (test code = 137 meq/L 531-740 3195-2) Potassium (test code 3.8 meq/L 3.5-5.1 = 2823-3) Chloride (test code = 105 meq/L 98-107 2075-0) CO2 (test code = 25 meq/L 22-29 8-9) BUN (test code = 20 mg/dL 7-21 3094-0) Creatinine (test code 1.00 mg/dL 0.57-1.25 = 2160-0) Glucose (test code = 112 mg/dL 70-105 H 2345-7) Calcium (test code = 9.1 mg/dL 8.4-10.2 74945-2) EGFR (test code = [place] [address]-9) CLINICAL DATA T O CALCULATE ESTIMATED GFR. MAYRA (test code = MAYRA) Tobacco Drying Machine Operator ID - SIMI L Lab Interpretation Abnormal (test code = 01380-5) [facility] [id number] 08:28:00 Test Item Value Reference Range Interpretation Comments Protein, Total (test 7.8 See_Comment [Autom ated code = 2885-2) message] The system which generated this result transmit anabela reference range : 6.0 - 8.3 gm/dL . The reference range was not u sed to interpret th is result as normal/abnormal . Albumin (test code = 4.4 g/dL 3.5-5 83830-1) Total Bilirubin (test 0.7 mg/dL 0.2-1.2 code = 1975-2) Bilirubin, Direct 0.3 mg/dL 0.1-0.5 (test code = 1968-7) Alkaline Phosphatase 109 U/L 40-150 (test code = 6768-6) AST (test code = 19 U/L 5-34 1920-8) ALT (test code = 23 U/L 6-55 1742-6) MAYRA (test code = MAYRA) Tobacco Drying Machine Operator ID - FLAVIAAYA L Lab Interpretation Normal (test code = 61136-9) [facility] FUNCTION [id number] 08:28:00 Test Item Value Reference Range Interpretation Comments TOTAL PROTEIN (BEAKER) (test code = 7.8 gm/dL 6.0-8.3 770) ALBUMIN (BEAKER) (test code = 1145) 4.4 g/dL 3.5-5.0 BILIRUBIN TOTAL (BEAKER) (test code 0.7 mg/dL 0.2-1.2 = 377) BILIRUBIN DIRECT (BEAKER) (test 0.3 mg/dL 0.1-0.5 code = 706) ALKALINE PHOSPHATASE (BEAKER) (test 109 U/L 40-150 code = 346) AST (SGOT) (BEAKER) (test code = 19 U/L 5-34 353) ALT (SGPT) (BEAKER) (test code = 23 U/L 6-55 347) [employer] Drying Machine Operator ID - PIAYA LBASIC METABOLIC [id number] 08:28:00 Test Item Value Reference Range Interpretation Comments SODIUM (BEAKER) (test 137 meq/L 136-145 code = 381) POTASSIUM (BEAKER) 3.8 meq/L 3.5-5.1 (test code = 379) CHLORIDE (BEAKER) 105 meq/L 98-107 (test code = 382) CO2 (BEAKER) (test 25 meq/L 22-29 code = 355) BLOOD UREA NITROGEN 20 mg/dL 7-21 (BEAKER) (test code = 354) CREATININE (BEAKER) 1.00 mg/dL 0.57-1.25 (test code = 358) GLUCOSE RANDOM 112 mg/dL 70-105 H (BEAKER) (test code = 652) CALCIUM (BEAKER) 9.1 mg/dL 8.4-10.2 (test code = 697) EGFR (BEAKER) (test INSUFFIC IENT CLINICAL code = 1092) DATA TO CALCULA TE ESTIMATED GFR. Tobacco Drying Machine Operator ID - PIAYA LPro-time/[id number] 08:03:00 Test Item Value Reference Interpretation Comments Range Protime (test code = 14.0 See_Comment [Autom ated 5902-2) message] The system which generated this result transmitted reference range : 11.9 - 14.2 seconds. The reference range was not used to interpret this result as normal/abnormal . INR (test code = 1.11 See_Comment [Automated 6301-6) message] The system which generated this result transmitted reference range : <=5.90. The reference range was not used to interpret this result as normal/abnormal . MAYRA (test code = Effective 03/02/2019: MAYRA) PT Reference Range ChangeNew: 11.9-14.2 Previous: 11.7-14.7 RECOMMENDED COUMADIN/WARFARIN INR THERAPY RANGESSTANDARD DOSE: 2.0-3.0 Includes: PROPHYLAXIS for venous thrombosis, systemic embolization; TREATMENT for venous thrombosis and/or pulmonary embolus.HIGH RISK: Target INR is 2.5-3.5 for patients wiht mechanical heart valves. Lab Interpretation Normal (test code = 76723-2) [facility]/[id number] 08:03:00 Test Item Value Reference Range Interpretation Comments PROTIME (BEAKER) (test code = 14.0 seconds 11.9-14.2 759) INR (BEAKER) (test code = 370) 1.11 <=5.90 Effective 03/02/2019: PT Reference Range ChangeNew: 11.9-14.2 Previous: 11.7- 14.7RECOMMENDED COUMADIN/WARFARIN INR THERAPY RANGESSTANDARD DOSE: 2.0-3.0 Includes: PROPHYLAXIS for venous thrombosis, systemic embolization; TREATMENT for venous thrombosis and/or pulmonary embolus.HIGH RISK: Target INR is2.5-3.5 for patients wiht mechanical heart valves.CBC with platelet count + automated [id number] 07:55:00 Test Item Value Reference Range Interpretation Comments WBC (test code = 6690-2) 6.2 See_Comment [A utomated message] The system [employer] generated this result transmitted ref erence range: 3.5 - 10 .5 K/L. The refe rence range was not u sed to interpret this result as normal/abnor mal. RBC (test code = 789-8) 5.61 See_Comment [Au tomated message] The system [employer] generated this result transmitted ref erence range: 4.63 - 6 .08 M/L. The refe rence range was not u sed to interpret this result as normal/abnor mal. MCHC (test code = 786-4) 32.2 See_Comment L [A utomated message] The system [employer] generated this result transmitted ref erence range: 32.3 - 3 6.5 GM/DL. The refe rence range was not u sed to interpret this result as normal/abnor mal. Hematocrit (test code = 47.9 % 40.1-51 4544-3) MCV (test code = 787-2) 85.4 fL 79-92.2 MCH (test code = 785-6) 27.5 pg 25.7-32.2 RDW (test code = 788-0) 13.6 % 11.6-14.4 Platelets (test code = 194 See_Comment [Aut omated message] 227-3) The system [employer] generated this result transmitted ref erence range: 150 - 45 0 K/CU MM. The referen ce range was not u sed to interpret this result as normal/abnor mal. MPV (test code = 11.8 fL 9.4-12.4 37921-2) nRBC (test code = 413) 0 See_Comment [Aut omated message] The system [employer] generated this result transmitted ref erence range: 0 - 0 /1 00 WBC. The refere nce range was not u sed to interpret this result as normal/abnor mal. % Neutros (test code = 67 % 429) % Lymphs (test code = 22 % 430) % Monos (test code = 6 % 431) % Eos (test code = 432) 4 % % Baso (test code = 437) 1 % # Neutros (test code = 4.18 See_Comment [Aut omated message] 670) The system [employer] generated this result transmitted ref erence range: 1.78 - 5 .38 K/L. The refe rence range was not u sed to interpret this result as normal/abnor mal. # Lymphs (test code = 1.35 See_Comment [Auto mated message] 414) The system [employer] generated this result transmitted ref erence range: 1.32 - 3 .57 K/L. The refe rence range was not u sed to interpret this result as normal/abnor mal. # Monos (test code = 0.37 See_Comment [Autom ated message] 415) The system [employer] generated this result transmitted ref erence range: 0.30 - 0 .82 K/L. The refe rence range was not u sed to interpret this result as normal/abnor mal. # Eos (test code = 416) 0.27 See_Comment [Au tomated message] The system [employer] generated this result transmitted ref erence range: 0.04 - 0 .54 K/L. The refe rence range was not u sed to interpret this result as normal/abnor mal. # Baso (test code = 417) 0.04 See_Comment [A utomated message] The system [employer] generated this result transmitted ref erence range: 0.01 - 0 .08 K/L. The refe rence range was not u sed to interpret this result as normal/abnor mal. Immature 0 % 0-1 Granulocytes-Relative (test code = 2801) Lab Interpretation (test Abnormal code = 84206-3) [facility] W/PLT COUNT & AUTO [id number] 07:55:00 Test Item Value Reference Range Interpretation Comments WHITE BLOOD CELL COUNT (BEAKER) 6.2 K/ L 3.5-10.5 (test code = 775) RED BLOOD CELL COUNT (BEAKER) 5.61 M/ L 4.63-6.08 (test code = 761) HEMOGLOBIN (BEAKER) (test code = 15.4 GM/DL 13.7-17.5 410) HEMATOCRIT (BEAKER) (test code = 47.9 % 40.1-51.0 411) MEAN CORPUSCULAR VOLUME (BEAKER) 85.4 fL 79.0-92.2 (test code = 753) MEAN CORPUSCULAR HEMOGLOBIN 27.5 pg 25.7-32.2 (BEAKER) (test code = 751) MEAN CORPUSCULAR HEMOGLOBIN CONC 32.2 GM/DL 32.3-36.5 L (BEAKER) (test code = 752) RED CELL DISTRIBUTION WIDTH 13.6 % 11.6-14.4 (BEAKER) (test code = 412) PLATELET COUNT (BEAKER) (test 194 K/CU MM 150-450 code = 756) MEAN PLATELET VOLUME (BEAKER) 11.8 fL 9.4-12.4 (test code = 754) NUCLEATED RED BLOOD CELLS 0 /100 WBC 0-0 (BEAKER) (test code = 413) NEUTROPHILS RELATIVE PERCENT 67 % (BEAKER) (test code = 429) LYMPHOCYTES RELATIVE PERCENT 22 % (BEAKER) (test code = 430) MONOCYTES RELATIVE PERCENT 6 % (BEAKER) (test code = 431) EOSINOPHILS RELATIVE PERCENT 4 % (BEAKER) (test code = 432) BASOPHILS RELATIVE PERCENT 1 % (BEAKER) (test code = 437) NEUTROPHILS ABSOLUTE COUNT 4.18 K/ L 1.78-5.38 (BEAKER) (test code = 670) LYMPHOCYTES ABSOLUTE COUNT 1.35 K/ L 1.32-3.57 (BEAKER) (test code = 414) MONOCYTES ABSOLUTE COUNT (BEAKER) 0.37 K/ L 0.30-0.82 (test code = 415) EOSINOPHILS ABSOLUTE COUNT 0.27 K/ L 0.04-0.54 (BEAKER) (test code = 416) BASOPHILS ABSOLUTE COUNT (BEAKER) 0.04 K/ L 0.01-0.08 (test code = 417) IMMATURE GRANULOCYTES-RELATIVE 0 % 0-1 PERCENT (BEAKER) (test code = 2801) MR, ABDOMEN, [id number] 20:18:00FINAL REPORT TECHNIQUE: MRI of the abdomen WITHOUT and WITH intravenous contrast. INDICATION: elevated liver enzymes history of portal vein thrombus. COMPARISON: CT from 12/08/2016. FINDINGS: LOWER THORAX: Unremarkable. LIVER: Mild loss signal in the liver on out of phase imaging. The mild enhancement at the periphery of segment VII on axial arterial phase image 63 is likely perfusional. Structure in segment II which is markedly hyperintense on T2-weighted imaging with peripheral, interrupted enhancement which progressively fills on delayed phase imaging is unchanged from 12/03/2016, measures 1.5 cm, and is consistent with a hemangioma.BILIARY: Gallbladder is unremarkable. No biliary ductal dilatation or filling defect. The mild irregularity of the common bile duct is due to the cavernous transformation.SPLEEN: 14.4 cm splenomegaly.PANCREAS: No focal masses or ductal dilatation. ADRENALS: No adrenal nodules.KIDNEYS/URETERS: No hydronephrosis or solid mass lesions. 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 The most portion of this present during vein is occluded. However, distally, the superior mesenteric vein is patent and measures up to 0.9 cm diameter. Accessory left hepatic artery from the left gastric artery. GI TRACT: No distention or wall thickening. BONES AND SOFT TISSUES: Unremarkable. 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 2.Mild diffuse fatty infiltration of the liver. 3.Mild splenomegaly. Signed:Cayetano [place] MDReport Verified Date/Time: 09/09/2019 20:18:14 Reading Location: [address] Body Reading Room BASI METABOLIC [id number] 17:04:00 Test Item Value Reference Range Interpretation Comments SODIUM (BEAKER) (test 139 meq/L 136-145 code = 381) POTASSIUM (BEAKER) 4.3 meq/L 3.5-5.1 (test code = 379) CHLORIDE (BEAKER) 105 meq/L 98-107 (test code = 382) CO2 (BEAKER) (test 29 meq/L 22-29 code = 355) BLOOD UREA NITROGEN 15 mg/dL 7-21 (BEAKER) (test code = 354) CREATININE (BEAKER) 1.01 mg/dL 0.57-1.25 (test code = 358) GLUCOSE RANDOM 90 mg/dL 70-105 (BEAKER) (test code = 652) CALCIUM (BEAKER) 9.3 mg/dL 8.4-10.2 (test code = 697) EGFR (BEAKER) (test INSUFFIC IENT CLINICAL code = 1092) DATA TO CALCULA TE ESTIMATED GFR. HEPATIC FUNCTION [id number] 17:03:00 Test Item Value Reference Range Interpretation Comments TOTAL PROTEIN (BEAKER) (test code = 7.7 gm/dL 6.0-8.3 770) ALBUMIN (BEAKER) (test code = 1145) 4.2 g/dL 3.5-5.0 BILIRUBIN TOTAL (BEAKER) (test code 0.8 mg/dL 0.2-1.2 = 377) BILIRUBIN DIRECT (BEAKER) (test 0.3 mg/dL 0.1-0.5 code = 706) ALKALINE PHOSPHATASE (BEAKER) (test 120 U/L 40-150 code = 346) AST (SGOT) (BEAKER) (test code = 26 U/L 5-34 353) ALT (SGPT) (BEAKER) (test code = 21 U/L 6-55 347) PROTHROMBIN [id number] 16:52:00 Test Item Value Reference Range Interpretation Comments PROTIME (BEAKER) (test code = 14.2 seconds 11.9-14.2 759) INR (BEAKER) (test code = 370) 1.2 <=5.9 Effective 03/02/2019: PT Reference Range ChangeNew: 11.9-14.2 Previous: 11.7- 14.7RECOMMENDED COUMADIN/WARFARIN INR THERAPY RANGESSTANDARD DOSE: 2.0-3.0 Includes: PROPHYLAXIS for venous thrombosis, systemic embolization; TREATMENT for venous thrombosis and/or pulmonary embolus.HIGH RISK: Target INR is2.5-3.5 for patients wiht mechanical heart valves.CBC W/PLT COUNT & AUTO [id number] 16:45:00 Test Item Value Reference Range Interpretation Comments WHITE BLOOD CELL COUNT (BEAKER) 7.0 K/ L 3.5-10.5 (test code = 775) RED BLOOD CELL COUNT (BEAKER) 5.68 M/ L 4.63-6.08 (test code = 761) HEMOGLOBIN (BEAKER) (test code = 13.5 GM/DL 13.7-17.5 L 410) HEMATOCRIT (BEAKER) (test code = 45.1 % 40.1-51.0 411) MEAN CORPUSCULAR VOLUME (BEAKER) 79.4 fL 79.0-92.2 (test code = 753) MEAN CORPUSCULAR HEMOGLOBIN 23.8 pg 25.7-32.2 L (BEAKER) (test code = 751) MEAN CORPUSCULAR HEMOGLOBIN CONC 29.9 GM/DL 32.3-36.5 L (BEAKER) (test code = 752) RED CELL DISTRIBUTION WIDTH 15.2 % 11.6-14.4 H (BEAKER) (test code = 412) PLATELET COUNT (BEAKER) (test 276 K/CU MM 150-450 code = 756) MEAN PLATELET VOLUME (BEAKER) 11.5 fL 9.4-12.4 (test code = 754) NUCLEATED RED BLOOD CELLS 0 /100 WBC 0-0 (BEAKER) (test code = 413) NEUTROPHILS RELATIVE PERCENT 68 % (BEAKER) (test code = 429) LYMPHOCYTES RELATIVE PERCENT 21 % (BEAKER) (test code = 430) MONOCYTES RELATIVE PERCENT 7 % (BEAKER) (test code = 431) EOSINOPHILS RELATIVE PERCENT 4 % (BEAKER) (test code = 432) BASOPHILS RELATIVE PERCENT 1 % (BEAKER) (test code = 437) NEUTROPHILS ABSOLUTE COUNT 4.73 K/ L 1.78-5.38 (BEAKER) (test code = 670) LYMPHOCYTES ABSOLUTE COUNT 1.43 K/ L 1.32-3.57 (BEAKER) (test code = 414) MONOCYTES ABSOLUTE COUNT (BEAKER) 0.47 K/ L 0.30-0.82 (test code = 415) EOSINOPHILS ABSOLUTE COUNT 0.27 K/ L 0.04-0.54 (BEAKER) (test code = 416) BASOPHILS ABSOLUTE COUNT (BEAKER) 0.04 K/ L 0.01-0.08 (test code = 417) IMMATURE GRANULOCYTES-RELATIVE 0 % 0-1 PERCENT (BEAKER) (test code = 2801) POCT-GLUCOSE [id number] 21:17:00 Test Item Value Reference Range Interpretation Comments POC-GLUCOSE METER 126 mg/dL 70-110 H TESTED AT [facility] 67[address] ([facility]) (test code = [place] 1538) [id number] CLOSTRIDIUM DIFFICILE TOXIN [id number] 15:46:00 Test Item Value Reference Range Interpretation Comments CLOSTRIDIUM DIFFICILE TOXIN, PCR Not Detected Not Detected (BEAKER) (test code = 1525) This qualitative real-time polymerase chain reaction assay detects the tcdB gene, encoded on the C.difficile pathogenicity locus (PaLoc). The product of tcdB, toxin B, is a cytotoxin essential for causing C.difficile-associated disease (CDAD) and is found in virtually all toxigenic [...] testing of a positive result is not recommended.[id number] 07:31:00 Test Item Value Reference Range Interpretation Comments PARTIAL THROMBOPLASTIN TIME 99.8 seconds 22.5-36.0 H (BEAKER) (test code = 760) BASIC METABOLIC [id number] 01:39:00 Test Item Value Reference Range Interpretation Comments SODIUM (BEAKER) 133 meq/L 136-145 L (test code = 381) POTASSIUM (BEAKER) 4.0 meq/L 3.5-5.1 (test code = 379) CHLORIDE (BEAKER) 103 meq/L 98-107 (test code = 382) CO2 (BEAKER) (test 23 meq/L 22-29 code = 355) BLOOD UREA NITROGEN 8 mg/dL 7-21 (BEAKER) (test code = 354) CREATININE (BEAKER) 0.72 mg/dL 0.57-1.25 (test code = 358) GLUCOSE RANDOM 108 mg/dL 70-105 H (BEAKER) (test code = 652) CALCIUM (BEAKER) 8.4 mg/dL 8.4-10.2 (test code = 697) EGFR (BEAKER) (test mL/min/1.73 INSUFFIC IENT CLINICAL code = 1092) sq m DATA TO CALCULA TE ESTIMATED GFR. Specimen slightly [id number] 01:36:00 Test Item Value Reference Range Interpretation Comments PHOSPHORUS (BEAKER) (test code = 2.3 mg/dL 2.3-4.7 604) [id number] 01:36:00 Test Item Value Reference Range Interpretation Comments MAGNESIUM (BEAKER) (test code = 2.0 mg/dL 1.6-2.6 627) HEPATIC FUNCTION [id number] 01:36:00 Test Item Value Reference Range Interpretation Comments TOTAL PROTEIN (BEAKER) (test code = 6.7 gm/dL 6.0-8.3 770) ALBUMIN (BEAKER) (test code = 1145) 2.3 g/dL 3.5-5.0 L BILIRUBIN TOTAL (BEAKER) (test code 2.4 mg/dL 0.2-1.2 H = 377) BILIRUBIN DIRECT (BEAKER) (test 1.8 mg/dL 0.1-0.5 H code = 706) ALKALINE PHOSPHATASE (BEAKER) (test 260 U/L 40-150 H code = 346) AST (SGOT) (BEAKER) (test code = 54 U/L 5-34 H 353) ALT (SGPT) (BEAKER) (test code = 39 U/L 6-55 347) Specimen slightly [id number] 01:27:00 Test Item Value Reference Range Interpretation Comments PARTIAL THROMBOPLASTIN TIME 33.1 seconds 22.5-36.0 (BEAKER) (test code = 760) PROTHROMBIN [id number] 01:26:00 Test Item Value Reference Range Interpretation Comments PROTIME (BEAKER) (test code = 14.0 seconds 11.7-14.7 759) INR (BEAKER) (test code = 370) 1.1 <=5.9 RECOMMENDED COUMADIN/WARFARIN INR THERAPY RANGESSTANDARD DOSE: 2.0 - 3.0 Includes: PROPHYLAXIS forvenous thrombosis, systemic embolization; TREATMENT for venous thrombosis and/or pulmonary embolus.HIGH RISK: Target INR is 2.5-3.5 for patients with mechanical heart valves.CBC W/PLT COUNT & AUTO DIFFERENTIAL 2016-12-11 01:18:00 Test Item Value Reference Range Interpretation Comments WHITE BLOOD CELL COUNT (BEAKER) 6.9 K/ L 4.0-10.0 (test code = 775) RED BLOOD CELL COUNT (BEAKER) 2.40 M/ L 4.20-5.80 L (test code = 761) HEMOGLOBIN (BEAKER) (test code = 7.8 GM/DL 13.0-16.8 L 410) HEMATOCRIT (BEAKER) (test code = 22.1 % 40.0-50.0 L 411) MEAN CORPUSCULAR VOLUME (BEAKER) 92.1 fL 82.0-98.0 (test code = 753) MEAN CORPUSCULAR HEMOGLOBIN 32.3 pg 27.0-33.0 (BEAKER) (test code = 751) MEAN CORPUSCULAR HEMOGLOBIN CONC 35.1 GM/DL 32.0-36.0 (BEAKER) (test code = 752) RED CELL DISTRIBUTION WIDTH 18.4 % 10.3-14.2 H (BEAKER) (test code = 412) PLATELET COUNT (BEAKER) (test 375 K/CU MM 150-430 code = 756) MEAN PLATELET VOLUME (BEAKER) 6.7 fL 6.5-10.5 (test code = 754) NUCLEATED RED BLOOD CELLS 0 /100 WBC 0-0 (BEAKER) (test code = 413) NEUTROPHILS RELATIVE PERCENT 69 % (BEAKER) (test code = 429) LYMPHOCYTES RELATIVE PERCENT 19 % (BEAKER) (test code = 430) MONOCYTES RELATIVE PERCENT 9 % (BEAKER) (test code = 431) EOSINOPHILS RELATIVE PERCENT 3 % (BEAKER) (test code = 432) BASOPHILS RELATIVE PERCENT 1 % (BEAKER) (test code = 437) NEUTROPHILS ABSOLUTE COUNT 4.71 K/ L 1.80-8.00 (BEAKER) (test code = 670) LYMPHOCYTES ABSOLUTE COUNT 1.28 K/ L 1.48-4.50 L (BEAKER) (test code = 414) MONOCYTES ABSOLUTE COUNT (BEAKER) 0.58 K/ L 0.00-1.30 (test code = 415) EOSINOPHILS ABSOLUTE COUNT 0.19 K/ L 0.00-0.50 (BEAKER) (test code = 416) BASOPHILS ABSOLUTE COUNT (BEAKER) 0.08 K/ L 0.00-0.20 (test code = 417) [id number] 23:09:00 Test Item Value Reference Range Interpretation Comments PARTIAL THROMBOPLASTIN TIME 117.8 seconds 22.5-36.0 H (BEAKER) (test code = 760) POCT-GLUCOSE [id number] 22:34:00 Test Item Value Reference Range Interpretation Comments POC-GLUCOSE METER 113 mg/dL 70-110 H TESTED AT [place] [address] ([facility]) (test code = [facility] 1538) [id number] POCT-GLUCOSE [id number] 16:10:00 Test Item Value Reference Range Interpretation Comments POC-GLUCOSE METER 109 mg/dL 70-110 TESTED AT [place] [address] ([facility]) (test code = [facility] 1538) [address] GAMMA GLUTAMYL TRANSFERASE (GGT)2016-12-10 15:48:00 Test Item Value Reference Range Interpretation Comments GAMMA GLUTAMYL TRANSFERASE (BEAKER) 57 U/L 9-64 (test code = 364) Specimen slightly [id number] 15:43:00 Test Item Value Reference Range Interpretation Comments PARTIAL THROMBOPLASTIN TIME 57.1 seconds 22.5-36.0 H (BEAKER) (test code = 760) POCT-GLUCOSE [id number] 11:20:00 Test Item Value Reference Range Interpretation Comments POC-GLUCOSE METER 129 mg/dL 70-110 H TESTED AT [place] [address] ([facility]) (test code = [facility] 1538) [address] BASIC METABOLIC [id number] 08:58:00 Test Item Value Reference Range Interpretation Comments SODIUM (BEAKER) 131 meq/L 136-145 L (test code = 381) POTASSIUM (BEAKER) 4.1 meq/L 3.5-5.1 (test code = 379) CHLORIDE (BEAKER) 102 meq/L 98-107 (test code = 382) CO2 (BEAKER) (test 22 meq/L 22-29 code = 355) BLOOD UREA NITROGEN 7 mg/dL 7-21 (BEAKER) (test code = 354) CREATININE (BEAKER) 0.70 mg/dL 0.57-1.25 (test code = 358) GLUCOSE RANDOM 102 mg/dL 70-105 (BEAKER) (test code = 652) CALCIUM (BEAKER) 8.4 mg/dL 8.4-10.2 (test code = 697) EGFR (BEAKER) (test mL/min/1.73 INSUFFIC IENT CLINICAL code = 1092) sq m DATA TO CALCULA TE ESTIMATED GFR. Specimen slightly [id number] 08:52:00 Test Item Value Reference Range Interpretation Comments MAGNESIUM (BEAKER) (test code = 1.4 mg/dL 1.6-2.6 L 627) HEPATIC FUNCTION [id number] 08:52:00 Test Item Value Reference Range Interpretation Comments TOTAL PROTEIN (BEAKER) (test code = 6.9 gm/dL 6.0-8.3 770) ALBUMIN (BEAKER) (test code = 1145) 2.4 g/dL 3.5-5.0 L BILIRUBIN TOTAL (BEAKER) (test code 2.8 mg/dL 0.2-1.2 H = 377) BILIRUBIN DIRECT (BEAKER) (test 1.9 mg/dL 0.1-0.5 H code = 706) ALKALINE PHOSPHATASE (BEAKER) (test 257 U/L 40-150 H code = 346) AST (SGOT) (BEAKER) (test code = 49 U/L 5-34 H 353) ALT (SGPT) (BEAKER) (test code = 42 U/L 6-55 347) Specimen slightly [id number] 08:51:00 Test Item Value Reference Range Interpretation Comments PHOSPHORUS (BEAKER) (test code = 2.2 mg/dL 2.3-4.7 L 604) CBC W/PLT COUNT & AUTO [id number] 08:44:00 Test Item Value Reference Range Interpretation Comments WHITE BLOOD CELL COUNT (BEAKER) 9.0 K/ L 4.0-10.0 (test code = 775) RED BLOOD CELL COUNT (BEAKER) 2.59 M/ L 4.20-5.80 L (test code = 761) HEMOGLOBIN (BEAKER) (test code = 8.2 GM/DL 13.0-16.8 L 410) HEMATOCRIT (BEAKER) (test code = 24.3 % 40.0-50.0 L 411) MEAN CORPUSCULAR VOLUME (BEAKER) 94.1 fL 82.0-98.0 (test code = 753) MEAN CORPUSCULAR HEMOGLOBIN 31.8 pg 27.0-33.0 (BEAKER) (test code = 751) MEAN CORPUSCULAR HEMOGLOBIN CONC 33.8 GM/DL 32.0-36.0 (BEAKER) (test code = 752) RED CELL DISTRIBUTION WIDTH 17.7 % 10.3-14.2 H (BEAKER) (test code = 412) PLATELET COUNT (BEAKER) (test 372 K/CU MM 150-430 code = 756) MEAN PLATELET VOLUME (BEAKER) 7.2 fL 6.5-10.5 (test code = 754) NUCLEATED RED BLOOD CELLS 0 /100 WBC 0-0 (BEAKER) (test code = 413) NEUTROPHILS RELATIVE PERCENT 75 % (BEAKER) (test code = 429) LYMPHOCYTES RELATIVE PERCENT 15 % (BEAKER) (test code = 430) MONOCYTES RELATIVE PERCENT 7 % (BEAKER) (test code = 431) EOSINOPHILS RELATIVE PERCENT 2 % (BEAKER) (test code = 432) BASOPHILS RELATIVE PERCENT 1 % (BEAKER) (test code = 437) NEUTROPHILS ABSOLUTE COUNT 6.78 K/ L 1.80-8.00 (BEAKER) (test code = 670) LYMPHOCYTES ABSOLUTE COUNT 1.31 K/ L 1.48-4.50 L (BEAKER) (test code = 414) MONOCYTES ABSOLUTE COUNT (BEAKER) 0.64 K/ L 0.00-1.30 (test code = 415) EOSINOPHILS ABSOLUTE COUNT 0.15 K/ L 0.00-0.50 (BEAKER) (test code = 416) BASOPHILS ABSOLUTE COUNT (BEAKER) 0.10 K/ L 0.00-0.20 (test code = 417) (MANUAL DIFFERENTIAL)2016-12-10 08:44:00 Test Item Value Reference Range Interpretation Comments TOTAL COUNTED (BEAKER) (test code = 1351) [id number] 08:20:00 Test Item Value Reference Range Interpretation Comments PARTIAL THROMBOPLASTIN TIME 68.6 seconds 22.5-36.0 H (BEAKER) (test code = 760) Prior to initiating heparinPROTHROMBIN [id number] 08:18:00 Test Item Value Reference Range Interpretation Comments PROTIME ([facility]) (test code = 14.8 seconds 11.7-14.7 H 759) INR ([facility]) (test code = 370) 1.2 <=5.9 RECOMMENDED COUMADIN/WARFARIN INR THERAPY RANGESSTANDARD DOSE: 2.0 - 3.0 Includes: PROPHYLAXIS forvenous thrombosis, systemic embolization; TREATMENT for venous thrombosis and/or pulmonary embolus.HIGH RISK: Target INR is 2.5-3.5 for patients with mechanical heart valves.Prior to initiating heparinPOCT-GLUCOSE [id number] 07:57:00 Test Item Value Reference Range Interpretation Comments POC-GLUCOSE METER 110 mg/dL 70-110 TESTED AT [place] [address] ([facility]) (test code = [place] [facility] 1538) [address] [id number] 01:00:00 Test Item Value Reference Range Interpretation Comments PARTIAL THROMBOPLASTIN TIME 80.3 seconds 22.5-36.0 H ([facility]) (test code = 760) POCT-GLUCOSE [id number] 20:59:00 Test Item Value Reference Range Interpretation Comments POC-GLUCOSE METER 122 mg/dL 70-110 H TESTED AT [place] [address] ([facility]) (test code = [place] [facility] 1538) [id number] 17:42:00 Test Item Value Reference Range Interpretation Comments PARTIAL THROMBOPLASTIN TIME 47.8 seconds 22.5-36.0 H ([facility]) (test code = 760) POCT-GLUCOSE [id number] 16:03:00 Test Item Value Reference Range Interpretation Comments POC-GLUCOSE METER 118 mg/dL 70-110 H TESTED AT [place] [address] ([facility]) (test code = PEPEFAISAL Norma [facility] 1538) [id number] POCT-GLUCOSE [id number] 13:06:00 Test Item Value Reference Range Interpretation Comments POC-GLUCOSE METER 164 mg/dL 70-110 H TESTED AT [place] [address] ([facility]) (test code = [place] 1538) [address] POCT-GLUCOSE [id number] 11:17:00 Test Item Value Reference Range Interpretation Comments POC-GLUCOSE METER 188 mg/dL 70-110 H TESTED AT [facility] 6720 (BEAKER) (test code = [place] 1538) [address] POCT-GLUCOSE [id number] 07:09:00 Test Item Value Reference Range Interpretation Comments POC-GLUCOSE METER 118 mg/dL 70-110 H TESTED AT [facility] 6720 (BEAKER) (test code = [place] 1538) [address] BASIC METABOLIC [id number] 05:29:00 Test Item Value Reference Range Interpretation Comments SODIUM (BEAKER) 130 meq/L 136-145 L (test code = 381) POTASSIUM (BEAKER) 4.2 meq/L 3.5-5.1 Specimen slightly (test code = 379) hemolyzed CHLORIDE (BEAKER) 101 meq/L 98-107 (test code = 382) CO2 (BEAKER) (test 20 meq/L 22-29 L code = 355) BLOOD UREA NITROGEN 7 mg/dL 7-21 (BEAKER) (test code = 354) CREATININE (BEAKER) 0.72 mg/dL 0.57-1.25 Specimen slightly (test code = 358) hemolyzed GLUCOSE RANDOM 101 mg/dL 70-105 (BEAKER) (test code = 652) CALCIUM (BEAKER) 8.7 mg/dL 8.4-10.2 (test code = 697) EGFR (BEAKER) (test mL/min/1.73 INSUFFIC IENT CLINICAL code = 1092) sq m DATA TO CALCULA TE ESTIMATED GFR. Specimen slightly [id number] 05:28:00 Test Item Value Reference Range Interpretation Comments MAGNESIUM (BEAKER) 1.5 mg/dL 1.6-2.6 L Specimen slightly (test code = 627) hemolyzed [id number] 05:28:00 Test Item Value Reference Range Interpretation Comments PHOSPHORUS (BEAKER) 2.5 mg/dL 2.3-4.7 Specimen slightly (test code = 604) hemolyzed HEPATIC FUNCTION [id number] 05:28:00 Test Item Value Reference Range Interpretation Comments TOTAL PROTEIN (BEAKER) 7.0 gm/dL 6.0-8.3 Speci men slightly (test code = 770) hemolyzed ALBUMIN (BEAKER) (test 2.4 g/dL 3.5-5.0 L Speci men slightly code = 1145) hemolyzed BILIRUBIN TOTAL 3.0 mg/dL 0.2-1.2 H Specimen sli ghtly (BEAKER) (test code = hemoly zed 377) BILIRUBIN DIRECT 1.9 mg/dL 0.1-0.5 H Specimen sl ightly (BEAKER) (test code = hemoly zed 706) ALKALINE PHOSPHATASE 272 U/L 40-150 H (BEAKER) (test code = 346) AST (SGOT) (BEAKER) 61 U/L 5-34 H Specimen slightly (test code = 353) hemolyzed ALT (SGPT) (BEAKER) 54 U/L 6-55 Specimen slightly (test code = 347) hemolyzed Specimen slightly ictericCBC W/PLT COUNT & AUTO [id number] 05:22:00 Test Item Value Reference Range Interpretation Comments WHITE BLOOD CELL COUNT (BEAKER) 10.7 K/ L 4.0-10.0 H (test code = 775) RED BLOOD CELL COUNT (BEAKER) 2.71 M/ L 4.20-5.80 L (test code = 761) HEMOGLOBIN (BEAKER) (test code = 8.6 GM/DL 13.0-16.8 L 410) HEMATOCRIT (BEAKER) (test code = 25.6 % 40.0-50.0 L 411) MEAN CORPUSCULAR VOLUME (BEAKER) 94.5 fL 82.0-98.0 (test code = 753) MEAN CORPUSCULAR HEMOGLOBIN 31.8 pg 27.0-33.0 (BEAKER) (test code = 751) MEAN CORPUSCULAR HEMOGLOBIN CONC 33.7 GM/DL 32.0-36.0 (BEAKER) (test code = 752) RED CELL DISTRIBUTION WIDTH 18.5 % 10.3-14.2 H (BEAKER) (test code = 412) PLATELET COUNT (BEAKER) (test 349 K/CU MM 150-430 code = 756) MEAN PLATELET VOLUME (BEAKER) 7.4 fL 6.5-10.5 (test code = 754) NUCLEATED RED BLOOD CELLS 0 /100 WBC 0-0 (BEAKER) (test code = 413) NEUTROPHILS RELATIVE PERCENT 81 % (BEAKER) (test code = 429) LYMPHOCYTES RELATIVE PERCENT 11 % (BEAKER) (test code = 430) MONOCYTES RELATIVE PERCENT 5 % (BEAKER) (test code = 431) EOSINOPHILS RELATIVE PERCENT 1 % (BEAKER) (test code = 432) BASOPHILS RELATIVE PERCENT 1 % (BEAKER) (test code = 437) NEUTROPHILS ABSOLUTE COUNT 8.61 K/ L 1.80-8.00 H (BEAKER) (test code = 670) LYMPHOCYTES ABSOLUTE COUNT 1.21 K/ L 1.48-4.50 L (BEAKER) (test code = 414) MONOCYTES ABSOLUTE COUNT (BEAKER) 0.58 K/ L 0.00-1.30 (test code = 415) EOSINOPHILS ABSOLUTE COUNT 0.15 K/ L 0.00-0.50 (BEAKER) (test code = 416) BASOPHILS ABSOLUTE COUNT (BEAKER) 0.10 K/ L 0.00-0.20 (test code = 417) 0.00PROTHROMBIN [id number] 05:11:00 Test Item Value Reference Range Interpretation Comments PROTIME (BEAKER) (test code = 14.6 seconds 11.7-14.7 759) INR (BEAKER) (test code = 370) 1.2 <=5.9 RECOMMENDED COUMADIN/WARFARIN INR THERAPY RANGESSTANDARD DOSE: 2.0 - 3.0 Includes: PROPHYLAXIS forvenous thrombosis, systemic embolization; TREATMENT for venous thrombosis and/or pulmonary embolus.HIGH RISK: Target INR is 2.5-3.5 for patients with mechanical heart valves.POCT-GLUCOSE [id number] 21:36:00 Test Item Value Reference Range Interpretation Comments POC-GLUCOSE METER 105 mg/dL 70-110 TESTED AT [place] [address] ([facility]) (test code = IFEANYI Green [facility] 1538) [id number] POCT-GLUCOSE [id number] 18:29:00 Test Item Value Reference Range Interpretation Comments POC-GLUCOSE METER 116 mg/dL 70-110 H TESTED AT [place] [address] ([facility]) (test code = IFEANYI Green [facility] 1538) [id number] POCT-GLUCOSE [id number] 11:58:00 Test Item Value Reference Range Interpretation Comments POC-GLUCOSE METER 200 mg/dL 70-110 H TESTED AT [place] [address] (BEAKER) (test code = IFEANYI Green [facility] 1538) [id number] POCT-GLUCOSE [id number] 07:28:00 Test Item Value Reference Range Interpretation Comments POC-GLUCOSE METER 116 mg/dL 70-110 H TESTED AT [facility] 6720 (BEAKER) (test code = IFEANYI Green [facility] 1538) [id number] CBC W/PLT COUNT & AUTO [id number] 06:28:00 Test Item Value Reference Range Interpretation Comments WHITE BLOOD CELL COUNT (BEAKER) 9.5 K/ L 4.0-10.0 (test code = 775) RED BLOOD CELL COUNT (BEAKER) 2.63 M/ L 4.20-5.80 L (test code = 761) HEMOGLOBIN (BEAKER) (test code = 8.3 GM/DL 13.0-16.8 L 410) HEMATOCRIT (BEAKER) (test code = 24.9 % 40.0-50.0 L 411) MEAN CORPUSCULAR VOLUME (BEAKER) 94.6 fL 82.0-98.0 (test code = 753) MEAN CORPUSCULAR HEMOGLOBIN 31.6 pg 27.0-33.0 (BEAKER) (test code = 751) MEAN CORPUSCULAR HEMOGLOBIN CONC 33.4 GM/DL 32.0-36.0 (BEAKER) (test code = 752) RED CELL DISTRIBUTION WIDTH 18.6 % 10.3-14.2 H (BEAKER) (test code = 412) PLATELET COUNT (BEAKER) (test 266 K/CU MM 150-430 code = 756) MEAN PLATELET VOLUME (BEAKER) 7.6 fL 6.5-10.5 (test code = 754) NUCLEATED RED BLOOD CELLS 0 /100 WBC 0-0 (BEAKER) (test code = 413) NEUTROPHILS RELATIVE PERCENT 82 % (BEAKER) (test code = 429) LYMPHOCYTES RELATIVE PERCENT 10 % (BEAKER) (test code = 430) MONOCYTES RELATIVE PERCENT 5 % (BEAKER) (test code = 431) EOSINOPHILS RELATIVE PERCENT 2 % (BEAKER) (test code = 432) BASOPHILS RELATIVE PERCENT 1 % (BEAKER) (test code = 437) NEUTROPHILS ABSOLUTE COUNT 7.75 K/ L 1.80-8.00 (BEAKER) (test code = 670) LYMPHOCYTES ABSOLUTE COUNT 0.98 K/ L 1.48-4.50 L (BEAKER) (test code = 414) MONOCYTES ABSOLUTE COUNT (BEAKER) 0.50 K/ L 0.00-1.30 (test code = 415) EOSINOPHILS ABSOLUTE COUNT 0.16 K/ L 0.00-0.50 (BEAKER) (test code = 416) BASOPHILS ABSOLUTE COUNT (BEAKER) 0.06 K/ L 0.00-0.20 (test code = 417) 0.00BASIC METABOLIC [id number] 06:09:00 Test Item Value Reference Range Interpretation Comments SODIUM (BEAKER) 131 meq/L 136-145 L (test code = 381) POTASSIUM (BEAKER) 4.4 meq/L 3.5-5.1 Specimen slightly (test code = 379) hemolyzed CHLORIDE (BEAKER) 102 meq/L 98-107 (test code = 382) CO2 (BEAKER) (test 22 meq/L 22-29 code = 355) BLOOD UREA NITROGEN 5 mg/dL 7-21 L (BEAKER) (test code = 354) CREATININE (BEAKER) 0.62 mg/dL 0.57-1.25 Specimen slightly (test code = 358) hemolyzed GLUCOSE RANDOM 95 mg/dL 70-105 (BEAKER) (test code = 652) CALCIUM (BEAKER) 8.5 mg/dL 8.4-10.2 (test code = 697) EGFR (BEAKER) (test mL/min/1.73 INSUFFIC IENT CLINICAL code = 1092) sq m DATA TO CALCULA TE ESTIMATED GFR. Specimen slightly [id number] 06:02:00 Test Item Value Reference Range Interpretation Comments MAGNESIUM (BEAKER) 1.1 mg/dL 1.6-2.6 L Specimen slightly (test code = 627) hemolyzed [id number] 06:02:00 Test Item Value Reference Range Interpretation Comments PHOSPHORUS (BEAKER) 2.3 mg/dL 2.3-4.7 Specimen slightly (test code = 604) hemolyzed HEPATIC FUNCTION [id number] 06:02:00 Test Item Value Reference Range Interpretation Comments TOTAL PROTEIN (BEAKER) 6.5 gm/dL 6.0-8.3 Speci men slightly (test code = 770) hemolyzed ALBUMIN (BEAKER) (test 2.2 g/dL 3.5-5.0 L Speci men slightly code = 1145) hemolyzed BILIRUBIN TOTAL 3.2 mg/dL 0.2-1.2 H Specimen sli ghtly (BEAKER) (test code = hemoly zed 377) BILIRUBIN DIRECT 1.9 mg/dL 0.1-0.5 H Specimen sl ightly (BEAKER) (test code = hemoly zed 706) ALKALINE PHOSPHATASE 252 U/L 40-150 H (BEAKER) (test code = 346) AST (SGOT) (BEAKER) 64 U/L 5-34 H Specimen slightly (test code = 353) hemolyzed ALT (SGPT) (BEAKER) 57 U/L 6-55 H Specimen slightly (test code = 347) hemolyzed Specimen slightly ictericPROTHROMBIN [id number] 05:30:00 Test Item Value Reference Range Interpretation Comments PROTIME (BEAKER) (test code = 14.7 seconds 11.7-14.7 759) INR (BEAKER) (test code = 370) 1.2 <=5.9 RECOMMENDED COUMADIN/WARFARIN INR THERAPY RANGESSTANDARD DOSE: 2.0 - 3.0 Includes: PROPHYLAXIS forvenous thrombosis, systemic embolization; TREATMENT for venous thrombosis and/or pulmonary embolus.HIGH RISK: Target INR is 2.5-3.5 for patients with mechanical heart valves.POCT-GLUCOSE [id number] 20:46:00 Test Item Value Reference Range Interpretation Comments POC-GLUCOSE METER 122 mg/dL 70-110 H TESTED AT [place] [address] ([facility]) (test code = IFEANYI Green [facility] 1538) [id number] POCT-GLUCOSE [id number] 18:04:00 Test Item Value Reference Range Interpretation Comments POC-GLUCOSE METER 85 mg/dL 70-110 TESTED AT [place] [address] ([facility]) (test code = [facility] Norma [facility] [address] 1538) POCT-GLUCOSE [id number] 12:30:00 Test Item Value Reference Range Interpretation Comments POC-GLUCOSE METER 96 mg/dL 70-110 TESTED AT [place] [address] ([facility]) (test code = [facility] Norma [facility] [address] 1538) CBC W/PLT COUNT & AUTO [id number] 07:33:00 Test Item Value Reference Range Interpretation Comments WHITE BLOOD CELL COUNT (BEAKER) 11.4 K/ L 4.0-10.0 H (test code = 775) RED BLOOD CELL COUNT (BEAKER) 2.77 M/ L 4.20-5.80 L (test code = 761) HEMOGLOBIN (BEAKER) (test code = 8.8 GM/DL 13.0-16.8 L 410) HEMATOCRIT (BEAKER) (test code = 25.6 % 40.0-50.0 L 411) MEAN CORPUSCULAR VOLUME (BEAKER) 92.3 fL 82.0-98.0 (test code = 753) MEAN CORPUSCULAR HEMOGLOBIN 31.6 pg 27.0-33.0 (BEAKER) (test code = 751) MEAN CORPUSCULAR HEMOGLOBIN CONC 34.2 GM/DL 32.0-36.0 (BEAKER) (test code = 752) RED CELL DISTRIBUTION WIDTH 18.8 % 10.3-14.2 H (BEAKER) (test code = 412) PLATELET COUNT (BEAKER) (test 203 K/CU MM 150-430 code = 756) MEAN PLATELET VOLUME (BEAKER) 7.5 fL 6.5-10.5 (test code = 754) NUCLEATED RED BLOOD CELLS 0 /100 WBC 0-0 (BEAKER) (test code = 413) NEUTROPHILS RELATIVE PERCENT 84 % (BEAKER) (test code = 429) LYMPHOCYTES RELATIVE PERCENT 10 % (BEAKER) (test code = 430) MONOCYTES RELATIVE PERCENT 4 % (BEAKER) (test code = 431) EOSINOPHILS RELATIVE PERCENT 2 % (BEAKER) (test code = 432) BASOPHILS RELATIVE PERCENT 0 % (BEAKER) (test code = 437) NEUTROPHILS ABSOLUTE COUNT 9.55 K/ L 1.80-8.00 H (BEAKER) (test code = 670) LYMPHOCYTES ABSOLUTE COUNT 1.10 K/ L 1.48-4.50 L (BEAKER) (test code = 414) MONOCYTES ABSOLUTE COUNT (BEAKER) 0.50 K/ L 0.00-1.30 (test code = 415) EOSINOPHILS ABSOLUTE COUNT 0.20 K/ L 0.00-0.50 (BEAKER) (test code = 416) BASOPHILS ABSOLUTE COUNT (BEAKER) 0.00 K/ L 0.00-0.20 (test code = 417) 0.00BASIC METABOLIC [id number] 07:28:00 Test Item Value Reference Range Interpretation Comments SODIUM (BEAKER) 131 meq/L 136-145 L (test code = 381) POTASSIUM (BEAKER) 4.0 meq/L 3.5-5.1 (test code = 379) CHLORIDE (BEAKER) 103 meq/L 98-107 (test code = 382) CO2 (BEAKER) (test 21 meq/L 22-29 L code = 355) BLOOD UREA NITROGEN 5 mg/dL 7-21 L (BEAKER) (test code = 354) CREATININE (BEAKER) 0.65 mg/dL 0.57-1.25 (test code = 358) GLUCOSE RANDOM 100 mg/dL 70-105 (BEAKER) (test code = 652) CALCIUM (BEAKER) 8.4 mg/dL 8.4-10.2 (test code = 697) EGFR (BEAKER) (test mL/min/1.73 INSUFFIC IENT CLINICAL code = 1092) sq m DATA TO CALCULA TE ESTIMATED GFR. Specimen slightly [id number] 07:26:00 Test Item Value Reference Range Interpretation Comments PHOSPHORUS (BEAKER) (test code = 2.3 mg/dL 2.3-4.7 604) [id number] 07:26:00 Test Item Value Reference Range Interpretation Comments MAGNESIUM (BEAKER) (test code = 1.1 mg/dL 1.6-2.6 L 627) HEPATIC FUNCTION [id number] 07:26:00 Test Item Value Reference Range Interpretation Comments TOTAL PROTEIN (BEAKER) (test code = 6.6 gm/dL 6.0-8.3 770) ALBUMIN (BEAKER) (test code = 1145) 2.2 g/dL 3.5-5.0 L BILIRUBIN TOTAL (BEAKER) (test code 3.7 mg/dL 0.2-1.2 H = 377) BILIRUBIN DIRECT (BEAKER) (test 2.5 mg/dL 0.1-0.5 H code = 706) ALKALINE PHOSPHATASE (BEAKER) (test 264 U/L 40-150 H code = 346) AST (SGOT) (BEAKER) (test code = 48 U/L 5-34 H 353) ALT (SGPT) (BEAKER) (test code = 65 U/L 6-55 H 347) Specimen slightly ictericPROTHROMBIN [id number] 07:00:00 Test Item Value Reference Range Interpretation Comments PROTIME ([facility]) (test code = 15.5 seconds 11.7-14.7 H 759) INR ([facility]) (test code = 370) 1.2 <=5.9 RECOMMENDED COUMADIN/WARFARIN INR THERAPY RANGESSTANDARD DOSE: 2.0 - 3.0 Includes: PROPHYLAXIS forvenous thrombosis, systemic embolization; TREATMENT for venous thrombosis and/or pulmonary embolus.HIGH RISK: Target INR is 2.5-3.5 for patients with mechanical heart valves.POCT-GLUCOSE [id number] 06:49:00 Test Item Value Reference Range Interpretation Comments POC-GLUCOSE METER 107 mg/dL 70-110 TESTED AT [place] [address] ([facility]) (test code = [facility] [email or web address] [place] 1538) [address] BODY FLUID CULTURE + GRAM [id number] 00:54:00 Test Item Value Reference Range Interpretation Comments CULTURE ([facility]) (test code No growth = 1095) GRAM STAIN RESULT ([facility]) <1+ WBCs (test code = 1123) GRAM STAIN RESULT ([facility]) No organisms seen (test code = 90800) POCT-GLUCOSE [id number] 22:24:00 Test Item Value Reference Range Interpretation Comments POC-GLUCOSE METER 82 mg/dL 70-110 TESTED AT [place] [address] ([facility]) (test code = [facility] [email or web address] [address] 1538) POCT-GLUCOSE [id number] 18:05:00 Test Item Value Reference Range Interpretation Comments POC-GLUCOSE METER 256 mg/dL 70-110 H TESTED AT [place] [address] ([facility]) (test code = [facility] [email or web address] [place] 1538) [address] POCT-GLUCOSE [id number] 11:11:00 Test Item Value Reference Range Interpretation Comments POC-GLUCOSE METER 106 mg/dL 70-110 TESTED AT [place] [address] ([facility]) (test code = [facility] [email or web address] [place] 1538) [address] POCT-GLUCOSE [id number] 08:12:00 Test Item Value Reference Range Interpretation Comments POC-GLUCOSE METER 108 mg/dL 70-110 TESTED AT [facility] 6720 (BEAKER) (test code = IFEANYI [place] 1538) [address] CBC W/PLT COUNT & AUTO [id number] 06:49:00 Test Item Value Reference Range Interpretation Comments WHITE BLOOD CELL COUNT (BEAKER) 12.6 K/ L 4.0-10.0 H (test code = 775) RED BLOOD CELL COUNT (BEAKER) 2.57 M/ L 4.20-5.80 L (test code = 761) HEMOGLOBIN (BEAKER) (test code = 8.4 GM/DL 13.0-16.8 L 410) HEMATOCRIT (BEAKER) (test code = 24.3 % 40.0-50.0 L 411) MEAN CORPUSCULAR VOLUME (BEAKER) 94.5 fL 82.0-98.0 (test code = 753) MEAN CORPUSCULAR HEMOGLOBIN 32.5 pg 27.0-33.0 (BEAKER) (test code = 751) MEAN CORPUSCULAR HEMOGLOBIN CONC 34.4 GM/DL 32.0-36.0 (BEAKER) (test code = 752) RED CELL DISTRIBUTION WIDTH 19.5 % 10.3-14.2 H (BEAKER) (test code = 412) PLATELET COUNT (BEAKER) (test 205 K/CU MM 150-430 code = 756) MEAN PLATELET VOLUME (BEAKER) 8.9 fL 6.5-10.5 (test code = 754) NUCLEATED RED BLOOD CELLS 0 /100 WBC 0-0 (BEAKER) (test code = 413) NEUTROPHILS RELATIVE PERCENT 85 % (BEAKER) (test code = 429) LYMPHOCYTES RELATIVE PERCENT 9 % (BEAKER) (test code = 430) MONOCYTES RELATIVE PERCENT 4 % (BEAKER) (test code = 431) EOSINOPHILS RELATIVE PERCENT 1 % (BEAKER) (test code = 432) BASOPHILS RELATIVE PERCENT 1 % (BEAKER) (test code = 437) NEUTROPHILS ABSOLUTE COUNT 10.60 K/ L 1.80-8.00 H (BEAKER) (test code = 670) LYMPHOCYTES ABSOLUTE COUNT 1.16 K/ L 1.48-4.50 L (BEAKER) (test code = 414) MONOCYTES ABSOLUTE COUNT (BEAKER) 0.52 K/ L 0.00-1.30 (test code = 415) EOSINOPHILS ABSOLUTE COUNT 0.17 K/ L 0.00-0.50 (BEAKER) (test code = 416) BASOPHILS ABSOLUTE COUNT (BEAKER) 0.08 K/ L 0.00-0.20 (test code = 417) [id number] 06:36:00 Test Item Value Reference Range Interpretation Comments MAGNESIUM (BEAKER) 2.0 mg/dL 1.6-2.6 Specimen moderately (test code = 627) hemolyzed [id number] 06:36:00 Test Item Value Reference Range Interpretation Comments PHOSPHORUS (BEAKER) 2.6 mg/dL 2.3-4.7 Specimen moderately (test code = 604) hemolyzed HEPATIC FUNCTION [id number] 06:36:00 Test Item Value Reference Range Interpretation Comments TOTAL PROTEIN (BEAKER) 6.4 gm/dL 6.0-8.3 Speci men moderately (test code = 770) hemolyzed ALBUMIN (BEAKER) (test 2.1 g/dL 3.5-5.0 L Speci men moderately code = 1145) hemolyzed BILIRUBIN TOTAL 3.5 mg/dL 0.2-1.2 H Specimen mod erately (BEAKER) (test code = hemoly zed 377) BILIRUBIN DIRECT 1.7 mg/dL 0.1-0.5 H Specimen mo derately (BEAKER) (test code = hemoly zed 706) ALKALINE PHOSPHATASE 281 U/L 40-150 H (BEAKER) (test code = 346) AST (SGOT) (BEAKER) 70 U/L 5-34 H Specimen moderately (test code = 353) hemolyzed ALT (SGPT) (BEAKER) 84 U/L 6-55 H Specimen moderately (test code = 347) hemolyzed Specimen slightly ictericBASIC METABOLIC [id number] 06:36:00 Test Item Value Reference Range Interpretation Comments SODIUM (BEAKER) 133 meq/L 136-145 L (test code = 381) POTASSIUM (BEAKER) 4.1 meq/L 3.5-5.1 Specimen moderately (test code = 379) hemolyzed CHLORIDE (BEAKER) 103 meq/L 98-107 (test code = 382) CO2 (BEAKER) (test 22 meq/L 22-29 code = 355) BLOOD UREA NITROGEN 6 mg/dL 7-21 L (BEAKER) (test code = 354) CREATININE ([facility]) 0.68 mg/dL 0.57-1.25 Specimen moderately (test code = 358) hemolyzed GLUCOSE RANDOM 96 mg/dL 70-105 ([facility]) (test code = 652) CALCIUM ([facility]) 8.0 mg/dL 8.4-10.2 L (test code = 697) EGFR ([facility]) (test mL/min/1.73 INSUFFIC IENT CLINICAL code = 1092) sq m DATA TO CALCULA TE ESTIMATED GFR. Specimen slightly ictericPROTHROMBIN [id number] 05:53:00 Test Item Value Reference Range Interpretation Comments PROTIME ([facility]) (test code = 14.8 seconds 11.7-14.7 H 759) INR ([facility]) (test code = 370) 1.2 <=5.9 RECOMMENDED COUMADIN/WARFARIN INR THERAPY RANGESSTANDARD DOSE: 2.0 - 3.0 Includes: PROPHYLAXIS forvenous thrombosis, systemic embolization; TREATMENT for venous thrombosis and/or pulmonary embolus.HIGH RISK: Target INR is 2.5-3.5 for patients with mechanical heart valves.POCT-GLUCOSE [id number] 21:06:00 Test Item Value Reference Range Interpretation Comments POC-GLUCOSE METER 128 mg/dL 70-110 H TESTED AT [place] [address] ([facility]) (test code = [facility] 1538) [address] POCT-GLUCOSE [id number] 17:16:00 Test Item Value Reference Range Interpretation Comments POC-GLUCOSE METER 129 mg/dL 70-110 H TESTED AT [place] [address] ([facility]) (test code = [facility] 1538) [address] POCT-GLUCOSE [id number] 11:30:00 Test Item Value Reference Range Interpretation Comments POC-GLUCOSE METER 172 mg/dL 70-110 H TESTED AT [place] [address] ([facility]) (test code = [facility] 1538) [address] CBC W/PLT COUNT & AUTO [id number] 09:55:00 Test Item Value Reference Range Interpretation Comments WHITE BLOOD CELL COUNT ([facility]) 11.7 K/ L 4.0-10.0 H (test code = 775) RED BLOOD CELL COUNT (BEAKER) 2.62 M/ L 4.20-5.80 L (test code = 761) HEMOGLOBIN (BEAKER) (test code = 8.2 GM/DL 13.0-16.8 L 410) HEMATOCRIT (BEAKER) (test code = 24.0 % 40.0-50.0 L 411) MEAN CORPUSCULAR VOLUME (BEAKER) 91.6 fL 82.0-98.0 (test code = 753) MEAN CORPUSCULAR HEMOGLOBIN 31.3 pg 27.0-33.0 (BEAKER) (test code = 751) MEAN CORPUSCULAR HEMOGLOBIN CONC 34.2 GM/DL 32.0-36.0 (BEAKER) (test code = 752) RED CELL DISTRIBUTION WIDTH 19.7 % 10.3-14.2 H (BEAKER) (test code = 412) PLATELET COUNT (BEAKER) (test 177 K/CU MM 150-430 code = 756) MEAN PLATELET VOLUME (BEAKER) 8.1 fL 6.5-10.5 (test code = 754) NUCLEATED RED BLOOD CELLS 0 /100 WBC 0-0 (BEAKER) (test code = 413) NEUTROPHILS RELATIVE PERCENT 82 % (BEAKER) (test code = 429) LYMPHOCYTES RELATIVE PERCENT 10 % (BEAKER) (test code = 430) MONOCYTES RELATIVE PERCENT 5 % (BEAKER) (test code = 431) EOSINOPHILS RELATIVE PERCENT 2 % (BEAKER) (test code = 432) BASOPHILS RELATIVE PERCENT 1 % (BEAKER) (test code = 437) NEUTROPHILS ABSOLUTE COUNT 9.60 K/ L 1.80-8.00 H (BEAKER) (test code = 670) LYMPHOCYTES ABSOLUTE COUNT 1.22 K/ L 1.48-4.50 L (BEAKER) (test code = 414) MONOCYTES ABSOLUTE COUNT (BEAKER) 0.60 K/ L 0.00-1.30 (test code = 415) EOSINOPHILS ABSOLUTE COUNT 0.26 K/ L 0.00-0.50 (BEAKER) (test code = 416) BASOPHILS ABSOLUTE COUNT (BEAKER) 0.06 K/ L 0.00-0.20 (test code = 417) [id number](MANUAL DIFFERENTIAL)2016-12-05 09:55:00 Test Item Value Reference Range Interpretation Comments TOTAL COUNTED (BEAKER) (test code = 1351) WBC MORPHOLOGY (BEAKER) (test code = Normal 487) PLT MORPHOLOGY (BEAKER) (test code = Normal 486) RBC MORPHOLOGY (BEAKER) (test code = Normal 762) POCT-GLUCOSE [id number] 08:49:00 Test Item Value Reference Range Interpretation Comments POC-GLUCOSE METER 101 mg/dL 70-110 TESTED AT [facility] 6720 (BEAKER) (test code = IFEANYI [place] 1538) [address] BASIC METABOLIC [id number] 06:12:00 Test Item Value Reference Range Interpretation Comments SODIUM (BEAKER) 135 meq/L 136-145 L (test code = 381) POTASSIUM (BEAKER) 3.2 meq/L 3.5-5.1 L (test code = 379) CHLORIDE (BEAKER) 103 meq/L 98-107 (test code = 382) CO2 (BEAKER) (test 25 meq/L 22-29 code = 355) BLOOD UREA NITROGEN 8 mg/dL 7-21 (BEAKER) (test code = 354) CREATININE (BEAKER) 0.67 mg/dL 0.57-1.25 (test code = 358) GLUCOSE RANDOM 96 mg/dL 70-105 (BEAKER) (test code = 652) CALCIUM (BEAKER) 7.6 mg/dL 8.4-10.2 L (test code = 697) EGFR (BEAKER) (test mL/min/1.73 INSUFFIC IENT CLINICAL code = 1092) sq m DATA TO CALCULA TE ESTIMATED GFR. Specimen slightly [id number] 06:11:00 Test Item Value Reference Range Interpretation Comments PHOSPHORUS (BEAKER) (test code = 2.7 mg/dL 2.3-4.7 604) [id number] 06:11:00 Test Item Value Reference Range Interpretation Comments MAGNESIUM (BEAKER) (test code = 1.4 mg/dL 1.6-2.6 L 627) HEPATIC FUNCTION [id number] 06:11:00 Test Item Value Reference Range Interpretation Comments TOTAL PROTEIN (BEAKER) (test code = 5.7 gm/dL 6.0-8.3 L 770) ALBUMIN (BEAKER) (test code = 1145) 2.0 g/dL 3.5-5.0 L BILIRUBIN TOTAL (BEAKER) (test code 4.0 mg/dL 0.2-1.2 H = 377) BILIRUBIN DIRECT (AKER) (test 2.7 mg/dL 0.1-0.5 H code = 706) ALKALINE PHOSPHATASE (BEAKER) (test 293 U/L 40-150 H code = 346) AST (SGOT) (AKER) (test code = 52 U/L 5-34 H 353) ALT (SGPT) (AKER) (test code = 93 U/L 6-55 H 347) Specimen slightly [id number] 05:57:00 Test Item Value Reference Range Interpretation Comments PARTIAL THROMBOPLASTIN TIME 31.8 seconds 22.5-36.0 ([facility]) (test code = 760) PROTHROMBIN [id number] 05:56:00 Test Item Value Reference Range Interpretation Comments PROTIME ([facility]) (test code = 14.5 seconds 11.7-14.7 759) INR ([facility]) (test code = 370) 1.1 <=5.9 RECOMMENDED COUMADIN/WARFARIN INR THERAPY RANGESSTANDARD DOSE: 2.0 - 3.0 Includes: PROPHYLAXIS forvenous thrombosis, systemic embolization; TREATMENT for venous thrombosis and/or pulmonary embolus.HIGH RISK: Target INR is 2.5-3.5 for patients with mechanical heart valves.POCT-GLUCOSE [id number] 21:13:00 Test Item Value Reference Range Interpretation Comments POC-GLUCOSE METER 119 mg/dL 70-110 H TESTED AT [place] [address] ([facility]) (test code = [place] 1538) [address] [id number] 18:45:00 Test Item Value Reference Range Interpretation Comments PARTIAL THROMBOPLASTIN TIME 33.4 seconds 22.5-36.0 ([facility]) (test code = 760) Prior to initiating heparinPOCT-GLUCOSE [id number] 18:02:00 Test Item Value Reference Range Interpretation Comments POC-GLUCOSE METER 162 mg/dL 70-110 H TESTED AT [place] [id number] ([facility]) (test code = IF[place]ANYI [place] 1538) [address] HERPES VIRUS ANTIBODY, [id number] 17:40:00 Test Item Value Reference Range Interpretation Comments HERPES VIRUS IGM Negative HSV IgM TYP E 1= (BEAKER) (test code NEGATIVE HSV IgM TYPE 2= = 5120) NEGATIVESEE ATT ACHMENT POCT-GLUCOSE [id number] 11:31:00 Test Item Value Reference Range Interpretation Comments POC-GLUCOSE METER 174 mg/dL 70-110 H TESTED AT [facility] 6720 (BEAKER) (test code = [place] 1538) [address] CBC W/PLT COUNT & AUTO [id number] 10:01:00 Test Item Value Reference Range Interpretation Comments WHITE BLOOD CELL COUNT (BEAKER) 12.3 K/ L 4.0-10.0 H (test code = 775) RED BLOOD CELL COUNT (BEAKER) 3.09 M/ L 4.20-5.80 L (test code = 761) HEMOGLOBIN (BEAKER) (test code = 9.6 GM/DL 13.0-16.8 L 410) HEMATOCRIT (BEAKER) (test code = 28.6 % 40.0-50.0 L 411) MEAN CORPUSCULAR VOLUME (BEAKER) 92.6 fL 82.0-98.0 (test code = 753) MEAN CORPUSCULAR HEMOGLOBIN 31.0 pg 27.0-33.0 (BEAKER) (test code = 751) MEAN CORPUSCULAR HEMOGLOBIN CONC 33.5 GM/DL 32.0-36.0 (BEAKER) (test code = 752) RED CELL DISTRIBUTION WIDTH 19.9 % 10.3-14.2 H (BEAKER) (test code = 412) PLATELET COUNT (BEAKER) (test 163 K/CU MM 150-430 code = 756) MEAN PLATELET VOLUME (BEAKER) 8.1 fL 6.5-10.5 (test code = 754) NUCLEATED RED BLOOD CELLS 0 /100 WBC 0-0 (BEAKER) (test code = 413) NEUTROPHILS RELATIVE PERCENT 86 % (BEAKER) (test code = 429) LYMPHOCYTES RELATIVE PERCENT 10 % (BEAKER) (test code = 430) MONOCYTES RELATIVE PERCENT 3 % (BEAKER) (test code = 431) EOSINOPHILS RELATIVE PERCENT 1 % (BEAKER) (test code = 432) BASOPHILS RELATIVE PERCENT 0 % (BEAKER) (test code = 437) NEUTROPHILS ABSOLUTE COUNT 10.60 K/ L 1.80-8.00 H (BEAKER) (test code = 670) LYMPHOCYTES ABSOLUTE COUNT 1.23 K/ L 1.48-4.50 L (BEAKER) (test code = 414) MONOCYTES ABSOLUTE COUNT (BEAKER) 0.32 K/ L 0.00-1.30 (test code = 415) EOSINOPHILS ABSOLUTE COUNT 0.17 K/ L 0.00-0.50 (BEAKER) (test code = 416) BASOPHILS ABSOLUTE COUNT (BEAKER) 0.06 K/ L 0.00-0.20 (test code = 417) [id number](MANUAL DIFFERENTIAL)2016-12-04 10:01:00 Test Item Value Reference Range Interpretation Comments TOTAL COUNTED (BEAKER) (test code = 1351) WBC MORPHOLOGY (BEAKER) (test code = Normal 487) PLT MORPHOLOGY (BEAKER) (test code = Normal 486) RBC MORPHOLOGY (BEAKER) (test code = Normal 762) POCT-GLUCOSE [id number] 07:47:00 Test Item Value Reference Range Interpretation Comments POC-GLUCOSE METER 112 mg/dL 70-110 H TESTED AT [facility] 6720 (BEAKER) (test code = IFEANYI Green [facility] 1538) [id number] BASIC METABOLIC [id number] 05:07:00 Test Item Value Reference Range Interpretation Comments SODIUM (BEAKER) 135 meq/L 136-145 L (test code = 381) POTASSIUM (BEAKER) 4.4 meq/L 3.5-5.1 (test code = 379) CHLORIDE (BEAKER) 102 meq/L 98-107 (test code = 382) CO2 (BEAKER) (test 25 meq/L 22-29 code = 355) BLOOD UREA NITROGEN 10 mg/dL 7-21 (BEAKER) (test code = 354) CREATININE (BEAKER) 0.69 mg/dL 0.57-1.25 (test code = 358) GLUCOSE RANDOM 103 mg/dL 70-105 (BEAKER) (test code = 652) CALCIUM (BEAKER) 8.3 mg/dL 8.4-10.2 L (test code = 697) EGFR (BEAKER) (test mL/min/1.73 INSUFFIC IENT CLINICAL code = 1092) sq m DATA TO CALCULA TE ESTIMATED GFR. Specimen slightly [id number] 05:04:00 Test Item Value Reference Range Interpretation Comments PHOSPHORUS (BEAKER) (test code = 2.8 mg/dL 2.3-4.7 604) [id number] 05:04:00 Test Item Value Reference Range Interpretation Comments MAGNESIUM (BEAKER) (test code = 1.5 mg/dL 1.6-2.6 L 627) HEPATIC FUNCTION [id number] 05:04:00 Test Item Value Reference Range Interpretation Comments TOTAL PROTEIN (BEAKER) (test code = 6.3 gm/dL 6.0-8.3 770) ALBUMIN (BEAKER) (test code = 1145) 2.3 g/dL 3.5-5.0 L BILIRUBIN TOTAL (BEAKER) (test code 4.8 mg/dL 0.2-1.2 H = 377) BILIRUBIN DIRECT (BEAKER) (test 3.3 mg/dL 0.1-0.5 H code = 706) ALKALINE PHOSPHATASE (BEAKER) (test 388 U/L 40-150 H code = 346) AST (SGOT) (BEAKER) (test code = 64 U/L 5-34 H 353) ALT (SGPT) (BEAKER) (test code = 147 U/L 6-55 H 347) Specimen slightly ictericPROTHROMBIN [id number] 04:50:00 Test Item Value Reference Range Interpretation Comments PROTIME (BEAKER) (test code = 14.4 seconds 11.7-14.7 759) INR (BEAKER) (test code = 370) 1.1 <=5.9 RECOMMENDED COUMADIN/WARFARIN INR THERAPY RANGESSTANDARD DOSE: 2.0 - 3.0 Includes: PROPHYLAXIS forvenous thrombosis, systemic embolization; TREATMENT for venous thrombosis and/or pulmonary embolus.HIGH RISK: Target INR is 2.5-3.5 for patients with mechanical heart valves.BLOOD [id number] 23:00:00 Test Item Value Reference Range Interpretation Comments CULTURE (BEAKER) (test No growth in 5 days code = 1095) BLOOD [id number] 23:00:00 Test Item Value Reference Range Interpretation Comments CULTURE (BEAKER) (test No growth in 5 days code = 1095) POCT-GLUCOSE [id number] 21:40:00 Test Item Value Reference Range Interpretation Comments POC-GLUCOSE METER 124 mg/dL 70-110 H TESTED AT [place] [address] [facility] (test code = IFEANYI Green [facility] 1538) [id number] POCT-GLUCOSE [id number] 17:32:00 Test Item Value Reference Range Interpretation Comments POC-GLUCOSE METER 116 mg/dL 70-110 H TESTED AT [place] [address] ([facility] (test code = IFEANYI Green [facility] 1538) [id number] POCT-GLUCOSE [id number] 11:47:00 Test Item Value Reference Range Interpretation Comments POC-GLUCOSE METER 183 mg/dL 70-110 H TESTED AT [place] [address] ([facility]) (test code = [facility] Norma [facility] 1538) [id number] POCT-GLUCOSE [id number] 07:31:00 Test Item Value Reference Range Interpretation Comments POC-GLUCOSE METER 119 mg/dL 70-110 H TESTED AT [place] [address] ([facility]) (test code = [facility] 1538) [address] CBC W/PLT COUNT & AUTO [id number] 04:31:00 Test Item Value Reference Range Interpretation Comments WHITE BLOOD CELL COUNT (BEAKER) 14.5 K/ L 4.0-10.0 H (test code = 775) RED BLOOD CELL COUNT (BEAKER) 2.91 M/ L 4.20-5.80 L (test code = 761) HEMOGLOBIN (BEAKER) (test code = 8.7 GM/DL 13.0-16.8 L 410) HEMATOCRIT (BEAKER) (test code = 26.9 % 40.0-50.0 L 411) MEAN CORPUSCULAR VOLUME (BEAKER) 92.3 fL 82.0-98.0 (test code = 753) MEAN CORPUSCULAR HEMOGLOBIN 29.9 pg 27.0-33.0 (BEAKER) (test code = 751) MEAN CORPUSCULAR HEMOGLOBIN CONC 32.4 GM/DL 32.0-36.0 (BEAKER) (test code = 752) RED CELL DISTRIBUTION WIDTH 19.0 % 10.3-14.2 H (BEAKER) (test code = 412) PLATELET COUNT (BEAKER) (test 130 K/CU MM 150-430 L code = 756) MEAN PLATELET VOLUME (BEAKER) 8.6 fL 6.5-10.5 (test code = 754) NUCLEATED RED BLOOD CELLS 0 /100 WBC 0-0 (BEAKER) (test code = 413) NEUTROPHILS RELATIVE PERCENT 85 % (BEAKER) (test code = 429) LYMPHOCYTES RELATIVE PERCENT 9 % (BEAKER) (test code = 430) MONOCYTES RELATIVE PERCENT 4 % (BEAKER) (test code = 431) EOSINOPHILS RELATIVE PERCENT 2 % (BEAKER) (test code = 432) BASOPHILS RELATIVE PERCENT 1 % (BEAKER) (test code = 437) NEUTROPHILS ABSOLUTE COUNT 12.30 K/ L 1.80-8.00 H (BEAKER) (test code = 670) LYMPHOCYTES ABSOLUTE COUNT 1.33 K/ L 1.48-4.50 L (BEAKER) (test code = 414) MONOCYTES ABSOLUTE COUNT (BEAKER) 0.51 K/ L 0.00-1.30 (test code = 415) EOSINOPHILS ABSOLUTE COUNT 0.27 K/ L 0.00-0.50 (BEAKER) (test code = 416) BASOPHILS ABSOLUTE COUNT (BEAKER) 0.09 K/ L 0.00-0.20 (test code = 417) 0.000.590.730.000.880.000.000.000.00BASIC METABOLIC [id number] 04:28:00 Test Item Value Reference Range Interpretation Comments SODIUM (BEAKER) 135 meq/L 136-145 L (test code = 381) POTASSIUM (BEAKER) 3.1 meq/L 3.5-5.1 L (test code = 379) CHLORIDE (BEAKER) 102 meq/L 98-107 (test code = 382) CO2 (BEAKER) (test 25 meq/L 22-29 code = 355) BLOOD UREA NITROGEN 11 mg/dL 7-21 (BEAKER) (test code = 354) CREATININE (BEAKER) 0.68 mg/dL 0.57-1.25 (test code = 358) GLUCOSE RANDOM 114 mg/dL 70-105 H (BEAKER) (test code = 652) CALCIUM (BEAKER) 7.7 mg/dL 8.4-10.2 L (test code = 697) EGFR (BEAKER) (test mL/min/1.73 INSUFFIC IENT CLINICAL code = 1092) sq m DATA TO CALCULA TE ESTIMATED GFR. Specimen moderately [id number] 04:27:00 Test Item Value Reference Range Interpretation Comments PHOSPHORUS (BEAKER) (test code = 2.9 mg/dL 2.3-4.7 604) [id number] 04:27:00 Test Item Value Reference Range Interpretation Comments MAGNESIUM (BEAKER) (test code = 1.2 mg/dL 1.6-2.6 L 627) HEPATIC FUNCTION [id number] 04:27:00 Test Item Value Reference Range Interpretation Comments TOTAL PROTEIN (BEAKER) (test code = 5.3 gm/dL 6.0-8.3 L 770) ALBUMIN (BEAKER) (test code = 1145) 2.1 g/dL 3.5-5.0 L BILIRUBIN TOTAL (BEAKER) (test code 5.1 mg/dL 0.2-1.2 H = 377) BILIRUBIN DIRECT (BEAKER) (test 3.6 mg/dL 0.1-0.5 H code = 706) ALKALINE PHOSPHATASE (BEAKER) (test 357 U/L 40-150 H code = 346) AST (SGOT) (BEAKER) (test code = 71 U/L 5-34 H 353) ALT (SGPT) (BEAKER) (test code = 182 U/L 6-55 H 347) Specimen moderately ictericPROTHROMBIN [id number] 04:25:00 Test Item Value Reference Range Interpretation Comments PROTIME (BEAKER) (test code = 15.4 seconds 11.7-14.7 H 759) INR (BEAKER) (test code = 370) 1.2 <=5.9 RECOMMENDED COUMADIN/WARFARIN INR THERAPY RANGESSTANDARD DOSE: 2.0 - 3.0 Includes: PROPHYLAXIS forvenous thrombosis, systemic embolization; TREATMENT for venous thrombosis and/or pulmonary embolus.HIGH RISK: Target INR is 2.5-3.5 for patients with mechanical heart valves.POCT-GLUCOSE [id number] 21:25:00 Test Item Value Reference Range Interpretation Comments POC-GLUCOSE METER 120 mg/dL 70-110 H TESTED AT [facility] 67[address] ([facility]) (test code = IFEANYI [place] 1538) [address] POCT-GLUCOSE [id number] 17:41:00 Test Item Value Reference Range Interpretation Comments POC-GLUCOSE METER 99 mg/dL 70-110 TESTED AT [place] [address] (BEAKER) (test code = IFEANYI [place] [facility] [address] 1538) POCT-GLUCOSE [id number] 11:57:00 Test Item Value Reference Range Interpretation Comments POC-GLUCOSE METER 186 mg/dL 70-110 H TESTED AT [facility] 67[address] (BEAKER) (test code = IFEANYI [place] [facility] 1538) [address] CBC W/PLT COUNT & AUTO [id number] 10:46:00 Test Item Value Reference Range Interpretation Comments WHITE BLOOD CELL COUNT (BEAKER) 17.4 K/ L 4.0-10.0 H (test code = 775) RED BLOOD CELL COUNT (BEAKER) 2.98 M/ L 4.20-5.80 L (test code = 761) HEMOGLOBIN (BEAKER) (test code = 9.0 GM/DL 13.0-16.8 L 410) HEMATOCRIT (BEAKER) (test code = 27.5 % 40.0-50.0 L 411) MEAN CORPUSCULAR VOLUME (BEAKER) 92.3 fL 82.0-98.0 (test code = 753) MEAN CORPUSCULAR HEMOGLOBIN 30.3 pg 27.0-33.0 (BEAKER) (test code = 751) MEAN CORPUSCULAR HEMOGLOBIN CONC 32.8 GM/DL 32.0-36.0 (BEAKER) (test code = 752) RED CELL DISTRIBUTION WIDTH 19.2 % 10.3-14.2 H (BEAKER) (test code = 412) PLATELET COUNT (BEAKER) (test 123 K/CU MM 150-430 L code = 756) MEAN PLATELET VOLUME (BEAKER) 9.2 fL 6.5-10.5 (test code = 754) NUCLEATED RED BLOOD CELLS 0 /100 WBC 0-0 (BEAKER) (test code = 413) NEUTROPHILS RELATIVE PERCENT 87 % (BEAKER) (test code = 429) LYMPHOCYTES RELATIVE PERCENT 7 % (BEAKER) (test code = 430) MONOCYTES RELATIVE PERCENT 4 % (BEAKER) (test code = 431) EOSINOPHILS RELATIVE PERCENT 2 % (BEAKER) (test code = 432) BASOPHILS RELATIVE PERCENT 0 % (BEAKER) (test code = 437) NEUTROPHILS ABSOLUTE COUNT 15.10 K/ L 1.80-8.00 H (BEAKER) (test code = 670) LYMPHOCYTES ABSOLUTE COUNT 1.22 K/ L 1.48-4.50 L (BEAKER) (test code = 414) MONOCYTES ABSOLUTE COUNT (BEAKER) 0.67 K/ L 0.00-1.30 (test code = 415) EOSINOPHILS ABSOLUTE COUNT 0.28 K/ L 0.00-0.50 (BEAKER) (test code = 416) BASOPHILS ABSOLUTE COUNT (BEAKER) 0.06 K/ L 0.00-0.20 (test code = 417) 0.000.680.000.000.900.000.000.000.00(MANUAL DIFFERENTIAL)2016-12-02 10:46:00 Test Item Value Reference Range Interpretation Comments TOTAL COUNTED (BEAKER) (test code = 1351) POCT-GLUCOSE [id number] 07:35:00 Test Item Value Reference Range Interpretation Comments POC-GLUCOSE METER 121 mg/dL 70-110 H TESTED AT [facility] 6720 (BEAKER) (test code = IFEANYI [place] 1538) [id number] BASIC METABOLIC [id number] 06:26:00 Test Item Value Reference Range Interpretation Comments SODIUM (BEAKER) 134 meq/L 136-145 L (test code = 381) POTASSIUM (BEAKER) 3.3 meq/L 3.5-5.1 L (test code = 379) CHLORIDE (BEAKER) 104 meq/L 98-107 (test code = 382) CO2 (BEAKER) (test 23 meq/L 22-29 code = 355) BLOOD UREA NITROGEN 15 mg/dL 7-21 (BEAKER) (test code = 354) CREATININE (BEAKER) 0.75 mg/dL 0.57-1.25 (test code = 358) GLUCOSE RANDOM 119 mg/dL 70-105 H (BEAKER) (test code = 652) CALCIUM (BEAKER) 7.7 mg/dL 8.4-10.2 L (test code = 697) EGFR (BEAKER) (test mL/min/1.73 INSUFFIC IENT CLINICAL code = 1092) sq m DATA TO CALCULA TE ESTIMATED GFR. Specimen moderately [id number] 06:24:00 Test Item Value Reference Range Interpretation Comments PHOSPHORUS (BEAKER) (test code = 2.8 mg/dL 2.3-4.7 604) [id number] 06:24:00 Test Item Value Reference Range Interpretation Comments MAGNESIUM (BEAKER) (test code = 1.3 mg/dL 1.6-2.6 L 627) HEPATIC FUNCTION [id number] 06:24:00 Test Item Value Reference Range Interpretation Comments TOTAL PROTEIN (BEAKER) (test code = 5.1 gm/dL 6.0-8.3 L 770) ALBUMIN (BEAKER) (test code = 1145) 2.0 g/dL 3.5-5.0 L BILIRUBIN TOTAL (BEAKER) (test code 5.6 mg/dL 0.2-1.2 H = 377) BILIRUBIN DIRECT (BEAKER) (test 4.2 mg/dL 0.1-0.5 H code = 706) ALKALINE PHOSPHATASE (BEAKER) (test 334 U/L 40-150 H code = 346) AST (SGOT) (BEAKER) (test code = 102 U/L 5-34 H 353) ALT (SGPT) (BEAKER) (test code = 261 U/L 6-55 H 347) Specimen moderately ictericPROTHROMBIN [id number] 06:11:00 Test Item Value Reference Range Interpretation Comments PROTIME (BEAKER) (test code = 16.4 seconds 11.7-14.7 H 759) INR (BEAKER) (test code = 370) 1.3 <=5.9 RECOMMENDED COUMADIN/WARFARIN INR THERAPY RANGESSTANDARD DOSE: 2.0 - 3.0 Includes: PROPHYLAXIS forvenous thrombosis, systemic embolization; TREATMENT for venous thrombosis and/or pulmonary embolus.HIGH RISK: Target INR is 2.5-3.5 for patients with mechanical heart valves.POCT-GLUCOSE [id number] 21:43:00 Test Item Value Reference Range Interpretation Comments POC-GLUCOSE METER 118 mg/dL 70-110 H TESTED AT [facility] 6720 ([employer]) (test code = IFEANYI [place] 1538) [address] POCT-GLUCOSE [id number] 18:18:00 Test Item Value Reference Range Interpretation Comments POC-GLUCOSE METER 154 mg/dL 70-110 H TESTED AT [facility] 6720 (BEAKER) (test code = IFEANYI [place] 1538) [address] POCT-GLUCOSE [id number] 11:55:00 Test Item Value Reference Range Interpretation Comments POC-GLUCOSE METER 109 mg/dL 70-110 TESTED AT [facility] 67[address] ([facility]) (test code = IFEANYI [place] 1538) [address] CLOSTRIDIUM DIFFICILE TOXIN [id number] 11:17:00 Test Item Value Reference Range Interpretation Comments CLOSTRIDIUM DIFFICILE TOXIN, PCR Not Detected Not Detected (BEAKER) (test code = 1525) This qualitative real-time polymerase chain reaction assay detects the tcdB gene, encoded on the C.difficile pathogenicity locus (PaLoc). The product of tcdB, toxin B, is a cytotoxin essential for causing C.difficile-associated disease (CDAD) and is found in virtually all toxigenic [...] is not recommended.CBC W/PLT COUNT & AUTO [id number] 11:15:00 Test Item Value Reference Range Interpretation Comments WHITE BLOOD CELL COUNT (BEAKER) 17.2 K/ L 4.0-10.0 H (test code = 775) RED BLOOD CELL COUNT (BEAKER) 2.70 M/ L 4.20-5.80 L (test code = 761) HEMOGLOBIN (BEAKER) (test code = 8.3 GM/DL 13.0-16.8 L 410) HEMATOCRIT (BEAKER) (test code = 24.5 % 40.0-50.0 L 411) MEAN CORPUSCULAR VOLUME (BEAKER) 90.7 fL 82.0-98.0 (test code = 753) MEAN CORPUSCULAR HEMOGLOBIN 30.7 pg 27.0-33.0 (BEAKER) (test code = 751) MEAN CORPUSCULAR HEMOGLOBIN CONC 33.9 GM/DL 32.0-36.0 (BEAKER) (test code = 752) RED CELL DISTRIBUTION WIDTH 19.3 % 10.3-14.2 H (BEAKER) (test code = 412) PLATELET COUNT (BEAKER) (test 137 K/CU MM 150-430 L code = 756) MEAN PLATELET VOLUME (BEAKER) 8.7 fL 6.5-10.5 (test code = 754) NUCLEATED RED BLOOD CELLS 0 /100 WBC 0-0 (BEAKER) (test code = 413) NEUTROPHILS RELATIVE PERCENT 90 % (BEAKER) (test code = 429) LYMPHOCYTES RELATIVE PERCENT 6 % (BEAKER) (test code = 430) MONOCYTES RELATIVE PERCENT 2 % (BEAKER) (test code = 431) EOSINOPHILS RELATIVE PERCENT 1 % (BEAKER) (test code = 432) BASOPHILS RELATIVE PERCENT 0 % (BEAKER) (test code = 437) NEUTROPHILS ABSOLUTE COUNT 15.60 K/ L 1.80-8.00 H (BEAKER) (test code = 670) LYMPHOCYTES ABSOLUTE COUNT 0.96 K/ L 1.48-4.50 L (BEAKER) (test code = 414) MONOCYTES ABSOLUTE COUNT (BEAKER) 0.43 K/ L 0.00-1.30 (test code = 415) EOSINOPHILS ABSOLUTE COUNT 0.24 K/ L 0.00-0.50 (BEAKER) (test code = 416) BASOPHILS ABSOLUTE COUNT (BEAKER) 0.06 K/ L 0.00-0.20 (test code = 417) 0.000.730.000.000.900.000.000.000.00(MANUAL DIFFERENTIAL)2016-12-01 11:15:00 Test Item Value Reference Range Interpretation Comments TOTAL COUNTED (BEAKER) (test code = 1351) WBC MORPHOLOGY (BEAKER) (test code = Normal 487) PLT MORPHOLOGY (BEAKER) (test code = Normal 486) ANISOCYTOSIS (BEAKER) (test code = 1+ few 961) BASIC METABOLIC [id number] 06:36:00 Test Item Value Reference Range Interpretation Comments SODIUM (BEAKER) 135 meq/L 136-145 L (test code = 381) POTASSIUM (BEAKER) 3.5 meq/L 3.5-5.1 (test code = 379) CHLORIDE (BEAKER) 107 meq/L 98-107 (test code = 382) CO2 (BEAKER) (test 20 meq/L 22-29 L code = 355) BLOOD UREA NITROGEN 23 mg/dL 7-21 H (BEAKER) (test code = 354) CREATININE (BEAKER) 0.82 mg/dL 0.57-1.25 (test code = 358) GLUCOSE RANDOM 108 mg/dL 70-105 H (BEAKER) (test code = 652) CALCIUM (BEAKER) 7.9 mg/dL 8.4-10.2 L (test code = 697) EGFR (BEAKER) (test mL/min/1.73 INSUFFIC IENT CLINICAL code = 1092) sq m DATA TO CALCULA TE ESTIMATED GFR. Specimen moderately [id number] 06:32:00 Test Item Value Reference Range Interpretation Comments PHOSPHORUS (BEAKER) (test code = 2.8 mg/dL 2.3-4.7 604) [id number] 06:32:00 Test Item Value Reference Range Interpretation Comments MAGNESIUM (BEAKER) (test code = 1.4 mg/dL 1.6-2.6 L 627) HEPATIC FUNCTION [id number] 06:32:00 Test Item Value Reference Range Interpretation Comments TOTAL PROTEIN (BEAKER) (test code = 5.1 gm/dL 6.0-8.3 L 770) ALBUMIN (BEAKER) (test code = 1145) 2.0 g/dL 3.5-5.0 L BILIRUBIN TOTAL (BEAKER) (test code 5.8 mg/dL 0.2-1.2 H = 377) BILIRUBIN DIRECT (BEAKER) (test 4.3 mg/dL 0.1-0.5 H code = 706) ALKALINE PHOSPHATASE (BEAKER) (test 266 U/L 40-150 H code = 346) AST (SGOT) (BEAKER) (test code = 284 U/L 5-34 H 353) ALT (SGPT) (BEAKER) (test code = 433 U/L 6-55 H 347) Specimen moderately ictericPROTHROMBIN [id number] 06:18:00 Test Item Value Reference Range Interpretation Comments PROTIME (BEAKER) (test code = 15.7 seconds 11.7-14.7 H 759) INR (BEAKER) (test code = 370) 1.3 <=5.9 RECOMMENDED COUMADIN/WARFARIN INR THERAPY RANGESSTANDARD DOSE: 2.0 - 3.0 Includes: PROPHYLAXIS forvenous thrombosis, systemic embolization; TREATMENT for venous thrombosis and/or pulmonary embolus.HIGH RISK: Target INR is 2.5-3.5 for patients with mechanical heart valves.POCT-GLUCOSE [id number] 06:12:00 Test Item Value Reference Range Interpretation Comments POC-GLUCOSE METER 112 mg/dL 70-110 H TESTED AT [place] [address] ([facility]) (test code = [facility] 1538) [id number] POCT-GLUCOSE [id number] 23:29:00 Test Item Value Reference Range Interpretation Comments POC-GLUCOSE METER 109 mg/dL 70-110 TESTED AT [place] [address] ([facility]) (test code = [facility] 1538) [address] POCT-GLUCOSE [id number] 18:53:00 Test Item Value Reference Range Interpretation Comments POC-GLUCOSE METER 137 mg/dL 70-110 H TESTED AT [place] [address] ([facility]) (test code = [facility] 1538) [address] URINE [id number] 12:59:00 Test Item Value Reference Range Interpretation Comments CULTURE ([facility]) (test code = 1095) No growth POCT-GLUCOSE [id number] 12:16:00 Test Item Value Reference Range Interpretation Comments POC-GLUCOSE METER 143 mg/dL 70-110 H TESTED AT [place] [address] ([facility]) (test code = [facility] 1538) [address] [id number] 11:08:00 Test Item Value Reference Range Interpretation Comments POTASSIUM ([facility]) (test code = 3.3 meq/L 3.5-5.1 L 379) CBC W/PLT COUNT & AUTO [id number] 08:20:00 Test Item Value Reference Range Interpretation Comments WHITE BLOOD CELL COUNT ([facility]) 23.8 K/ L 4.0-10.0 H (test code = 775) RED BLOOD CELL COUNT (AKER) 2.42 M/ L 4.20-5.80 L (test code = 761) HEMOGLOBIN (BEAKER) (test code = 7.6 GM/DL 13.0-16.8 L 410) HEMATOCRIT ([facility]) (test code = 22.0 % 40.0-50.0 L 411) MEAN CORPUSCULAR VOLUME (AKER) 90.8 fL 82.0-98.0 (test code = 753) MEAN CORPUSCULAR HEMOGLOBIN 31.3 pg 27.0-33.0 (BEAKER) (test code = 751) MEAN CORPUSCULAR HEMOGLOBIN CONC 34.5 GM/DL 32.0-36.0 (BEAKER) (test code = 752) RED CELL DISTRIBUTION WIDTH 19.4 % 10.3-14.2 H (BEAKER) (test code = 412) PLATELET COUNT (BEAKER) (test 146 K/CU MM 150-430 L code = 756) MEAN PLATELET VOLUME (BEAKER) 8.6 fL 6.5-10.5 (test code = 754) NUCLEATED RED BLOOD CELLS 0 /100 WBC 0-0 (BEAKER) (test code = 413) 0.000.890.000.000.900.000.000.000.00(MANUAL DIFFERENTIAL)2016-11-30 08:20:00 Test Item Value Reference Range Interpretation Comments NEUTROPHILS - REL (DIFF) (BEAKER) 73 % (test code = 1359) MONOCYTES - REL (DIFF) (BEAKER) 2 % (test code = 1361) EOSINOPHILS - REL (DIFF) (BEAKER) 1 % (test code = 1362) BANDS - REL (DIFF) (BEAKER) (test 24 % 0-10 H code = 1348) NEUTROPHILS - ABS (DIFF) (BEAKER) 17.37 K/ L 1.80-8.00 H (test code = 1365) MONOCYTES - ABS (DIFF) (BEAKER) 0.48 K/ L 0.00-1.30 (test code = 1367) EOSINOPHILS - ABS (DIFF) (BEAKER) 0.24 K/ L 0.00-0.50 (test code = 1368) BANDS-ABS (DIFF) (BEAKER) (test 5.7 K/ L 0.0-0.8 H code = 1349) TOTAL COUNTED (BEAKER) (test code 100 = 1351) BANDS + SEGMENTED NEUTROPHILS 23.09 (BEAKER) (test code = 1352) WBC MORPHOLOGY (BEAKER) (test code Normal = 487) PLT MORPHOLOGY (BEAKER) (test code Normal = 486) ANISOCYTOSIS (BEAKER) (test code = 1+ few 961) OVALOCYTES (BEAKER) (test code = 1+ few 477) POCT-GLUCOSE [id number] 06:26:00 Test Item Value Reference Range Interpretation Comments POC-GLUCOSE METER 108 mg/dL 70-110 TESTED AT [facility] 6720 (BEAKER) (test code = IFEANYI [place] 1538) [address] BASIC METABOLIC [id number] 04:54:00 Test Item Value Reference Range Interpretation Comments SODIUM (BEAKER) 138 meq/L 136-145 (test code = 381) POTASSIUM (BEAKER) 2.9 meq/L 3.5-5.1 L (test code = 379) CHLORIDE (BEAKER) 109 meq/L 98-107 H (test code = 382) CO2 (BEAKER) (test 19 meq/L 22-29 L code = 355) BLOOD UREA NITROGEN 35 mg/dL 7-21 H (BEAKER) (test code = 354) CREATININE (BEAKER) 1.40 mg/dL 0.57-1.25 H (test code = 358) GLUCOSE RANDOM 104 mg/dL 70-105 (BEAKER) (test code = 652) CALCIUM (BEAKER) 7.9 mg/dL 8.4-10.2 L (test code = 697) EGFR (BEAKER) (test mL/min/1.73 INSUFFIC IENT CLINICAL code = 1092) sq m DATA TO CALCULA TE ESTIMATED GFR. Specimen moderately [id number] 04:52:00 Test Item Value Reference Range Interpretation Comments PHOSPHORUS (BEAKER) (test code = 4.0 mg/dL 2.3-4.7 604) [id number] 04:52:00 Test Item Value Reference Range Interpretation Comments MAGNESIUM (BEAKER) (test code = 1.9 mg/dL 1.6-2.6 627) HEPATIC FUNCTION [id number] 04:52:00 Test Item Value Reference Range Interpretation Comments TOTAL PROTEIN (BEAKER) (test code = 5.1 gm/dL 6.0-8.3 L 770) ALBUMIN (BEAKER) (test code = 1145) 2.2 g/dL 3.5-5.0 L BILIRUBIN TOTAL (BEAKER) (test code 5.6 mg/dL 0.2-1.2 H = 377) BILIRUBIN DIRECT (BEAKER) (test 4.4 mg/dL 0.1-0.5 H code = 706) ALKALINE PHOSPHATASE ([facility]) (test 218 U/L 40-150 H code = 346) AST (SGOT) ([facility]) (test code = 1321 U/L 5-34 H 353) ALT (SGPT) ([facility]) (test code = 787 U/L 6-55 H 347) Specimen moderately ictericPROTHROMBIN [id number] 04:29:00 Test Item Value Reference Range Interpretation Comments PROTIME ([facility]) (test code = 17.0 seconds 11.7-14.7 H 759) INR ([facility]) (test code = 370) 1.4 <=5.9 RECOMMENDED COUMADIN/WARFARIN INR THERAPY RANGESSTANDARD DOSE: 2.0 - 3.0 Includes: PROPHYLAXIS forvenous thrombosis, systemic embolization; TREATMENT for venous thrombosis and/or pulmonary embolus.HIGH RISK: Target INR is 2.5-3.5 for patients with mechanical heart valves.POCT-GLUCOSE [id number] 00:15:00 Test Item Value Reference Range Interpretation Comments POC-GLUCOSE METER 118 mg/dL 70-110 H TESTED AT [place] [address] ([facility]) (test code = [place] [facility] 1538) [address] POCT-GLUCOSE [id number] 17:15:00 Test Item Value Reference Range Interpretation Comments POC-GLUCOSE METER 117 mg/dL 70-110 H TESTED AT [place] [address] ([facility]) (test code = IFEANYI [place] [facility] 1538) [address] POCT-GLUCOSE [id number] 11:22:00 Test Item Value Reference Range Interpretation Comments POC-GLUCOSE METER 83 mg/dL 70-110 TESTED AT [place] [address] ([facility]) (test code = IFEANYI [place] [facility] [address] 1538) LACTIC ACID, ARTERIAL, WHOLE [id number] 09:58:00 Test Item Value Reference Range Interpretation Comments LACTATE BLOOD ARTERIAL (2) 3.1 mmol/L 0.5-2.2 H ([facility]) (test code = 2874) Effective 02/06/2016: Units/Reference Range ChangeNew: 0.5-2.2 mmol/L Previous: 5-20 mg/dLSpecimen moderately ictericBLOOD GAS, [id number] 09:33:00 Test Item Value Reference Range Interpretation Comments PH ARTERIAL (BEAKER) (test code = 7.44 7.35-7.45 383) PCO2 ARTERIAL (BEAKER) (test code 27 mmHg 35-45 L = 384) PO2 ARTERIAL (BEAKER) (test code 116 mmHg 80-90 H = 385) O2 SATURATION ARTERIAL (BEAKER) 98.5 % 96.0-97.0 H (test code = 386) HCO3 ARTERIAL (BEAKER) (test code 18 mmol/L 21-29 L = 388) BASE EXCESS ARTERIAL (BEAKER) -5.9 mmol/L -2.0-3.0 L (test code = 387) PATIENT TEMPERATURE (BEAKER) 36.5 C (test code = 1818) FIO2 (BEAKER) (test code = 1819) 21.0 % CBC W/PLT COUNT & AUTO [id number] 08:54:00 Test Item Value Reference Range Interpretation Comments WHITE BLOOD CELL COUNT (BEAKER) 41.4 K/ L 4.0-10.0 H (test code = 775) RED BLOOD CELL COUNT (BEAKER) 2.43 M/ L 4.20-5.80 L (test code = 761) HEMOGLOBIN (BEAKER) (test code = 7.5 GM/DL 13.0-16.8 L 410) HEMATOCRIT (BEAKER) (test code = 22.3 % 40.0-50.0 L 411) MEAN CORPUSCULAR VOLUME (BEAKER) 91.7 fL 82.0-98.0 (test code = 753) MEAN CORPUSCULAR HEMOGLOBIN 30.9 pg 27.0-33.0 (BEAKER) (test code = 751) MEAN CORPUSCULAR HEMOGLOBIN CONC 33.7 GM/DL 32.0-36.0 (BEAKER) (test code = 752) RED CELL DISTRIBUTION WIDTH 19.4 % 10.3-14.2 H (BEAKER) (test code = 412) PLATELET COUNT (BEAKER) (test 146 K/CU MM 150-430 L code = 756) MEAN PLATELET VOLUME (BEAKER) 8.0 fL 6.5-10.5 (test code = 754) NUCLEATED RED BLOOD CELLS 0 /100 WBC 0-0 (BEAKER) (test code = 413) NEUTROPHILS RELATIVE PERCENT 95 % (BEAKER) (test code = 429) LYMPHOCYTES RELATIVE PERCENT 2 % (BEAKER) (test code = 430) MONOCYTES RELATIVE PERCENT 3 % (BEAKER) (test code = 431) EOSINOPHILS RELATIVE PERCENT 0 % (BEAKER) (test code = 432) BASOPHILS RELATIVE PERCENT 0 % (BEAKER) (test code = 437) NEUTROPHILS ABSOLUTE COUNT 39.20 K/ L 1.80-8.00 H (BEAKER) (test code = 670) LYMPHOCYTES ABSOLUTE COUNT 0.93 K/ L 1.48-4.50 L (BEAKER) (test code = 414) MONOCYTES ABSOLUTE COUNT (BEAKER) 1.11 K/ L 0.00-1.30 (test code = 415) EOSINOPHILS ABSOLUTE COUNT 0.06 K/ L 0.00-0.50 (BEAKER) (test code = 416) BASOPHILS ABSOLUTE COUNT (BEAKER) 0.07 K/ L 0.00-0.20 (test code = 417) 0.000.900.000.000.900.000.000.000.00(MANUAL DIFFERENTIAL)2016-11-29 08:54:00 Test Item Value Reference Range Interpretation Comments NEUTROPHILS - REL (DIFF) (BEAKER) 45 % (test code = 1359) MONOCYTES - REL (DIFF) (BEAKER) 1 % (test code = 1361) METAMYELOCYTES-REL (DIFF) 1 % 0-0 H (BEAKER) (test code = 258) BANDS - REL (DIFF) (BEAKER) (test 53 % 0-10 H code = 1348) NEUTROPHILS - ABS (DIFF) (BEAKER) 18.63 K/ L 1.80-8.00 H (test code = 1365) MONOCYTES - ABS (DIFF) (BEAKER) 0.41 K/ L 0.00-1.30 (test code = 1367) METAMYELOCTYES - ABS (DIFF) 0.41 K/ L 0.00-0.00 H (BEAKER) (test code = 261) BANDS-ABS (DIFF) (BEAKER) (test 21.9 K/ L 0.0-0.8 H code = 1349) TOTAL COUNTED (BEAKER) (test code 100 = 1351) BANDS + SEGMENTED NEUTROPHILS 40.57 (BEAKER) (test code = 1352) WBC MORPHOLOGY (BEAKER) (test Normal code = 487) PLT MORPHOLOGY (BEAKER) (test Normal code = 486) SCHISTOCYTES (BEAKER) (test code 1+ few = 765) ACANTHOCYTES (BEAKER) (test code 1+ few = 471) ANISOCYTOSIS (BEAKER) (test code 2+ moderate = 961) SHEREE CELLS (BEAKER) (test code = 1+ few 474) HYPOCHROMIA (BEAKER) (test code = 2+ moderate 963) MACROCYTES (BEAKER) (test code = 2+ moderate 964) MICROCYTES (BEAKER) (test code = 1+ few 965) OVALOCYTES (BEAKER) (test code = 1+ few 477) POIKILOCYTES (BEAKER) (test code 1+ few = 966) BASIC METABOLIC [id number] 03:04:00 Test Item Value Reference Range Interpretation Comments SODIUM (BEAKER) 137 meq/L 136-145 (test code = 381) POTASSIUM (BEAKER) 4.2 meq/L 3.5-5.1 (test code = 379) CHLORIDE (BEAKER) 108 meq/L 98-107 H (test code = 382) CO2 (BEAKER) (test 14 meq/L 22-29 L code = 355) BLOOD UREA NITROGEN 29 mg/dL 7-21 H (BEAKER) (test code = 354) CREATININE (BEAKER) 1.86 mg/dL 0.57-1.25 H (test code = 358) GLUCOSE RANDOM 72 mg/dL 70-105 (BEAKER) (test code = 652) CALCIUM (BEAKER) 8.0 mg/dL 8.4-10.2 L (test code = 697) EGFR (BEAKER) (test mL/min/1.73 INSUFFIC IENT CLINICAL code = 1092) sq m DATA TO CALCULA TE ESTIMATED GFR. Specimen moderately [id number] 02:59:00 Test Item Value Reference Range Interpretation Comments PHOSPHORUS (BEAKER) (test code = 6.2 mg/dL 2.3-4.7 H 604) [id number] 02:59:00 Test Item Value Reference Range Interpretation Comments MAGNESIUM (BEAKER) (test code = 2.1 mg/dL 1.6-2.6 627) HEPATIC FUNCTION [id number] 02:59:00 Test Item Value Reference Range Interpretation Comments TOTAL PROTEIN (BEAKER) (test code = 5.4 gm/dL 6.0-8.3 L 770) ALBUMIN (BEAKER) (test code = 1145) 2.5 g/dL 3.5-5.0 L BILIRUBIN TOTAL (BEAKER) (test code 6.3 mg/dL 0.2-1.2 H = 377) BILIRUBIN DIRECT (BEAKER) (test 4.8 mg/dL 0.1-0.5 H code = 706) ALKALINE PHOSPHATASE (BEAKER) (test 201 U/L 40-150 H code = 346) AST (SGOT) (BEAKER) (test code = 2259 U/L 5-34 H 353) ALT (SGPT) (BEAKER) (test code = 702 U/L 6-55 H 347) Specimen moderately ictericPROTHROMBIN TIME/[id number] 02:48:00 Test Item Value Reference Range Interpretation Comments PROTIME (BEAKER) (test code = 19.4 seconds 11.7-14.7 H 759) INR (BEAKER) (test code = 370) 1.6 <=5.9 RECOMMENDED COUMADIN/WARFARIN INR THERAPY RANGESSTANDARD DOSE: 2.0 - 3.0 Includes: PROPHYLAXIS forvenous thrombosis, systemic embolization; TREATMENT for venous thrombosis and/or pulmonary embolus.HIGH RISK: Target INR is 2.5-3.5 for patients with mechanical heart valves.CBC W/PLT COUNT & AUTO DIFFERENTIAL 2016-11-28 19:00:00 Test Item Value Reference Range Interpretation Comments WHITE BLOOD CELL COUNT (BEAKER) 38.5 K/ L 4.0-10.0 H (test code = 775) RED BLOOD CELL COUNT (BEAKER) 2.54 M/ L 4.20-5.80 L (test code = 761) HEMOGLOBIN (BEAKER) (test code = 7.8 GM/DL 13.0-16.8 L 410) HEMATOCRIT (BEAKER) (test code = 23.7 % 40.0-50.0 L 411) MEAN CORPUSCULAR VOLUME (BEAKER) 93.2 fL 82.0-98.0 (test code = 753) MEAN CORPUSCULAR HEMOGLOBIN 30.6 pg 27.0-33.0 (BEAKER) (test code = 751) MEAN CORPUSCULAR HEMOGLOBIN CONC 32.9 GM/DL 32.0-36.0 (BEAKER) (test code = 752) RED CELL DISTRIBUTION WIDTH 19.3 % 10.3-14.2 H (BEAKER) (test code = 412) PLATELET COUNT (BEAKER) (test 146 K/CU MM 150-430 L code = 756) MEAN PLATELET VOLUME (BEAKER) 8.3 fL 6.5-10.5 (test code = 754) NUCLEATED RED BLOOD CELLS 0 /100 WBC 0-0 (BEAKER) (test code = 413) (MANUAL DIFFERENTIAL)2016-11-28 19:00:00 Test Item Value Reference Range Interpretation Comments NEUTROPHILS - REL (DIFF) (BEAKER) 59 % (test code = 1359) LYMPHOCYTES - REL (DIFF) (BEAKER) 1 % (test code = 1360) MONOCYTES - REL (DIFF) (BEAKER) 1 % (test code = 1361) EOSINOPHILS - REL (DIFF) (BEAKER) 1 % (test code = 1362) METAMYELOCYTES-REL (DIFF) (BEAKER) 2 % 0-0 H (test code = 258) PROMYELOCYTES-REL (DIFF) (BEAKER) 1 % 0-0 H (test code = 259) BANDS - REL (DIFF) (BEAKER) (test 35 % 0-10 H code = 1348) NEUTROPHILS - ABS (DIFF) (BEAKER) 22.72 K/ L 1.80-8.00 H (test code = 1365) LYMPHOCYTES - ABS (DIFF) (BEAKER) 0.39 K/ L 1.48-4.50 L (test code = 1366) MONOCYTES - ABS (DIFF) (BEAKER) 0.39 K/ L 0.00-1.30 (test code = 1367) EOSINOPHILS - ABS (DIFF) (BEAKER) 0.39 K/ L 0.00-0.50 (test code = 1368) METAMYELOCTYES - ABS (DIFF) 0.77 K/ L 0.00-0.00 H (BEAKER) (test code = 261) PROMYELOCYTES - ABS (DIFF) 0.39 K/ L 0.00-0.00 H (BEAKER) (test code = 262) BANDS-ABS (DIFF) (BEAKER) (test 13.5 K/ L 0.0-0.8 H code = 1349) TOTAL COUNTED (BEAKER) (test code 100 = 1351) BANDS + SEGMENTED NEUTROPHILS 36.19 (BEAKER) (test code = 1352) WBC MORPHOLOGY (BEAKER) (test code Normal = 487) PLT MORPHOLOGY (BEAKER) (test code Normal = 486) SPHEROCYTES (BEAKER) (test code = 1+ few 768) URINALYSIS W/ [id number] 15:31:00 Test Item Value Reference Range Interpretation Comments COLOR (BEAKER) (test code = 470) Dark Yellow CLARITY (BEAKER) (test code = Hazy 469) SPECIFIC GRAVITY UA (BEAKER) 1.007 1.001-1.035 (test code = 468) PH UA (BEAKER) (test code = 467) 5.5 5.0-8.0 PROTEIN UA (BEAKER) (test code = 50 mg/dL Negative A 464) GLUCOSE UA (BEAKER) (test code = Negative Negative 365) KETONES UA (BEAKER) (test code = Negative Negative 371) BILIRUBIN UA (BEAKER) (test code Positive Negative A = 462) BLOOD UA (BEAKER) (test code = Small Negative A 461) NITRITE UA (BEAKER) (test code = Negative Negative 465) LEUKOCYTE ESTERASE UA (BEAKER) Negative Negative (test code = 466) UROBILINOGEN UA (BEAKER) (test 2.0 mg/dL 0.2-1.0 H code = 463) RBC UA (BEAKER) (test code = 3 /HPF 519) WBC UA (BEAKER) (test code = 6 /HPF 520) BACTERIA (BEAKER) (test code = Occasional 517) SOURCE(BEAKER) (test code = Urine, Lott 0895) [id number] 13:35:00 Test Item Value Reference Range Interpretation Comments PHOSPHORUS (BEAKER) (test code = 3.4 mg/dL 2.3-4.7 604) [id number] 13:35:00 Test Item Value Reference Range Interpretation Comments MAGNESIUM (BEAKER) (test code = 1.1 mg/dL 1.6-2.6 L 627) HEPATIC FUNCTION [id number] 13:35:00 Test Item Value Reference Range Interpretation Comments TOTAL PROTEIN (BEAKER) (test code = 4.9 gm/dL 6.0-8.3 L 770) ALBUMIN (BEAKER) (test code = 1145) 2.0 g/dL 3.5-5.0 L BILIRUBIN TOTAL (BEAKER) (test code 4.8 mg/dL 0.2-1.2 H = 377) BILIRUBIN DIRECT (BEAKER) (test 3.7 mg/dL 0.1-0.5 H code = 706) ALKALINE PHOSPHATASE (BEAKER) (test 200 U/L 40-150 H code = 346) AST (SGOT) (BEAKER) (test code = 336 U/L 5-34 H 353) ALT (SGPT) (BEAKER) (test code = 133 U/L 6-55 H 347) Specimen slightly ictericCBC W/PLT COUNT & AUTO [id number] 13:32:00 Test Item Value Reference Range Interpretation Comments WHITE BLOOD CELL COUNT (BEAKER) 21.6 K/ L 4.0-10.0 H (test code = 775) RED BLOOD CELL COUNT (BEAKER) 2.21 M/ L 4.20-5.80 L (test code = 761) HEMOGLOBIN (BEAKER) (test code = 6.9 GM/DL 13.0-16.8 L 410) HEMATOCRIT (BEAKER) (test code = 20.3 % 40.0-50.0 L 411) MEAN CORPUSCULAR VOLUME (BEAKER) 91.8 fL 82.0-98.0 (test code = 753) MEAN CORPUSCULAR HEMOGLOBIN 31.2 pg 27.0-33.0 (BEAKER) (test code = 751) MEAN CORPUSCULAR HEMOGLOBIN CONC 33.9 GM/DL 32.0-36.0 (BEAKER) (test code = 752) RED CELL DISTRIBUTION WIDTH 20.2 % 10.3-14.2 H (BEAKER) (test code = 412) PLATELET COUNT (BEAKER) (test 123 K/CU MM 150-430 L code = 756) MEAN PLATELET VOLUME (BEAKER) 7.6 fL 6.5-10.5 (test code = 754) NUCLEATED RED BLOOD CELLS 0 /100 WBC 0-0 (BEAKER) (test code = 413) 0.000.900.000.000.900.000.000.000.00(MANUAL DIFFERENTIAL)2016-11-28 13:32:00 Test Item Value Reference Range Interpretation Comments NEUTROPHILS - REL (DIFF) (BEAKER) 41 % (test code = 1359) LYMPHOCYTES - REL (DIFF) (BEAKER) 2 % (test code = 1360) MONOCYTES - REL (DIFF) (BEAKER) 2 % (test code = 1361) BANDS - REL (DIFF) (BEAKER) (test 55 % 0-10 H code = 1348) NEUTROPHILS - ABS (DIFF) (BEAKER) 8.86 K/ L 1.80-8.00 H (test code = 1365) LYMPHOCYTES - ABS (DIFF) (BEAKER) 0.43 K/ L 1.48-4.50 L (test code = 1366) MONOCYTES - ABS (DIFF) (BEAKER) 0.43 K/ L 0.00-1.30 (test code = 1367) BANDS-ABS (DIFF) (BEAKER) (test 11.9 K/ L 0.0-0.8 H code = 1349) TOTAL COUNTED (BEAKER) (test code = 100 1351) BANDS + SEGMENTED NEUTROPHILS 20.74 (BEAKER) (test code = 1352) PLT MORPHOLOGY (BEAKER) (test code Normal = 486) RBC MORPHOLOGY (BEAKER) (test code Normal = 762) VACUOLATED NEUTROPHILS (BEAKER) Present (test code = 483) LACTIC ACID, VENOUS, WHOLE [id number] 13:22:00 Test Item Value Reference Range Interpretation Comments LACTATE BLOOD VENOUS (2) (BEAKER) 11.5 mmol/L 0.5-2.2 H (test code = 2872) Effective 02/06/2016: Units/Reference Range ChangeNew: 0.5-2.2 mmol/L Previous: 5-20 mg/dLSpecimen slightly ictericCOMPREHENSIVE METABOLIC [id number] 13:15:00 Test Item Value Reference Range Interpretation Comments TOTAL PROTEIN 4.8 gm/dL 6.0-8.3 L (BEAKER) (test code = 770) ALBUMIN (BEAKER) 1.9 g/dL 3.5-5.0 L (test code = 1145) ALKALINE PHOSPHATASE 198 U/L 40-150 H (BEAKER) (test code = 346) BILIRUBIN TOTAL 4.7 mg/dL 0.2-1.2 H (BEAKER) (test code = 377) SODIUM (BEAKER) 137 meq/L 136-145 (test code = 381) POTASSIUM (BEAKER) 3.8 meq/L 3.5-5.1 (test code = 379) CHLORIDE (BEAKER) 109 meq/L 98-107 H (test code = 382) CO2 (BEAKER) (test 9 meq/L 22-29 LL code = 355) BLOOD UREA NITROGEN 24 mg/dL 7-21 H (BEAKER) (test code = 354) CREATININE (BEAKER) 1.72 mg/dL 0.57-1.25 H (test code = 358) GLUCOSE RANDOM 75 mg/dL 70-105 (BEAKER) (test code = 652) CALCIUM (BEAKER) 7.5 mg/dL 8.4-10.2 L (test code = 697) AST (SGOT) (BEAKER) 288 U/L 5-34 H (test code = 353) ALT (SGPT) (BEAKER) 113 U/L 6-55 H (test code = 347) EGFR (BEAKER) (test mL/min/1.73 INSUFFIC IENT code = 1092) sq m CLINICAL DATA T O CALCULATE ESTIM ATED GFR. Specimen slightly ictericBLOOD GAS, [id number] 13:12:00 Test Item Value Reference Range Interpretation Comments PH ARTERIAL (BEAKER) (test code 7.40 7.35-7.45 = 383) PCO2 ARTERIAL (BEAKER) (test 17 mmHg 35-45 LL code = 384) PO2 ARTERIAL (BEAKER) (test code 214 mmHg 80-90 H = 385) O2 SATURATION ARTERIAL (BEAKER) 99.5 % 96.0-97.0 H (test code = 386) HCO3 ARTERIAL (BEAKER) (test 10 mmol/L 21-29 LL code = 388) BASE EXCESS ARTERIAL (BEAKER) -12.9 mmol/L -2.0-3.0 L (test code = 387) PATIENT TEMPERATURE (BEAKER) 37.0 C (test code = 1818) FIO2 (BEAKER) (test code = 1819) 21.0 % [id number] 13:00:00 Test Item Value Reference Range Interpretation Comments PARTIAL THROMBOPLASTIN TIME 46.2 seconds 22.5-36.0 H (BEAKER) (test code = 760) PROTHROMBIN [id number] 12:58:00 Test Item Value Reference Range Interpretation Comments PROTIME (BEAKER) (test code = 19.3 seconds 11.7-14.7 H 759) INR (BEAKER) (test code = 370) 1.6 <=5.9 RECOMMENDED COUMADIN/WARFARIN INR THERAPY RANGESSTANDARD DOSE: 2.0 - 3.0 Includes: PROPHYLAXIS forvenous thrombosis, systemic embolization; TREATMENT for venous thrombosis and/or pulmonary embolus.HIGH RISK: Target INR is 2.5-3.5 for patients with mechanical heart valves.BLOOD [id number] 11:00:00 Test Item Value Reference Range Interpretation Comments CULTURE (BEAKER) (test No growth in 5 days code = 1095) BLOOD [id number] 11:00:00 Test Item Value Reference Range Interpretation Comments CULTURE (BEAKER) (test No growth in 5 days code = 1095) POCT-GLUCOSE [id number] 07:43:00 Test Item Value Reference Range Interpretation Comments POC-GLUCOSE METER 111 mg/dL 70-110 H TESTED AT [facility] 67[address] (BEAKER) (test code = [place] 1538) [address] CBC W/PLT COUNT & AUTO [id number] 05:48:00 Test Item Value Reference Range Interpretation Comments WHITE BLOOD CELL COUNT (BEAKER) 11.8 K/ L 4.0-10.0 H (test code = 775) RED BLOOD CELL COUNT (BEAKER) 2.37 M/ L 4.20-5.80 L (test code = 761) HEMOGLOBIN (BEAKER) (test code = 7.4 GM/DL 13.0-16.8 L 410) HEMATOCRIT (BEAKER) (test code = 21.4 % 40.0-50.0 L 411) MEAN CORPUSCULAR VOLUME (BEAKER) 90.1 fL 82.0-98.0 (test code = 753) MEAN CORPUSCULAR HEMOGLOBIN 31.0 pg 27.0-33.0 (BEAKER) (test code = 751) MEAN CORPUSCULAR HEMOGLOBIN CONC 34.4 GM/DL 32.0-36.0 (BEAKER) (test code = 752) RED CELL DISTRIBUTION WIDTH 20.6 % 10.3-14.2 H (BEAKER) (test code = 412) PLATELET COUNT (BEAKER) (test 373 K/CU MM 150-430 code = 756) MEAN PLATELET VOLUME (BEAKER) 7.5 fL 6.5-10.5 (test code = 754) NUCLEATED RED BLOOD CELLS 0 /100 WBC 0-0 (BEAKER) (test code = 413) NEUTROPHILS RELATIVE PERCENT 81 % (BEAKER) (test code = 429) LYMPHOCYTES RELATIVE PERCENT 10 % (BEAKER) (test code = 430) MONOCYTES RELATIVE PERCENT 6 % (BEAKER) (test code = 431) EOSINOPHILS RELATIVE PERCENT 3 % (BEAKER) (test code = 432) BASOPHILS RELATIVE PERCENT 1 % (BEAKER) (test code = 437) NEUTROPHILS ABSOLUTE COUNT 9.50 K/ L 1.80-8.00 H (BEAKER) (test code = 670) LYMPHOCYTES ABSOLUTE COUNT 1.14 K/ L 1.48-4.50 L (BEAKER) (test code = 414) MONOCYTES ABSOLUTE COUNT (BEAKER) 0.75 K/ L 0.00-1.30 (test code = 415) EOSINOPHILS ABSOLUTE COUNT 0.34 K/ L 0.00-0.50 (BEAKER) (test code = 416) BASOPHILS ABSOLUTE COUNT (BEAKER) 0.07 K/ L 0.00-0.20 (test code = 417) 0.00CALCIUM, [id number] 05:43:00 Test Item Value Reference Range Interpretation Comments CALCIUM IONIZED (BEAKER) (test 1.03 mmol/L 1.12-1.27 L code = 698) PH, BLOOD (BEAKER) (test code = 7.50 1810) BASIC METABOLIC [id number] 05:38:00 Test Item Value Reference Range Interpretation Comments SODIUM (BEAKER) 135 meq/L 136-145 L (test code = 381) POTASSIUM (BEAKER) 3.7 meq/L 3.5-5.1 (test code = 379) CHLORIDE (BEAKER) 106 meq/L 98-107 (test code = 382) CO2 (BEAKER) (test 20 meq/L 22-29 L code = 355) BLOOD UREA NITROGEN 20 mg/dL 7-21 (BEAKER) (test code = 354) CREATININE (BEAKER) 1.11 mg/dL 0.57-1.25 (test code = 358) GLUCOSE RANDOM 115 mg/dL 70-105 H (BEAKER) (test code = 652) CALCIUM (BEAKER) 7.9 mg/dL 8.4-10.2 L (test code = 697) EGFR (BEAKER) (test mL/min/1.73 INSUFFIC IENT CLINICAL code = 1092) sq m DATA TO CALCULA TE ESTIMATED GFR. Specimen moderately [id number] 05:35:00 Test Item Value Reference Range Interpretation Comments PHOSPHORUS (BEAKER) (test code = 3.2 mg/dL 2.3-4.7 604) [id number] 05:35:00 Test Item Value Reference Range Interpretation Comments MAGNESIUM (BEAKER) (test code = 1.6 mg/dL 1.6-2.6 627) HEPATIC FUNCTION [id number] 05:35:00 Test Item Value Reference Range Interpretation Comments TOTAL PROTEIN (BEAKER) (test code = 5.7 gm/dL 6.0-8.3 L 770) ALBUMIN (BEAKER) (test code = 1145) 2.3 g/dL 3.5-5.0 L BILIRUBIN TOTAL (BEAKER) (test code 4.5 mg/dL 0.2-1.2 H = 377) BILIRUBIN DIRECT (BEAKER) (test 3.4 mg/dL 0.1-0.5 H code = 706) ALKALINE PHOSPHATASE (BEAKER) (test 201 U/L 40-150 H code = 346) AST (SGOT) (BEAKER) (test code = 78 U/L 5-34 H 353) ALT (SGPT) (BEAKER) (test code = 54 U/L 6-55 347) Specimen moderately ictericPT/[id number] 05:30:00 Test Item Value Reference Range Interpretation Comments PROTIME (BEAKER) (test code = 14.4 seconds 11.7-14.7 759) INR (BEAKER) (test code = 370) 1.1 <=5.9 PARTIAL THROMBOPLASTIN TIME 32.7 seconds 22.5-36.0 (BEAKER) (test code = 760) RECOMMENDED COUMADIN/WARFARIN INR THERAPY RANGESSTANDARD DOSE: 2.0 - 3.0 Includes: PROPHYLAXIS forvenous thrombosis, systemic embolization; TREATMENT for venous thrombosis and/or pulmonary embolus.HIGH RISK: Target INR is 2.5-3.5 for patients with mechanical heart valves.POCT-GLUCOSE [id number] 21:55:00 Test Item Value Reference Range Interpretation Comments POC-GLUCOSE METER 149 mg/dL 70-110 H TESTED AT [place] [address] ([facility]) (test code = [facility] 1538) [address] POCT-GLUCOSE [id number] 16:53:00 Test Item Value Reference Range Interpretation Comments POC-GLUCOSE METER 188 mg/dL 70-110 H TESTED AT [place] [address] ([facility]) (test code = [facility] 1538) [address] POCT-GLUCOSE [id number] 13:03:00 Test Item Value Reference Range Interpretation Comments POC-GLUCOSE METER 288 mg/dL 70-110 H TESTED AT [place] [address] ([facility]) (test code = [facility] 1538) [address] CBC W/PLT COUNT & AUTO [id number] 12:17:00 Test Item Value Reference Range Interpretation Comments WHITE BLOOD CELL COUNT (BEAKER) 11.2 K/ L 4.0-10.0 H (test code = 775) RED BLOOD CELL COUNT (BEAKER) 2.38 M/ L 4.20-5.80 L (test code = 761) HEMOGLOBIN (BEAKER) (test code = 7.6 GM/DL 13.0-16.8 L 410) HEMATOCRIT (BEAKER) (test code = 21.9 % 40.0-50.0 L 411) MEAN CORPUSCULAR VOLUME (BEAKER) 91.8 fL 82.0-98.0 (test code = 753) MEAN CORPUSCULAR HEMOGLOBIN 31.8 pg 27.0-33.0 (BEAKER) (test code = 751) MEAN CORPUSCULAR HEMOGLOBIN CONC 34.7 GM/DL 32.0-36.0 (BEAKER) (test code = 752) RED CELL DISTRIBUTION WIDTH 20.2 % 10.3-14.2 H (BEAKER) (test code = 412) PLATELET COUNT (BEAKER) (test 443 K/CU MM 150-430 H code = 756) MEAN PLATELET VOLUME (BEAKER) 8.0 fL 6.5-10.5 (test code = 754) NUCLEATED RED BLOOD CELLS 0 /100 WBC 0-0 (BEAKER) (test code = 413) NEUTROPHILS RELATIVE PERCENT 82 % (BEAKER) (test code = 429) LYMPHOCYTES RELATIVE PERCENT 10 % (BEAKER) (test code = 430) MONOCYTES RELATIVE PERCENT 5 % (BEAKER) (test code = 431) EOSINOPHILS RELATIVE PERCENT 3 % (BEAKER) (test code = 432) BASOPHILS RELATIVE PERCENT 1 % (BEAKER) (test code = 437) NEUTROPHILS ABSOLUTE COUNT 9.17 K/ L 1.80-8.00 H (BEAKER) (test code = 670) LYMPHOCYTES ABSOLUTE COUNT 1.09 K/ L 1.48-4.50 L (BEAKER) (test code = 414) MONOCYTES ABSOLUTE COUNT (BEAKER) 0.52 K/ L 0.00-1.30 (test code = 415) EOSINOPHILS ABSOLUTE COUNT 0.35 K/ L 0.00-0.50 (BEAKER) (test code = 416) BASOPHILS ABSOLUTE COUNT (BEAKER) 0.07 K/ L 0.00-0.20 (test code = 417) 0.000.810.000.000.000.00(MANUAL DIFFERENTIAL)2016-11-24 12:17:00 Test Item Value Reference Range Interpretation Comments TOTAL COUNTED (BEAKER) (test code = 1351) WBC MORPHOLOGY (BEAKER) (test code = Normal 487) PLT MORPHOLOGY (BEAKER) (test code = Normal 486) RBC MORPHOLOGY (BEAKER) (test code = Normal 762) TOXIC GRANULATION (BEAKER) (test code Slight = 771) POCT-GLUCOSE [id number] 08:40:00 Test Item Value Reference Range Interpretation Comments POC-GLUCOSE METER 176 mg/dL 70-110 H TESTED AT [facility] 6720 (BEAKER) (test code = [facility] 1538) [address] RETICULOCYTE [id number] 07:00:00 Test Item Value Reference Range Interpretation Comments RETICULOCYTE COUNT PCT (BEAKER) (test 5.1 % 0.4-2.9 H code = 575) [id number] 06:39:00 Test Item Value Reference Range Interpretation Comments FERRITIN (BEAKER) (test code = 361) 258 ng/mL 5-275 Effective 08/22/2014: Reference Range ChangeNew: Male 5-275 Previous: Male 22-322 Female 5-275 Female 10-291IRON, TIBC, % SAT. (WITHOUT FERRITIN)2016-11-24 06:18:00 Test Item Value Reference Range Interpretation Comments IRON (BEAKER) (test code = 547) 64 ug/dL 40-160 TOTAL IRON BINDING CAPACITY 198 ug/dL 250-450 L (BEAKER) (test code = 769) IRON % SATURATION (2) (BEAKER) 32 % 20-55 (test code = 2590) BASIC METABOLIC [id number] 06:11:00 Test Item Value Reference Range Interpretation Comments SODIUM (BEAKER) 137 meq/L 136-145 (test code = 381) POTASSIUM (BEAKER) 3.8 meq/L 3.5-5.1 (test code = 379) CHLORIDE (BEAKER) 107 meq/L 98-107 (test code = 382) CO2 (BEAKER) (test 23 meq/L 22-29 code = 355) BLOOD UREA NITROGEN 25 mg/dL 7-21 H (BEAKER) (test code = 354) CREATININE (BEAKER) 1.09 mg/dL 0.57-1.25 (test code = 358) GLUCOSE RANDOM 102 mg/dL 70-105 (BEAKER) (test code = 652) CALCIUM (BEAKER) 8.2 mg/dL 8.4-10.2 L (test code = 697) EGFR (BEAKER) (test mL/min/1.73 INSUFFIC IENT CLINICAL code = 1092) sq m DATA TO CALCULA TE ESTIMATED GFR. Specimen slightly [id number] 06:02:00 Test Item Value Reference Range Interpretation Comments PHOSPHORUS (BEAKER) (test code = 3.4 mg/dL 2.3-4.7 604) [id number] 06:02:00 Test Item Value Reference Range Interpretation Comments MAGNESIUM (BEAKER) (test code = 1.5 mg/dL 1.6-2.6 L 627) HEPATIC FUNCTION [id number] 06:02:00 Test Item Value Reference Range Interpretation Comments TOTAL PROTEIN (BEAKER) (test code = 5.6 gm/dL 6.0-8.3 L 770) ALBUMIN (BEAKER) (test code = 1145) 2.3 g/dL 3.5-5.0 L BILIRUBIN TOTAL (BEAKER) (test code 5.0 mg/dL 0.2-1.2 H = 377) BILIRUBIN DIRECT (BEAKER) (test 3.7 mg/dL 0.1-0.5 H code = 706) ALKALINE PHOSPHATASE (BEAKER) (test 184 U/L 40-150 H code = 346) AST (SGOT) (BEAKER) (test code = 89 U/L 5-34 H 353) ALT (SGPT) (BEAKER) (test code = 52 U/L 6-55 347) Specimen slightly ictericPT/[id number] 05:51:00 Test Item Value Reference Range Interpretation Comments PROTIME (BEAKER) (test code = 14.2 seconds 11.7-14.7 759) INR (BEAKER) (test code = 370) 1.1 <=5.9 PARTIAL THROMBOPLASTIN TIME 33.4 seconds 22.5-36.0 (BEAKER) (test code = 760) RECOMMENDED COUMADIN/WARFARIN INR THERAPY RANGESSTANDARD DOSE: 2.0 - 3.0 Includes: PROPHYLAXIS forvenous thrombosis, systemic embolization; TREATMENT for venous thrombosis and/or pulmonary embolus.HIGH RISK: Target INR is 2.5-3.5 for patients with mechanical heart valves.CALCIUM, [id number] 05:45:00 Test Item Value Reference Range Interpretation Comments CALCIUM IONIZED (BEAKER) (test 1.09 mmol/L 1.12-1.27 L code = 698) PH, BLOOD (BEAKER) (test code = 7.45 1810) BASIC METABOLIC [id number] 00:45:00 Test Item Value Reference Range Interpretation Comments SODIUM (BEAKER) 132 meq/L 136-145 L (test code = 381) POTASSIUM (BEAKER) 4.3 meq/L 3.5-5.1 Specimen moderately (test code = 379) hemolyzed CHLORIDE (BEAKER) 105 meq/L 98-107 (test code = 382) CO2 (BEAKER) (test 19 meq/L 22-29 L code = 355) BLOOD UREA NITROGEN 26 mg/dL 7-21 H (BEAKER) (test code = 354) CREATININE (BEAKER) 1.10 mg/dL 0.57-1.25 Specimen moderately (test code = 358) hemolyzed GLUCOSE RANDOM 96 mg/dL 70-105 (BEAKER) (test code = 652) CALCIUM (BEAKER) 7.9 mg/dL 8.4-10.2 L (test code = 697) EGFR (BEAKER) (test mL/min/1.73 INSUFFIC IENT CLINICAL code = 1092) sq m DATA TO CALCULA TE ESTIMATED GFR. Specimen slightly ictericPOCT-GLUCOSE [id number] 20:43:00 Test Item Value Reference Range Interpretation Comments POC-GLUCOSE METER 151 mg/dL 70-110 H TESTED AT [place] [address] [facility] (test code = [facility] [place] 1538) [id number] POCT-GLUCOSE [id number] 17:10:00 Test Item Value Reference Range Interpretation Comments POC-GLUCOSE METER 123 mg/dL 70-110 H TESTED AT [place] [address] ([facility] (test code = [facility] [place] 1538) [id number] BASIC METABOLIC [id number] 12:10:00 Test Item Value Reference Range Interpretation Comments SODIUM (BEAKER) 134 meq/L 136-145 L (test code = 381) POTASSIUM (BEAKER) 3.3 meq/L 3.5-5.1 L (test code = 379) CHLORIDE (BEAKER) 105 meq/L 98-107 (test code = 382) CO2 (BEAKER) (test 20 meq/L 22-29 L code = 355) BLOOD UREA NITROGEN 32 mg/dL 7-21 H (BEAKER) (test code = 354) CREATININE (BEAKER) 1.32 mg/dL 0.57-1.25 H (test code = 358) GLUCOSE RANDOM 149 mg/dL 70-105 H (BEAKER) (test code = 652) CALCIUM (BEAKER) 8.0 mg/dL 8.4-10.2 L (test code = 697) EGFR (BEAKER) (test mL/min/1.73 INSUFFIC IENT CLINICAL code = 1092) sq m DATA TO CALCULA TE ESTIMATED GFR. Specimen moderately ictericPOCT-GLUCOSE [id number] 12:07:00 Test Item Value Reference Range Interpretation Comments POC-GLUCOSE METER 182 mg/dL 70-110 H TESTED AT [place] [address] ([facility] (test code = [facility] [place] 1538) [id number] PROTHROMBIN [id number] 11:39:00 Test Item Value Reference Range Interpretation Comments PROTIME (BEAKER) (test code = 14.1 seconds 11.7-14.7 759) INR (BEAKER) (test code = 370) 1.1 <=5.9 RECOMMENDED COUMADIN/WARFARIN INR THERAPY RANGESSTANDARD DOSE: 2.0 - 3.0 Includes: PROPHYLAXIS forvenous thrombosis, systemic embolization; TREATMENT for venous thrombosis and/or pulmonary embolus.HIGH RISK: Target INR is 2.5-3.5 for patients with mechanical heart valves.POCT-GLUCOSE [id number] 07:45:00 Test Item Value Reference Range Interpretation Comments POC-GLUCOSE METER 110 mg/dL 70-110 TESTED AT [facility] (BEAKER) (test code = [facility]38) [id number] CBC W/PLT COUNT & AUTO [id number] 07:08:00 Test Item Value Reference Range Interpretation Comments WHITE BLOOD CELL COUNT (BEAKER) 12.9 K/ L 4.0-10.0 H (test code = 775) RED BLOOD CELL COUNT (BEAKER) 2.39 M/ L 4.20-5.80 L (test code = 761) HEMOGLOBIN (BEAKER) (test code = 7.6 GM/DL 13.0-16.8 L 410) HEMATOCRIT (BEAKER) (test code = 21.4 % 40.0-50.0 L 411) MEAN CORPUSCULAR VOLUME (BEAKER) 89.6 fL 82.0-98.0 (test code = 753) MEAN CORPUSCULAR HEMOGLOBIN 31.7 pg 27.0-33.0 (BEAKER) (test code = 751) MEAN CORPUSCULAR HEMOGLOBIN CONC 35.4 GM/DL 32.0-36.0 (BEAKER) (test code = 752) RED CELL DISTRIBUTION WIDTH 21.3 % 10.3-14.2 H (BEAKER) (test code = 412) PLATELET COUNT (BEAKER) (test 428 K/CU MM 150-430 code = 756) MEAN PLATELET VOLUME (BEAKER) 7.9 fL 6.5-10.5 (test code = 754) NUCLEATED RED BLOOD CELLS 0 /100 WBC 0-0 (BEAKER) (test code = 413) NEUTROPHILS RELATIVE PERCENT 82 % (BEAKER) (test code = 429) LYMPHOCYTES RELATIVE PERCENT 9 % (BEAKER) (test code = 430) MONOCYTES RELATIVE PERCENT 5 % (BEAKER) (test code = 431) EOSINOPHILS RELATIVE PERCENT 3 % (BEAKER) (test code = 432) BASOPHILS RELATIVE PERCENT 1 % (BEAKER) (test code = 437) NEUTROPHILS ABSOLUTE COUNT 10.50 K/ L 1.80-8.00 H (BEAKER) (test code = 670) LYMPHOCYTES ABSOLUTE COUNT 1.19 K/ L 1.48-4.50 L (BEAKER) (test code = 414) MONOCYTES ABSOLUTE COUNT (BEAKER) 0.66 K/ L 0.00-1.30 (test code = 415) EOSINOPHILS ABSOLUTE COUNT 0.38 K/ L 0.00-0.50 (BEAKER) (test code = 416) BASOPHILS ABSOLUTE COUNT (BEAKER) 0.12 K/ L 0.00-0.20 (test code = 417) 0.00BASIC METABOLIC [id number] 06:34:00 Test Item Value Reference Range Interpretation Comments SODIUM (BEAKER) 134 meq/L 136-145 L (test code = 381) POTASSIUM (BEAKER) 3.3 meq/L 3.5-5.1 L (test code = 379) CHLORIDE (BEAKER) 105 meq/L 98-107 (test code = 382) CO2 (BEAKER) (test 19 meq/L 22-29 L code = 355) BLOOD UREA NITROGEN 35 mg/dL 7-21 H (BEAKER) (test code = 354) CREATININE (BEAKER) 1.38 mg/dL 0.57-1.25 H (test code = 358) GLUCOSE RANDOM 112 mg/dL 70-105 H (BEAKER) (test code = 652) CALCIUM (BEAKER) 7.9 mg/dL 8.4-10.2 L (test code = 697) EGFR (BEAKER) (test mL/min/1.73 INSUFFIC IENT CLINICAL code = 1092) sq m DATA TO CALCULA TE ESTIMATED GFR. Specimen moderately [id number] 06:27:00 Test Item Value Reference Range Interpretation Comments PHOSPHORUS (BEAKER) (test code = 3.7 mg/dL 2.3-4.7 604) [id number] 06:27:00 Test Item Value Reference Range Interpretation Comments MAGNESIUM (BEAKER) (test code = 1.6 mg/dL 1.6-2.6 627) HEPATIC FUNCTION [id number] 06:27:00 Test Item Value Reference Range Interpretation Comments TOTAL PROTEIN (BEAKER) (test code = 5.4 gm/dL 6.0-8.3 L 770) ALBUMIN (BEAKER) (test code = 1145) 2.2 g/dL 3.5-5.0 L BILIRUBIN TOTAL (BEAKER) (test code 5.4 mg/dL 0.2-1.2 H = 377) BILIRUBIN DIRECT (BEAKER) (test 4.2 mg/dL 0.1-0.5 H code = 706) ALKALINE PHOSPHATASE (BEAKER) (test 172 U/L 40-150 H code = 346) AST (SGOT) (BEAKER) (test code = 76 U/L 5-34 H 353) ALT (SGPT) (BEAKER) (test code = 47 U/L 6-55 347) Specimen moderately ictericBASIC METABOLIC [id number] 06:23:00 Test Item Value Reference Range Interpretation Comments SODIUM (BEAKER) 135 meq/L 136-145 L (test code = 381) POTASSIUM (BEAKER) 3.2 meq/L 3.5-5.1 L (test code = 379) CHLORIDE (BEAKER) 105 meq/L 98-107 (test code = 382) CO2 (BEAKER) (test 19 meq/L 22-29 L code = 355) BLOOD UREA NITROGEN 35 mg/dL 7-21 H (BEAKER) (test code = 354) CREATININE (BEAKER) 1.38 mg/dL 0.57-1.25 H (test code = 358) GLUCOSE RANDOM 110 mg/dL 70-105 H (BEAKER) (test code = 652) CALCIUM (BEAKER) 8.0 mg/dL 8.4-10.2 L (test code = 697) EGFR (BEAKER) (test mL/min/1.73 INSUFFIC IENT CLINICAL code = 1092) sq m DATA TO CALCULA TE ESTIMATED GFR. Specimen moderately ictericCALCIUM, [id number] 05:52:00 Test Item Value Reference Range Interpretation Comments CALCIUM IONIZED (BEAKER) (test 1.04 mmol/L 1.12-1.27 L code = 698) PH, BLOOD (BEAKER) (test code = 7.50 1810) POCT-GLUCOSE [id number] 21:30:00 Test Item Value Reference Range Interpretation Comments POC-GLUCOSE METER 133 mg/dL 70-110 H TESTED AT [facility] [address] [facility] (test code = [place] [facility] 1538) [address] POCT-GLUCOSE [id number] 17:21:00 Test Item Value Reference Range Interpretation Comments POC-GLUCOSE METER 117 mg/dL 70-110 H TESTED AT [facility] [address] ([facility]) (test code = IFEANY[place] [facility] 1538) [id number] BASIC METABOLIC [id number] 16:21:00 Test Item Value Reference Range Interpretation Comments SODIUM (BEAKER) 133 meq/L 136-145 L (test code = 381) POTASSIUM (BEAKER) 3.2 meq/L 3.5-5.1 L (test code = 379) CHLORIDE (BEAKER) 102 meq/L 98-107 (test code = 382) CO2 (BEAKER) (test 20 meq/L 22-29 L code = 355) BLOOD UREA NITROGEN 40 mg/dL 7-21 H (BEAKER) (test code = 354) CREATININE (BEAKER) 1.82 mg/dL 0.57-1.25 H (test code = 358) GLUCOSE RANDOM 129 mg/dL 70-105 H (BEAKER) (test code = 652) CALCIUM (BEAKER) 7.8 mg/dL 8.4-10.2 L (test code = 697) EGFR (BEAKER) (test mL/min/1.73 INSUFFIC IENT CLINICAL code = 1092) sq m DATA TO CALCULA TE ESTIMATED GFR. Specimen moderately ictericCBC W/PLT COUNT & AUTO [id number] 15:58:00 Test Item Value Reference Range Interpretation Comments WHITE BLOOD CELL COUNT (BEAKER) 14.2 K/ L 4.0-10.0 H (test code = 775) RED BLOOD CELL COUNT (BEAKER) 2.41 M/ L 4.20-5.80 L (test code = 761) HEMOGLOBIN (BEAKER) (test code = 7.5 GM/DL 13.0-16.8 L 410) HEMATOCRIT (BEAKER) (test code = 21.8 % 40.0-50.0 L 411) MEAN CORPUSCULAR VOLUME (BEAKER) 90.5 fL 82.0-98.0 (test code = 753) MEAN CORPUSCULAR HEMOGLOBIN 31.0 pg 27.0-33.0 (BEAKER) (test code = 751) MEAN CORPUSCULAR HEMOGLOBIN CONC 34.3 GM/DL 32.0-36.0 (BEAKER) (test code = 752) RED CELL DISTRIBUTION WIDTH 21.4 % 10.3-14.2 H (BEAKER) (test code = 412) PLATELET COUNT (BEAKER) (test 424 K/CU MM 150-430 code = 756) MEAN PLATELET VOLUME (BEAKER) 7.2 fL 6.5-10.5 (test code = 754) NUCLEATED RED BLOOD CELLS 0 /100 WBC 0-0 (BEAKER) (test code = 413) NEUTROPHILS RELATIVE PERCENT 86 % (BEAKER) (test code = 429) LYMPHOCYTES RELATIVE PERCENT 7 % (BEAKER) (test code = 430) MONOCYTES RELATIVE PERCENT 4 % (BEAKER) (test code = 431) EOSINOPHILS RELATIVE PERCENT 3 % (BEAKER) (test code = 432) BASOPHILS RELATIVE PERCENT 0 % (BEAKER) (test code = 437) NEUTROPHILS ABSOLUTE COUNT 12.20 K/ L 1.80-8.00 H (BEAKER) (test code = 670) LYMPHOCYTES ABSOLUTE COUNT 0.96 K/ L 1.48-4.50 L (BEAKER) (test code = 414) MONOCYTES ABSOLUTE COUNT (BEAKER) 0.60 K/ L 0.00-1.30 (test code = 415) EOSINOPHILS ABSOLUTE COUNT 0.35 K/ L 0.00-0.50 (BEAKER) (test code = 416) BASOPHILS ABSOLUTE COUNT (BEAKER) 0.04 K/ L 0.00-0.20 (test code = 417) 0.00CBC W/PLT COUNT & AUTO [id number] 14:42:00 Test Item Value Reference Range Interpretation Comments WHITE BLOOD CELL COUNT (BEAKER) 17.8 K/ L 4.0-10.0 H (test code = 775) RED BLOOD CELL COUNT (BEAKER) 2.32 M/ L 4.20-5.80 L (test code = 761) HEMOGLOBIN (BEAKER) (test code = 7.2 GM/DL 13.0-16.8 L 410) HEMATOCRIT (BEAKER) (test code = 20.8 % 40.0-50.0 L 411) MEAN CORPUSCULAR VOLUME (BEAKER) 89.7 fL 82.0-98.0 (test code = 753) MEAN CORPUSCULAR HEMOGLOBIN 31.2 pg 27.0-33.0 (BEAKER) (test code = 751) MEAN CORPUSCULAR HEMOGLOBIN CONC 34.8 GM/DL 32.0-36.0 (BEAKER) (test code = 752) RED CELL DISTRIBUTION WIDTH 21.4 % 10.3-14.2 H (BEAKER) (test code = 412) PLATELET COUNT (BEAKER) (test 442 K/CU MM 150-430 H code = 756) MEAN PLATELET VOLUME (BEAKER) 7.7 fL 6.5-10.5 (test code = 754) NUCLEATED RED BLOOD CELLS 0 /100 WBC 0-0 (BEAKER) (test code = 413) NEUTROPHILS RELATIVE PERCENT 90 % (BEAKER) (test code = 429) LYMPHOCYTES RELATIVE PERCENT 4 % (BEAKER) (test code = 430) MONOCYTES RELATIVE PERCENT 3 % (BEAKER) (test code = 431) EOSINOPHILS RELATIVE PERCENT 2 % (BEAKER) (test code = 432) BASOPHILS RELATIVE PERCENT 1 % (BEAKER) (test code = 437) NEUTROPHILS ABSOLUTE COUNT 16.10 K/ L 1.80-8.00 H (BEAKER) (test code = 670) LYMPHOCYTES ABSOLUTE COUNT 0.75 K/ L 1.48-4.50 L (BEAKER) (test code = 414) MONOCYTES ABSOLUTE COUNT (BEAKER) 0.57 K/ L 0.00-1.30 (test code = 415) EOSINOPHILS ABSOLUTE COUNT 0.32 K/ L 0.00-0.50 (BEAKER) (test code = 416) BASOPHILS ABSOLUTE COUNT (BEAKER) 0.10 K/ L 0.00-0.20 (test code = 417) 0.000.530.000.000.000.000.000.000.00(MANUAL DIFFERENTIAL)2016-11-22 14:42:00 Test Item Value Reference Range Interpretation Comments TOTAL COUNTED (BEAKER) (test code = 1351) WBC MORPHOLOGY (BEAKER) (test code = Normal 487) PLT MORPHOLOGY (BEAKER) (test code = Normal 486) RBC MORPHOLOGY (BEAKER) (test code = Normal 762) URINE [id number] 13:50:00 Test Item Value Reference Range Interpretation Comments CULTURE (BEAKER) (test code = 1095) No growth POCT-GLUCOSE [id number] 11:38:00 Test Item Value Reference Range Interpretation Comments POC-GLUCOSE METER 144 mg/dL 70-110 H TESTED AT [facility] [address] [facility] (test code = [place] 1538) [address] POCT-GLUCOSE [id number] 07:39:00 Test Item Value Reference Range Interpretation Comments POC-GLUCOSE METER 127 mg/dL 70-110 H TESTED AT [facility] [address] ([facility]) (test code = [place] 1538) [address] BASIC METABOLIC [id number] 05:51:00 Test Item Value Reference Range Interpretation Comments SODIUM (BEAKER) 132 meq/L 136-145 L (test code = 381) POTASSIUM (BEAKER) 3.5 meq/L 3.5-5.1 (test code = 379) CHLORIDE (BEAKER) 103 meq/L 98-107 (test code = 382) CO2 (BEAKER) (test 18 meq/L 22-29 L code = 355) BLOOD UREA NITROGEN 47 mg/dL 7-21 H (BEAKER) (test code = 354) CREATININE (BEAKER) 1.82 mg/dL 0.57-1.25 H (test code = 358) GLUCOSE RANDOM 116 mg/dL 70-105 H (BEAKER) (test code = 652) CALCIUM (BEAKER) 7.8 mg/dL 8.4-10.2 L (test code = 697) EGFR (BEAKER) (test mL/min/1.73 INSUFFIC IENT CLINICAL code = 1092) sq m DATA TO CALCULA TE ESTIMATED GFR. Specimen moderately [id number] 05:46:00 Test Item Value Reference Range Interpretation Comments PHOSPHORUS (BEAKER) (test code = 4.2 mg/dL 2.3-4.7 604) [id number] 05:46:00 Test Item Value Reference Range Interpretation Comments MAGNESIUM (BEAKER) (test code = 2.1 mg/dL 1.6-2.6 627) HEPATIC FUNCTION [id number] 05:46:00 Test Item Value Reference Range Interpretation Comments TOTAL PROTEIN (BEAKER) (test code = 5.2 gm/dL 6.0-8.3 L 770) ALBUMIN (BEAKER) (test code = 1145) 2.1 g/dL 3.5-5.0 L BILIRUBIN TOTAL (BEAKER) (test code 6.3 mg/dL 0.2-1.2 H = 377) BILIRUBIN DIRECT (BEAKER) (test 5.0 mg/dL 0.1-0.5 H code = 706) ALKALINE PHOSPHATASE (BEAKER) (test 165 U/L 40-150 H code = 346) AST (SGOT) (BEAKER) (test code = 84 U/L 5-34 H 353) ALT (SGPT) (BEAKER) (test code = 44 U/L 6-55 347) Specimen moderately ictericCALCIUM, [id number] 05:37:00 Test Item Value Reference Range Interpretation Comments CALCIUM IONIZED (BEAKER) (test 1.02 mmol/L 1.12-1.27 L code = 698) PH, BLOOD (BEAKER) (test code = 7.52 1810) BASIC METABOLIC [id number] 21:34:00 Test Item Value Reference Range Interpretation Comments SODIUM (BEAKER) 131 meq/L 136-145 L (test code = 381) POTASSIUM (BEAKER) 3.4 meq/L 3.5-5.1 L (test code = 379) CHLORIDE (BEAKER) 101 meq/L 98-107 (test code = 382) CO2 (BEAKER) (test 19 meq/L 22-29 L code = 355) BLOOD UREA NITROGEN 51 mg/dL 7-21 H (BEAKER) (test code = 354) CREATININE (BEAKER) 1.98 mg/dL 0.57-1.25 H (test code = 358) GLUCOSE RANDOM 123 mg/dL 70-105 H (BEAKER) (test code = 652) CALCIUM (BEAKER) 7.8 mg/dL 8.4-10.2 L (test code = 697) EGFR (BEAKER) (test mL/min/1.73 INSUFFIC IENT CLINICAL code = 1092) sq m DATA TO CALCULA TE ESTIMATED GFR. Specimen moderately ictericPOCT-GLUCOSE [id number] 17:50:00 Test Item Value Reference Range Interpretation Comments POC-GLUCOSE METER 165 mg/dL 70-110 H TESTED AT [facility] 67[address] (BEAKER) (test code = [place] 1538) [address] POCT-GLUCOSE [id number] 12:07:00 Test Item Value Reference Range Interpretation Comments POC-GLUCOSE METER 134 mg/dL 70-110 H TESTED AT [place] [id number] (BEAKER) (test code = [place] 1538) [address] POCT-GLUCOSE [id number] 12:07:00 Test Item Value Reference Range Interpretation Comments POC-GLUCOSE METER 128 mg/dL 70-110 H TESTED AT [place] [address] (BEAKER) (test code = [place] 1538) [address] POCT-GLUCOSE [id number] 07:47:00 Test Item Value Reference Range Interpretation Comments POC-GLUCOSE METER 120 mg/dL 70-110 H TESTED AT [place] [address] (BEAKER) (test code = [place] 1538) [address] URINALYSIS W/ [id number] 02:39:00 Test Item Value Reference Range Interpretation Comments COLOR (BEAKER) (test code = Dark Yellow 470) CLARITY (BEAKER) (test code = Clear 469) SPECIFIC GRAVITY UA (BEAKER) 1.007 1.001-1.035 (test code = 468) PH UA (BEAKER) (test code = 6.0 5.0-8.0 467) PROTEIN UA (BEAKER) (test code 200 mg/dL Negative A = 464) GLUCOSE UA (BEAKER) (test code Negative Negative = 365) KETONES UA (BEAKER) (test code Negative Negative = 371) BILIRUBIN UA (BEAKER) (test Positive Negative A code = 462) BLOOD UA (BEAKER) (test code = Moderate Negative A 461) NITRITE UA (BEAKER) (test code Negative Negative = 465) LEUKOCYTE ESTERASE UA (BEAKER) Negative Negative (test code = 466) UROBILINOGEN UA (BEAKER) (test 0.2 mg/dL 0.2-1.0 code = 463) RBC UA (BEAKER) (test code = 53 /HPF 519) WBC UA (BEAKER) (test code = 10 /HPF 520) MUCUS (BEAKER) (test code = Rare 1574) SQUAMOUS EPITHELIAL (BEAKER) < /HPF (test code = 516) AMORPHOUS CRYSTALS (BEAKER) Rare (test code = 1584) SOURCE(BEAKER) (test code = Urine, Voided 9678) BASIC METABOLIC [id number] 02:28:00 Test Item Value Reference Range Interpretation Comments SODIUM (BEAKER) 135 meq/L 136-145 L (test code = 381) POTASSIUM (BEAKER) 3.4 meq/L 3.5-5.1 L (test code = 379) CHLORIDE (BEAKER) 103 meq/L 98-107 (test code = 382) CO2 (BEAKER) (test 20 meq/L 22-29 L code = 355) BLOOD UREA NITROGEN 57 mg/dL 7-21 H (BEAKER) (test code = 354) CREATININE (BEAKER) 2.08 mg/dL 0.57-1.25 H (test code = 358) GLUCOSE RANDOM 111 mg/dL 70-105 H (BEAKER) (test code = 652) CALCIUM (BEAKER) 8.4 mg/dL 8.4-10.2 (test code = 697) EGFR (BEAKER) (test mL/min/1.73 INSUFFIC IENT CLINICAL code = 1092) sq m DATA TO CALCULA TE ESTIMATED GFR. Specimen moderately ictericCBC W/PLT COUNT & AUTO [id number] 02:01:00 Test Item Value Reference Range Interpretation Comments WHITE BLOOD CELL COUNT (BEAKER) 18.2 K/ L 4.0-10.0 H (test code = 775) RED BLOOD CELL COUNT (BEAKER) 3.07 M/ L 4.20-5.80 L (test code = 761) HEMOGLOBIN (BEAKER) (test code = 9.6 GM/DL 13.0-16.8 L 410) HEMATOCRIT (BEAKER) (test code = 27.5 % 40.0-50.0 L 411) MEAN CORPUSCULAR VOLUME (BEAKER) 89.4 fL 82.0-98.0 (test code = 753) MEAN CORPUSCULAR HEMOGLOBIN 31.3 pg 27.0-33.0 (BEAKER) (test code = 751) MEAN CORPUSCULAR HEMOGLOBIN CONC 34.9 GM/DL 32.0-36.0 (BEAKER) (test code = 752) RED CELL DISTRIBUTION WIDTH 20.2 % 10.3-14.2 H (BEAKER) (test code = 412) PLATELET COUNT (BEAKER) (test 639 K/CU MM 150-430 H code = 756) MEAN PLATELET VOLUME (BEAKER) 7.3 fL 6.5-10.5 (test code = 754) NUCLEATED RED BLOOD CELLS 0 /100 WBC 0-0 (BEAKER) (test code = 413) NEUTROPHILS RELATIVE PERCENT 94 % (BEAKER) (test code = 429) LYMPHOCYTES RELATIVE PERCENT 4 % (BEAKER) (test code = 430) MONOCYTES RELATIVE PERCENT 1 % (BEAKER) (test code = 431) EOSINOPHILS RELATIVE PERCENT 1 % (BEAKER) (test code = 432) BASOPHILS RELATIVE PERCENT 0 % (BEAKER) (test code = 437) NEUTROPHILS ABSOLUTE COUNT 17.20 K/ L 1.80-8.00 H (BEAKER) (test code = 670) LYMPHOCYTES ABSOLUTE COUNT 0.62 K/ L 1.48-4.50 L (BEAKER) (test code = 414) MONOCYTES ABSOLUTE COUNT (BEAKER) 0.12 K/ L 0.00-1.30 (test code = 415) EOSINOPHILS ABSOLUTE COUNT 0.23 K/ L 0.00-0.50 (BEAKER) (test code = 416) BASOPHILS ABSOLUTE COUNT (BEAKER) 0.05 K/ L 0.00-0.20 (test code = 417) 0.000.570.000.000.520.000.000.000.000.000.000.000.000.000.000.000.000.000.00 [id number] 01:57:00 Test Item Value Reference Range Interpretation Comments PHOSPHORUS (BEAKER) (test code = 4.2 mg/dL 2.3-4.7 604) [id number] 01:57:00 Test Item Value Reference Range Interpretation Comments MAGNESIUM (BEAKER) (test code = 1.5 mg/dL 1.6-2.6 L 627) HEPATIC FUNCTION [id number] 01:57:00 Test Item Value Reference Range Interpretation Comments TOTAL PROTEIN (BEAKER) (test code = 6.2 gm/dL 6.0-8.3 770) ALBUMIN (BEAKER) (test code = 1145) 2.7 g/dL 3.5-5.0 L BILIRUBIN TOTAL (BEAKER) (test code 8.2 mg/dL 0.2-1.2 H = 377) BILIRUBIN DIRECT ([facility]) (test 6.2 mg/dL 0.1-0.5 H code = 706) ALKALINE PHOSPHATASE (AKER) (test 218 U/L 40-150 H code = 346) AST (SGOT) ([facility]) (test code = 97 U/L 5-34 H 353) ALT (SGPT) ([facility]) (test code = 47 U/L 6-55 347) Specimen moderately ictericCALCIUM, [id number] 01:43:00 Test Item Value Reference Range Interpretation Comments CALCIUM IONIZED ([facility]) (test 1.01 mmol/L 1.12-1.27 L code = 698) PH, BLOOD ([facility]) (test code = 7.43 1810) POCT-GLUCOSE [id number] 21:25:00 Test Item Value Reference Range Interpretation Comments POC-GLUCOSE METER 123 mg/dL 70-110 H TESTED AT [place] [address] ([facility]) (test code = [facility] 1538) [address] POCT-GLUCOSE [id number] 17:00:00 Test Item Value Reference Range Interpretation Comments POC-GLUCOSE METER 139 mg/dL 70-110 H TESTED AT [place] [address] ([facility]) (test code = [facility] 1538) [address] ANTI-NUCLEAR ANTIBODY (IWLLY)2016-11-20 14:38:00 Test Item Value Reference Range Interpretation Comments ANTI-NUCLEAR ANTIBODY (WILLY) ([facility]) Negative Negative (test code = 418) POCT-GLUCOSE [id number] 12:57:00 Test Item Value Reference Range Interpretation Comments POC-GLUCOSE METER 104 mg/dL 70-110 TESTED AT [place] [address] ([facility]) (test code = [facility] [place] 1538) [address] POCT-GLUCOSE [id number] 07:57:00 Test Item Value Reference Range Interpretation Comments POC-GLUCOSE METER 116 mg/dL 70-110 H TESTED AT [place] [address] ([facility]) (test code = [facility] [place] 1538) [address] CBC W/PLT COUNT & AUTO [id number] 07:17:00 Test Item Value Reference Range Interpretation Comments WHITE BLOOD CELL COUNT (BEAKER) 16.5 K/ L 4.0-10.0 H (test code = 775) RED BLOOD CELL COUNT (BEAKER) 2.56 M/ L 4.20-5.80 L (test code = 761) HEMOGLOBIN (BEAKER) (test code = 8.0 GM/DL 13.0-16.8 L 410) HEMATOCRIT (BEAKER) (test code = 22.4 % 40.0-50.0 L 411) MEAN CORPUSCULAR VOLUME (BEAKER) 87.3 fL 82.0-98.0 (test code = 753) MEAN CORPUSCULAR HEMOGLOBIN 31.2 pg 27.0-33.0 (BEAKER) (test code = 751) MEAN CORPUSCULAR HEMOGLOBIN CONC 35.7 GM/DL 32.0-36.0 (BEAKER) (test code = 752) RED CELL DISTRIBUTION WIDTH 15.6 % 10.3-14.2 H (BEAKER) (test code = 412) PLATELET COUNT (BEAKER) (test 588 K/CU MM 150-430 H code = 756) MEAN PLATELET VOLUME (BEAKER) 7.9 fL 6.5-10.5 (test code = 754) NUCLEATED RED BLOOD CELLS 0 /100 WBC 0-0 (BEAKER) (test code = 413) NEUTROPHILS RELATIVE PERCENT 85 % (BEAKER) (test code = 429) LYMPHOCYTES RELATIVE PERCENT 7 % (BEAKER) (test code = 430) MONOCYTES RELATIVE PERCENT 5 % (BEAKER) (test code = 431) EOSINOPHILS RELATIVE PERCENT 2 % (BEAKER) (test code = 432) BASOPHILS RELATIVE PERCENT 0 % (BEAKER) (test code = 437) NEUTROPHILS ABSOLUTE COUNT 14.10 K/ L 1.80-8.00 H (BEAKER) (test code = 670) LYMPHOCYTES ABSOLUTE COUNT 1.20 K/ L 1.48-4.50 L (BEAKER) (test code = 414) MONOCYTES ABSOLUTE COUNT (BEAKER) 0.80 K/ L 0.00-1.30 (test code = 415) EOSINOPHILS ABSOLUTE COUNT 0.35 K/ L 0.00-0.50 (BEAKER) (test code = 416) BASOPHILS ABSOLUTE COUNT (BEAKER) 0.06 K/ L 0.00-0.20 (test code = 417) 0.00BASIC METABOLIC [id number] 05:57:00 Test Item Value Reference Range Interpretation Comments SODIUM (BEAKER) 136 meq/L 136-145 (test code = 381) POTASSIUM (BEAKER) 3.5 meq/L 3.5-5.1 (test code = 379) CHLORIDE (BEAKER) 105 meq/L 98-107 (test code = 382) CO2 (BEAKER) (test 22 meq/L 22-29 code = 355) BLOOD UREA NITROGEN 71 mg/dL 7-21 H (BEAKER) (test code = 354) CREATININE (BEAKER) 2.53 mg/dL 0.57-1.25 H (test code = 358) GLUCOSE RANDOM 115 mg/dL 70-105 H (BEAKER) (test code = 652) CALCIUM (BEAKER) 8.0 mg/dL 8.4-10.2 L (test code = 697) EGFR (BEAKER) (test mL/min/1.73 INSUFFIC IENT CLINICAL code = 1092) sq m DATA TO CALCULA TE ESTIMATED GFR. Specimen moderately [id number] 05:56:00 Test Item Value Reference Range Interpretation Comments PHOSPHORUS (BEAKER) (test code = 4.8 mg/dL 2.3-4.7 H 604) [id number] 05:56:00 Test Item Value Reference Range Interpretation Comments MAGNESIUM (BEAKER) (test code = 1.7 mg/dL 1.6-2.6 627) HEPATIC FUNCTION [id number] 05:56:00 Test Item Value Reference Range Interpretation Comments TOTAL PROTEIN (BEAKER) (test code = 5.4 gm/dL 6.0-8.3 L 770) ALBUMIN (BEAKER) (test code = 1145) 2.3 g/dL 3.5-5.0 L BILIRUBIN TOTAL (BEAKER) (test code 6.7 mg/dL 0.2-1.2 H = 377) BILIRUBIN DIRECT (BEAKER) (test 5.3 mg/dL 0.1-0.5 H code = 706) ALKALINE PHOSPHATASE (BEAKER) (test 176 U/L 40-150 H code = 346) AST (SGOT) (BEAKER) (test code = 65 U/L 5-34 H 353) ALT (SGPT) (BEAKER) (test code = 35 U/L 6-55 347) Specimen moderately ictericCALCIUM, [id number] 05:48:00 Test Item Value Reference Range Interpretation Comments CALCIUM IONIZED (BEAKER) (test 1.08 mmol/L 1.12-1.27 L code = 698) PH, BLOOD (AKER) (test code = 7.41 1810) POCT-GLUCOSE [id number] 21:49:00 Test Item Value Reference Range Interpretation Comments POC-GLUCOSE METER 107 mg/dL 70-110 TESTED AT [place] [address] ([facility]) (test code = [facility] 1538) [id number] POCT-GLUCOSE [id number] 17:44:00 Test Item Value Reference Range Interpretation Comments POC-GLUCOSE METER 156 mg/dL 70-110 H TESTED AT [place] [address] ([facility]) (test code = [facility] 1538) [id number] CBC W/PLT COUNT & AUTO [id number] 14:35:00 Test Item Value Reference Range Interpretation Comments WHITE BLOOD CELL COUNT (BEAKER) 18.1 K/ L 4.0-10.0 H (test code = 775) RED BLOOD CELL COUNT (BEAKER) 2.87 M/ L 4.20-5.80 L (test code = 761) HEMOGLOBIN (BEAKER) (test code = 8.5 GM/DL 13.0-16.8 L 410) HEMATOCRIT (BEAKER) (test code = 25.1 % 40.0-50.0 L 411) MEAN CORPUSCULAR VOLUME (BEAKER) 87.4 fL 82.0-98.0 (test code = 753) MEAN CORPUSCULAR HEMOGLOBIN 29.6 pg 27.0-33.0 (BEAKER) (test code = 751) MEAN CORPUSCULAR HEMOGLOBIN CONC 33.8 GM/DL 32.0-36.0 (BEAKER) (test code = 752) RED CELL DISTRIBUTION WIDTH 15.5 % 10.3-14.2 H (BEAKER) (test code = 412) PLATELET COUNT (BEAKER) (test 590 K/CU MM 150-430 H code = 756) MEAN PLATELET VOLUME (BEAKER) 7.9 fL 6.5-10.5 (test code = 754) NUCLEATED RED BLOOD CELLS 0 /100 WBC 0-0 (BEAKER) (test code = 413) NEUTROPHILS RELATIVE PERCENT 87 % (BEAKER) (test code = 429) LYMPHOCYTES RELATIVE PERCENT 6 % (BEAKER) (test code = 430) MONOCYTES RELATIVE PERCENT 5 % (BEAKER) (test code = 431) EOSINOPHILS RELATIVE PERCENT 2 % (BEAKER) (test code = 432) BASOPHILS RELATIVE PERCENT 0 % (BEAKER) (test code = 437) NEUTROPHILS ABSOLUTE COUNT 15.80 K/ L 1.80-8.00 H (BEAKER) (test code = 670) LYMPHOCYTES ABSOLUTE COUNT 1.15 K/ L 1.48-4.50 L (BEAKER) (test code = 414) MONOCYTES ABSOLUTE COUNT (BEAKER) 0.81 K/ L 0.00-1.30 (test code = 415) EOSINOPHILS ABSOLUTE COUNT 0.28 K/ L 0.00-0.50 (BEAKER) (test code = 416) BASOPHILS ABSOLUTE COUNT (BEAKER) 0.04 K/ L 0.00-0.20 (test code = 417) [id number](MANUAL DIFFERENTIAL)[id number] 14:35:00 Test Item Value Reference Range Interpretation Comments TOTAL COUNTED (BEAKER) (test code = 1351) WBC MORPHOLOGY (BEAKER) (test code = Normal 487) PLT MORPHOLOGY (BEAKER) (test code = Normal 486) RBC MORPHOLOGY (BEAKER) (test code = Normal 762) BASIC METABOLIC [id number] 12:44:00 Test Item Value Reference Range Interpretation Comments SODIUM (BEAKER) 137 meq/L 136-145 (test code = 381) POTASSIUM (BEAKER) 3.5 meq/L 3.5-5.1 (test code = 379) CHLORIDE (BEAKER) 105 meq/L 98-107 (test code = 382) CO2 (BEAKER) (test 21 meq/L 22-29 L code = 355) BLOOD UREA NITROGEN 79 mg/dL 7-21 H (BEAKER) (test code = 354) CREATININE (BEAKER) 3.02 mg/dL 0.57-1.25 H (test code = 358) GLUCOSE RANDOM 167 mg/dL 70-105 H (BEAKER) (test code = 652) CALCIUM (BEAKER) 8.0 mg/dL 8.4-10.2 L (test code = 697) EGFR (BEAKER) (test mL/min/1.73 INSUFFIC IENT CLINICAL code = 1092) sq m DATA TO CALCULA TE ESTIMATED GFR. Specimen moderately ictericCALCIUM, [id number] 12:25:00 Test Item Value Reference Range Interpretation Comments CALCIUM IONIZED (BEAKER) (test 1.06 mmol/L 1.12-1.27 L code = 698) PH, BLOOD (BEAKER) (test code = 7.39 1810) HEPATITIS A ANTIBODY, [id number] 09:08:00 Test Item Value Reference Range Interpretation Comments HEPATITIS A IGG ANTIBODY (BEAKER) Reactive Nonreactive A (test code = 2797) POCT-GLUCOSE [id number] 08:30:00 Test Item Value Reference Range Interpretation Comments POC-GLUCOSE METER 117 mg/dL 70-110 H TESTED AT [facility] 6720 (BEAKER) (test code = [facility] 1538) [address] HEPATITIS B SURFACE [id number] 08:28:00 Test Item Value Reference Range Interpretation Comments HEPATITIS B SURFACE ANTIBODY < mIU/mL <8.0 (BEAKER) (test code = 647) HEPATITIS B CORE ANTIBODY, [id number] 08:22:00 Test Item Value Reference Range Interpretation Comments HEPATITIS B CORE TOTAL ANTIBODY Nonreactive Nonreactive (BEAKER) (test code = 497) BASIC METABOLIC [id number] 08:13:00 Test Item Value Reference Range Interpretation Comments SODIUM (BEAKER) 138 meq/L 136-145 (test code = 381) POTASSIUM (BEAKER) 3.6 meq/L 3.5-5.1 (test code = 379) CHLORIDE (BEAKER) 106 meq/L 98-107 (test code = 382) CO2 (BEAKER) (test 20 meq/L 22-29 L code = 355) BLOOD UREA NITROGEN 83 mg/dL 7-21 H (BEAKER) (test code = 354) CREATININE (BEAKER) 3.19 mg/dL 0.57-1.25 H (test code = 358) GLUCOSE RANDOM 111 mg/dL 70-105 H (BEAKER) (test code = 652) CALCIUM (BEAKER) 8.0 mg/dL 8.4-10.2 L (test code = 697) EGFR (BEAKER) (test mL/min/1.73 INSUFFIC IENT CLINICAL code = 1092) sq m DATA TO CALCULA TE ESTIMATED GFR. Specimen moderately ictericBASIC METABOLIC [id number] 08:13:00 Test Item Value Reference Range Interpretation Comments SODIUM (BEAKER) 138 meq/L 136-145 (test code = 381) POTASSIUM (BEAKER) 3.7 meq/L 3.5-5.1 (test code = 379) CHLORIDE (BEAKER) 106 meq/L 98-107 (test code = 382) CO2 (BEAKER) (test 20 meq/L 22-29 L code = 355) BLOOD UREA NITROGEN 83 mg/dL 7-21 H (BEAKER) (test code = 354) CREATININE (BEAKER) 3.18 mg/dL 0.57-1.25 H (test code = 358) GLUCOSE RANDOM 110 mg/dL 70-105 H (BEAKER) (test code = 652) CALCIUM (BEAKER) 8.1 mg/dL 8.4-10.2 L (test code = 697) EGFR (BEAKER) (test mL/min/1.73 INSUFFIC IENT CLINICAL code = 1092) sq m DATA TO CALCULA TE ESTIMATED GFR. Specimen moderately [id number] 08:08:00 Test Item Value Reference Range Interpretation Comments PHOSPHORUS (BEAKER) (test code = 5.3 mg/dL 2.3-4.7 H 604) [id number] 08:08:00 Test Item Value Reference Range Interpretation Comments MAGNESIUM (BEAKER) (test code = 1.9 mg/dL 1.6-2.6 627) HEPATIC FUNCTION [id number] 08:05:00 Test Item Value Reference Range Interpretation Comments TOTAL PROTEIN (BEAKER) (test code = 5.3 gm/dL 6.0-8.3 L 770) ALBUMIN (BEAKER) (test code = 1145) 2.4 g/dL 3.5-5.0 L BILIRUBIN TOTAL (BEAKER) (test code 7.3 mg/dL 0.2-1.2 H = 377) BILIRUBIN DIRECT (BEAKER) (test 5.8 mg/dL 0.1-0.5 H code = 706) ALKALINE PHOSPHATASE (BEAKER) (test 178 U/L 40-150 H code = 346) AST (SGOT) (BEAKER) (test code = 60 U/L 5-34 H 353) ALT (SGPT) (BEAKER) (test code = 30 U/L 6-55 347) Specimen moderately ictericCALCIUM, [id number] 07:33:00 Test Item Value Reference Range Interpretation Comments CALCIUM IONIZED (BEAKER) (test 1.04 mmol/L 1.12-1.27 L code = 698) PH, BLOOD (BEAKER) (test code = 7.42 1810) POCT-GLUCOSE [id number] 02:15:00 Test Item Value Reference Range Interpretation Comments POC-GLUCOSE METER 103 mg/dL 70-110 TESTED AT [facility] 6720 (BEAKER) (test code = [place] 1538) [address] BASIC METABOLIC [id number] 00:43:00 Test Item Value Reference Range Interpretation Comments SODIUM (BEAKER) 137 meq/L 136-145 (test code = 381) POTASSIUM (BEAKER) 3.4 meq/L 3.5-5.1 L (test code = 379) CHLORIDE (BEAKER) 104 meq/L 98-107 (test code = 382) CO2 (BEAKER) (test 20 meq/L 22-29 L code = 355) BLOOD UREA NITROGEN 82 mg/dL 7-21 H (BEAKER) (test code = 354) CREATININE (BEAKER) 3.45 mg/dL 0.57-1.25 H (test code = 358) GLUCOSE RANDOM 104 mg/dL 70-105 (BEAKER) (test code = 652) CALCIUM (BEAKER) 7.9 mg/dL 8.4-10.2 L (test code = 697) EGFR (BEAKER) (test mL/min/1.73 INSUFFIC IENT CLINICAL code = 1092) sq m DATA TO CALCULA TE ESTIMATED GFR. Specimen moderately ictericCALCIUM, [id number] 00:34:00 Test Item Value Reference Range Interpretation Comments CALCIUM IONIZED (BEAKER) (test 0.99 mmol/L 1.12-1.27 L code = 698) PH, BLOOD (BEAKER) (test code = 7.45 1810) POCT-GLUCOSE [id number] 17:32:00 Test Item Value Reference Range Interpretation Comments POC-GLUCOSE METER 185 mg/dL 70-110 H TESTED AT [facility] 4417 (HENRIQUE) (test code = IFEANYI SCHMIDT 8953) [id number]
--- NOTE | 2021-01-07 18:23 | RAD REPORT ---
EXAM DESCRIPTION: RAD - Hand Left 3 View - 01/07/2021 6:16 pm CLINICAL HISTORY: laceration Pain and swelling FINDINGS: There is soft tissue amputation with underlying tuft fracture involving the third finger. Mild soft tissue amputation involving fourth finger.
[2021-01-07] MEDS ORDERED: HYDROCODONE/APAP 5/325 MG TAB ONE (20:11)
[2021-01-07] MEDS ORDERED: CEFAZOLIN SODIUM 1 GM/VIAL ONE (20:11)
[2021-01-07] MEDS ORDERED: WATER FOR INJ,STERILE 10 ML ONE (20:11)
[2021-01-07] MEDS ORDERED: TETANUS & DIPHTHERIA TOX,ADULT 0.5 ML VIAL ONE (20:12)
[2021-01-07] MEDS ORDERED: LIDOCAINE 1% MPF 5 ML VIAL ONE (21:01)
--- NOTE | 2021-01-07 22:01 | ER ---
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 Dressing in place. Coronavirus screen: Client denies travel out of the [place] in the last 14 days. At this time, the client does not indicate any symptoms associated with coronavirus-19. Ebola Screen: Patient denies travel to an Ebola-affected area in the 21 days before illness onset. Initial Sepsis Screen: Does the patient meet any 2 criteria? No. Patient's initial sepsis screen is negative. Does the patient have a suspected source of infection? Yes: Skin breakdown/wound. Risk Assessment: Do you want to hurt yourself or someone else? Patient reports no desire to harm self or others. Onset of symptoms was January 07, 2021. 17:55 Method Of Arrival: Ambulatory 1 17:55 Acuity: ALFIE 4 ll1 Historical: - Allergies: 17:57 No Known Allergies; ll1 - PMHx: 17:57 Diverticulitis; kidney failure; liver failure; ll1 - PSHx: 17:57 Colon Resection; ll1 - Immunization history:: Last tetanus immunization: up to date Flu vaccine is up to date. - Social history:: Smoking status: Patient denies any tobacco usage or history of. Screenin:00 Abuse screen: Denies threats or abuse. Denies injuries from another. Nutritional wh screening: No deficits noted. Tuberculosis screening: No symptoms or risk factors identified. Fall Risk None identified. Assessment: 19:45 General: Appears in no apparent distress. uncomfortable, Behavior is calm, cooperative, wh appropriate for age. Pain: Complains of pain in left hand. Neuro: Level of Consciousness is awake, alert, obeys commands, Oriented to person, place, time, situation, Appropriate for age. Cardiovascular: Capillary refill < 3 seconds. Respiratory: Airway is patent Respiratory effort is even, unlabored, Respiratory pattern is regular, symmetrical. GI: Abdomen is flat, non-distended. : No signs and/or symptoms were reported regarding the genitourinary system. EENT: No signs and/or symptoms were reported regarding the EENT system. Derm: Skin is intact, is healthy with good turgor, Skin is pink, warm \T\ dry. normal. Musculoskeletal: Circulation, motion, and sensation intact. Injury Description: Amputation sustained to palmar aspect of distal phalanx of left middle finger is partial, was sustained 2-4 hours ago. 21:00 Reassessment: Patient appears in no apparent distress at this time. No changes from previously documented assessment. Patient and/or family updated on plan of care and expected duration. Pain level reassessed. Patient is alert, oriented x 3, equal unlabored respirations, skin warm/dry/pink. 22:30 Reassessment: Patient appears in no apparent distress at this time. Patient and/or family updated on plan of care and expected duration. Pain level reassessed. Patient is alert, oriented x 3, equal unlabored respirations, skin warm/dry/pink. Vital Signs: 17:55 BP 155 / 92; Pulse 74; Resp 16; Temp 97.8; Pulse Ox 98% ; Weight 93.89 kg; Height 5 ft. ll1 7 in. (170.18 cm); Pain 5/10; 22:30 BP 148 / 78; Pulse 74; Resp 18; Pulse Ox 99% on R/A; wh 17:55 Body Mass Index 32.42 (93.89 kg, 170.18 cm) ll1 ED Course: 17:51 Patient arrived in ED. mr 17:51 Danny Duong MD is Private Physician. mr 17:57 Triage completed. ll1 17:57 Arm band placed on Patient notified of wait time. ll1 18:15 Hand Left 3 View XRAY In Process Unspecified. EDMS 19:37 Sherri Strong, HENRI is Primary Nurse. 19:46 Zach Gray NP is PHCP. pm1 19:47 Subhash White MD is Attending Physician. pm1 20:00 Patient has correct armband on for positive identification. Bed in low position. Call light in reach. Side rails up X 1. Pulse ox on. NIBP on. 22:00 Assist provider with laceration repair on palmar aspect of distal phalanx of left middle finger that was between 2.6 to 7.5 cm using sutures. Set up tray. Performed by Zach Gray COIL WINDING SUPERVISOR Dressed with 4X4s, Xeroform, Patient tolerated well. Patient did not have IV access during this emergency room visit. Administered Medications: 20:00 Drug: Ancef (cefazolin) 1 grams Route: IM; Site: right gluteus; 20:39 Follow up: Response: No adverse reaction 22:38 Follow up: Response: No adverse reaction 20:02 Drug: [place] (HYDROcodone-acetaminophen) 5 mg-325 mg 1 tabs {Note: RASS 0.} Route: PO; 20:39 Follow up: Response: No adverse reaction :39 Follow up: Response: Pain is decreased; RASS: Alert and Calm (0) :38 Follow up: Response: No adverse reaction; Pain is decreased; RASS: Alert and Calm (0) 20:04 Drug: Tetanus-Diphtheria Toxoid Adult 0.5 ml {[employer] Chief Librarian: [employer]. Exp: 01/19/2022. Lot #: [id number]. } Route: IM; Site: right deltoid; 20:38 Follow up: Response: No adverse reaction :38 Follow up: Response: No adverse reaction 21:23 Drug: Lidocaine (1 %) 5 ml {Note: Administered by provider.} Volume: 5 ml; Route: Infiltration; :38 Follow up: Response: No adverse reaction Outcome: 22:00 Discharge ordered by . pm1 22:37 Discharged to home ambulatory. 22:37 Condition: stable 22:37 Discharge instructions given to patient, Instructed on discharge instructions, follow up and referral plans. no drinking with medication, no driving heavy equipment, medication usage, wound care, Demonstrated understanding of instructions, follow-up care, medications, wound care, splint care, Prescriptions given X 2. 22:39 Patient left the ED. Signatures: Dispatcher [employer] MALCOMUT Melida Mckenna Zach Moreno NP COIL WINDING SUPERVISOR pm1 Sherri Strong RN RN Kristie Hope RN RN [facility]
--- NOTE | 2021-01-07 22:01 | EDPHYS ---
Physician Documentation [facility] Name: Jae Faust Age: 65 yrs Sex: Male : 1955 Arrival Date: 01/07/2021 Time: 17:51 Bed 18 Private MD: Danny Duong ED Physician Subhash White HPI: 01/07 20:05 This 65 yrs old Male presents to ER via Ambulatory with complaints of Finger pm1 Laceration. 20:05 The patient or guardian reports a laceration. The complaints affect the left middle pm1 finger and left ring finger. Context: The problem was sustained outdoors, resulted from Hand slide down into the strand buncher fine wire blade area when he was adjusting the height of the strand buncher fine wire. Onset: The symptoms/episode began/occurred just prior to arrival. Modifying factors: The symptoms are alleviated by pressure to area. Associated signs and symptoms: The patient has no apparent associated signs or symptoms. Severity of symptoms: in the emergency department the symptoms have improved. The patient has not experienced similar symptoms in the past. Historical: - Allergies: 17:57 No Known Allergies; ll1 - PMHx: 17:57 Diverticulitis; kidney failure; liver failure; ll1 - PSHx: 17:57 Colon Resection; ll1 - Immunization history:: Last tetanus immunization: up to date Flu vaccine is up to date. - Social history:: Smoking status: Patient denies any tobacco usage or history of. ROS: 20:05 Constitutional: Negative for fever, chills, and weight loss, Cardiovascular: Negative pm1 for chest pain, palpitations, and edema, Respiratory: Negative for shortness of breath, cough, wheezing, and pleuritic chest pain. 20:05 Neuro: Negative for headache, weakness, numbness, tingling, and seizure. 20:05 MS/extremity: Positive for injury or acute deformity, pain, of the left ring finger and left middle finger, Negative for decreased range of motion. 20:05 Skin: Positive for avulsion, laceration(s), of the left ring finger and left middle finger. Exam: 20:05 Constitutional: This is a well developed, well nourished patient who is awake, alert, pm1 and in no acute distress. Head/Face: Normocephalic, atraumatic. 20:05 Back: No spinal tenderness. No costovertebral tenderness. Full range of motion. 20:05 Cardiovascular: Exam negative for acute changes, Rate: normal, Rhythm: regular, Pulses: no pulse deficits are appreciated. 20:05 Respiratory: Exam negative for acute changes, respiratory distress, shortness of breath. 20:05 Skin: Appearance: normal except for affected area, injury, avulsion(s), A moderate sized of the distal phalanx of left middle finger, laceration(s), the wound is approximately 1.5 cm(s), of the palmar aspect of distal phalanx of left ring finger. 20:05 Neuro: Exam negative for acute changes, Orientation: is normal, Mentation: is normal, Motor: is normal, moves all fours. Vital Signs: 17:55 BP 155 / 92; Pulse 74; Resp 16; Temp 97.8; Pulse Ox 98% ; Weight 93.89 kg; Height 5 ft. ll1 7 in. (170.18 cm); Pain 5/10; 22:30 BP 148 / 78; Pulse 74; Resp 18; Pulse Ox 99% on R/A; wh 17:55 Body Mass Index 32.42 (93.89 kg, 170.18 cm) ll1 Laceration: 23:05 Wound Repair of 1.5cm ( 0.6in ) subcutaneous laceration to palmar aspect of distal pm1 phalanx of left ring finger. Irregularly shaped.. Distal neuro/vascular/tendon intact. Anesthesia: Digital block administered with 2 mls of 1% lidocaine. Wound prep: Extensive cleansing with hibiclenz by me, Wound irrigation with saline by mo, Wound explored extensively, Copious irrigation. Skin closed with 5 5-0 Prolene using simple sutures and sterile technique. Dressed with Bacitracin, Xeroform. Patient tolerated well. MDM: 19:47 Patient medically screened. pm1 20:09 Physician consultation: Gissel Mccoy was contacted at 20:09, regarding consult, pm1 patient's condition, and will see patient in office, 0900 at [facility]. left third finger - Wash out wound well, apply bacitracin, apply Xeroform dressing. left 4th finger Suture. Discharge patient home with Keflex 500 mg TID. tomorrow. 21:57 Data reviewed: vital signs. Data interpreted: Pulse oximetry: on room air is 98 %. pm1 Interpretation: normal. Counseling: I had a detailed discussion with the patient and/or guardian regarding: the historical points, exam findings, and any diagnostic results supporting the discharge/admit diagnosis, radiology results, the need for outpatient follow up, for definitive care, a hand specialist, tomorrow at 0900. 01/07 18:02 Order name: Hand Left 3 View XRAY; Complete Time: 19:47 pm1 01/07 20:37 Order name: Prolene, Sutures; Complete Time: 21:24 pm1 01/07 20:37 Order name: Gloves, Sterile; Complete Time: 21:24 pm1 01/07 20:37 Order name: Setup Suture Tray; Complete Time: 20:54 pm1 Administered Medications: 20:00 Drug: Ancef (cefazolin) 1 grams Route: IM; Site: right gluteus; 20:39 Follow up: Response: No adverse reaction 22:38 Follow up: Response: No adverse reaction 20:02 Drug: [place] (HYDROcodone-acetaminophen) 5 mg-325 mg 1 tabs {Note: RASS 0.} Route: PO; 20:39 Follow up: Response: No adverse reaction 20:39 Follow up: Response: Pain is decreased; RASS: Alert and Calm (0) 22:38 Follow up: Response: No adverse reaction; Pain is decreased; RASS: Alert and Calm (0) 20:04 Drug: Tetanus-Diphtheria Toxoid Adult 0.5 ml {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 Exp: 01/19/2022. Lot #: [id number]. } Route: IM; Site: right deltoid; 20:38 Follow up: Response: No adverse reaction 22:38 Follow up: Response: No adverse reaction 21:23 Drug: Lidocaine (1 %) 5 ml {Note: Administered by provider.} Volume: 5 ml; Route: Infiltration; 22:38 Follow up: Response: No adverse reaction Disposition: 01/08 08:17 Co-signature as Attending Physician, Subhash White MD. pkl Disposition: 01/07/21 22:00 Discharged to Home. 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 - Condition is Stable. - Discharge Instructions: Laceration Care, Adult. - Prescriptions for Cephalexin 500 mg Oral Capsule - take 1 capsule by ORAL route every 8 hours for 10 days; 30 capsule. Tylenol- Codeine #3 300-30 mg Oral Tablet - take 2 tablets by ORAL route every 4-6 hours As needed; 20 tablet. - Medication Reconciliation Form, Thank You Letter, Antibiotic Education, Prescription Opioid Use form. - Follow up: Emergency Department; When: As needed; Reason: Worsening of condition. Follow up: Private Physician; When: Tomorrow with Dr. Gissel Mccoy; Reason: Recheck today's complaints, Continuance of care, Re-evaluation by your physician. - Problem is new. - Symptoms have improved. - Notes: See Dr. Mccoy tomorrow at her office at 9:[address] Gissel Mccoy [facility] - [address] [address] [phone] Signatures: Dispatcher [employer] EDMS Subhash White MD MD pkl Marinas, Patrick, RODRÍGUEZ BRIAR CUTTER pm1 Sherri Strong RN RN Kristie Hope RN RN ll1 Corrections: (The following items were deleted from the chart) 01/07 22:39 22:00 01/07/2021 22:00 Discharged to Home. Impression: Soft tissue amputation with tuft wh fracture of middle left finger; Laceration without foreign body of left ring finger without damage to nail. Condition is Stable. Forms are Medication Reconciliation Form, Thank You Letter, Antibiotic Education, Prescription Opioid Use. Follow up: Emergency Department; When: As needed; Reason: Worsening of condition. Follow up: Private Physician; When: Tomorrow with Dr. Gissel Mccoy; Reason: Recheck today's complaints, Continuance of care, Re-evaluation by your physician. Problem is new. Symptoms have improved. pm1 01/08 00:49 01/07 20:09 Physician consultation: Gissel Mccoy was contacted at 20:09, regarding pm1 consult, patient's condition, pm1
[2021-01-07] MEDS ORDERED: BACITRACIN OINTMENT 15 GM TUBE TOP ONE (22:50)
[2021-01-07 23:00] VITALS: TEMP 97.8
[2021-01-07 23:01] VITALS: BP 148/78; O2SAT 99
== END 2021-01-07 22:39 | disposition home or self-care (01) ==
LOC: ER 17:45
PROC: 0HQGXZZ Repair Left Hand Skin, External Approach (ICD-10-PCS; principal; 2021-01-07)
DX: S68.613A Complete traumatic transphalangeal amputation of left middle finger, initial encounter (principal); S61.215A Laceration without foreign body of left ring finger without damage to nail, initial encounter; Z23 Encounter for immunization; W31.89XA Contact with other specified machinery, initial encounter
CPT/HCPCS: 73130; 90471; 90714; 96372; 99284; 12001; J0690